=== PATIENT | male | born 1965 | race Hispanic/Latino ===

== ENCOUNTER 2020-09-14 09:26 | Inpatient (IN) | payer OTHER ==
[2020-09-14] MEDS ORDERED: SODIUM CHLORIDE 0.9% 1000 ML 1,000 ML IV ONE ×2 (09:50→10:10)
[2020-09-14] MEDS ORDERED: CEFEPIME/NS 1 GM/100 ML 1 GM/100 ML BAG IV ONE (10:11)
[2020-09-14] MEDS ORDERED: AZITHROMYCIN/NS 500 MG/250 ML 500 MG/250 ML BAG IV ONE (10:32)
[2020-09-14] MEDS ORDERED: PANTOPRAZOLE 40 MG INJ IV ONE (10:33)
[2020-09-14 10:55] LABS: Bacteria,Urine 3+ /HPF (Negative); Bilirubin,Urine NEG (Negative); Blood,Urine MOD (Negative); Color,Urine Yellow (Yellow); Urobilinogen,Urine < 2.0 mg/dL (<2.0)
--- NOTE | 2020-09-14 10:55 | XRay Report ---
CHEST 1 VIEW INDICATION / CLINICAL INFORMATION: Difficulty breathing. COMPARISON: None available. FINDINGS: SUPPORT DEVICES: None. HEART / MEDIASTINUM: No significant abnormality. LUNGS / PLEURA: Bilateral pulmonary opacities are present throughout the lung bases. The appearance i s consistent with bibasilar pneumonia. No significant pleural effusion. No pneumothorax. ADDITIONAL FINDINGS: No significant additional findings. IMPRESSION: 1. Bibasilar pulmonary opacities most consistent with pneumonia. Signer Name: Phuong Cota MD Signed: 09/14/2020 10:50 AM Workstation Name: [id number]
[2020-09-14 10:57] LABS: WBC,Urine > 182.0 /HPF (0.0-6.0)
[2020-09-14] MEDS ORDERED: VANCOMYCIN PHARMACY TO DOSE IV SCH (11:00)
[2020-09-14] MEDS ORDERED: VANCOMYCIN 1,500 MG in SODIUM CHLORIDE 0.9% 500 ML 500 ML IV ONE (11:00)
[2020-09-14 11:15] LABS: Hematocrit 34.5 % (35.5-45.6); Hemoglobin 11.2 gm/dl (11.8-15.2); Mean Corpuscular HGB Conc 33 % (32-34); Mean Corpuscular Volume 85 fl (84-94); Platelet Count 365 K/mm3 (140-440); Red Blood Count 4.07 M/mm3 (3.65-5.03); Red Cell Distribution Width 13.7 % (13.2-15.2)
[2020-09-14 11:23] LABS: INR 1.2 (0.87-1.13); Partial Thromboplastin Time 31.2 Sec. (24.2-36.6)
[2020-09-14 11:32] LABS: Creatine Kinase MB 2.5 ng/mL (0.0-4.0)
--- NOTE | 2020-09-14 11:34 | Emergency Department Report ---
ED General Adult HPI - General Chief complaint: Hyperglycemia Stated complaint: HIGH BLOOD SUGAR/WEAK Time Seen by Provider: 09/14/20 10:08 Source: patient, EMS Mode of arrival: Stretcher Limitations: Physical Limitation - History of Present Illness Initial comments: This is a 55-year old man with no prior history of diabetes. He arrives via EMS, found to have a sugar off the high end of the scale. He is perhaps a bit altered but able to answer questions. He can tell me his name. He is very slow to answer questions. He states that his nephew called EMS because he was very weak. He denies essentially all other symptomatology; he is giving a grossly negative review of systems. -: unknown Severity scale (0 -10): 0 Associated Symptoms: denies other symptoms (But altered) - Related Data Allergies Allergy/AdvReac Type Severity Reaction Status Date / Time No Known Allergies Allergy Verified 09/14/20 09:38 ED Review of Systems ROS: Stated complaint: HIGH BLOOD SUGAR/WEAK Other details as noted in HPI Comment: Unobtainable due to pts medical conditions ED Past Medical Hx - Past Medical History Previous Medical History?: No - Surgical History Past Surgical History?: Yes Additional Surgical History: tonsillectomy - Social History Smoking Status: Former Smoker Substance Use Type: None ED Physical Exam - General Limitations: Physical Limitation General appearance: lethargic - Head Head exam: Present: other (Band-Aid on forehead) - Eye Eye exam: Present: PERRL, EOMI. Absent: scleral icterus - ENT ENT exam: Present: mucous membranes dry - Neck Neck exam: Present: normal inspection. Absent: tenderness, meningismus - Respiratory Respiratory exam: Present: respiratory distress, rhonchi (Bilaterally) - Cardiovascular Cardiovascular Exam: Present: tachycardia - GI/Abdominal GI/Abdominal exam: Present: soft, distended (Perhaps slightly). Absent: tenderness, guarding, rebound, rigid - exam: Present: other (There is gross evidence of monilial infection involving the penis and scrotal area. There is no purulence abscess or gangrene) - Extremities Exam Extremities exam: Present: normal inspection (Without gross deformity.) - Back Exam Back exam: Present: other (Did not visualize) - Neurological Exam Neurological exam: Present: altered, other (No apparent focal deficit) - Psychiatric Psychiatric exam: Present: normal mood, flat affect - Skin Skin exam: Present: warm ED Course Vital Signs 09/14/20 09/14/20 09/14/20 09:38 09:44 09:45 Temperature 99.3 F Pulse Rate 124 H 109 H 122 H Respiratory 21 24 22 Rate Blood Pressure 121/63 Blood Pressure 124/59 [Left] O2 Sat by Pulse 94 93 94 Oximetry 09/14/20 09/14/20 09/14/20 09:50 10:00 10:15 Temperature Pulse Rate 123 H 120 H Respiratory 21 25 H 23 Rate Blood Pressure 121/63 131/75 Blood Pressure [Left] O2 Sat by Pulse 94 92 96 Oximetry 09/14/20 09/14/20 09/14/20 10:30 10:46 11:00 Temperature Pulse Rate 122 H 116 H 117 H Respiratory 21 17 27 H Rate Blood Pressure 131/75 119/68 119/68 Blood Pressure [Left] O2 Sat by Pulse 96 95 92 Oximetry 09/14/20 09/14/20 11:30 11:46 Temperature Pulse Rate 117 H Respiratory 29 H Rate Blood Pressure 119/68 104/58 Blood Pressure [Left] O2 Sat by Pulse 90 91 Oximetry - Reevaluation(s) Reevaluation #1: IV fluid bolus, empiric antibiotics, ascertain if patient is in DKA. 09/14/20 11:55 09/14/20 12:29 Patient has already been placed in isolation. His chest x-ray was consistent with COVID-19. His urine was grossly purulent. He received triple antibiotic coverage. He will require fungal coverage. I will defer that to the hospitalist. Reevaluation #2: Patient was given insulin, fluids, empiric antibiotic. Referred to the hospitalist staff. Probably appropriate for the IMCU. 09/14/20 12:34 ED Medical Decision Making - Lab Data Result diagrams: 09/14/20 10:33 09/14/20 10:33 Laboratory Results - last 24 hr 09/14/20 09/14/20 09/14/20 09:32 10:33 10:33 WBC 11.5 H RBC 4.07 Hgb 11.2 L Hct 34.5 L MCV 85 MCH 28 MCHC 33 RDW 13.7 Plt Count 365 PT 15.2 H INR 1.20 H APTT 31.2 D-Dimer 1032.62 H POC Glucose > 600 H Lactic Acid CK-MB (CK-2) Troponin T NT-Pro-B Natriuret Pep Urine Color Urine Turbidity Urine pH Ur Specific [place] Urine Protein Urine Glucose (UA) Urine Ketones Urine Blood Urine Nitrite Urine Bilirubin Urine Urobilinogen Ur Leukocyte Esterase Urine WBC (Auto) Urine RBC (Auto) Urine Bacteria (Auto) Urine WBC Clumps 09/14/20 09/14/20 09/14/20 10:33 10:33 10:35 WBC RBC Hgb Hct MCV MCH MCHC RDW Plt Count PT INR APTT D-Dimer POC Glucose Lactic Acid 2.90 H* CK-MB (CK-2) 2.5 Troponin T < 0.010 NT-Pro-B Natriuret Pep 597.0 Urine Color Yellow Urine Turbidity Turbid Urine pH 5.0 Ur Specific [place] 1.012 Urine Protein 100 mg/dl Urine Glucose (UA) >=500 Urine Ketones Neg Urine Blood Mod Urine Nitrite Neg Urine Bilirubin Neg Urine Urobilinogen < 2.0 Ur Leukocyte Esterase Mod Urine WBC (Auto) > 182.0 H Urine RBC (Auto) 39.0 Urine Bacteria (Auto) 3+ Urine WBC Clumps 3+ Laboratory Results - last 24 hr 09/14/20 09/14/20 09/14/20 09:32 10:33 10:33 WBC 11.5 H RBC 4.07 Hgb 11.2 L Hct 34.5 L MCV 85 MCH 28 MCHC 33 RDW 13.7 Plt Count 365 PT 15.2 H INR 1.20 H APTT 31.2 D-Dimer 1032.62 H Sodium Potassium Chloride Carbon Dioxide Anion Gap BUN Creatinine Estimated GFR BUN/Creatinine Ratio Glucose POC Glucose > 600 H Lactic Acid Calcium Magnesium Ferritin Total Bilirubin Direct Bilirubin AST ALT Alkaline Phosphatase Lactate Dehydrogenase Total Creatine Kinase CK-MB (CK-2) CK-MB (CK-2) Rel Index Troponin T C-Reactive Protein NT-Pro-B Natriuret Pep Total Protein Albumin Albumin/Globulin Ratio Lipase Urine Color Urine Turbidity Urine pH Ur Specific [place] Urine Protein Urine Glucose (UA) Urine Ketones Urine Blood Urine Nitrite Urine Bilirubin Urine Urobilinogen Ur Leukocyte Esterase Urine WBC (Auto) Urine RBC (Auto) Urine Bacteria (Auto) Urine WBC Clumps Urine Opiates Screen Urine Methadone Screen Ur Barbiturates Screen Ur Phencyclidine Scrn Ur Amphetamines Screen U Benzodiazepines Scrn Urine Cocaine Screen U Marijuana (THC) Screen Drugs of Abuse Note 09/14/20 09/14/20 09/14/20 10:33 10:33 10:33 WBC RBC Hgb Hct MCV MCH MCHC RDW Plt Count PT INR APTT D-Dimer Sodium 120 L Potassium 5.2 H Chloride 87.5 L Carbon Dioxide 21 L Anion Gap 17 BUN 29 H Creatinine 2.8 H Estimated GFR 23 BUN/Creatinine Ratio 10 Glucose 891 H* POC Glucose Lactic Acid Calcium 7.6 L Magnesium 1.80 Ferritin 1422.0 H Total Bilirubin 0.30 Direct Bilirubin < 0.2 AST 5 ALT 7 Alkaline Phosphatase 109 Lactate Dehydrogenase 146 Total Creatine Kinase 48 L CK-MB (CK-2) 2.5 CK-MB (CK-2) Rel Index 5.2 H Troponin T < 0.010 C-Reactive Protein 33.60 H NT-Pro-B Natriuret Pep 597.0 Total Protein 6.2 L Albumin 2.3 L Albumin/Globulin Ratio 0.6 Lipase 13 Urine Color Urine Turbidity Urine pH Ur Specific [place] Urine Protein Urine Glucose (UA) Urine Ketones Urine Blood Urine Nitrite Urine Bilirubin Urine Urobilinogen Ur Leukocyte Esterase Urine WBC (Auto) Urine RBC (Auto) Urine Bacteria (Auto) Urine WBC Clumps Urine Opiates Screen Urine Methadone Screen Ur Barbiturates Screen Ur Phencyclidine Scrn Ur Amphetamines Screen U Benzodiazepines Scrn Urine Cocaine Screen U Marijuana (THC) Screen Drugs of Abuse Note 09/14/20 09/14/20 09/14/20 10:33 10:35 10:35 WBC RBC Hgb Hct MCV MCH MCHC RDW Plt Count PT INR APTT D-Dimer Sodium Potassium Chloride Carbon Dioxide Anion Gap BUN Creatinine Estimated GFR BUN/Creatinine Ratio Glucose POC Glucose Lactic Acid 2.90 H* Calcium Magnesium Ferritin Total Bilirubin Direct Bilirubin AST ALT Alkaline Phosphatase Lactate Dehydrogenase Total Creatine Kinase CK-MB (CK-2) CK-MB (CK-2) Rel Index Troponin T C-Reactive Protein NT-Pro-B Natriuret Pep Total Protein Albumin Albumin/Globulin Ratio Lipase Urine Color Yellow Urine Turbidity Turbid Urine pH 5.0 Ur Specific [place] 1.012 Urine Protein 100 mg/dl Urine Glucose (UA) >=500 Urine Ketones Neg Urine Blood Mod Urine Nitrite Neg Urine Bilirubin Neg Urine Urobilinogen < 2.0 Ur Leukocyte Esterase Mod Urine WBC (Auto) > 182.0 H Urine RBC (Auto) 39.0 Urine Bacteria (Auto) 3+ Urine WBC Clumps 3+ Urine Opiates Screen Negative Urine Methadone Screen Negative Ur Barbiturates Screen Negative Ur Phencyclidine Scrn Negative Ur Amphetamines Screen Negative U Benzodiazepines Scrn Negative Urine Cocaine Screen Negative U Marijuana (THC) Screen Negative Drugs of Abuse Note Disclamer - EKG Data -: EKG Interpreted by Me Rate: tachycardia - EKG Data Interpretation: other (Nonspecific changes, normal axis, atrial fibrillation with RVR) - Radiology Data Radiology results: image reviewed LUNGS / PLEURA: Bilateral pulmonary opacities are present throughout the lung bases. The appearance is consistent with bibasilar pneumonia. No significant pleural effusion. No pneumothorax. ADDITIONAL FINDINGS: No significant additional findings. IMPRESSION: 1. Bibasilar pulmonary opacities most consistent with pneumonia. Right side is more confluent than the left Radiologist questions aspiration on the basis of the CT pulmonary images. The patient was found to have obstructive uropathy with bladder wall thickening cons ider neoplasm consider hemorrhage. Ramirez is in good location. Critical Care Time: Yes Critical care time in (mins) excluding proc time.: 90 Critical care attestation.: If time is entered above; I have spent that time in minutes in the direct care of this critically ill patient, excluding procedure time. ED Disposition Clinical Impression: Acute encephalopathy, Pyelonephritis, Obstructive uropathy, Acute kidney injury, Atrial fibrillation with RVR, Yeast dermatitis of penis, Hyponatremia, Hypochloremia, COVID-19 virus infection Sepsis Qualifiers: Sepsis type: sepsis due to unspecified organism Sepsis acute organ dysfunction status: with acute organ dysfunction Severe sepsis acute organ dysfunction type: acute renal failure Acute renal failure type: unspecified Severe sepsis shock status: without septic shock Qualified Code(s): A41.9 - Sepsis, unspecified organism; R65.20 - Severe sepsis without septic shock; N17.9 - Acute kidney failure, unspecified Bilateral pneumonia Qualifiers: Pneumonia type: due to unspecified organism Lung location: lower lobe of lung Qualified Code(s): J18.9 - Pneumonia, unspecified organism Disposition: OP ADMIT IP TO THIS HOSP Is pt being admited?: Yes Does the pt Need Aspirin: Yes Condition: Stable Instructions: Bacterial Pneumonia (ED) Referrals: PRIMARY CARE, [Primary Care Provider] - 3-5 Days Time of Disposition: 12:37
[2020-09-14 11:35] LABS: Alanine Aminotransferase 7 units/L (7-56); Albumin 2.3 g/dL (3.9-5); BUN/Creatinine Ratio 10; Blood Urea Nitrogen 29 mg/dL (9-20); Calcium 7.6 mg/dL (8.4-10.2); Hemolysis Index 0
[2020-09-14 11:39] LABS: Bilirubin,Direct < 0.2 mg/dL (0-0.2)
--- NOTE | 2020-09-14 11:40 | Cat Scan Report ---
CT head/brain wo con INDICATION / CLINICAL INFORMATION: AMS. TECHNIQUE: Axial CT imaging of the brain was obtained without contrast. Coronal and sagittal reformatted imaging obtained and reviewed. All CT scans at this location are performed using CT dose reduction for ALAR A by means of automated exposure control. COMPARISON: None available. FINDINGS: No intracranial hemorrhage, mass, or midline shift is noted. No extra-axial fluid collection or sugge stion of acute territorial infarction. Ventricular system and basilar cisterns are unremarkable. Mild age-appropriate atrophy noted. Visualized paranasal sinuses and mastoid air cells are well aerated and clear. No calvarial abnormali ty. IMPRESSION: 1. No acute intracranial abnormality. Signer Name: Phuong Cota MD Signed: 09/14/2020 11:35 AM Workstation Name: [id number]
[2020-09-14 11:42] LABS: Amphetamine Screen,Urine Negative; Benzodiazepines Screen,Urine Negative; Cannabinoid Screen,Urine Negative; Cocaine Screen,Urine Negative; Methadone Screen,Urine Negative; Opiate Screen,Urine Negative
[2020-09-14 11:50] LABS: C-Reactive Protein 33.6 mg/dL (0.00-1.30)
--- NOTE | 2020-09-14 11:59 | Cat Scan Report ---
CT abdomen pelvis wo con INDICATION / CLINICAL INFORMATION: abd pain. TECHNIQUE: Routine CT abdomen and pelvis without IV contrast All CT scans at this location are performed using C T dose reduction for ALARA by means of automated exposure control. COMPARISON: None available. FINDINGS: Abdomen and pelvis: There is severe consolidative process identified within the dependent portion of both lower lungs right worse than left. There are some cavitary features/60 change within the depende nt portion of the right lower lobe with surrounding consolidation. There is a small right pleural eff usion. The liver is fatty. The gallbladder is mostly contracted. The spleen, pancreas adrenal glands are unr emarkable. There is severe right hydroureteronephrosis and moderate left hydroureteronephrosis. Both ureters tra nsition at the level of the urinary bladder and there is no evidence of nephrolithiasis. Urinary blad augie is diffusely abnormal in appearance especially the anterior wall which is significantly thickened and irregular measuring up to 1.4 cm in greatest thickness. There is a Ramirez catheter with intermixe d high density material identified within the urinary bladder lumen. Colonic diverticulosis but no diverticulitis. No free air or free fluid. There is evidence of severe discogenic degenerative change at L3-L4 and L4-L5. IMPRESSION: 1. Severe bilateral lower lobe airspace pneumonia with some evidence of cavitary change within the ri ght lower lobe concerning for severe aspiration pneumonia. Suspect tiny right pleural effusion. 2. Severe bilateral hydroureteronephrosis, right worse than left with transition at the urinary bladd er without obvious obstructing lesion. 3. Abnormally thickened urinary bladder wall with intermixed high density material concerning for int raluminal hemorrhage. The Ramirez catheter balloon does appear to be within the urinary bladder lumen. The etiology for urinary bladder wall thickening could be secondary to chronic neurogenic bladder inga darrius underlying neoplasm. No prior exam is available for comparison to determine chronicity of this ab normality. 4. Colonic diverticulosis but no diverticulitis. Signer Name: Naman Lamas MD Signed: 09/14/2020 11:55 AM Workstation Name: [id number]
[2020-09-14] MEDS ORDERED: INSULIN REGULAR, HUMAN 100 UNITS/1 ML IV ONE ×2 (12:00→15:00)
[2020-09-14 12:36] LABS: Total Cells Counted 100
[2020-09-14 12:37] LABS: Platelet Estimate Consistent w Auto; RBC Morphology Normal
[2020-09-14] MEDS ORDERED: ASPIRIN 81 MG TAB CHEW PO ONE (12:37)
--- NOTE | 2020-09-14 13:02 | History and Physical Report ---
History of Present Illness Chief complaint: He is weak History of present illness: 55 YO Male with DM presents to ED for evaluation. Patient is lethargic and unable to provide detailed history at the time of my evaluation. Patient history taken from EMS staff, ED staff, as well as patient family. As per patient nephewthe patient has "gotten very weak" over the past week with persistently worsening symptoms over the same timeframe. EMS was notified and upon arrival the patient was found to be in distress and subsequently transported to [facility] for further care and evaluation of the aforementioned symptoms. The patient was seen and evaluated in the emergency department. All lab and imaging studies reviewed. The patient was found to have pneumonia, urinary tract infection complicated by sepsis, hyponatremia, acute kidney injury, uncontrolled diabetes mellitus with a blood glucose in the 800s which is consistent with hyperglycemic hyperosmolar state. Patient also found to have bilateral hydronephrosis without evidence of urinary obstruction. Patient admitted to [facility] and initiated on sepsis protocol, pneumonia protocol, as well as coronavirus protocol. Patient initiated on aggressive IV insulin therapy as well as sliding scale insulin therapy. No further history is obtainable. Patient is confused with diminished cognition at the time of my evaluation but has positive gag reflex and is able to protect his airway without difficulty. No prior admission for review. No medication listed at time of admission for reconciliation. Past History Past Medical History: diabetes, other (See HPI) Past Surgical History: No surgical history, Other (Reviewed) Social history: , lives with family. denies: smoking, alcohol abuse, prescription drug abuse Family history: diabetes, hypertension Medications and Allergies Allergies Allergy/AdvReac Type Severity Reaction Status Date / Time No Known Allergies Allergy Verified 09/14/20 09:38 Review of Systems ROS unobtainable: due to mental status Exam - Constitutional Vitals: Temp Pulse Resp BP Pulse Ox 99.3 F 117 H 29 H 104/58 91 09/14/20 09:38 09/14/20 11:46 09/14/20 11:46 09/14/20 11:46 09/14/20 11:46 General appearance: Present: mild distress - EENT Eyes: Present: PERRL ENT: hearing decreased - Neck Neck: Present: supple, normal ROM - Respiratory Respiratory effort: labored Respiratory: bilateral: diminished - Cardiovascular Heart Sounds: Present: S1 & S2. Absent: rub, click - Extremities Extremities: pulses symmetrical, No edema Peripheral Pulses: abnormal (Capillary refill greater than 3.5 seconds) - Abdominal General gastrointestinal: Present: soft, non-tender, non-distended, normal bowel sounds Male genitourinary: Present: normal - Integumentary Integumentary: Present: dry, clammy, decreased turgor - Musculoskeletal Musculoskeletal: generalized weakness - Psychiatric Psychiatric: no appropriate mood/affect, no intact judgment & insight, no memory intact - Neurologic Neurologic: CNII-XII intact, no focal deficits, moves all extremities, no gait normal HEART Score - HEART Score Troponin: Troponin T < 0.010 ng/mL (0.00-0.029) 09/14/20 10:33 Results - Labs CBC & Chem 7: 09/14/20 10:33 09/14/20 10:33 Labs: Abnormal lab results 09/14/20 09/14/20 09/14/20 Range/Units 09:32 10:33 10:33 WBC 11.5 H (4.5-11.0) K/mm3 Hgb 11.2 L (11.8-15.2) gm/dl Hct 34.5 L (35.5-45.6) % Seg Neuts % (Manual) 78.0 H (40.0-70.0) % Lymphocytes % (Manual) 3.0 L (13.4-35.0) % Seg Neutrophils # Man 9.0 H (1.8-7.7) K/mm3 Lymphocytes # (Manual) 0.3 L (1.2-5.4) K/mm3 PT 15.2 H (12.2-14.9) Sec. INR 1.20 H (0.87-1.13) D-Dimer 1032.62 H (0-234) ng/mlDDU Sodium (137-145) mmol/L Potassium (3.6-5.0) mmol/L Chloride (98-107) mmol/L Carbon Dioxide (22-30) mmol/L BUN (9-20) mg/dL Creatinine (0.8-1.3) mg/dL Glucose (75-100) mg/dL POC Glucose > 600 H (70-105) mg/dL Lactic Acid (0.7-2.0) mmol/L Calcium (8.4-10.2) mg/dL Ferritin (30.0-300.0) ng/mL Total Creatine Kinase (55-170) units/L CK-MB (CK-2) Rel Index (0-4) C-Reactive Protein (0.00-1.30) mg/dL Total Protein (6.3-8.2) g/dL Albumin (3.9-5) g/dL Urine WBC (Auto) (0.0-6.0) /HPF 09/14/20 09/14/20 09/14/20 Range/Units 10:33 10:33 10:33 WBC (4.5-11.0) K/mm3 Hgb (11.8-15.2) gm/dl Hct (35.5-45.6) % Seg Neuts % (Manual) (40.0-70.0) % Lymphocytes % (Manual) (13.4-35.0) % Seg Neutrophils # Man (1.8-7.7) K/mm3 Lymphocytes # (Manual) (1.2-5.4) K/mm3 PT (12.2-14.9) Sec. INR (0.87-1.13) D-Dimer (0-234) ng/mlDDU Sodium 120 L (137-145) mmol/L Potassium 5.2 H (3.6-5.0) mmol/L Chloride 87.5 L (98-107) mmol/L Carbon Dioxide 21 L (22-30) mmol/L BUN 29 H (9-20) mg/dL Creatinine 2.8 H (0.8-1.3) mg/dL Glucose 891 H* 895 H* (75-100) mg/dL POC Glucose (70-105) mg/dL Lactic Acid (0.7-2.0) mmol/L Calcium 7.6 L (8.4-10.2) mg/dL Ferritin 1422.0 H (30.0-300.0) ng/mL Total Creatine Kinase 48 L (55-170) units/L CK-MB (CK-2) Rel Index 5.2 H (0-4) C-Reactive Protein 33.60 H (0.00-1.30) mg/dL Total Protein 6.2 L (6.3-8.2) g/dL Albumin 2.3 L (3.9-5) g/dL Urine WBC (Auto) (0.0-6.0) /HPF 09/14/20 09/14/20 Range/Units 10:33 10:35 WBC (4.5-11.0) K/mm3 Hgb (11.8-15.2) gm/dl Hct (35.5-45.6) % Seg Neuts % (Manual) (40.0-70.0) % Lymphocytes % (Manual) (13.4-35.0) % Seg Neutrophils # Man (1.8-7.7) K/mm3 Lymphocytes # (Manual) (1.2-5.4) K/mm3 PT (12.2-14.9) Sec. INR (0.87-1.13) D-Dimer (0-234) ng/mlDDU Sodium (137-145) mmol/L Potassium (3.6-5.0) mmol/L Chloride (98-107) mmol/L Carbon Dioxide (22-30) mmol/L BUN (9-20) mg/dL Creatinine (0.8-1.3) mg/dL Glucose (75-100) mg/dL POC Glucose (70-105) mg/dL Lactic Acid 2.90 H* (0.7-2.0) mmol/L Calcium (8.4-10.2) mg/dL Ferritin (30.0-300.0) ng/mL Total Creatine Kinase (55-170) units/L CK-MB (CK-2) Rel Index (0-4) C-Reactive Protein (0.00-1.30) mg/dL Total Protein (6.3-8.2) g/dL Albumin (3.9-5) g/dL Urine WBC (Auto) > 182.0 H (0.0-6.0) /HPF Assessment and Plan - Patient Problems (1) Sepsis Current Visit: Yes Status: Acute Qualifiers: Acute renal failure type: with acute tubular necrosis Plan to address problem: Sepsis protocol: CBC, CMP, chest x-ray, IV fluid resuscitation therapy, IV antibiotic therapy, blood culture, maintain mean arterial pressure greater than or equal to 65, serial lactic acid level, monitor urine output every shift, monitor fluid balance, (2) Toxic metabolic encephalopathy Current Visit: Yes Status: Acute Plan to address problem: CT scan head, seizure precautions, aspiration precautions, IV fluid res uscitation therapy, treat sepsis, neuro checks. (3) JULEE (acute kidney injury) Current Visit: Yes Status: Acute Plan to address problem: BMP, IV fluid resuscitation therapy, repeat BMP in a.m. to monitor serum creatinine as well as GFR, urine electrolytes. (4) Pneumonia Current Visit: Yes Status: Acute Plan to address problem: Pneumonia protocol: Chest x-ray, CBC, CMP, IV antibiotic therapy, supplemental o xygen, pulse oximetry, blood culture. (5) Suspected 2019 novel coronavirus infection Current Visit: Yes Status: Acute Plan to address problem: Coronavirus protocol: Contact precautions, isolation precautions, IV steroid therapy, IV antibiotic therapy, supportive care. (6) Hyponatremia Current Visit: Yes Status: Acute Plan to address problem: Pseudohyponatremia: Suspected secondary to hyperglycemia, repeat BMP, (7) Hyperosmolar hyperglycemic state (HHS) Current Visit: Yes Status: Acute Plan to address problem: Sliding-scale insulin therapy, IV fluid resuscitation therapy, treat sepsis, monitor fluid balance, supportive care. (8) Bilateral hydronephrosis Current Visit: Yes Status: Acute Plan to address problem: CT scan abdomen and pelvis, Ramirez catheter placement, PSA free and total. Supportive care. No evidence of urinary outlet obstruction (9) DVT prophylaxis Current Visit: Yes Status: Acute Plan to address problem: SCD to bilateral lower extremities while in bed, prophylactic anticoagulation
[2020-09-14] MEDS ORDERED: ACETAMINOPHEN 325 MG TAB PO PRN ×2 (13:03→13:06)
[2020-09-14] MEDS ORDERED: ONDANSETRON 4 MG/2 ML INJ IV PRN (13:03)
[2020-09-14] MEDS ORDERED: ALBUTEROL 2.5 MG/3 ML NEBU IH PRN (13:03)
[2020-09-14] MEDS ORDERED: DEXTROSE 50% IN WATER (25GM) 50 ML SYRINGE IV PRN ×2 (13:03→13:07)
[2020-09-14] MEDS ORDERED: SODIUM CHLORIDE 0.9% 1000 ML IV SOLN IV ONE (13:06)
[2020-09-14] MEDS ORDERED: HYDROmorphone 1 MG/1 ML INJ IV PRN (13:06)
[2020-09-14 14:27] LABS: Creatinine,Urine 15.2 mg/dL (0.1-20.0)
[2020-09-14] MEDS: INSULIN REGULAR, HUMAN 100 UNITS/1 ML SUB-Q SCH ×2 (14:50→22:53)
[2020-09-14] MEDS: methylPREDNISolone Sod Succinate 40 MG/1 ML INJ IV SCH ×2 (14:57→22:52)
[2020-09-14] MEDS: cefTRIAXone/NS 2 GM/100 ML 2 GM/100 ML BAG IV SCH (14:57)
[2020-09-14] MEDS: HEPARIN 5,000 UNIT/1 ML VIAL SUB-Q SCH (22:52)
[2020-09-14] MEDS: ASCORBIC ACID 250 MG TAB PO SCH (22:53)
[2020-09-14] MEDS: ZINC SULFATE 220 MG CAP PO SCH (22:53)
[2020-09-15 05:26] LABS: Hematocrit 34.2 % (35.5-45.6); Hemoglobin 11.3 gm/dl (11.8-15.2); Mean Corpuscular HGB Conc 33 % (32-34); Mean Corpuscular Volume 82 fl (84-94); Platelet Count 399 K/mm3 (140-440); Red Blood Count 4.19 M/mm3 (3.65-5.03); Red Cell Distribution Width 14.1 % (13.2-15.2)
[2020-09-15 05:46] LABS: Calcium 7.9 mg/dL (8.4-10.2)
[2020-09-15 06:41] LABS: Platelet Estimate Consistent w Auto; Total Cells Counted 100
[2020-09-15] MEDS: methylPREDNISolone Sod Succinate 40 MG/1 ML INJ IV SCH ×3 (07:05→23:10)
[2020-09-15] MEDS: INSULIN REGULAR, HUMAN 100 UNITS/1 ML SUB-Q SCH ×5 (07:05→18:41)
--- NOTE | 2020-09-15 10:06 | Progress Note ---
Assessment and Plan Assessment and plan: Sepsis Sepsis protocol: CBC, CMP, chest x-ray, IV fluid resuscitation therapy, IV antibiotic therapy, blood culture, maintain mean arterial pressure greater than or equal to 65, serial lactic acid level, monitor urine output every shift, monitor fluid balance, Toxic metabolic encephalopathy CT scan head, seizure precautions, aspiration precautions, IV fluid resuscitation therapy, treat sepsis, neuro checks. JULEE (acute kidney injury) Nephrology consultation. BMP, IV fluid resuscitation therapy, repeat BMP in a.m. to monitor serum creatinine as well as GFR, urine electrolytes. Pneumonia Pneumonia protocol: Chest x-ray, CBC, CMP, IV antibiotic therapy, supplemental oxygen, pulse oximetry, blood culture. Suspected 2019 novel coronavirus infection Coronavirus protocol: Contact precautions, isolation precautions, IV steroid therapy, IV antibiotic therapy, supportive care. Hyponatremia Pseudohyponatremia: Suspected secondary to hyperglycemia, repeat BMP, Hyperosmolar hyperglycemic state (HHS) Start insulin 70/30 20 units twice daily. If no significant improvement in BG, we will start insulin drip. Sliding-scale insulin therapy, IV fluid resuscitation therapy, treat sepsis, monitor fluid balance, supportive care. Bilateral hydronephrosis CT scan abdomen and pelvis, Ramirez catheter placement, PSA free and total. Supportive care. No evidence of urinary outlet obstruction. DVT prophylaxis SCD to bilateral lower extremities while in bed, prophylactic anticoagulation History Interval history: No new issues overnight. Hospitalist Physical - Constitutional Vitals: Temp Pulse Resp BP Pulse Ox 99.3 F 111 H 19 100/62 96 09/14/20 09:38 09/15/20 05:00 09/15/20 09:04 09/15/20 05:00 09/15/20 09:04 General appearance: Present: mild distress - EENT Eyes: Present: PERRL, EOM intact ENT: hearing intact, clear oral mucosa, dentition normal - Neck Neck: Present: supple, normal ROM - Respiratory Respiratory effort: normal Respiratory: bilateral: CTA - Cardiovascular Rhythm: regular Heart Sounds: Present: S1 & S2. Absent: gallop, rub - Extremities Extremities: no ischemia, No edema, Full ROM - Abdominal General gastrointestinal: soft, non-tender, non-distended, normal bowel sounds - Integumentary Integumentary: Present: clear, warm, dry - Neurologic Neurologic: CNII-XII intact, moves all extremities HEART Score - HEART Score Troponin: Troponin T < 0.010 ng/mL (0.00-0.029) 09/14/20 10:33 Results - Labs CBC & Chem 7: 09/15/20 05:16 09/15/20 05:16 Labs: Laboratory Last Values WBC 12.3 K/mm3 (4.5-11.0) H 09/15/20 05:16 RBC 4.19 M/mm3 (3.65-5.03) 09/15/20 05:16 Hgb 11.3 gm/dl (11.8-15.2) L 09/15/20 05:16 Hct 34.2 % (35.5-45.6) L 09/15/20 05:16 MCV 82 fl (84-94) L 09/15/20 05:16 MCH 27 pg (28-32) L 09/15/20 05:16 MCHC 33 % (32-34) 09/15/20 05:16 RDW 14.1 % (13.2-15.2) 09/15/20 05:16 Plt Count 399 K/mm3 (140-440) 09/15/20 05:16 Add Manual Diff Complete 09/15/20 05:16 Total Counted 100 09/15/20 05:16 Seg Neutrophils % Deck Cadet 09/15/20 05:16 Seg Neuts % (Manual) 92.0 % (40.0-70.0) H 09/15/20 05:16 Band Neutrophils % 9.0 % 09/14/20 10:33 Lymphocytes % (Manual) 4.0 % (13.4-35.0) L 09/15/20 05:16 Reactive Lymphs % (Man) 1.0 % 09/14/20 10:33 Monocytes % (Manual) 4.0 % (0.0-7.3) 09/15/20 05:16 Metamyelocytes % 2.0 % 09/14/20 10:33 Nucleated RBC % Not Reportable 09/15/20 05:16 Seg Neutrophils # Man 11.3 K/mm3 (1.8-7.7) H 09/15/20 05:16 Band Neutrophils # 0.0 K/mm3 09/15/20 05:16 Lymphocytes # (Manual) 0.5 K/mm3 (1.2-5.4) L 09/15/20 05:16 Abs React Lymphs (Man) 0.0 K/mm3 09/15/20 05:16 Monocytes # (Manual) 0.5 K/mm3 (0.0-0.8) 09/15/20 05:16 Eosinophils # (Manual) 0.0 K/mm3 (0.0-0.4) 09/15/20 05:16 Basophils # (Manual) 0.0 K/mm3 (0.0-0.1) 09/15/20 05:16 Metamyelocytes # 0.0 K/mm3 09/15/20 05:16 Myelocytes # 0.0 K/mm3 09/15/20 05:16 Promyelocytes # 0.0 K/mm3 09/15/20 05:16 Blast Cells # 0.0 K/mm3 09/15/20 05:16 WBC Morphology Not Reportable 09/15/20 05:16 Hypersegmented Neuts Not Reportable 09/15/20 05:16 Hyposegmented Neuts Not Reportable 09/15/20 05:16 Hypogranular Neuts Not Reportable 09/15/20 05:16 Smudge Cells Not Reportable 09/15/20 05:16 Toxic Granulation Not Reportable 09/15/20 05:16 Toxic Vacuolation Not Reportable 09/15/20 05:16 Dohle Bodies Not Reportable 09/15/20 05:16 Pelger-Huet Anomaly Not Reportable 09/15/20 05:16 Manasa Rods Not Reportable 09/15/20 05:16 Platelet Estimate Consistent w auto 09/15/20 05:16 Clumped Platelets Not Reportable 09/15/20 05:16 Plt Clumps, EDTA Not Reportable 09/15/20 05:16 Large Platelets Not Reportable 09/15/20 05:16 Giant Platelets Not Reportable 09/15/20 05:16 Platelet Satelliting Not Reportable 09/15/20 05:16 Plt Morphology Comment Not Reportable 09/15/20 05:16 RBC Morphology Not Reportable 09/15/20 05:16 Dimorphic RBCs Not Reportable 09/15/20 05:16 Polychromasia Not Reportable 09/15/20 05:16 Hypochromasia Not Reportable 09/15/20 05:16 Poikilocytosis Not Reportable 09/15/20 05:16 Anisocytosis Not Reportable 09/15/20 05:16 Microcytosis Not Reportable 09/15/20 05:16 Macrocytosis Not Reportable 09/15/20 05:16 Spherocytes Not Reportable 09/15/20 05:16 Pappenheimer Bodies Not Reportable 09/15/20 05:16 Sickle Cells Not Reportable 09/15/20 05:16 Target Cells Not Reportable 09/15/20 05:16 Tear Drop Cells Not Reportable 09/15/20 05:16 Ovalocytes Not Reportable 09/15/20 05:16 Helmet Cells Not Reportable 09/15/20 05:16 [place] Bodies Not Reportable 09/15/20 05:16 Brule Rings Not Reportable 09/15/20 05:16 Cori Cells Not Reportable 09/15/20 05:16 Bite Cells Not Reportable 09/15/20 05:16 Crenated Cell Not Reportable 09/15/20 05:16 Elliptocytes Not Reportable 09/15/20 05:16 Acanthocytes (Spur) Not Reportable 09/15/20 05:16 Rouleaux Not Reportable 09/15/20 05:16 Hemoglobin C Crystals Not Reportable 09/15/20 05:16 Schistocytes Not Reportable 09/15/20 05:16 Malaria parasites Not Reportable 09/15/20 05:16 Cj Bodies Not Reportable 09/15/20 05:16 Hem Pathologist Commnt No 09/15/20 05:16 PT 15.2 Sec. (12.2-14.9) H 09/14/20 10:33 INR 1.20 (0.87-1.13) H 09/14/20 10:33 APTT 31.2 Sec. (24.2-36.6) 09/14/20 10:33 D-Dimer 1032.62 ng/mlDDU (0-234) H 09/14/20 10:33 Sodium 126 mmol/L (137-145) L 09/15/20 05:16 Potassium 4.8 mmol/L (3.6-5.0) 09/15/20 05:16 Chloride 95.7 mmol/L (98-107) L 09/15/20 05:16 Carbon Dioxide 23 mmol/L (22-30) 09/15/20 05:16 Anion Gap 12 mmol/L 09/15/20 05:16 BUN 33 mg/dL (9-20) H 09/15/20 05:16 Creatinine 2.7 mg/dL (0.8-1.3) H 09/15/20 05:16 Estimated GFR 24 ml/min 09/15/20 05:16 BUN/Creatinine Ratio 12 % 09/15/20 05:16 Glucose 443 mg/dL (75-100) H 09/15/20 05:16 POC Glucose 493 mg/dL (70-105) H 09/14/20 21:26 Lactic Acid 1.80 mmol/L (0.7-2.0) 09/14/20 19:33 Calcium 7.9 mg/dL (8.4-10.2) L 09/15/20 05:16 Magnesium 1.80 mg/dL (1.7-2.3) 09/14/20 10:33 Ferritin 1422.0 ng/mL (30.0-300.0) H 09/14/20 10:33 Total Bilirubin 0.30 mg/dL (0.1-1.2) 09/14/20 10:33 Direct Bilirubin < 0.2 mg/dL (0-0.2) 09/14/20 10:33 AST 5 units/L (5-40) 09/14/20 10:33 ALT 7 units/L (7-56) 09/14/20 10:33 Alkaline Phosphatase 109 units/L (35-129) 09/14/20 10:33 Lactate Dehydrogenase 146 units/L (91-180) 09/14/20 10:33 Total Creatine Kinase 48 units/L (55-170) L 09/14/20 10:33 CK-MB (CK-2) 2.5 ng/mL (0.0-4.0) 09/14/20 10:33 CK-MB (CK-2) Rel Index 5.2 (0-4) H 09/14/20 10:33 Troponin T < 0.010 ng/mL (0.00-0.029) 09/14/20 10:33 C-Reactive Protein 33.60 mg/dL (0.00-1.30) H 09/14/20 10:33 NT-Pro-B Natriuret Pep 597.0 pg/mL (0-900) 09/14/20 10:33 Total Protein 6.2 g/dL (6.3-8.2) L 09/14/20 10:33 Albumin 2.3 g/dL (3.9-5) L 09/14/20 10:33 Albumin/Globulin Ratio 0.6 % 09/14/20 10:33 Lipase 13 units/L (13-60) 09/14/20 10:33 Procalcitonin 3.51 ng/mL (<0.15) 09/14/20 10:33 Urine Color Yellow (Yellow) 09/14/20 10:35 Urine Turbidity Turbid (Clear) 09/14/20 10:35 Urine pH 5.0 (5.0-7.0) 09/14/20 10:35 Ur Specific [place] 1.012 (1.003-1.030) 09/14/20 10:35 Urine Protein 100 mg/dl mg/dL (Negative) 09/14/20 10:35 Urine Glucose (UA) >=500 mg/dL (Negative) 09/14/20 10:35 Urine Ketones Neg mg/dL (Negative) 09/14/20 10:35 Urine Blood Mod (Negative) 09/14/20 10:35 Urine Nitrite Neg (Negative) 09/14/20 10:35 Urine Bilirubin Neg (Negative) 09/14/20 10:35 Urine Urobilinogen < 2.0 mg/dL (<2.0) 09/14/20 10:35 Ur Leukocyte Esterase Mod (Negative) 09/14/20 10:35 Urine WBC (Auto) > 182.0 /HPF (0.0-6.0) H 09/14/20 10:35 Urine RBC (Auto) 39.0 /HPF (0.0-6.0) 09/14/20 10:35 Urine Bacteria (Auto) 3+ /HPF (Negative) 09/14/20 10:35 Urine WBC Clumps 3+ /HPF 09/14/20 10:35 Urine Creatinine 15.2 mg/dL (0.1-20.0) 09/14/20 13:29 Urine Sodium 42 mmol/L 09/14/20 13:29 Urine Opiates Screen Negative 09/14/20 10:35 Urine Methadone Screen Negative 09/14/20 10:35 Ur Barbiturates Screen Negative 09/14/20 10:35 Ur Phencyclidine Scrn Negative 09/14/20 10:35 Ur Amphetamines Screen Negative 09/14/20 10:35 U Benzodiazepines Scrn Negative 09/14/20 10:35 Urine Cocaine Screen Negative 09/14/20 10:35 U Marijuana (THC) Screen Negative 09/14/20 10:35 Drugs of Abuse Note Disclamer 09/14/20 10:35 Blood Type O POSITIVE 09/14/20 10:25 Antibody Screen Negative 09/14/20 10:25 Microbiology: Microbiology 09/14/20 10:32 Peripheral/Venous Blood Culture - Preliminary Culture in Progress 09/14/20 10:32 Peripheral/Venous Blood Culture - Preliminary Culture in Progress Ramirez/IV: Voiding Method Indwelling Catheter Active Medications - Current Medications Current Medications: Generic Name Dose Route Start Last Admin Trade Name Freq PRN Reason Stop Dose Admin Acetaminophen 650 mg 09/14/20 13:03 Acetaminophen 325 Mg Tab PO Q4H PRN Pain MILD(1-3)/Fever >100.5/YUNG Albuterol 2.5 mg 09/14/20 13:03 Albuterol 2.5 Mg/3 Ml Nebu IH Q4HRT PRN Shortness Of Breath Ascorbic Acid 250 mg 09/14/20 22:00 09/14/20 22:53 Ascorbic Acid 250 Mg Tab PO 250 mg BID [facility] Administration Cholecalciferol 1,000 unit 09/15/20 10:00 Cholecalciferol (Vit D3) 1000 Unit (25 Mcg) Tab PO QDAY [facility] Dextrose 50 ml 09/14/20 13:03 Dextrose 50% In Water (25gm) 50 Ml Syringe IV Q30MIN PRN Hypoglycemia Protocol Heparin Sodium (Porcine) 5,000 unit 09/14/20 22:00 09/14/20 22:52 Heparin 5,000 Unit/1 Ml Vial SUB-Q 5,000 unit Q12HR [facility] Administration Hydromorphone HCl 0.25 mg 09/14/20 13:06 Hydromorphone 1 Mg/1 Ml Inj IV Q4H PRN Pain, Moderate (4-6) Ceftriaxone Sodium 2 gm in 100 mls @ 200 mls/hr 09/14/20 14:00 09/14/20 15:27 Rocephin/Ns 2 Gm/100 Ml IV Infused Q24H [facility] Infusion Protocol Azithromycin 500 mg in 250 mls @ 250 mls/hr 09/15/20 14:00 Zithromax/Ns IV Q24H [facility] [place] Protocol Insulin Human Regular 0 units 09/14/20 14:00 09/15/20 08:23 Insulin Regular, Human 100 Units/1 Ml SUB-Q Not Given Q6H [facility] [place] Protocol Methylprednisolone Sodium Succinate 40 mg 09/14/20 14:00 09/15/20 07:05 Methylprednisolone Sod Succinate 40 Mg/1 Ml Inj IV 40 mg Q8HR [facility] Administration Ondansetron HCl 4 mg 09/14/20 13:03 Ondansetron 4 Mg/2 Ml Inj IV Q8H PRN Nausea And Vomiting Sodium Chloride 10 ml 09/14/20 22:00 09/14/20 22:54 Sodium Chloride 0.9% 10 Ml Flush Syringe IV 10 ml BID [facility] Administration Sodium Chloride 10 ml 09/14/20 13:03 Sodium Chloride 0.9% 10 Ml Flush Syringe IV PRN PRN LINE FLUSH Zinc Sulfate 220 mg 09/14/20 22:00 09/14/20 22:53 Zinc Sulfate 220 Mg Cap PO 220 mg BID [facility]AU Administration
[2020-09-15] MEDS ORDERED: DEXTROSE 50% IN WATER (25GM) 50 ML SYRINGE IV PRN (10:07)
--- NOTE | 2020-09-15 10:26 | Consultation ---
History of Present Illness - Reason for Consult Consult date: 09/15/20 acute renal failure, chronic renal failure, hyponatremia Requesting physician: ELAINA BENAVIDES - History of Present Illness This is a 55-year old man with no prior history of diabetes. He arrives via EMS, found to have a sugar off the high end of the scale. He is perhaps a bit altered but able to answer questions. He can tell me his name. He is very slow to answer questions. He states that his nephew called EMS because he was very weak. He denies essentially all other symptomatology; he is giving a grossly negative review of systems. ROS: Stated complaint: HIGH BLOOD SUGAR/WEAK Other details as noted in HPI Comment: Unobtainable due to pts medical conditions ED Past Medical Hx - Past Medical History Previous Medical History?: No - Surgical History Past Surgical History?: Yes Additional Surgical History: tonsillectomy - Social History Smoking Status: Former Smoker Substance Use Type: None Past History Past Medical History: diabetes, other (See HPI) Past Surgical History: No surgical history, Other (Reviewed) Social history: , lives with family. denies: smoking, alcohol abuse, prescription drug abuse Family history: diabetes, hypertension Medications and Allergies Allergies Allergy/AdvReac Type Severity Reaction Status Date / Time No Known Allergies Allergy Verified 09/14/20 09:38 Active Meds: Active Medications Acetaminophen (Acetaminophen 325 Mg Tab) 650 mg PO Q4H PRN PRN Reason: Pain MILD(1-3)/Fever >100.5/YUNG Albuterol (Albuterol 2.5 Mg/3 Ml Nebu) 2.5 mg IH Q4HRT PRN PRN Reason: Shortness Of Breath Ascorbic Acid (Ascorbic Acid 250 Mg Tab) 250 mg PO BID [facility] Last Admin: 09/14/20 22:53 Dose: 250 mg Documented by: Cholecalciferol (Cholecalciferol (Vit D3) 1000 Unit (25 Mcg) Tab) 1,000 unit PO QDAY [facility] Dextrose (Dextrose 50% In Water (25gm) 50 Ml Syringe) 50 ml IV Q30MIN PRN; Protocol PRN Reason: Hypoglycemia Heparin Sodium (Porcine) (Heparin 5,000 Unit/1 Ml Vial) 5,000 unit SUB-Q Q12HR [facility] Last Admin: 09/14/20 22:52 Dose: 5,000 unit Documented by: Hydromorphone HCl (Hydromorphone 1 Mg/1 Ml Inj) 0.25 mg IV Q4H PRN PRN Reason: Pain, Moderate (4-6) Ceftriaxone Sodium (Rocephin/Ns 2 Gm/100 Ml) 2 gm in 100 mls @ 200 mls/hr IV Q24H [facility]; Protocol Last Infusion: 09/14/20 15:27 Dose: Infused Documented by: Azithromycin (Zithromax/Ns) 500 mg in 250 mls @ 250 mls/hr IV Q24H [facility]; Protocol Insulin Human Isoph/Insulin Regular (Insulin Nph/Regular 70/30 Inj) 20 unit SUB-Q BIDDIAB [facility] Insulin Human Regular (Insulin Regular, Human 100 Units/1 Ml) 0 units SUB-Q Q6H [facility]; Protocol Last Admin: 09/15/20 08:23 Dose: Not Given Documented by: Insulin Human Regular (Insulin Regular, Human 100 Units/1 Ml) 0 units SUB-Q ACHS [facility]; Protocol Methylprednisolone Sodium Succinate (Methylprednisolone Sod Succinate 40 Mg/1 Ml Inj) 40 mg IV Q8HR [facility] Last Admin: 09/15/20 07:05 Dose: 40 mg Documented by: Ondansetron HCl (Ondansetron 4 Mg/2 Ml Inj) 4 mg IV Q8H PRN PRN Reason: Nausea And Vomiting Sodium Chloride (Sodium Chloride 0.9% 10 Ml Flush Syringe) 10 ml IV BID [facility] Last Admin: 09/14/20 22:54 Dose: 10 ml Documented by: Sodium Chloride (Sodium Chloride 0.9% 10 Ml Flush Syringe) 10 ml IV PRN PRN PRN Reason: LINE FLUSH Zinc Sulfate (Zinc Sulfate 220 Mg Cap) 220 mg PO BID [facility] Last Admin: 09/14/20 22:53 Dose: 220 mg Documented by: Exam - Vital Signs Vital signs: Vital Signs Temp Pulse Resp BP Pulse Ox 99.3 F 124 H 21 124/59 94 09/14/20 09:38 09/14/20 09:38 09/14/20 09:38 09/14/20 09:38 09/14/20 09:38 - Physical Exam Narrative exam: - General Limitations: Physical Limitation General appearance: lethargic - Head Head exam: Present: other (Band-Aid on forehead) - Eye Eye exam: Present: PERRL, EOMI. Absent: scleral icterus - ENT ENT exam: Present: mucous membranes dry - Neck Neck exam: Present: normal inspection. Absent: tenderness, meningismus - Respiratory Respiratory exam: Present: respiratory distress, rhonchi (Bilaterally) - Cardiovascular Cardiovascular Exam: Present: tachycardia - GI/Abdominal GI/Abdominal exam: Present: soft, distended (Perhaps slightly). Absent: tendern ess, guarding, rebound, rigid - exam: Present: other (There is gross evidence of monilial infection involving the penis and scrotal area. There is no purulence abscess or gangrene) - Extremities Exam Extremities exam: Present: normal inspection (Without gross deformity.) - Back Exam Back exam: Present: other (Did not visualize) - Neurological Exam Neurological exam: Present: altered, other (No apparent focal deficit) - Psychiatric Psychiatric exam: Present: normal mood, flat affect - Skin Skin exam: Present: warm Results - Lab Results 09/15/20 05:16 09/15/20 05:16 Most recent lab results Calcium 7.9 mg/dL (8.4-10.2) L 09/15/20 05:16 Magnesium 1.80 mg/dL (1.7-2.3) 09/14/20 10:33 Urine Creatinine 15.2 mg/dL (0.1-20.0) 09/14/20 13:29 Urine Sodium 42 mmol/L 09/14/20 13:29 Assessment and Plan Impresstion: * JULEE on unknown CKD * UTI with sepsis * Bilateral hydronephrosis * Pseudohyponatremia * Covid PUI * AMS * PNA Plan: * iv abx and iv fluids * daily lytes and strict i/os * follow up covid testing * rec urology consult for hydronephrosis * amin catheter placement * avoid nephrotoxins * no indication for [employer] today * dm control per primary team
[2020-09-15] MEDS ORDERED: INSULIN REGULAR, HUMAN 100 UNITS/1 ML SUB-Q SCH (11:30)
[2020-09-15] MEDS: CHOLECALCIFEROL (VIT D3) 1000 UNIT (25 mcg) TAB PO SCH (11:49)
[2020-09-15] MEDS: ZINC SULFATE 220 MG CAP PO SCH ×2 (11:49→23:10)
[2020-09-15] MEDS: HEPARIN 5,000 UNIT/1 ML VIAL SUB-Q SCH ×2 (11:50→23:14)
[2020-09-15] MEDS: ASCORBIC ACID 250 MG TAB PO SCH ×2 (11:51→23:10)
[2020-09-15] MEDS ORDERED: AZITHROMYCIN/NS 500 MG/250 ML 500 MG/250 ML BAG IV SCH (14:00)
[2020-09-15] MEDS: cefTRIAXone/NS 2 GM/100 ML 2 GM/100 ML BAG IV SCH (15:15)
[2020-09-15] MEDS: INSULIN NPH/REGULAR 70/30 INJ SUB-Q SCH (23:08)
[2020-09-16] MEDS: INSULIN REGULAR, HUMAN 100 UNITS/1 ML SUB-Q SCH ×7 (01:06→21:44)
[2020-09-16 05:08] LABS: Basophils % (Auto) 0.1 % (0.0-1.8); Hematocrit 33.9 % (35.5-45.6); Hemoglobin 11.1 gm/dl (11.8-15.2); Lymphocytes # (Auto) 0.6 K/mm3 (1.2-5.4); Lymphocytes % (Auto) 5.4 % (13.4-35.0); Mean Corpuscular HGB Conc 33 % (32-34); Mean Corpuscular Volume 82 fl (84-94); Monocytes # (Auto) 0.6 K/mm3 (0.0-0.8); Monocytes % (Auto) 5.4 % (0.0-7.3); Platelet Count 396 K/mm3 (140-440); Red Blood Count 4.13 M/mm3 (3.65-5.03); Red Cell Distribution Width 14.3 % (13.2-15.2)
[2020-09-16 05:20] LABS: Calcium 8.2 mg/dL (8.4-10.2)
[2020-09-16] MEDS: methylPREDNISolone Sod Succinate 40 MG/1 ML INJ IV SCH (06:39)
--- NOTE | 2020-09-16 09:37 | Progress Note ---
Assessment and Plan Impresstion: * JULEE on unknown CKD * UTI with sepsis * Bilateral hydronephrosis * Pseudohyponatremia * Covid PUI * metabolic acidosis * AMS * PNA Plan: * iv abx and iv fluids * daily lytes and strict i/os * follow up covid testing noted * rec urology consult for hydronephrosis * amin catheter placement * cr is better today * add sodium bicarbonate * avoid nephrotoxins * no indication for [employer] today * dm control per primary team Subjective Date of service: 09/16/20 Principal diagnosis: julee Interval history: resting well in bed today Objective - Exam Narrative Exam: - General Limitations: Physical Limitation General appearance: lethargic - Head Head exam: Present: other (Band-Aid on forehead) - Eye Eye exam: Present: PERRL, EOMI. Absent: scleral icterus - ENT ENT exam: Present: mucous membranes dry - Neck Neck exam: Present: normal inspection. Absent: tenderness, meningismus - Respiratory Respiratory exam: Present: respiratory distress, rhonchi (Bilaterally) - Cardiovascular Cardiovascular Exam: Present: tachycardia - GI/Abdominal GI/Abdominal exam: Present: soft, distended (Perhaps slightly). Absent: tenderness, guarding, rebound, rigid - exam: Present: other (There is gross evidence of monilial infection involving the penis and scrotal area. There is no purulence abscess or gangrene) - Extremities Exam Extremities exam: Present: normal inspection (Without gross deformity.) - Back Exam Back exam: Present: other (Did not visualize) - Neurological Exam Neurological exam: Present: altered, other (No apparent focal deficit) - Psychiatric Psychiatric exam: Present: normal mood, flat affect - Skin Skin exam: Present: warm - Vital Signs Vital signs: Vital Signs - 12hr 09/15/20 09/15/20 09/16/20 22:00 23:00 00:00 Pulse Rate 107 H 114 H 119 H Respiratory 28 H 16 25 H Rate Blood Pressure 104/50 121/74 127/71 O2 Sat by Pulse 98 97 95 Oximetry 09/16/20 09/16/20 09/16/20 01:00 02:00 03:00 Pulse Rate 106 H 107 H 110 H Respiratory 29 H 27 H 31 H Rate Blood Pressure 119/71 120/72 134/78 O2 Sat by Pulse 96 96 97 Oximetry 09/16/20 09/16/20 09/16/20 04:00 05:00 06:00 Pulse Rate 105 H 106 H 117 H Respiratory 24 26 H 20 Rate Blood Pressure 126/75 128/75 136/80 O2 Sat by Pulse 98 96 97 Oximetry 09/16/20 09/16/20 07:00 08:00 Pulse Rate 109 H 119 H Respiratory 19 32 H Rate Blood Pressure 123/64 123/64 O2 Sat by Pulse 97 95 Oximetry - Lab 09/16/20 04:45 09/16/20 04:45 Most recent lab results Calcium 8.2 mg/dL (8.4-10.2) L 09/16/20 04:45 Magnesium 1.80 mg/dL (1.7-2.3) 09/14/20 10:33 Urine Creatinine 15.2 mg/dL (0.1-20.0) 09/14/20 13:29 Urine Sodium 42 mmol/L 09/14/20 13:29 Medications & Allergies - Medications Allergies/Adverse Reactions: Allergies No Known Allergies Allergy (Verified 09/14/20 09:38) Active Medications: Generic Name Dose Route Start Last Admin Trade Name Freq PRN Reason Stop Dose Admin Acetaminophen 650 mg 09/14/20 13:03 Acetaminophen 325 Mg Tab PO Q4H PRN Pain MILD(1-3)/Fever >100.5/YUNG Albuterol 2.5 mg 09/14/20 13:03 Albuterol 2.5 Mg/3 Ml Nebu IH Q4HRT PRN Shortness Of Breath Ascorbic Acid 250 mg 09/14/20 22:00 09/15/20 23:10 Ascorbic Acid 250 Mg Tab PO 250 mg BID [facility] Administration Azithromycin 500 mg 09/16/20 10:00 Azithromycin 250 Mg Tab PO 09/19/20 10:01 QDAY [facility] Cholecalciferol 1,000 unit 09/15/20 10:00 09/15/20 11:49 Cholecalciferol (Vit D3) 1000 Unit (25 Mcg) Tab PO 1,000 unit QDAY [facility] Administration Dextrose 50 ml 09/15/20 10:07 Dextrose 50% In Water (25gm) 50 Ml Syringe IV Q30MIN PRN Hypoglycemia Protocol Heparin Sodium (Porcine) 5,000 unit 09/14/20 22:00 09/15/20 23:14 Heparin 5,000 Unit/1 Ml Vial SUB-Q 5,000 unit Q12HR [facility] Administration Hydromorphone HCl 0.25 mg 09/14/20 13:06 Hydromorphone 1 Mg/1 Ml Inj IV Q4H PRN Pain, Moderate (4-6) Ceftriaxone Sodium 2 gm in 100 mls @ 200 mls/hr 09/14/20 14:00 09/15/20 15:15 Rocephin/Ns 2 Gm/100 Ml IV 200 mls/hr Q24H [facility] Administration Protocol Sodium Chloride 1,000 mls @ 125 mls/hr 09/15/20 10:30 Nacl 0.9% 1000 Ml IV DIRECT [facility] Insulin Human Isoph/Insulin Regular 20 unit 09/15/20 17:00 09/15/20 23:08 Insulin Nph/Regular 70/30 Inj SUB-Q 20 unit BIDDIAB [facility] Administration Insulin Human Regular 0 units 09/15/20 11:30 09/16/20 01:10 Insulin Regular, Human 100 Units/1 Ml SUB-Q 4 units ACHS [facility] Administration Protocol Methylprednisolone Sodium Succinate 40 mg 09/14/20 14:00 09/16/20 06:39 Methylprednisolone Sod Succinate 40 Mg/1 Ml Inj IV 40 mg Q8HR [facility] Administration Ondansetron HCl 4 mg 09/14/20 13:03 Ondansetron 4 Mg/2 Ml Inj IV Q8H PRN Nausea And Vomiting Sodium Chloride 10 ml 09/14/20 22:00 09/15/20 23:11 Sodium Chloride 0.9% 10 Ml Flush Syringe IV 10 ml BID [facility] Administration Sodium Chloride 10 ml 09/14/20 13:03 Sodium Chloride 0.9% 10 Ml Flush Syringe IV PRN PRN LINE FLUSH Zinc Sulfate 220 mg 09/14/20 22:00 09/15/20 23:10 Zinc Sulfate 220 Mg Cap PO 220 mg BID [facility] Administration
--- NOTE | 2020-09-16 09:46 | Progress Note ---
Assessment and Plan Assessment and plan: Sepsis Sepsis protocol: CBC, CMP, chest x-ray, IV fluid resuscitation therapy, IV antibiotic therapy, blood culture, maintain mean arterial pressure greater than or equal to 65, serial lactic acid level, monitor urine output every shift, monitor fluid balance, Toxic metabolic encephalopathy CT scan head, seizure precautions, aspiration precautions, IV fluid resuscitation therapy, treat sepsis, neuro checks. JULEE (acute kidney injury) Nephrology consultation. BMP, IV fluid resuscitation therapy, repeat BMP in a.m. to monitor serum creatinine as well as GFR, urine electrolytes. Pneumonia Pneumonia protocol: Chest x-ray, CBC, CMP, IV antibiotic therapy, supplemental oxygen, pulse oximetry, blood culture. Suspected 2019 novel coronavirus infection Coronavirus protocol: Contact precautions, isolation precautions, IV steroid therapy, IV antibiotic therapy, supportive care. Hyponatremia Pseudohyponatremia: Suspected secondary to hyperglycemia, repeat BMP, Hyperosmolar hyperglycemic state (HHS) Start insulin 70/30 20 units twice daily. If no significant improvement in BG, we will start insulin drip. Sliding-scale insulin therapy, IV fluid resuscitation therapy, treat sepsis, monitor fluid balance, supportive care. Bilateral hydronephrosis CT scan abdomen and pelvis, Ramirez catheter placement, PSA free and total. Supportive care. No evidence of urinary outlet obstruction. DVT prophylaxis SCD to bilateral lower extremities while in bed, prophylactic anticoagulation 09/16/2020 -COVID-19 test is negative -Urology consulted for bilateral hydronephrosis -Continue management of sepsis -We will correct electrolytes -Consultants recommendations noted History Interval history: Patient was seen and evaluated this morning He said his breathing is heavy Hospitalist Physical - Physical exam Narrative exam: Not in cardiopulmonary distress. The patient appeared well nourished and normally developed. Vital signs as documented. Head exam is unremarkable. No scleral icterus . Neck is without jugular venous distension, thyromegaly, or carotid bruits. Lungs are clear to auscultation. Cardiac exam reveals regular rate and Rhythm. Abdominal exam reveals normal bowel sounds, nontender, no organomegaly. Extremities are nonedematous and both femoral and pedal pulses are normal. [place]: Alert and oriented 3. No focal weakness. - Constitutional Vitals: Temp Pulse Resp BP Pulse Ox 99.3 F 119 H 32 H 123/64 95 09/14/20 09:38 09/16/20 08:00 09/16/20 08:00 09/16/20 08:00 09/16/20 08:00 General appearance: Present: mild distress HEART Score - HEART Score Troponin: Troponin T < 0.010 ng/mL (0.00-0.029) 09/14/20 10:33 Results - Labs CBC & Chem 7: 09/16/20 04:45 09/16/20 04:45 Labs: Laboratory Last Values WBC 10.5 K/mm3 (4.5-11.0) 09/16/20 04:45 RBC 4.13 M/mm3 (3.65-5.03) 09/16/20 04:45 Hgb 11.1 gm/dl (11.8-15.2) L 09/16/20 04:45 Hct 33.9 % (35.5-45.6) L 09/16/20 04:45 MCV 82 fl (84-94) L 09/16/20 04:45 MCH 27 pg (28-32) L 09/16/20 04:45 MCHC 33 % (32-34) 09/16/20 04:45 RDW 14.3 % (13.2-15.2) 09/16/20 04:45 Plt Count 396 K/mm3 (140-440) 09/16/20 04:45 Lymph % (Auto) 5.4 % (13.4-35.0) L 09/16/20 04:45 Dickens % (Auto) 5.4 % (0.0-7.3) 09/16/20 04:45 Eos % (Auto) 0.0 % (0.0-4.3) 09/16/20 04:45 Baso % (Auto) 0.1 % (0.0-1.8) 09/16/20 04:45 Lymph # (Auto) 0.6 K/mm3 (1.2-5.4) L 09/16/20 04:45 Dickens # (Auto) 0.6 K/mm3 (0.0-0.8) 09/16/20 04:45 Eos # (Auto) 0.0 K/mm3 (0.0-0.4) 09/16/20 04:45 Baso # (Auto) 0.0 K/mm3 (0.0-0.1) 09/16/20 04:45 Add Manual Diff Complete 09/15/20 05:16 Total Counted 100 09/15/20 05:16 Seg Neutrophils % 89.1 % (40.0-70.0) H 09/16/20 04:45 Seg Neuts % (Manual) 92.0 % (40.0-70.0) H 09/15/20 05:16 Band Neutrophils % 9.0 % 09/14/20 10:33 Lymphocytes % (Manual) 4.0 % (13.4-35.0) L 09/15/20 05:16 Reactive Lymphs % (Man) 1.0 % 09/14/20 10:33 Monocytes % (Manual) 4.0 % (0.0-7.3) 09/15/20 05:16 Metamyelocytes % 2.0 % 09/14/20 10:33 Nucleated RBC % Not Reportable 09/15/20 05:16 Seg Neutrophils # 9.4 K/mm3 (1.8-7.7) H 09/16/20 04:45 Seg Neutrophils # Man 11.3 K/mm3 (1.8-7.7) H 09/15/20 05:16 Band Neutrophils # 0.0 K/mm3 09/15/20 05:16 Lymphocytes # (Manual) 0.5 K/mm3 (1.2-5.4) L 09/15/20 05:16 Abs React Lymphs (Man) 0.0 K/mm3 09/15/20 05:16 Monocytes # (Manual) 0.5 K/mm3 (0.0-0.8) 09/15/20 05:16 Eosinophils # (Manual) 0.0 K/mm3 (0.0-0.4) 09/15/20 05:16 Basophils # (Manual) 0.0 K/mm3 (0.0-0.1) 09/15/20 05:16 Metamyelocytes # 0.0 K/mm3 09/15/20 05:16 Myelocytes # 0.0 K/mm3 09/15/20 05:16 Promyelocytes # 0.0 K/mm3 09/15/20 05:16 Blast Cells # 0.0 K/mm3 09/15/20 05:16 WBC Morphology Not Reportable 09/15/20 05:16 Hypersegmented Neuts Not Reportable 09/15/20 05:16 Hyposegmented Neuts Not Reportable 09/15/20 05:16 Hypogranular Neuts Not Reportable 09/15/20 05:16 Smudge Cells Not Reportable 09/15/20 05:16 Toxic Granulation Not Reportable 09/15/20 05:16 Toxic Vacuolation Not Reportable 09/15/20 05:16 Dohle Bodies Not Reportable 09/15/20 05:16 Pelger-Huet Anomaly Not Reportable 09/15/20 05:16 Manasa Rods Not Reportable 09/15/20 05:16 Platelet Estimate Consistent w auto 09/15/20 05:16 Clumped Platelets Not Reportable 09/15/20 05:16 Plt Clumps, EDTA Not Reportable 09/15/20 05:16 Large Platelets Not Reportable 09/15/20 05:16 Giant Platelets Not Reportable 09/15/20 05:16 Platelet Satelliting Not Reportable 09/15/20 05:16 Plt Morphology Comment Not Reportable 09/15/20 05:16 RBC Morphology Not Reportable 09/15/20 05:16 Dimorphic RBCs Not Reportable 09/15/20 05:16 Polychromasia Not Reportable 09/15/20 05:16 Hypochromasia Not Reportable 09/15/20 05:16 Poikilocytosis Not Reportable 09/15/20 05:16 Anisocytosis Not Reportable 09/15/20 05:16 Microcytosis Not Reportable 09/15/20 05:16 Macrocytosis Not Reportable 09/15/20 05:16 Spherocytes Not Reportable 09/15/20 05:16 Pappenheimer Bodies Not Reportable 09/15/20 05:16 Sickle Cells Not Reportable 09/15/20 05:16 Target Cells Not Reportable 09/15/20 05:16 Tear Drop Cells Not Reportable 09/15/20 05:16 Ovalocytes Not Reportable 09/15/20 05:16 Helmet Cells Not Reportable 09/15/20 05:16 Best-[place] Bodies Not Reportable 09/15/20 05:16 Kalama Rings Not Reportable 09/15/20 05:16 Cori Cells Not Reportable 09/15/20 05:16 Bite Cells Not Reportable 09/15/20 05:16 Crenated Cell Not Reportable 09/15/20 05:16 Elliptocytes Not Reportable 09/15/20 05:16 Acanthocytes (Spur) Not Reportable 09/15/20 05:16 Rouleaux Not Reportable 09/15/20 05:16 Hemoglobin C Crystals Not Reportable 09/15/20 05:16 Schistocytes Not Reportable 09/15/20 05:16 Malaria parasites Not Reportable 09/15/20 05:16 Cj Bodies Not Reportable 09/15/20 05:16 Hem Pathologist Commnt No 09/15/20 05:16 PT 15.2 Sec. (12.2-14.9) H 09/14/20 10:33 INR 1.20 (0.87-1.13) H 09/14/20 10:33 APTT 31.2 Sec. (24.2-36.6) 09/14/20 10:33 D-Dimer 1032.62 ng/mlDDU (0-234) H 09/14/20 10:33 Sodium 126 mmol/L (137-145) L 09/16/20 04:45 Potassium 5.0 mmol/L (3.6-5.0) 09/16/20 04:45 Chloride 93.6 mmol/L (98-107) L 09/16/20 04:45 Carbon Dioxide 17 mmol/L (22-30) L 09/16/20 04:45 Anion Gap 20 mmol/L 09/16/20 04:45 BUN 41 mg/dL (9-20) H 09/16/20 04:45 Creatinine 2.3 mg/dL (0.8-1.3) H 09/16/20 04:45 Estimated GFR 29 ml/min 09/16/20 04:45 BUN/Creatinine Ratio 18 % 09/16/20 04:45 Glucose 448 mg/dL (75-100) H 09/16/20 04:45 POC Glucose 428 mg/dL (70-105) H 09/16/20 08:50 Lactic Acid 1.80 mmol/L (0.7-2.0) 09/14/20 19:33 Calcium 8.2 mg/dL (8.4-10.2) L 09/16/20 04:45 Magnesium 1.80 mg/dL (1.7-2.3) 09/14/20 10:33 Ferritin 1422.0 ng/mL (30.0-300.0) H 09/14/20 10:33 Total Bilirubin 0.30 mg/dL (0.1-1.2) 09/14/20 10:33 Direct Bilirubin < 0.2 mg/dL (0-0.2) 09/14/20 10:33 AST 5 units/L (5-40) 09/14/20 10:33 ALT 7 units/L (7-56) 09/14/20 10:33 Alkaline Phosphatase 109 units/L (35-129) 09/14/20 10:33 Lactate Dehydrogenase 146 units/L (91-180) 09/14/20 10:33 Total Creatine Kinase 48 units/L (55-170) L 09/14/20 10:33 CK-MB (CK-2) 2.5 ng/mL (0.0-4.0) 09/14/20 10:33 CK-MB (CK-2) Rel Index 5.2 (0-4) H 09/14/20 10:33 Troponin T < 0.010 ng/mL (0.00-0.029) 09/14/20 10:33 C-Reactive Protein 33.60 mg/dL (0.00-1.30) H 09/14/20 10:33 NT-Pro-B Natriuret Pep 597.0 pg/mL (0-900) 09/14/20 10:33 Total Protein 6.2 g/dL (6.3-8.2) L 09/14/20 10:33 Albumin 2.3 g/dL (3.9-5) L 09/14/20 10:33 Albumin/Globulin Ratio 0.6 % 09/14/20 10:33 Lipase 13 units/L (13-60) 09/14/20 10:33 Procalcitonin 3.51 ng/mL (<0.15) 09/14/20 10:33 Urine Color Yellow (Yellow) 09/14/20 10:35 Urine Turbidity Turbid (Clear) 09/14/20 10:35 Urine pH 5.0 (5.0-7.0) 09/14/20 10:35 Ur Specific Onyx 1.012 (1.003-1.030) 09/14/20 10:35 Urine Protein 100 mg/dl mg/dL (Negative) 09/14/20 10:35 Urine Glucose (UA) >=500 mg/dL (Negative) 09/14/20 10:35 Urine Ketones Neg mg/dL (Negative) 09/14/20 10:35 Urine Blood Mod (Negative) 09/14/20 10:35 Urine Nitrite Neg (Negative) 09/14/20 10:35 Urine Bilirubin Neg (Negative) 09/14/20 10:35 Urine Urobilinogen < 2.0 mg/dL (<2.0) 09/14/20 10:35 Ur Leukocyte Esterase Mod (Negative) 09/14/20 10:35 Urine WBC (Auto) > 182.0 /HPF (0.0-6.0) H 09/14/20 10:35 Urine RBC (Auto) 39.0 /HPF (0.0-6.0) 09/14/20 10:35 Urine Bacteria (Auto) 3+ /HPF (Negative) 09/14/20 10:35 Urine WBC Clumps 3+ /HPF 09/14/20 10:35 Urine Creatinine 15.2 mg/dL (0.1-20.0) 09/14/20 13:29 Urine Sodium 42 mmol/L 09/14/20 13:29 Urine Opiates Screen Negative 09/14/20 10:35 Urine Methadone Screen Negative 09/14/20 10:35 Ur Barbiturates Screen Negative 09/14/20 10:35 Ur Phencyclidine Scrn Negative 09/14/20 10:35 Ur Amphetamines Screen Negative 09/14/20 10:35 U Benzodiazepines Scrn Negative 09/14/20 10:35 Urine Cocaine Screen Negative 09/14/20 10:35 U Marijuana (THC) Screen Negative 09/14/20 10:35 Drugs of Abuse Note Disclamer 09/14/20 10:35 Coronavirus (PCR) Negative (Negative) 09/15/20 10:36 Blood Type O POSITIVE 09/14/20 10:25 Antibody Screen Negative 09/14/20 10:25 Microbiology: Microbiology 09/14/20 10:32 Peripheral/Venous Blood Culture - Preliminary 09/14/20 10:32 Peripheral/Venous Blood Culture - Preliminary NO GROWTH AFTER 24 HOURS Ramirez/IV: Voiding Method Indwelling Catheter Active Medications - Current Medications Current Medications: Generic Name Dose Route Start Last Admin Trade Name Freq PRN Reason Stop Dose Admin Acetaminophen 650 mg 09/14/20 13:03 Acetaminophen 325 Mg Tab PO Q4H PRN Pain MILD(1-3)/Fever >100.5/YUNG Albuterol 2.5 mg 09/14/20 13:03 Albuterol 2.5 Mg/3 Ml Nebu IH Q4HRT PRN Shortness Of Breath Ascorbic Acid 250 mg 09/14/20 22:00 09/15/20 23:10 Ascorbic Acid 250 Mg Tab PO 250 mg BID CHAU Administration Azithromycin 500 mg 09/16/20 10:00 Azithromycin 250 Mg Tab PO 09/19/20 10:01 QDAY CHAU Cholecalciferol 1,000 unit 09/15/20 10:00 09/15/20 11:49 Cholecalciferol (Vit D3) 1000 Unit (25 Mcg) Tab PO 1,000 unit QDAY CHAU Administration Dextrose 50 ml 09/15/20 10:07 Dextrose 50% In Water (25gm) 50 Ml Syringe IV Q30MIN PRN Hypoglycemia Protocol Heparin Sodium (Porcine) 5,000 unit 09/14/20 22:00 09/15/20 23:14 Heparin 5,000 Unit/1 Ml Vial SUB-Q 5,000 unit Q12HR CHAU Administration Hydromorphone HCl 0.25 mg 09/14/20 13:06 Hydromorphone 1 Mg/1 Ml Inj IV Q4H PRN Pain, Moderate (4-6) Ceftriaxone Sodium 2 gm in 100 mls @ 200 mls/hr 09/14/20 14:00 09/15/20 15:15 Rocephin/Ns 2 Gm/100 Ml IV 200 mls/hr Q24H CHAU Administration Protocol Sodium Chloride 1,000 mls @ 125 mls/hr 09/15/20 10:30 Nacl 0.9% 1000 Ml IV DIRECT CHAU Insulin Human Isoph/Insulin Regular 20 unit 09/15/20 17:00 09/15/20 23:08 Insulin Nph/Regular 70/30 Inj SUB-Q 20 unit BIDDIAB CHAU Administration Insulin Human Regular 0 units 09/15/20 11:30 09/16/20 01:10 Insulin Regular, Human 100 Units/1 Ml SUB-Q 4 units ACHS CHAU Administration Protocol Methylprednisolone Sodium Succinate 40 mg 09/14/20 14:00 09/16/20 06:39 Methylprednisolone Sod Succinate 40 Mg/1 Ml Inj IV 40 mg Q8HR CHAU Administration Ondansetron HCl 4 mg 09/14/20 13:03 Ondansetron 4 Mg/2 Ml Inj IV Q8H PRN Nausea And Vomiting Sodium Bicarbonate 1,300 mg 09/16/20 10:00 Sodium Bicarbonate 650 Mg Tab PO BID CHAU Sodium Chloride 10 ml 09/14/20 22:00 09/15/20 23:11 Sodium Chloride 0.9% 10 Ml Flush Syringe IV 10 ml BID CHAU Administration Sodium Chloride 10 ml 09/14/20 13:03 Sodium Chloride 0.9% 10 Ml Flush Syringe IV PRN PRN LINE FLUSH Zinc Sulfate 220 mg 09/14/20 22:00 09/15/20 23:10 Zinc Sulfate 220 Mg Cap PO 220 mg BID CHAU Administration
[2020-09-16] MEDS: INSULIN NPH/REGULAR 70/30 INJ SUB-Q SCH ×2 (09:53→15:05)
[2020-09-16] MEDS: SODIUM BICARBONATE 650 MG TAB PO SCH ×2 (10:41→21:44)
[2020-09-16] MEDS: ZINC SULFATE 220 MG CAP PO SCH ×2 (10:42→21:44)
[2020-09-16] MEDS: AZITHROMYCIN 250 MG TAB PO SCH (10:42)
[2020-09-16] MEDS: CHOLECALCIFEROL (VIT D3) 1000 UNIT (25 mcg) TAB PO SCH (10:42)
[2020-09-16] MEDS: HEPARIN 5,000 UNIT/1 ML VIAL SUB-Q SCH ×2 (10:42→21:44)
[2020-09-16] MEDS: ASCORBIC ACID 250 MG TAB PO SCH ×2 (10:43→21:44)
--- NOTE | 2020-09-16 13:06 | Consultation ---
History of Present Illness - History of Present Illness NEW TO OUR SERVICE COVID TEST NEGATIVE (09-15-20) 55 YO Male with DM presents to ED for evaluation. EMS was notified and upon arrival the patient was found to be in distress and subsequently transported to [facility] for further care and evaluation of the aforementioned symptoms. The patient was seen and evaluated in the emergency department. All lab and imaging studies reviewed. The patient was found to have pneumonia, urinary tract infection complicated by sepsis, hyponatremia, acute kidney injury, uncontrolled diabetes mellitus with a blood glucose in the 800s which is consistent with hyperglycemic hyperosmolar state. Patient also found to have CTAP bilateral hydronephrosis without evidence of urinary obstruction. Patient admitted to [facility] and initiated on sepsis protocol, pneumonia protocol, as well as coronavirus protocol. Patient initiated on aggressive IV insulin therapy as well as sliding scale insulin therapy. No further history is obtainable. Patient is confused with diminished cognition at the time of my evaluation but has positive gag reflex and is able to protect his airway without difficulty. ABD SOFT ALVARADO DRAINING WELL - PHILIPP URINE A/P RETENTION DIABETES CYSTOGRAM HOME WITH ALVARADO ON FLOMAX 1QD WILL NEED URODYNAMICS Past History Past Medical History: diabetes, other (See HPI) Past Surgical History: No surgical history, Other (Reviewed) Social history: , lives with family. denies: smoking, alcohol abuse, prescription drug abuse Family history: diabetes, hypertension Medications and Allergies Allergies Allergy/AdvReac Type Severity Reaction Status Date / Time No Known Allergies Allergy Verified 09/14/20 09:38 Active Meds: Active Medications Acetaminophen (Acetaminophen 325 Mg Tab) 650 mg PO Q4H PRN PRN Reason: Pain MILD(1-3)/Fever >100.5/YUNG Albuterol (Albuterol 2.5 Mg/3 Ml Nebu) 2.5 mg IH Q4HRT PRN PRN Reason: Shortness Of Breath Ascorbic Acid (Ascorbic Acid 250 Mg Tab) 250 mg PO BID [facility] Last Admin: 09/16/20 10:43 Dose: Not Given Documented by: Azithromycin (Azithromycin 250 Mg Tab) 500 mg PO QDAY [facility] Stop: 09/19/20 10:01 Last Admin: 09/16/20 10:42 Dose: 500 mg Documented by: Cholecalciferol (Cholecalciferol (Vit D3) 1000 Unit (25 Mcg) Tab) 1,000 unit PO QDAY [facility] Last Admin: 09/16/20 10:42 Dose: 1,000 unit Documented by: Dextrose (Dextrose 50% In Water (25gm) 50 Ml Syringe) 50 ml IV Q30MIN PRN; Protocol PRN Reason: Hypoglycemia Heparin Sodium (Porcine) (Heparin 5,000 Unit/1 Ml Vial) 5,000 unit SUB-Q Q12HR [facility] Last Admin: 09/16/20 10:42 Dose: 5,000 unit Documented by: Hydromorphone HCl (Hydromorphone 1 Mg/1 Ml Inj) 0.25 mg IV Q4H PRN PRN Reason: Pain, Moderate (4-6) Ceftriaxone Sodium (Rocephin/Ns 2 Gm/100 Ml) 2 gm in 100 mls @ 200 mls/hr IV Q24H [facility]; Protocol Last Admin: 09/15/20 15:15 Dose: 200 mls/hr Documented by: Sodium Chloride (Nacl 0.9% 1000 Ml) 1,000 mls @ 125 mls/hr IV DIRECT [facility] Insulin Human Isoph/Insulin Regular (Insulin Nph/Regular 70/30 Inj) 20 unit SUB-Q BIDDIAB [facility] Last Admin: 09/16/20 09:53 Dose: 20 unit Documented by: Insulin Human Regular (Insulin Regular, Human 100 Units/1 Ml) 0 units SUB-Q ACHS [facility]; Protocol Last Admin: 09/16/20 09:53 Dose: 8 units Documented by: Ondansetron HCl (Ondansetron 4 Mg/2 Ml Inj) 4 mg IV Q8H PRN PRN Reason: Nausea And Vomiting Sodium Bicarbonate (Sodium Bicarbonate 650 Mg Tab) 1,300 mg PO BID [facility] Last Admin: 09/16/20 10:41 Dose: 1,300 mg Documented by: Sodium Chloride (Sodium Chloride 0.9% 10 Ml Flush Syringe) 10 ml IV BID [facility] Last Admin: 09/16/20 10:42 Dose: 10 ml Documented by: Sodium Chloride (Sodium Chloride 0.9% 10 Ml Flush Syringe) 10 ml IV PRN PRN PRN Reason: LINE FLUSH Zinc Sulfate (Zinc Sulfate 220 Mg Cap) 220 mg PO BID [facility] Last Admin: 09/16/20 10:42 Dose: 220 mg Documented by: Exam - Constitutional Vitals: Temp Pulse Resp BP Pulse Ox 99.3 F 119 H 32 H 123/64 95 09/14/20 09:38 09/16/20 08:00 09/16/20 08:00 09/16/20 08:00 09/16/20 08:00 Results - Labs CBC & Chem 7: 09/16/20 04:45 09/16/20 04:45 Labs: Abnormal lab results 09/15/20 09/15/20 09/15/20 Range/Units 09:00 13:00 18:33 Hgb (11.8-15.2) gm/dl Hct (35.5-45.6) % MCV (84-94) fl MCH (28-32) pg Lymph % (Auto) (13.4-35.0) % Lymph # (Auto) (1.2-5.4) K/mm3 Seg Neutrophils % (40.0-70.0) % Seg Neutrophils # (1.8-7.7) K/mm3 Sodium (137-145) mmol/L Chloride (98-107) mmol/L Carbon Dioxide (22-30) mmol/L BUN (9-20) mg/dL Creatinine (0.8-1.3) mg/dL Glucose (75-100) mg/dL POC Glucose 381 H 297 H 263 H (70-105) mg/dL Calcium (8.4-10.2) mg/dL 09/15/20 09/16/20 09/16/20 Range/Units 23:05 04:45 04:45 Hgb 11.1 L (11.8-15.2) gm/dl Hct 33.9 L (35.5-45.6) % MCV 82 L (84-94) fl MCH 27 L (28-32) pg Lymph % (Auto) 5.4 L (13.4-35.0) % Lymph # (Auto) 0.6 L (1.2-5.4) K/mm3 Seg Neutrophils % 89.1 H (40.0-70.0) % Seg Neutrophils # 9.4 H (1.8-7.7) K/mm3 Sodium 126 L (137-145) mmol/L Chloride 93.6 L (98-107) mmol/L Carbon Dioxide 17 L (22-30) mmol/L BUN 41 H (9-20) mg/dL Creatinine 2.3 H (0.8-1.3) mg/dL Glucose 448 H (75-100) mg/dL POC Glucose 284 H (70-105) mg/dL Calcium 8.2 L (8.4-10.2) mg/dL 09/16/20 Range/Units 08:50 Hgb (11.8-15.2) gm/dl Hct (35.5-45.6) % MCV (84-94) fl MCH (28-32) pg Lymph % (Auto) (13.4-35.0) % Lymph # (Auto) (1.2-5.4) K/mm3 Seg Neutrophils % (40.0-70.0) % Seg Neutrophils # (1.8-7.7) K/mm3 Sodium (137-145) mmol/L Chloride (98-107) mmol/L Carbon Dioxide (22-30) mmol/L BUN (9-20) mg/dL Creatinine (0.8-1.3) mg/dL Glucose (75-100) mg/dL POC Glucose 428 H (70-105) mg/dL Calcium (8.4-10.2) mg/dL
[2020-09-16] MEDS: cefTRIAXone/NS 2 GM/100 ML 2 GM/100 ML BAG IV SCH (15:04)
[2020-09-16] MEDS: INSULIN LISPRO 100 UNIT/ML SUB-Q SCH (17:02)
[2020-09-17 05:28] LABS: Basophils % (Auto) 0.1 % (0.0-1.8); Hematocrit 34.6 % (35.5-45.6); Hemoglobin 11.1 gm/dl (11.8-15.2); Lymphocytes # (Auto) 0.7 K/mm3 (1.2-5.4); Lymphocytes % (Auto) 5.8 % (13.4-35.0); Mean Corpuscular HGB Conc 32 % (32-34); Mean Corpuscular Volume 81 fl (84-94); Monocytes % (Auto) 8.3 % (0.0-7.3); Platelet Count 366 K/mm3 (140-440)
[2020-09-17 05:47] LABS: Calcium 8.5 mg/dL (8.4-10.2)
--- NOTE | 2020-09-17 08:38 | Progress Note ---
Assessment and Plan Assessment and plan: Sepsis Sepsis protocol: CBC, CMP, chest x-ray, IV fluid resuscitation therapy, IV antibiotic therapy, blood culture, maintain mean arterial pressure greater than or equal to 65, serial lactic acid level, monitor urine output every shift, monitor fluid balance, Toxic metabolic encephalopathy CT scan head, seizure precautions, aspiration precautions, IV fluid resuscitation therapy, treat sepsis, neuro checks. JULEE (acute kidney injury) Nephrology consultation. BMP, IV fluid resuscitation therapy, repeat BMP in a.m. to monitor serum creatinine as well as GFR, urine electrolytes. Pneumonia Pneumonia protocol: Chest x-ray, CBC, CMP, IV antibiotic therapy, supplemental oxygen, pulse oximetry, blood culture. Suspected 2019 novel coronavirus infection Coronavirus protocol: Contact precautions, isolation precautions, IV steroid therapy, IV antibiotic therapy, supportive care. Hyponatremia Pseudohyponatremia: Suspected secondary to hyperglycemia, repeat BMP, Hyperosmolar hyperglycemic state (HHS) Start insulin 70/30 20 units twice daily. If no significant improvement in BG, we will start insulin drip. Sliding-scale insulin therapy, IV fluid resuscitation therapy, treat sepsis, monitor fluid balance, supportive care. Bilateral hydronephrosis CT scan abdomen and pelvis, Ramirez catheter placement, PSA free and total. Supportive care. No evidence of urinary outlet obstruction. DVT prophylaxis SCD to bilateral lower extremities while in bed, prophylactic anticoagulation 09/16/2020 -COVID-19 test is negative -Urology consulted for bilateral hydronephrosis -Continue management of sepsis -We will correct electrolytes -Consultants recommendations noted 09/17/2020 -Patient will have cystoscopy today -We will continue with IV antibiotics -Continue current insulin regimen -We will do PT OT eval History Interval history: Patient was seen and evaluated this morning No nursing issues overnight Patient is going to have cystoscopy today Hospitalist Physical - Physical exam Narrative exam: Not in cardiopulmonary distress. The patient appeared well nourished and normally developed. Vital signs as documented. Head exam is unremarkable. No scleral icterus . Neck is without jugular venous distension, thyromegaly, or carotid bruits. Lungs are clear to auscultation. Cardiac exam reveals regular rate and Rhythm. Abdominal exam reveals normal bowel sounds, nontender, no organomegaly. Extremities are nonedematous and both femoral and pedal pulses are normal. 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 No focal weakness. - Constitutional Vitals: Temp Pulse Resp BP Pulse Ox 98.0 F 112 H 18 114/73 95 09/17/20 07:50 09/17/20 07:50 09/17/20 07:50 09/17/20 07:50 09/17/20 08:27 General appearance: Present: mild distress HEART Score - HEART Score Troponin: Troponin T < 0.010 ng/mL (0.00-0.029) 09/14/20 10:33 Results - Labs CBC & Chem 7: 09/17/20 05:04 09/17/20 05:04 Labs: Laboratory Last Values WBC 12.3 K/mm3 (4.5-11.0) H 09/17/20 05:04 RBC 4.30 M/mm3 (3.65-5.03) 09/17/20 05:04 Hgb 11.1 gm/dl (11.8-15.2) L 09/17/20 05:04 Hct 34.6 % (35.5-45.6) L 09/17/20 05:04 MCV 81 fl (84-94) L 09/17/20 05:04 MCH 26 pg (28-32) L 09/17/20 05:04 MCHC 32 % (32-34) 09/17/20 05:04 RDW 14.0 % (13.2-15.2) 09/17/20 05:04 Plt Count 366 K/mm3 (140-440) 09/17/20 05:04 Lymph % (Auto) 5.8 % (13.4-35.0) L 09/17/20 05:04 [place] % (Auto) 8.3 % (0.0-7.3) H 09/17/20 05:04 Eos % (Auto) 0.0 % (0.0-4.3) 09/17/20 05:04 Baso % (Auto) 0.1 % (0.0-1.8) 09/17/20 05:04 Lymph # (Auto) 0.7 K/mm3 (1.2-5.4) L 09/17/20 05:04 [place] # (Auto) 1.0 K/mm3 (0.0-0.8) H 09/17/20 05:04 Eos # (Auto) 0.0 K/mm3 (0.0-0.4) 09/17/20 05:04 Baso # (Auto) 0.0 K/mm3 (0.0-0.1) 09/17/20 05:04 Add Manual Diff Complete 09/15/20 05:16 Total Counted 100 09/15/20 05:16 Seg Neutrophils % 85.8 % (40.0-70.0) H 09/17/20 05:04 Seg Neuts % (Manual) 92.0 % (40.0-70.0) H 09/15/20 05:16 Band Neutrophils % 9.0 % 09/14/20 10:33 Lymphocytes % (Manual) 4.0 % (13.4-35.0) L 09/15/20 05:16 Reactive Lymphs % (Man) 1.0 % 09/14/20 10:33 Monocytes % (Manual) 4.0 % (0.0-7.3) 09/15/20 05:16 Metamyelocytes % 2.0 % 09/14/20 10:33 Nucleated RBC % Not Reportable 09/15/20 05:16 Seg Neutrophils # 10.5 K/mm3 (1.8-7.7) H 09/17/20 05:04 Seg Neutrophils # Man 11.3 K/mm3 (1.8-7.7) H 09/15/20 05:16 Band Neutrophils # 0.0 K/mm3 09/15/20 05:16 Lymphocytes # (Manual) 0.5 K/mm3 (1.2-5.4) L 09/15/20 05:16 Abs React Lymphs (Man) 0.0 K/mm3 09/15/20 05:16 Monocytes # (Manual) 0.5 K/mm3 (0.0-0.8) 09/15/20 05:16 Eosinophils # (Manual) 0.0 K/mm3 (0.0-0.4) 09/15/20 05:16 Basophils # (Manual) 0.0 K/mm3 (0.0-0.1) 09/15/20 05:16 Metamyelocytes # 0.0 K/mm3 09/15/20 05:16 Myelocytes # 0.0 K/mm3 09/15/20 05:16 Promyelocytes # 0.0 K/mm3 09/15/20 05:16 Blast Cells # 0.0 K/mm3 09/15/20 05:16 WBC Morphology Not Reportable 09/15/20 05:16 Hypersegmented Neuts Not Reportable 09/15/20 05:16 Hyposegmented Neuts Not Reportable 09/15/20 05:16 Hypogranular Neuts Not Reportable 09/15/20 05:16 Smudge Cells Not Reportable 09/15/20 05:16 Toxic Granulation Not Reportable 09/15/20 05:16 Toxic Vacuolation Not Reportable 09/15/20 05:16 Dohle Bodies Not Reportable 09/15/20 05:16 Pelger-Huet Anomaly Not Reportable 09/15/20 05:16 Manasa Rods Not Reportable 09/15/20 05:16 Platelet Estimate Consistent w auto 09/15/20 05:16 Clumped Platelets Not Reportable 09/15/20 05:16 Plt Clumps, EDTA Not Reportable 09/15/20 05:16 Large Platelets Not Reportable 09/15/20 05:16 Giant Platelets Not Reportable 09/15/20 05:16 Platelet Satelliting Not Reportable 09/15/20 05:16 Plt Morphology Comment Not Reportable 09/15/20 05:16 RBC Morphology Not Reportable 09/15/20 05:16 Dimorphic RBCs Not Reportable 09/15/20 05:16 Polychromasia Not Reportable 09/15/20 05:16 Hypochromasia Not Reportable 09/15/20 05:16 Poikilocytosis Not Reportable 09/15/20 05:16 Anisocytosis Not Reportable 09/15/20 05:16 Microcytosis Not Reportable 09/15/20 05:16 Macrocytosis Not Reportable 09/15/20 05:16 Spherocytes Not Reportable 09/15/20 05:16 Pappenheimer Bodies Not Reportable 09/15/20 05:16 Sickle Cells Not Reportable 09/15/20 05:16 Target Cells Not Reportable 09/15/20 05:16 Tear Drop Cells Not Reportable 09/15/20 05:16 Ovalocytes Not Reportable 09/15/20 05:16 Helmet Cells Not Reportable 09/15/20 05:16 Best-[place] Bodies Not Reportable 09/15/20 05:16 Dolomite Rings Not Reportable 09/15/20 05:16 Cori Cells Not Reportable 09/15/20 05:16 Bite Cells Not Reportable 09/15/20 05:16 Crenated Cell Not Reportable 09/15/20 05:16 Elliptocytes Not Reportable 09/15/20 05:16 Acanthocytes (Spur) Not Reportable 09/15/20 05:16 Rouleaux Not Reportable 09/15/20 05:16 Hemoglobin C Crystals Not Reportable 09/15/20 05:16 Schistocytes Not Reportable 09/15/20 05:16 Malaria parasites Not Reportable 09/15/20 05:16 Cj Bodies Not Reportable 09/15/20 05:16 Hem Pathologist Commnt No 09/15/20 05:16 PT 15.2 Sec. (12.2-14.9) H 09/14/20 10:33 INR 1.20 (0.87-1.13) H 09/14/20 10:33 APTT 31.2 Sec. (24.2-36.6) 09/14/20 10:33 D-Dimer 1032.62 ng/mlDDU (0-234) H 09/14/20 10:33 Sodium 136 mmol/L (137-145) L D 09/17/20 05:04 Potassium 4.6 mmol/L (3.6-5.0) 09/17/20 05:04 Chloride 100.4 mmol/L (98-107) 09/17/20 05:04 Carbon Dioxide 24 mmol/L (22-30) D 09/17/20 05:04 Anion Gap 16 mmol/L 09/17/20 05:04 BUN 38 mg/dL (9-20) H 09/17/20 05:04 Creatinine 2.0 mg/dL (0.8-1.3) H 09/17/20 05:04 Estimated GFR 35 ml/min 09/17/20 05:04 BUN/Creatinine Ratio 19 % 09/17/20 05:04 Glucose 151 mg/dL (75-100) H 09/17/20 05:04 POC Glucose 117 mg/dL (70-105) H 09/16/20 20:54 Lactic Acid 1.80 mmol/L (0.7-2.0) 09/14/20 19:33 Calcium 8.5 mg/dL (8.4-10.2) 09/17/20 05:04 Magnesium 1.80 mg/dL (1.7-2.3) 09/14/20 10:33 Ferritin 1422.0 ng/mL (30.0-300.0) H 09/14/20 10:33 Total Bilirubin 0.30 mg/dL (0.1-1.2) 09/14/20 10:33 Direct Bilirubin < 0.2 mg/dL (0-0.2) 09/14/20 10:33 AST 5 units/L (5-40) 09/14/20 10:33 ALT 7 units/L (7-56) 09/14/20 10:33 Alkaline Phosphatase 109 units/L (35-129) 09/14/20 10:33 Lactate Dehydrogenase 146 units/L (91-180) 09/14/20 10:33 Total Creatine Kinase 48 units/L (55-170) L 09/14/20 10:33 CK-MB (CK-2) 2.5 ng/mL (0.0-4.0) 09/14/20 10:33 CK-MB (CK-2) Rel Index 5.2 (0-4) H 09/14/20 10:33 Troponin T < 0.010 ng/mL (0.00-0.029) 09/14/20 10:33 C-Reactive Protein 33.60 mg/dL (0.00-1.30) H 09/14/20 10:33 NT-Pro-B Natriuret Pep 597.0 pg/mL (0-900) 09/14/20 10:33 Total Protein 6.2 g/dL (6.3-8.2) L 09/14/20 10:33 Albumin 2.3 g/dL (3.9-5) L 09/14/20 10:33 Albumin/Globulin Ratio 0.6 % 09/14/20 10:33 Lipase 13 units/L (13-60) 09/14/20 10:33 Procalcitonin 3.51 ng/mL (<0.15) 09/14/20 10:33 Urine Color Yellow (Yellow) 09/14/20 10:35 Urine Turbidity Turbid (Clear) 09/14/20 10:35 Urine pH 5.0 (5.0-7.0) 09/14/20 10:35 Ur Specific [place] 1.012 (1.003-1.030) 09/14/20 10:35 Urine Protein 100 mg/dl mg/dL (Negative) 09/14/20 10:35 Urine Glucose (UA) >=500 mg/dL (Negative) 09/14/20 10:35 Urine Ketones Neg mg/dL (Negative) 09/14/20 10:35 Urine Blood Mod (Negative) 09/14/20 10:35 Urine Nitrite Neg (Negative) 09/14/20 10:35 Urine Bilirubin Neg (Negative) 09/14/20 10:35 Urine Urobilinogen < 2.0 mg/dL (<2.0) 09/14/20 10:35 Ur Leukocyte Esterase Mod (Negative) 09/14/20 10:35 Urine WBC (Auto) > 182.0 /HPF (0.0-6.0) H 09/14/20 10:35 Urine RBC (Auto) 39.0 /HPF (0.0-6.0) 09/14/20 10:35 Urine Bacteria (Auto) 3+ /HPF (Negative) 09/14/20 10:35 Urine WBC Clumps 3+ /HPF 09/14/20 10:35 Urine Creatinine 15.2 mg/dL (0.1-20.0) 09/14/20 13:29 Urine Sodium 42 mmol/L 09/14/20 13:29 Urine Opiates Screen Negative 09/14/20 10:35 Urine Methadone Screen Negative 09/14/20 10:35 Ur Barbiturates Screen Negative 09/14/20 10:35 Ur Phencyclidine Scrn Negative 09/14/20 10:35 Ur Amphetamines Screen Negative 09/14/20 10:35 U Benzodiazepines Scrn Negative 09/14/20 10:35 Urine Cocaine Screen Negative 09/14/20 10:35 U Marijuana (THC) Screen Negative 09/14/20 10:35 Drugs of Abuse Note Disclamer 09/14/20 10:35 Coronavirus (PCR) Negative (Negative) 09/15/20 10:36 Blood Type O POSITIVE 09/14/20 10:25 Antibody Screen Negative 09/14/20 10:25 Microbiology: Microbiology 09/14/20 10:32 Peripheral/Venous Blood Culture - Preliminary NO GROWTH AFTER 48 HOURS Ramirez/IV: Voiding Method Indwelling Catheter Active Medications - Current Medications Current Medications: Generic Name Dose Route Start Last Admin Trade Name Freq PRN Reason Stop Dose Admin Acetaminophen 650 mg 09/14/20 13:03 Acetaminophen 325 Mg Tab PO Q4H PRN Pain MILD(1-3)/Fever >100.5/YUNG Albuterol 2.5 mg 09/14/20 13:03 Albuterol 2.5 Mg/3 Ml Nebu IH Q4HRT PRN Shortness Of Breath Ascorbic Acid 250 mg 09/14/20 22:00 09/16/20 21:44 Ascorbic Acid 250 Mg Tab PO 250 mg BID CHAU Administration Azithromycin 500 mg 09/16/20 10:00 09/16/20 10:42 Azithromycin 250 Mg Tab PO 09/19/20 10:01 500 mg QDAY CHAU Administration Cholecalciferol 1,000 unit 09/15/20 10:00 09/16/20 10:42 Cholecalciferol (Vit D3) 1000 Unit (25 Mcg) Tab PO 1,000 unit QDAY CHAU Administration Dextrose 50 ml 09/15/20 10:07 Dextrose 50% In Water (25gm) 50 Ml Syringe IV Q30MIN PRN Hypoglycemia Protocol Heparin Sodium (Porcine) 5,000 unit 09/14/20 22:00 09/16/20 21:44 Heparin 5,000 Unit/1 Ml Vial SUB-Q 5,000 unit Q12HR CHAU Administration Hydromorphone HCl 0.25 mg 09/14/20 13:06 Hydromorphone 1 Mg/1 Ml Inj IV Q4H PRN Pain, Moderate (4-6) Ceftriaxone Sodium 2 gm in 100 mls @ 200 mls/hr 09/14/20 14:00 09/16/20 15:04 Rocephin/Ns 2 Gm/100 Ml IV 200 mls/hr Q24H CHAU Administration Protocol Sodium Chloride 1,000 mls @ 125 mls/hr 09/15/20 10:30 Nacl 0.9% 1000 Ml IV DIRECT CHAU Insulin Human Isoph/Insulin Regular 25 unit 09/16/20 14:30 09/16/20 15:05 Insulin Nph/Regular 70/30 Inj SUB-Q 25 unit BIDDIAB CHAU Administration Insulin Human Lispro 10 unit 09/16/20 16:30 09/16/20 17:02 Insulin Lispro 100 Unit/Ml SUB-Q 10 unit AC CHAU Administration Insulin Human Regular 0 units 09/15/20 11:30 09/16/20 21:44 Insulin Regular, Human 100 Units/1 Ml SUB-Q Not Given ACHS CHAU Protocol Ondansetron HCl 4 mg 09/14/20 13:03 Ondansetron 4 Mg/2 Ml Inj IV Q8H PRN Nausea And Vomiting Sodium Bicarbonate 1,300 mg 09/16/20 10:00 09/16/20 21:44 Sodium Bicarbonate 650 Mg Tab PO 1,300 mg BID CHAU Administration Sodium Chloride 10 ml 09/14/20 22:00 09/16/20 21:44 Sodium Chloride 0.9% 10 Ml Flush Syringe IV 10 ml BID CHAU Administration Sodium Chloride 10 ml 09/14/20 13:03 Sodium Chloride 0.9% 10 Ml Flush Syringe IV PRN PRN LINE FLUSH Tamsulosin HCl 0.4 mg 09/17/20 10:00 Tamsulosin 0.4 Mg Cap PO QDAY CHAU Zinc Sulfate 220 mg 09/14/20 22:00 09/16/20 21:44 Zinc Sulfate 220 Mg Cap PO 220 mg BID CHAU Administration
--- NOTE | 2020-09-17 08:47 | Progress Note ---
Assessment and Plan Impresstion: * JULEE on unknown CKD * UTI with sepsis * Bilateral hydronephrosis * Pseudohyponatremia * Covid PUI * metabolic acidosis * AMS * PNA Plan: * continue iv abx and iv fluids * daily lytes and strict i/os * follow up covid testing noted * urology consult for hydronephrosis and bladder mass noted * amin catheter placement * cr is better today * added sodium bicarbonate, acidosis improved * avoid nephrotoxins * no indication for OTR VAN [employer] today * dm control per primary team Subjective Date of service: 09/17/20 Principal diagnosis: julee Interval history: resting well in bed today Objective - Exam Narrative Exam: - General Limitations: Physical Limitation General appearance: lethargic - Head Head exam: Present: other (Band-Aid on forehead) - Eye Eye exam: Present: PERRL, EOMI. Absent: scleral icterus - ENT ENT exam: Present: mucous membranes dry - Neck Neck exam: Present: normal inspection. Absent: tenderness, meningismus - Respiratory Respiratory exam: Present: respiratory distress, rhonchi (Bilaterally) - Cardiovascular Cardiovascular Exam: Present: tachycardia - GI/Abdominal GI/Abdominal exam: Present: soft, distended (Perhaps slightly). Absent: tenderness, guarding, rebound, rigid - exam: Present: other (There is gross evidence of monilial infection involving the penis and scrotal area. There is no purulence abscess or gangrene) - Extremities Exam Extremities exam: Present: normal inspection (Without gross deformity.) - Back Exam Back exam: Present: other (Did not visualize) - Neurological Exam Neurological exam: Present: altered, other (No apparent focal deficit) - Psychiatric Psychiatric exam: Present: normal mood, flat affect - Skin Skin exam: Present: warm - Vital Signs Vital signs: Vital Signs - 12hr 09/16/20 09/16/20 09/16/20 20:52 21:04 22:35 Temperature 98.0 F Pulse Rate 107 H 105 H Pulse Rate [ 101 H Apical] Respiratory 18 16 Rate Blood Pressure 136/90 O2 Sat by Pulse 96 96 Oximetry 09/16/20 09/17/20 09/17/20 23:31 04:10 07:50 Temperature 98.0 F 98.3 F 98.0 F Pulse Rate 103 H 102 H 112 H Pulse Rate [ Apical] Respiratory 16 16 18 Rate Blood Pressure 139/82 139/89 114/73 O2 Sat by Pulse 96 98 95 Oximetry 09/17/20 08:27 Temperature Pulse Rate Pulse Rate [ Apical] Respiratory Rate Blood Pressure O2 Sat by Pulse 95 Oximetry - Lab 09/17/20 05:04 09/17/20 05:04 Most recent lab results Calcium 8.5 mg/dL (8.4-10.2) 09/17/20 05:04 Magnesium 1.80 mg/dL (1.7-2.3) 09/14/20 10:33 Urine Creatinine 15.2 mg/dL (0.1-20.0) 09/14/20 13:29 Urine Sodium 42 mmol/L 09/14/20 13:29 Medications & Allergies - Medications Allergies/Adverse Reactions: Allergies No Known Allergies Allergy (Verified 09/14/20 09:38) Home Medications: Home Medications Medication Instructions Recorded Confirmed Last Taken Type No Known Home Medications [No 09/16/20 09/16/20 Unknown History Reported Home Medications] Active Medications: Generic Name Dose Route Start Last Admin Trade Name Freq PRN Reason Stop Dose Admin Acetaminophen 650 mg 09/14/20 13:03 Acetaminophen 325 Mg Tab PO Q4H PRN Pain MILD(1-3)/Fever >100.5/YUNG Albuterol 2.5 mg 09/14/20 13:03 Albuterol 2.5 Mg/3 Ml Nebu IH Q4HRT PRN Shortness Of Breath Ascorbic Acid 250 mg 09/14/20 22:00 09/16/20 21:44 Ascorbic Acid 250 Mg Tab PO 250 mg BID CHAU Administration Azithromycin 500 mg 09/16/20 10:00 09/16/20 10:42 Azithromycin 250 Mg Tab PO 09/19/20 10:01 500 mg QDAY CHAU Administration Cholecalciferol 1,000 unit 09/15/20 10:00 09/16/20 10:42 Cholecalciferol (Vit D3) 1000 Unit (25 Mcg) Tab PO 1,000 unit QDAY CHAU Administration Dextrose 50 ml 09/15/20 10:07 Dextrose 50% In Water (25gm) 50 Ml Syringe IV Q30MIN PRN Hypoglycemia Protocol Heparin Sodium (Porcine) 5,000 unit 09/14/20 22:00 09/16/20 21:44 Heparin 5,000 Unit/1 Ml Vial SUB-Q 5,000 unit Q12HR CHAU Administration Hydromorphone HCl 0.25 mg 02/07/21 13:06 Hydromorphone 1 Mg/1 Ml Inj IV Q4H PRN Pain, Moderate (4-6) Ceftriaxone Sodium 2 gm in 100 mls @ 200 mls/hr 09/14/20 14:00 09/16/20 15:04 Rocephin/Ns 2 Gm/100 Ml IV 200 mls/hr Q24H CHAU Administration Protocol Sodium Chloride 1,000 mls @ 125 mls/hr 09/15/20 10:30 Nacl 0.9% 1000 Ml IV DIRECT CHAU Insulin Human Isoph/Insulin Regular 25 unit 09/16/20 14:30 09/16/20 15:05 Insulin Nph/Regular 70/30 Inj SUB-Q 25 unit BIDDIAB CHAU Administration Insulin Human Lispro 10 unit 09/16/20 16:30 09/16/20 17:02 Insulin Lispro 100 Unit/Ml SUB-Q 10 unit AC CHAU Administration Insulin Human Regular 0 units 09/15/20 11:30 09/16/20 21:44 Insulin Regular, Human 100 Units/1 Ml SUB-Q Not Given ACHS [facility] Protocol Ondansetron HCl 4 mg 09/14/20 13:03 Ondansetron 4 Mg/2 Ml Inj IV Q8H PRN Nausea And Vomiting Sodium Bicarbonate 1,300 mg 09/16/20 10:00 09/16/20 21:44 Sodium Bicarbonate 650 Mg Tab PO 1,300 mg BID CHAU Administration Sodium Chloride 10 ml 09/14/20 22:00 09/16/20 21:44 Sodium Chloride 0.9% 10 Ml Flush Syringe IV 10 ml BID CHAU Administration Sodium Chloride 10 ml 09/14/20 13:03 Sodium Chloride 0.9% 10 Ml Flush Syringe IV PRN PRN LINE FLUSH Tamsulosin HCl 0.4 mg 09/17/20 10:00 Tamsulosin 0.4 Mg Cap PO QDAY CHAU Zinc Sulfate 220 mg 09/14/20 22:00 09/16/20 21:44 Zinc Sulfate 220 Mg Cap PO 220 mg BID CHAU Administration
[2020-09-17] MEDS: INSULIN REGULAR, HUMAN 100 UNITS/1 ML SUB-Q SCH ×4 (10:18→22:17)
[2020-09-17] MEDS: INSULIN NPH/REGULAR 70/30 INJ SUB-Q SCH ×2 (10:18→17:40)
[2020-09-17] MEDS: INSULIN LISPRO 100 UNIT/ML SUB-Q SCH ×3 (10:18→17:41)
--- NOTE | 2020-09-17 11:05 | Ultrasound Report ---
ULTRASOUND RENAL INDICATION / CLINICAL INFORMATION: ARF. COMPARISON: CT abdomen pelvis 09/14/2020 FINDINGS: RIGHT KIDNEY: Length = 12.8 cm. [normal > 9 cm] - Parenchymal Thickness = 1.9 cm. [normal > 1.5 cm] - Echogenicity: Normal. - Hydronephrosis: Moderate right hydronephrosis is evident. - Cyst or mass: No significant abnormality. - Stones: None seen. LEFT KIDNEY: Length = 11.7 cm. [normal > 9 cm] - Parenchymal Thickness = 2.1 cm. [normal > 1.5 cm] - Echogenicity: Normal. - Hydronephrosis: Mild left hydronephrosis is evident. - Cyst or mass: No significant abnormality. - Stones: None seen. URINARY BLADDER: The bladder is decompressed with a Ramirez catheter. FREE FLUID: None. ADDITIONAL FINDINGS: None. IMPRESSION: Mild to moderate bilateral hydronephrosis, right greater than left. Signer Name: Duong Kaur Jr, MD Signed: 09/17/2020 11:01 AM Workstation Name: [id number]
--- NOTE | 2020-09-17 11:34 | Fluoroscopy Report ---
FLUOROSCOPY CYSTOGRAM STATIC HISTORY: Hydronephrosis. COMPARISON: Ultrasound renal performed the same day. CT abdomen and pelvis without contrast performed yesterday. FINDINGS: Approximately 200 cc of water-soluble contrast agent was infused through the Ramirez catheter. The blad augie could not be fully distended due to immediate reflux into the collecting systems bilaterally. The re is moderate right hydronephrosis and mild to moderate left hydronephrosis. No obvious ureteral nima ling defect or stricture is identified. The bladder is poorly distended although no gross abnormality is detected. IMPRESSION: Moderate to severe vesicoureteral reflux is demonstrated bilaterally, right slightly worse than left. The bladder could not be fully distended due to the immediate reflux. No gross bladder mass is appre ciated. Fluoroscopic time: 2.2 minutes. Fluoroscopic images: 8 Signer Name: Duong Kaur Jr, MD Signed: 09/17/2020 11:29 AM Workstation Name: [id number]
[2020-09-17] MEDS: SODIUM BICARBONATE 650 MG TAB PO SCH ×2 (12:31→22:17)
[2020-09-17] MEDS: CHOLECALCIFEROL (VIT D3) 1000 UNIT (25 mcg) TAB PO SCH (12:32)
[2020-09-17] MEDS: TAMSULOSIN 0.4 MG CAP PO SCH (12:32)
[2020-09-17] MEDS: AZITHROMYCIN 250 MG TAB PO SCH (12:32)
[2020-09-17] MEDS: HEPARIN 5,000 UNIT/1 ML VIAL SUB-Q SCH ×2 (12:33→22:17)
[2020-09-17] MEDS: ZINC SULFATE 220 MG CAP PO SCH ×2 (12:38→22:17)
[2020-09-17] MEDS: ASCORBIC ACID 250 MG TAB PO SCH ×2 (12:39→22:17)
[2020-09-17] MEDS: cefTRIAXone/NS 2 GM/100 ML 2 GM/100 ML BAG IV SCH (15:05)
[2020-09-18] MEDS: SODIUM CHLORIDE 0.9% 1000 ML 1,000 ML IV SCH (02:22)
[2020-09-18 05:22] LABS: Calcium 7.6 mg/dL (8.4-10.2)
[2020-09-18 05:23] LABS: Hematocrit 31.2 % (35.5-45.6); Hemoglobin 10.1 gm/dl (11.8-15.2); Mean Corpuscular HGB Conc 32 % (32-34); Mean Corpuscular Volume 80 fl (84-94); Platelet Count 273 K/mm3 (140-440); Red Blood Count 3.88 M/mm3 (3.65-5.03); Red Cell Distribution Width 14.4 % (13.2-15.2)
[2020-09-18 06:47] LABS: Hypochromasia Few; Platelet Estimate Consistent w Auto; Total Cells Counted 100
--- NOTE | 2020-09-18 08:58 | Progress Note ---
Assessment and Plan Assessment and plan: Sepsis Sepsis protocol: CBC, CMP, chest x-ray, IV fluid resuscitation therapy, IV antibiotic therapy, blood culture, maintain mean arterial pressure greater than or equal to 65, serial lactic acid level, monitor urine output every shift, monitor fluid balance, Toxic metabolic encephalopathy CT scan head, seizure precautions, aspiration precautions, IV fluid resuscitation therapy, treat sepsis, neuro checks. JULEE (acute kidney injury) Nephrology consultation. BMP, IV fluid resuscitation therapy, repeat BMP in a.m. to monitor serum creatinine as well as GFR, urine electrolytes. Pneumonia Pneumonia protocol: Chest x-ray, CBC, CMP, IV antibiotic therapy, supplemental oxygen, pulse oximetry, blood culture. Suspected 2019 novel coronavirus infection Coronavirus protocol: Contact precautions, isolation precautions, IV steroid therapy, IV antibiotic therapy, supportive care. Hyponatremia Pseudohyponatremia: Suspected secondary to hyperglycemia, repeat BMP, Hyperosmolar hyperglycemic state (HHS) Start insulin 70/30 20 units twice daily. If no significant improvement in BG, we will start insulin drip. Sliding-scale insulin therapy, IV fluid resuscitation therapy, treat sepsis, monitor fluid balance, supportive care. Bilateral hydronephrosis CT scan abdomen and pelvis, Ramirez catheter placement, PSA free and total. Supportive care. No evidence of urinary outlet obstruction. DVT prophylaxis SCD to bilateral lower extremities while in bed, prophylactic anticoagulation 09/16/2020 -COVID-19 test is negative -Urology consulted for bilateral hydronephrosis -Continue management of sepsis -We will correct electrolytes -Consultants recommendations noted 09/17/2020 -Patient will have cystoscopy today -We will continue with IV antibiotics -Continue current insulin regimen -We will do PT OT eval 09/18/2020 -Static cystogram was done and showed bilateral vesicoureteral reflux, no mass identified -We will continue IV antibiotics for sepsis, blood culture grew beta-hemolytic streptococci -Diabetic; blood sugar is in target, hemoglobin A1c is 17.5 -PT OT evaluated the patient and recommend subacute rehab -Patient stated he did not have insurance and wants to go home. Will arrange home health at the time of discharge. History Interval history: Patient was seen and evaluated this morning No nursing issues overnight Patient is doing better Hospitalist Physical - Physical exam Narrative exam: Not in cardiopulmonary distress. The patient appeared well nourished and normally developed. Vital signs as documented. Head exam is unremarkable. No scleral icterus . Neck is without jugular venous distension, thyromegaly, or carotid bruits. Lungs are clear to auscultation. Cardiac exam reveals regular rate and Rhythm. Abdominal exam reveals normal bowel sounds, nontender, no organomegaly. Extremities are nonedematous and both femoral and pedal pulses are normal. COURT ORDERLY: Alert and oriented 3. No focal weakness. - Constitutional Vitals: Temp Pulse Resp BP Pulse Ox 98.0 F 108 H 20 121/70 97 09/18/20 03:54 09/18/20 03:54 09/18/20 03:54 09/18/20 03:54 09/18/20 03:54 General appearance: Present: mild distress HEART Score - HEART Score Troponin: Troponin T < 0.010 ng/mL (0.00-0.029) 09/14/20 10:33 Results - Labs CBC & Chem 7: 09/18/20 04:44 09/18/20 04:44 Labs: Laboratory Last Values WBC 9.3 K/mm3 (4.5-11.0) 09/18/20 04:44 RBC 3.88 M/mm3 (3.65-5.03) 09/18/20 04:44 Hgb 10.1 gm/dl (11.8-15.2) L 09/18/20 04:44 Hct 31.2 % (35.5-45.6) L 09/18/20 04:44 MCV 80 fl (84-94) L 09/18/20 04:44 MCH 26 pg (28-32) L 09/18/20 04:44 MCHC 32 % (32-34) 09/18/20 04:44 RDW 14.4 % (13.2-15.2) 09/18/20 04:44 Plt Count 273 K/mm3 (140-440) 09/18/20 04:44 Lymph % (Auto) 5.8 % (13.4-35.0) L 09/17/20 05:04 [place] % (Auto) 8.3 % (0.0-7.3) H 09/17/20 05:04 Eos % (Auto) 0.0 % (0.0-4.3) 09/17/20 05:04 Baso % (Auto) 0.1 % (0.0-1.8) 09/17/20 05:04 Lymph # (Auto) 0.7 K/mm3 (1.2-5.4) L 09/17/20 05:04 [place] # (Auto) 1.0 K/mm3 (0.0-0.8) H 09/17/20 05:04 Eos # (Auto) 0.0 K/mm3 (0.0-0.4) 09/17/20 05:04 Baso # (Auto) 0.0 K/mm3 (0.0-0.1) 09/17/20 05:04 Add Manual Diff Complete 09/18/20 04:44 Total Counted 100 09/18/20 04:44 Seg Neutrophils % 85.8 % (40.0-70.0) H 09/17/20 05:04 Seg Neuts % (Manual) 85.0 % (40.0-70.0) H 09/18/20 04:44 Band Neutrophils % 9.0 % 09/14/20 10:33 Lymphocytes % (Manual) 8.0 % (13.4-35.0) L 09/18/20 04:44 Reactive Lymphs % (Man) 1.0 % 09/14/20 10:33 Monocytes % (Manual) 6.0 % (0.0-7.3) 09/18/20 04:44 Eosinophils % (Manual) 1.0 % (0.0-4.3) 09/18/20 04:44 Metamyelocytes % 2.0 % 09/14/20 10:33 Nucleated RBC % Not Reportable 09/18/20 04:44 Seg Neutrophils # 10.5 K/mm3 (1.8-7.7) H 09/17/20 05:04 Seg Neutrophils # Man 7.9 K/mm3 (1.8-7.7) H 09/18/20 04:44 Band Neutrophils # 0.0 K/mm3 09/18/20 04:44 Lymphocytes # (Manual) 0.7 K/mm3 (1.2-5.4) L 09/18/20 04:44 Abs React Lymphs (Man) 0.0 K/mm3 09/18/20 04:44 Monocytes # (Manual) 0.6 K/mm3 (0.0-0.8) 09/18/20 04:44 Eosinophils # (Manual) 0.1 K/mm3 (0.0-0.4) 09/18/20 04:44 Basophils # (Manual) 0.0 K/mm3 (0.0-0.1) 09/18/20 04:44 Metamyelocytes # 0.0 K/mm3 09/18/20 04:44 Myelocytes # 0.0 K/mm3 09/18/20 04:44 Promyelocytes # 0.0 K/mm3 09/18/20 04:44 Blast Cells # 0.0 K/mm3 09/18/20 04:44 WBC Morphology Not Reportable 09/18/20 04:44 Hypersegmented Neuts Not Reportable 09/18/20 04:44 Hyposegmented Neuts Not Reportable 09/18/20 04:44 Hypogranular Neuts Not Reportable 09/18/20 04:44 Smudge Cells Not Reportable 09/18/20 04:44 Toxic Granulation Not Reportable 09/18/20 04:44 Toxic Vacuolation Not Reportable 09/18/20 04:44 Dohle Bodies Not Reportable 09/18/20 04:44 Pelger-Huet Anomaly Not Reportable 09/18/20 04:44 Manasa Rods Not Reportable 09/18/20 04:44 Platelet Estimate Consistent w auto 09/18/20 04:44 Clumped Platelets Not Reportable 09/18/20 04:44 Plt Clumps, EDTA Not Reportable 09/18/20 04:44 Large Platelets Not Reportable 09/18/20 04:44 Giant Platelets Not Reportable 09/18/20 04:44 Platelet Satelliting Not Reportable 09/18/20 04:44 Plt Morphology Comment Not Reportable 09/18/20 04:44 RBC Morphology Not Reportable 09/18/20 04:44 Dimorphic RBCs Not Reportable 09/18/20 04:44 Polychromasia Not Reportable 09/18/20 04:44 Hypochromasia Few 09/18/20 04:44 Poikilocytosis Not Reportable 09/18/20 04:44 Anisocytosis Not Reportable 09/18/20 04:44 Microcytosis Not Reportable 09/18/20 04:44 Macrocytosis Not Reportable 09/18/20 04:44 Spherocytes Not Reportable 09/18/20 04:44 Pappenheimer Bodies Not Reportable 09/18/20 04:44 Sickle Cells Not Reportable 09/18/20 04:44 Target Cells Not Reportable 09/18/20 04:44 Tear Drop Cells Not Reportable 09/18/20 04:44 Ovalocytes Not Reportable 09/18/20 04:44 Helmet Cells Not Reportable 09/18/20 04:44 Best-Jefferson Bodies Not Reportable 09/18/20 04:44 [place] Rings Not Reportable 09/18/20 04:44 Cori Cells Not Reportable 09/18/20 04:44 Bite Cells Not Reportable 09/18/20 04:44 Crenated Cell Not Reportable 09/18/20 04:44 Elliptocytes Not Reportable 09/18/20 04:44 Acanthocytes (Spur) Not Reportable 09/18/20 04:44 Rouleaux Not Reportable 09/18/20 04:44 Hemoglobin C Crystals Not Reportable 09/18/20 04:44 Schistocytes Not Reportable 09/18/20 04:44 Malaria parasites Not Reportable 09/18/20 04:44 Cj Bodies Not Reportable 09/18/20 04:44 Hem Pathologist Commnt No 09/18/20 04:44 PT 15.2 Sec. (12.2-14.9) H 09/14/20 10:33 INR 1.20 (0.87-1.13) H 09/14/20 10:33 APTT 31.2 Sec. (24.2-36.6) 09/14/20 10:33 D-Dimer 1032.62 ng/mlDDU (0-234) H 09/14/20 10:33 Sodium 135 mmol/L (137-145) L 09/18/20 04:44 Potassium 3.6 mmol/L (3.6-5.0) D 09/18/20 04:44 Chloride 101.5 mmol/L (98-107) 09/18/20 04:44 Carbon Dioxide 27 mmol/L (22-30) 09/18/20 04:44 Anion Gap 10 mmol/L 09/18/20 04:44 BUN 26 mg/dL (9-20) H 09/18/20 04:44 Creatinine 1.5 mg/dL (0.8-1.3) H 09/18/20 04:44 Estimated GFR 48 ml/min 09/18/20 04:44 BUN/Creatinine Ratio 17 % 09/18/20 04:44 Glucose 212 mg/dL (75-100) H 09/18/20 04:44 POC Glucose 190 mg/dL (70-105) H 09/18/20 08:46 Lactic Acid 1.80 mmol/L (0.7-2.0) 09/14/20 19:33 Calcium 7.6 mg/dL (8.4-10.2) L 09/18/20 04:44 Magnesium 1.80 mg/dL (1.7-2.3) 09/14/20 10:33 Ferritin 1422.0 ng/mL (30.0-300.0) H 09/14/20 10:33 Total Bilirubin 0.30 mg/dL (0.1-1.2) 09/14/20 10:33 Direct Bilirubin < 0.2 mg/dL (0-0.2) 09/14/20 10:33 AST 5 units/L (5-40) 09/14/20 10:33 ALT 7 units/L (7-56) 09/14/20 10:33 Alkaline Phosphatase 109 units/L (35-129) 09/14/20 10:33 Lactate Dehydrogenase 146 units/L (91-180) 09/14/20 10:33 Total Creatine Kinase 48 units/L (55-170) L 09/14/20 10:33 CK-MB (CK-2) 2.5 ng/mL (0.0-4.0) 09/14/20 10:33 CK-MB (CK-2) Rel Index 5.2 (0-4) H 09/14/20 10:33 Troponin T < 0.010 ng/mL (0.00-0.029) 09/14/20 10:33 C-Reactive Protein 33.60 mg/dL (0.00-1.30) H 09/14/20 10:33 NT-Pro-B Natriuret Pep 597.0 pg/mL (0-900) 09/14/20 10:33 Total Protein 6.2 g/dL (6.3-8.2) L 09/14/20 10:33 Albumin 2.3 g/dL (3.9-5) L 09/14/20 10:33 Albumin/Globulin Ratio 0.6 % 09/14/20 10:33 Lipase 13 units/L (13-60) 09/14/20 10:33 Procalcitonin 3.51 ng/mL (<0.15) 09/14/20 10:33 Urine Color Yellow (Yellow) 09/14/20 10:35 Urine Turbidity Turbid (Clear) 09/14/20 10:35 Urine pH 5.0 (5.0-7.0) 09/14/20 10:35 Ur Specific [place] 1.012 (1.003-1.030) 09/14/20 10:35 Urine Protein 100 mg/dl mg/dL (Negative) 09/14/20 10:35 Urine Glucose (UA) >=500 mg/dL (Negative) 09/14/20 10:35 Urine Ketones Neg mg/dL (Negative) 09/14/20 10:35 Urine Blood Mod (Negative) 09/14/20 10:35 Urine Nitrite Neg (Negative) 09/14/20 10:35 Urine Bilirubin Neg (Negative) 09/14/20 10:35 Urine Urobilinogen < 2.0 mg/dL (<2.0) 09/14/20 10:35 Ur Leukocyte Esterase Mod (Negative) 09/14/20 10:35 Urine WBC (Auto) > 182.0 /HPF (0.0-6.0) H 09/14/20 10:35 Urine RBC (Auto) 39.0 /HPF (0.0-6.0) 09/14/20 10:35 Urine Bacteria (Auto) 3+ /HPF (Negative) 09/14/20 10:35 Urine WBC Clumps 3+ /HPF 09/14/20 10:35 Urine Eosinophils None seen (None Seen) 09/17/20 Unknown Urine Creatinine 15.2 mg/dL (0.1-20.0) 09/14/20 13:29 Urine Sodium 42 mmol/L 09/14/20 13:29 Urine Opiates Screen Negative 09/14/20 10:35 Urine Methadone Screen Negative 09/14/20 10:35 Ur Barbiturates Screen Negative 09/14/20 10:35 Ur Phencyclidine Scrn Negative 09/14/20 10:35 Ur Amphetamines Screen Negative 09/14/20 10:35 U Benzodiazepines Scrn Negative 09/14/20 10:35 Urine Cocaine Screen Negative 09/14/20 10:35 U Marijuana (THC) Screen Negative 09/14/20 10:35 Drugs of Abuse Note Disclamer 09/14/20 10:35 Coronavirus (PCR) Negative (Negative) 09/15/20 10:36 Blood Type O POSITIVE 09/14/20 10:25 Antibody Screen Negative 09/14/20 10:25 Microbiology: Microbiology 09/14/20 10:32 Peripheral/Venous Blood Culture - Preliminary Beta Hemolytic Strep Group B 09/14/20 10:32 Peripheral/Venous Blood Culture - Preliminary NO GROWTH AFTER 72 HOURS Ramirez/IV: Voiding Method Indwelling Catheter Active Medications - Current Medications Current Medications: Generic Name Dose Route Start Last Admin Trade Name Freq PRN Reason Stop Dose Admin Acetaminophen 650 mg 09/14/20 13:03 Acetaminophen 325 Mg Tab PO Q4H PRN Pain MILD(1-3)/Fever >100.5/YUNG Albuterol 2.5 mg 09/14/20 13:03 Albuterol 2.5 Mg/3 Ml Nebu IH Q4HRT PRN Shortness Of Breath Ascorbic Acid 250 mg 09/14/20 22:00 09/17/20 22:17 Ascorbic Acid 250 Mg Tab PO 250 mg BID CHAU Administration Azithromycin 500 mg 09/16/20 10:00 09/17/20 12:32 Azithromycin 250 Mg Tab PO 09/19/20 10:01 500 mg QDAY CHAU Administration Cholecalciferol 1,000 unit 09/15/20 10:00 09/17/20 12:32 Cholecalciferol (Vit D3) 1000 Unit (25 Mcg) Tab PO 1,000 unit QDAY CHAU Administration Dextrose 50 ml 09/15/20 10:07 Dextrose 50% In Water (25gm) 50 Ml Syringe IV Q30MIN PRN Hypoglycemia Protocol Heparin Sodium (Porcine) 5,000 unit 09/14/20 22:00 09/17/20 22:17 Heparin 5,000 Unit/1 Ml Vial SUB-Q 5,000 unit Q12HR CHAU Administration Hydromorphone HCl 0.25 mg 09/14/20 13:06 Hydromorphone 1 Mg/1 Ml Inj IV Q4H PRN Pain, Moderate (4-6) Ceftriaxone Sodium 2 gm in 100 mls @ 200 mls/hr 09/14/20 14:00 09/17/20 15:05 Rocephin/Ns 2 Gm/100 Ml IV 200 mls/hr Q24H CHAU Administration Protocol Sodium Chloride 1,000 mls @ 125 mls/hr 09/15/20 10:30 09/18/20 02:22 Nacl 0.9% 1000 Ml IV 125 mls/hr DIRECT CHAU Administration Insulin Human Isoph/Insulin Regular 25 unit 09/16/20 14:30 09/17/20 17:40 Insulin Nph/Regular 70/30 Inj SUB-Q 25 unit BIDDIAB CHAU Administration Insulin Human Lispro 10 unit 09/16/20 16:30 09/17/20 17:41 Insulin Lispro 100 Unit/Ml SUB-Q Not Given AC CHAU Insulin Human Regular 0 units 09/15/20 11:30 09/17/20 22:17 Insulin Regular, Human 100 Units/1 Ml SUB-Q Not Given ACHS [facility] Protocol Ondansetron HCl 4 mg 09/14/20 13:03 Ondansetron 4 Mg/2 Ml Inj IV Q8H PRN Nausea And Vomiting Sodium Bicarbonate 650 mg 09/17/20 10:00 09/17/20 22:17 Sodium Bicarbonate 650 Mg Tab PO 650 mg BID CHAU Administration Sodium Chloride 10 ml 09/14/20 22:00 09/17/20 22:18 Sodium Chloride 0.9% 10 Ml Flush Syringe IV 10 ml BID CHAU Administration Sodium Chloride 10 ml 09/14/20 13:03 Sodium Chloride 0.9% 10 Ml Flush Syringe IV PRN PRN LINE FLUSH Tamsulosin HCl 0.4 mg 09/17/20 10:00 09/17/20 12:32 Tamsulosin 0.4 Mg Cap PO 0.4 mg QDAY CHAU Administration Zinc Sulfate 220 mg 09/14/20 22:00 09/17/20 22:17 Zinc Sulfate 220 Mg Cap PO 220 mg BID CHAU Administration
--- NOTE | 2020-09-18 09:06 | Progress Note ---
Assessment and Plan looks fine tube connected to bag wire out home today Subjective Date of service: 09/18/20 Principal diagnosis: inedr Objective - Constitutional Vitals: Vital Signs - 12hr 09/17/20 09/18/20 09/18/20 21:57 00:22 03:54 Temperature 98.0 F 98.0 F Pulse Rate 118 H 108 H Respiratory 18 20 Rate Blood Pressure 127/70 121/70 O2 Sat by Pulse 96 97 97 Oximetry General appearance: Present: no acute distress - Respiratory Respiratory effort: normal Extremities: no ischemia - Gastrointestinal General gastrointestinal: Present: soft - Genitourinary Male genitourinary: normal - Labs CBC & Chem 7: 09/18/20 04:44 09/18/20 04:44 Labs: Abnormal lab results 09/17/20 09/17/20 09/17/20 Range/Units 07:49 11:44 15:46 Hgb (11.8-15.2) gm/dl Hct (35.5-45.6) % MCV (84-94) fl MCH (28-32) pg Seg Neuts % (Manual) (40.0-70.0) % Lymphocytes % (Manual) (13.4-35.0) % Seg Neutrophils # Man (1.8-7.7) K/mm3 Lymphocytes # (Manual) (1.2-5.4) K/mm3 Sodium (137-145) mmol/L BUN (9-20) mg/dL Creatinine (0.8-1.3) mg/dL Glucose (75-100) mg/dL POC Glucose 151 H 197 H 166 H (70-105) mg/dL Calcium (8.4-10.2) mg/dL 09/17/20 09/18/20 09/18/20 Range/Units 20:59 04:44 04:44 Hgb 10.1 L (11.8-15.2) gm/dl Hct 31.2 L (35.5-45.6) % MCV 80 L (84-94) fl MCH 26 L (28-32) pg Seg Neuts % (Manual) 85.0 H (40.0-70.0) % Lymphocytes % (Manual) 8.0 L (13.4-35.0) % Seg Neutrophils # Man 7.9 H (1.8-7.7) K/mm3 Lymphocytes # (Manual) 0.7 L (1.2-5.4) K/mm3 Sodium 135 L (137-145) mmol/L BUN 26 H (9-20) mg/dL Creatinine 1.5 H (0.8-1.3) mg/dL Glucose 212 H (75-100) mg/dL POC Glucose 145 H (70-105) mg/dL Calcium 7.6 L (8.4-10.2) mg/dL 09/18/20 Range/Units 08:46 Hgb (11.8-15.2) gm/dl Hct (35.5-45.6) % MCV (84-94) fl MCH (28-32) pg Seg Neuts % (Manual) (40.0-70.0) % Lymphocytes % (Manual) (13.4-35.0) % Seg Neutrophils # Man (1.8-7.7) K/mm3 Lymphocytes # (Manual) (1.2-5.4) K/mm3 Sodium (137-145) mmol/L BUN (9-20) mg/dL Creatinine (0.8-1.3) mg/dL Glucose (75-100) mg/dL POC Glucose 190 H (70-105) mg/dL Calcium (8.4-10.2) mg/dL Medications & Allergies - Medications Allergies/Adverse Reactions: Allergies No Known Allergies Allergy (Verified 09/14/20 09:38) Home Medications: Home Medications Medication Instructions Recorded Confirmed Last Taken Type No Known Home Medications [No 09/16/20 09/16/20 Unknown History Reported Home Medications] Active Medications: Generic Name Dose Route Start Last Admin Trade Name Luis Armando PRN Reason Stop Dose Admin Acetaminophen 650 mg 09/14/20 13:03 Acetaminophen 325 Mg Tab PO Q4H PRN Pain MILD(1-3)/Fever >100.5/YUNG Albuterol 2.5 mg 09/14/20 13:03 Albuterol 2.5 Mg/3 Ml Nebu IH Q4HRT PRN Shortness Of Breath Ascorbic Acid 250 mg 09/14/20 22:00 09/17/20 22:17 Ascorbic Acid 250 Mg Tab PO 250 mg BID CHAU Administration Azithromycin 500 mg 09/16/20 10:00 09/17/20 12:32 Azithromycin 250 Mg Tab PO 09/19/20 10:01 500 mg QDAY CHAU Administration Cholecalciferol 1,000 unit 09/15/20 10:00 09/17/20 12:32 Cholecalciferol (Vit D3) 1000 Unit (25 Mcg) Tab PO 1,000 unit QDAY CHAU Administration Dextrose 50 ml 09/15/20 10:07 Dextrose 50% In Water (25gm) 50 Ml Syringe IV Q30MIN PRN Hypoglycemia Protocol Heparin Sodium (Porcine) 5,000 unit 09/14/20 22:00 09/17/20 22:17 Heparin 5,000 Unit/1 Ml Vial SUB-Q 5,000 unit Q12HR CHAU Administration Hydromorphone HCl 0.25 mg 09/14/20 13:06 Hydromorphone 1 Mg/1 Ml Inj IV Q4H PRN Pain, Moderate (4-6) Ceftriaxone Sodium 2 gm in 100 mls @ 200 mls/hr 09/14/20 14:00 09/17/20 15:05 Rocephin/Ns 2 Gm/100 Ml IV 200 mls/hr Q24H CHAU Administration Protocol Sodium Chloride 1,000 mls @ 125 mls/hr 09/15/20 10:30 09/18/20 02:22 Nacl 0.9% 1000 Ml IV 125 mls/hr DIRECT CHAU Administration Insulin Human Isoph/Insulin Regular 25 unit 09/16/20 14:30 09/17/20 17:40 Insulin Nph/Regular 70/30 Inj SUB-Q 25 unit BIDDIAB CHAU Administration Insulin Human Lispro 10 unit 09/16/20 16:30 09/17/20 17:41 Insulin Lispro 100 Unit/Ml SUB-Q Not Given AC CHAU Insulin Human Regular 0 units 09/15/20 11:30 09/17/20 22:17 Insulin Regular, Human 100 Units/1 Ml SUB-Q Not Given ACHS [facility] Protocol Ondansetron HCl 4 mg 09/14/20 13:03 Ondansetron 4 Mg/2 Ml Inj IV Q8H PRN Nausea And Vomiting Sodium Bicarbonate 650 mg 09/17/20 10:00 09/17/20 22:17 Sodium Bicarbonate 650 Mg Tab PO 650 mg BID CHAU Administration Sodium Chloride 10 ml 09/14/20 22:00 09/17/20 22:18 Sodium Chloride 0.9% 10 Ml Flush Syringe IV 10 ml BID CHAU Administration Sodium Chloride 10 ml 09/14/20 13:03 Sodium Chloride 0.9% 10 Ml Flush Syringe IV PRN PRN LINE FLUSH Tamsulosin HCl 0.4 mg 09/17/20 10:00 09/17/20 12:32 Tamsulosin 0.4 Mg Cap PO 0.4 mg QDAY CHAU Administration Zinc Sulfate 220 mg 09/14/20 22:00 09/17/20 22:17 Zinc Sulfate 220 Mg Cap PO 220 mg BID CHAU Administration HEART Score - HEART Score Troponin: Troponin T < 0.010 ng/mL (0.00-0.029) 09/14/20 10:33
--- NOTE | 2020-09-18 09:08 | Discharge Summary ---
Short Stay Discharge Plan Activity: other (no straining ) Weight Bearing Status: Full Weight Bearing Diet: regular Wound: change dressing Special Instructions: other Follow up with: PRIMARY CARE, [Primary Care Provider] - 3-5 Days BRINA GOLDEN MD [Staff Physician] - 7 Days
[2020-09-18] MEDS: ZINC SULFATE 220 MG CAP PO SCH ×2 (09:14→22:50)
[2020-09-18] MEDS: HEPARIN 5,000 UNIT/1 ML VIAL SUB-Q SCH ×2 (09:14→22:50)
[2020-09-18] MEDS: ASCORBIC ACID 250 MG TAB PO SCH ×2 (09:14→22:50)
[2020-09-18] MEDS: INSULIN NPH/REGULAR 70/30 INJ SUB-Q SCH ×2 (09:14→17:42)
[2020-09-18] MEDS: INSULIN LISPRO 100 UNIT/ML SUB-Q SCH ×3 (09:15→17:41)
[2020-09-18] MEDS: INSULIN REGULAR, HUMAN 100 UNITS/1 ML SUB-Q SCH ×4 (09:15→22:50)
[2020-09-18] MEDS: SODIUM BICARBONATE 650 MG TAB PO SCH ×2 (09:16→22:50)
[2020-09-18] MEDS: AZITHROMYCIN 250 MG TAB PO SCH (09:22)
[2020-09-18] MEDS: TAMSULOSIN 0.4 MG CAP PO SCH (09:23)
[2020-09-18] MEDS: CHOLECALCIFEROL (VIT D3) 1000 UNIT (25 mcg) TAB PO SCH (09:23)
--- NOTE | 2020-09-18 10:16 | Progress Note ---
Assessment and Plan Impresstion: * JULEE on unknown CKD * UTI with sepsis * Bilateral hydronephrosis * Pseudohyponatremia * Covid PUI * metabolic acidosis * AMS * PNA Plan: * continue iv abx and iv fluids * daily lytes and strict i/os * follow up covid testing noted * urology consult for hydronephrosis and bladder mass noted * amin catheter placement * cr is better today * added sodium bicarbonate, acidosis improved * avoid nephrotoxins * no indication for ALLERGY PHYSICIAN today * dm control per primary team * ok to dc home, follow up with urology as outpatient Subjective Date of service: 09/18/20 Principal diagnosis: julee Interval history: resting well in bed today Objective - Exam Narrative Exam: - General Limitations: Physical Limitation General appearance: lethargic - Head Head exam: Present: other (Band-Aid on forehead) - Eye Eye exam: Present: PERRL, EOMI. Absent: scleral icterus - ENT ENT exam: Present: mucous membranes dry - Neck Neck exam: Present: normal inspection. Absent: tenderness, meningismus - Respiratory Respiratory exam: Present: respiratory distress, rhonchi (Bilaterally) - Cardiovascular Cardiovascular Exam: Present: tachycardia - GI/Abdominal GI/Abdominal exam: Present: soft, distended (Perhaps slightly). Absent: tenderness, guarding, rebound, rigid - exam: Present: other (There is gross evidence of monilial infection involving the penis and scrotal area. There is no purulence abscess or gangrene) - Extremities Exam Extremities exam: Present: normal inspection (Without gross deformity.) - Back Exam Back exam: Present: other (Did not visualize) - Neurological Exam Neurological exam: Present: altered, other (No apparent focal deficit) - Psychiatric Psychiatric exam: Present: normal mood, flat affect - Skin Skin exam: Present: warm - Vital Signs Vital signs: Vital Signs - 12hr 09/18/20 09/18/20 09/18/20 00:22 03:54 09:08 Temperature 98.0 F 98.0 F Pulse Rate 118 H 108 H Respiratory 18 20 Rate Blood Pressure 127/70 121/70 O2 Sat by Pulse 97 97 98 Oximetry - Lab 09/18/20 04:44 09/18/20 04:44 Most recent lab results Calcium 7.6 mg/dL (8.4-10.2) L 09/18/20 04:44 Magnesium 1.80 mg/dL (1.7-2.3) 09/14/20 10:33 Urine Creatinine 15.2 mg/dL (0.1-20.0) 09/14/20 13:29 Urine Sodium 42 mmol/L 09/14/20 13:29 Medications & Allergies - Medications Allergies/Adverse Reactions: Allergies No Known Allergies Allergy (Verified 09/14/20 09:38) Home Medications: Home Medications Medication Instructions Recorded Confirmed Last Taken Type No Known Home Medications [No 09/16/20 09/16/20 Unknown History Reported Home Medications] Active Medications: Generic Name Dose Route Start Last Admin Trade Name Freq PRN Reason Stop Dose Admin Acetaminophen 650 mg 09/14/20 13:03 Acetaminophen 325 Mg Tab PO Q4H PRN Pain MILD(1-3)/Fever >100.5/YUNG Albuterol 2.5 mg 09/14/20 13:03 Albuterol 2.5 Mg/3 Ml Nebu IH Q4HRT PRN Shortness Of Breath Ascorbic Acid 250 mg 09/14/20 22:00 09/18/20 09:14 Ascorbic Acid 250 Mg Tab PO 250 mg BID CHAU Administration Azithromycin 500 mg 09/16/20 10:00 09/18/20 09:22 Azithromycin 250 Mg Tab PO 09/19/20 10:01 500 mg QDAY CHAU Administration Cholecalciferol 1,000 unit 09/15/20 10:00 09/18/20 09:23 Cholecalciferol (Vit D3) 1000 Unit (25 Mcg) Tab PO 1,000 unit QDAY CHAU Administration Dextrose 50 ml 09/15/20 10:07 Dextrose 50% In Water (25gm) 50 Ml Syringe IV Q30MIN PRN Hypoglycemia Protocol Heparin Sodium (Porcine) 5,000 unit 09/14/20 22:00 09/18/20 09:14 Heparin 5,000 Unit/1 Ml Vial SUB-Q 5,000 unit Q12HR CHAU Administration Hydromorphone HCl 0.25 mg 09/14/20 13:06 Hydromorphone 1 Mg/1 Ml Inj IV Q4H PRN Pain, Moderate (4-6) Ceftriaxone Sodium 2 gm in 100 mls @ 200 mls/hr 09/14/20 14:00 09/17/20 15:05 Rocephin/Ns 2 Gm/100 Ml IV 200 mls/hr Q24H CHAU Administration Protocol Sodium Chloride 1,000 mls @ 125 mls/hr 09/15/20 10:30 09/18/20 02:22 Nacl 0.9% 1000 Ml IV 125 mls/hr DIRECT CHAU Administration Insulin Human Isoph/Insulin Regular 25 unit 09/16/20 14:30 09/18/20 09:14 Insulin Nph/Regular 70/30 Inj SUB-Q 25 unit BIDDIAB [facility] Administration Insulin Human Lispro 10 unit 09/16/20 16:30 09/18/20 09:15 Insulin Lispro 100 Unit/Ml SUB-Q 10 unit AC [facility] Administration Insulin Human Regular 0 units 09/15/20 11:30 09/18/20 09:15 Insulin Regular, Human 100 Units/1 Ml SUB-Q 2 units ACHS [facility] Administration Protocol Ondansetron HCl 4 mg 09/14/20 13:03 Ondansetron 4 Mg/2 Ml Inj IV Q8H PRN Nausea And Vomiting Sodium Bicarbonate 650 mg 09/17/20 10:00 09/18/20 09:16 Sodium Bicarbonate 650 Mg Tab PO 650 mg BID [facility] Administration Sodium Chloride 10 ml 09/14/20 22:00 09/18/20 09:17 Sodium Chloride 0.9% 10 Ml Flush Syringe IV 10 ml BID [facility] Administration Sodium Chloride 10 ml 09/14/20 13:03 Sodium Chloride 0.9% 10 Ml Flush Syringe IV PRN PRN LINE FLUSH Tamsulosin HCl 0.4 mg 09/17/20 10:00 09/18/20 09:23 Tamsulosin 0.4 Mg Cap PO 0.4 mg QDAY [facility] Administration Zinc Sulfate 220 mg 09/14/20 22:00 09/18/20 09:14 Zinc Sulfate 220 Mg Cap PO 220 mg BID [facility] Administration
[2020-09-18] MEDS: cefTRIAXone/NS 2 GM/100 ML 2 GM/100 ML BAG IV SCH (15:06)
[2020-09-19 06:16] LABS: Hematocrit 31.5 % (35.5-45.6); Hemoglobin 10.2 gm/dl (11.8-15.2); Mean Corpuscular HGB Conc 33 % (32-34); Mean Corpuscular Volume 82 fl (84-94); Platelet Count 240 K/mm3 (140-440); Red Blood Count 3.86 M/mm3 (3.65-5.03); Red Cell Distribution Width 14.3 % (13.2-15.2)
[2020-09-19 06:32] LABS: Calcium 7.6 mg/dL (8.4-10.2)
[2020-09-19] MEDS: INSULIN NPH/REGULAR 70/30 INJ SUB-Q SCH ×2 (08:31→17:09)
[2020-09-19] MEDS: INSULIN REGULAR, HUMAN 100 UNITS/1 ML SUB-Q SCH ×4 (08:32→22:04)
[2020-09-19] MEDS: INSULIN LISPRO 100 UNIT/ML SUB-Q SCH ×3 (08:33→17:09)
[2020-09-19 09:00] LABS: Total Cells Counted 100
[2020-09-19 09:14] LABS: Platelet Estimate Consistent w Auto; RBC Morphology Normal
[2020-09-19] MEDS: SODIUM BICARBONATE 650 MG TAB PO SCH ×2 (09:39→22:02)
[2020-09-19] MEDS: AZITHROMYCIN 250 MG TAB PO SCH (09:40)
[2020-09-19] MEDS: TAMSULOSIN 0.4 MG CAP PO SCH (09:40)
[2020-09-19] MEDS: HEPARIN 5,000 UNIT/1 ML VIAL SUB-Q SCH (09:40)
[2020-09-19] MEDS: ZINC SULFATE 220 MG CAP PO SCH (09:41)
--- NOTE | 2020-09-19 10:12 | Discharge Summary ---
Providers - Providers Date of Admission: 09/14/20 13:03 Date of discharge: 09/19/20 Attending physician: VERITO NAVARRO MD 09/15/20 10:10 Consult to Physician [CONS] Routine Comment: Consulting Provider: OLGA FAN Physician Instructions: Reason For Exam: ARF 09/16/20 08:17 Consult to Wound/ET Nurse [CONS] Urgent Reason For Exam: wound eval Sacrum and penis 09/16/20 09:39 Consult to Physician [CONS] Routine Comment: Consulting Provider: BRINA GOLDEN Physician Instructions: Reason For Exam: bilateral hydronephrosis 09/17/20 08:39 Physical Therapy Evaluation and Treat [CONS] Routine Comment: Reason For Exam: deconditioning Primary care physician: CARBON FURNACE OPERATOR Hospitalization Condition: Stable Disposition: DC/[place]-06 HOME UNDER HOME HL[facility] Time spent for discharge: 32 minutes - Discharge Diagnoses (1) JULEE (acute kidney injury) Status: Acute (2) Acute encephalopathy Status: Acute (3) Bilateral hydronephrosis Status: Acute (4) Bilateral pneumonia Status: Acute Qualifiers: Pneumonia type: due to unspecified organism Lung location: lower lobe of lung Qualified Code(s): J18.9 - Pneumonia, unspecified organism (5) Hyperosmolar hyperglycemic state (HHS) Status: Acute (6) Sepsis Status: Acute Qualifiers: Sepsis type: sepsis due to unspecified organism Sepsis acute organ dysfu nction status: with acute organ dysfunction Severe sepsis acute organ dysfunction type: acute renal failure Acute renal failure type: unspecified Severe sepsis shock status: without septic shock Qualified Code(s): A41.9 - Sepsis, unspecified organism; R65.20 - Severe sepsis without septic shock; N17.9 - Acute kidney failure, unspecified Core Measure Documentation - Palliative Care Palliative Care/ Comfort Measures: Not Applicable - Core Measures Any of the following diagnoses?: none Exam - Physical Exam Narrative exam: Not in cardiopulmonary distress. The patient appeared well nourished and normally developed. Vital signs as documented. Head exam is unremarkable. No scleral icterus . Neck is without jugular venous distension, thyromegaly, or carotid bruits. Lungs are clear to auscultation. Cardiac exam reveals regular rate and Rhythm. Abdominal exam reveals normal bowel sounds, nontender, no organomegaly. Extremities are nonedematous and both femoral and pedal pulses are normal. 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 No focal weakness. - Constitutional Vitals: Temp Pulse Resp BP Pulse Ox 98.9 F 92 H 18 120/64 93 09/19/20 09:08 09/19/20 09:08 09/19/20 09:08 09/19/20 09:08 09/19/20 09:24 Plan Activity: advance as tolerated Weight Bearing Status: Weight Bear as Tolerated Diet: diabetic Follow up with: BRINA GOLDEN MD [Staff Physician] - 7 Days PRIMARY CARE, [Primary Care Provider] - 3-5 Days Prescriptions: Amoxicillin/K Clav Tab [Augmentin 875 mg] 1 tab PO Q12HR #14 tab Tamsulosin [Flomax] 0.4 mg PO QDAY #30 capsule Insulin NPH/Regular [NovoLIN 70/30] 25 unit SUB-Q BIDDIAB #2 vial
--- NOTE | 2020-09-19 10:20 | Progress Note ---
Assessment and Plan Assessment and plan: Sepsis Sepsis protocol: CBC, CMP, chest x-ray, IV fluid resuscitation therapy, IV antibiotic therapy, blood culture, maintain mean arterial pressure greater than or equal to 65, serial lactic acid level, monitor urine output every shift, monitor fluid balance, Toxic metabolic encephalopathy CT scan head, seizure precautions, aspiration precautions, IV fluid resuscitation therapy, treat sepsis, neuro checks. JULEE (acute kidney injury) Nephrology consultation. BMP, IV fluid resuscitation therapy, repeat BMP in a.m. to monitor serum creatinine as well as GFR, urine electrolytes. Pneumonia Pneumonia protocol: Chest x-ray, CBC, CMP, IV antibiotic therapy, supplemental oxygen, pulse oximetry, blood culture. Suspected 2019 novel coronavirus infection Coronavirus protocol: Contact precautions, isolation precautions, IV steroid therapy, IV antibiotic therapy, supportive care. Hyponatremia Pseudohyponatremia: Suspected secondary to hyperglycemia, repeat BMP, Hyperosmolar hyperglycemic state (HHS) Start insulin 70/30 20 units twice daily. If no significant improvement in BG, we will start insulin drip. Sliding-scale insulin therapy, IV fluid resuscitation therapy, treat sepsis, monitor fluid balance, supportive care. Bilateral hydronephrosis CT scan abdomen and pelvis, Ramirez catheter placement, PSA free and total. Supportive care. No evidence of urinary outlet obstruction. DVT prophylaxis SCD to bilateral lower extremities while in bed, prophylactic anticoagulation 09/16/2020 -COVID-19 test is negative -Urology consulted for bilateral hydronephrosis -Continue management of sepsis -We will correct electrolytes -Consultants recommendations noted 09/17/2020 -Patient will have cystoscopy today -We will continue with IV antibiotics -Continue current insulin regimen -We will do PT OT eval 09/18/2020 -Static cystogram was done and showed bilateral vesicoureteral reflux, no mass identified -We will continue IV antibiotics for sepsis, blood culture grew beta-hemolytic streptococci -Diabetic; blood sugar is in target, hemoglobin A1c is 17.5 -PT OT evaluated the patient and recommend subacute rehab -Patient stated he did not have insurance and wants to go home. Will arrange home health at the time of discharge. 09/19/2020 -Patient is doing well and plan is to discharge home but patient had episodes of A. fib 1 on the day of admission and another 1 yesterday -I put a consult for cardiology to evaluate him, if he needs to be on anticoagulation. - Patient Problems (1) JULEE (acute kidney injury) Current Visit: Yes Status: Acute (2) Acute encephalopathy Current Visit: Yes Status: Acute (3) Bilateral hydronephrosis Current Visit: Yes Status: Acute (4) Bilateral pneumonia Current Visit: Yes Status: Acute Qualifiers: Pneumonia type: due to unspecified organism Lung location: lower lobe of lung Qualified Code(s): J18.9 - Pneumonia, unspecified organism (5) Hyperosmolar hyperglycemic state (HHS) Current Visit: Yes Status: Acute (6) Sepsis Current Visit: Yes Status: Acute Qualifiers: Sepsis type: sepsis due to unspecified organism Sepsis acute organ dysfunction status: with acute organ dysfunction Severe sepsis acute organ dysfunction type: acute renal failure Acute renal failure type: unspecified Severe sepsis shock status: without septic shock Qualified Code(s): A41.9 - Sepsis, unspecified organism; R65.20 - Severe sepsis without septic shock; N17.9 - Acute kidney failure, unspecified History Interval history: Patient was seen and evaluated this morning No nursing issues overnight Patient is doing better Hospitalist Physical - Physical exam Narrative exam: Not in cardiopulmonary distress. The patient appeared well nourished and normally developed. Vital signs as documented. Head exam is unremarkable. No scleral icterus . Neck is without jugular venous distension, thyromegaly, or carotid bruits. Lungs are clear to auscultation. Cardiac exam reveals regular rate and Rhythm. Abdominal exam reveals normal bowel sounds, nontender, no organomegaly. Extremities are nonedematous and both femoral and pedal pulses are normal. 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 No focal weakness. - Constitutional Vitals: Temp Pulse Resp BP Pulse Ox 98.9 F 92 H 18 120/64 93 09/19/20 09:08 09/19/20 09:08 09/19/20 09:08 09/19/20 09:08 09/19/20 09:24 General appearance: Present: mild distress HEART Score - HEART Score Troponin: Troponin T < 0.010 ng/mL (0.00-0.029) 09/14/20 10:33 Results - Labs CBC & Chem 7: 09/19/20 05:47 09/19/20 05:47 Labs: Laboratory Last Values WBC 11.0 K/mm3 (4.5-11.0) 09/19/20 05:47 RBC 3.86 M/mm3 (3.65-5.03) 09/19/20 05:47 Hgb 10.2 gm/dl (11.8-15.2) L 09/19/20 05:47 Hct 31.5 % (35.5-45.6) L 09/19/20 05:47 MCV 82 fl (84-94) L 09/19/20 05:47 MCH 27 pg (28-32) L 09/19/20 05:47 MCHC 33 % (32-34) 09/19/20 05:47 RDW 14.3 % (13.2-15.2) 09/19/20 05:47 Plt Count 240 K/mm3 (140-440) 09/19/20 05:47 Lymph % (Auto) 5.8 % (13.4-35.0) L 09/17/20 05:04 [place] % (Auto) 8.3 % (0.0-7.3) H 09/17/20 05:04 Eos % (Auto) 0.0 % (0.0-4.3) 09/17/20 05:04 Baso % (Auto) 0.1 % (0.0-1.8) 09/17/20 05:04 Lymph # (Auto) 0.7 K/mm3 (1.2-5.4) L 09/17/20 05:04 [place] # (Auto) 1.0 K/mm3 (0.0-0.8) H 09/17/20 05:04 Eos # (Auto) 0.0 K/mm3 (0.0-0.4) 09/17/20 05:04 Baso # (Auto) 0.0 K/mm3 (0.0-0.1) 09/17/20 05:04 Add Manual Diff Complete 09/19/20 05:47 Total Counted 100 09/19/20 05:47 Seg Neutrophils % 85.8 % (40.0-70.0) H 09/17/20 05:04 Seg Neuts % (Manual) 90.0 % (40.0-70.0) H 09/19/20 05:47 Band Neutrophils % 9.0 % 09/14/20 10:33 Lymphocytes % (Manual) 4.0 % (13.4-35.0) L 09/19/20 05:47 Reactive Lymphs % (Man) 1.0 % 09/14/20 10:33 Monocytes % (Manual) 5.0 % (0.0-7.3) 09/19/20 05:47 Eosinophils % (Manual) 1.0 % (0.0-4.3) 09/19/20 05:47 Metamyelocytes % 2.0 % 09/14/20 10:33 Nucleated RBC % Not Reportable 09/19/20 05:47 Seg Neutrophils # 10.5 K/mm3 (1.8-7.7) H 09/17/20 05:04 Seg Neutrophils # Man 9.9 K/mm3 (1.8-7.7) H 09/19/20 05:47 Band Neutrophils # 0.0 K/mm3 09/19/20 05:47 Lymphocytes # (Manual) 0.4 K/mm3 (1.2-5.4) L 09/19/20 05:47 Abs React Lymphs (Man) 0.0 K/mm3 09/19/20 05:47 Monocytes # (Manual) 0.6 K/mm3 (0.0-0.8) 09/19/20 05:47 Eosinophils # (Manual) 0.1 K/mm3 (0.0-0.4) 09/19/20 05:47 Basophils # (Manual) 0.0 K/mm3 (0.0-0.1) 09/19/20 05:47 Metamyelocytes # 0.0 K/mm3 09/19/20 05:47 Myelocytes # 0.0 K/mm3 09/19/20 05:47 Promyelocytes # 0.0 K/mm3 09/19/20 05:47 Blast Cells # 0.0 K/mm3 09/19/20 05:47 WBC Morphology Not Reportable 09/19/20 05:47 Hypersegmented Neuts Not Reportable 09/19/20 05:47 Hyposegmented Neuts Not Reportable 09/19/20 05:47 Hypogranular Neuts Not Reportable 09/19/20 05:47 Smudge Cells Not Reportable 09/19/20 05:47 Toxic Granulation Not Reportable 09/19/20 05:47 Toxic Vacuolation Not Reportable 09/19/20 05:47 Dohle Bodies Not Reportable 09/19/20 05:47 Pelger-Huet Anomaly Not Reportable 09/19/20 05:47 Manasa Rods Not Reportable 09/19/20 05:47 Platelet Estimate Consistent w auto 09/19/20 05:47 Clumped Platelets Not Reportable 09/19/20 05:47 Plt Clumps, EDTA Not Reportable 09/19/20 05:47 Large Platelets Not Reportable 09/19/20 05:47 Giant Platelets Not Reportable 09/19/20 05:47 Platelet Satelliting Not Reportable 09/19/20 05:47 Plt Morphology Comment Not Reportable 09/19/20 05:47 RBC Morphology Normal 09/19/20 05:47 Dimorphic RBCs Not Reportable 09/19/20 05:47 Polychromasia Not Reportable 09/19/20 05:47 Hypochromasia Not Reportable 09/19/20 05:47 Poikilocytosis Not Reportable 09/19/20 05:47 Anisocytosis Not Reportable 09/19/20 05:47 Microcytosis Not Reportable 09/19/20 05:47 Macrocytosis Not Reportable 09/19/20 05:47 Spherocytes Not Reportable 09/19/20 05:47 Pappenheimer Bodies Not Reportable 09/19/20 05:47 Sickle Cells Not Reportable 09/19/20 05:47 Target Cells Not Reportable 09/19/20 05:47 Tear Drop Cells Not Reportable 09/19/20 05:47 Ovalocytes Not Reportable 09/19/20 05:47 Helmet Cells Not Reportable 09/19/20 05:47 [place] Bodies Not Reportable 09/19/20 05:47 [place] Rings Not Reportable 09/19/20 05:47 [place] Cells Not Reportable 09/19/20 05:47 Bite Cells Not Reportable 09/19/20 05:47 Crenated Cell Not Reportable 09/19/20 05:47 Elliptocytes Not Reportable 09/19/20 05:47 Acanthocytes (Spur) Not Reportable 09/19/20 05:47 Rouleaux Not Reportable 09/19/20 05:47 Hemoglobin C Crystals Not Reportable 09/19/20 05:47 Schistocytes Not Reportable 09/19/20 05:47 Malaria parasites Not Reportable 09/19/20 05:47 Cj Bodies Not Reportable 09/19/20 05:47 Hem Pathologist Commnt No 09/19/20 05:47 PT 15.2 Sec. (12.2-14.9) H 09/14/20 10:33 INR 1.20 (0.87-1.13) H 09/14/20 10:33 APTT 31.2 Sec. (24.2-36.6) 09/14/20 10:33 D-Dimer 1032.62 ng/mlDDU (0-234) H 09/14/20 10:33 Sodium 135 mmol/L (137-145) L 09/19/20 05:47 Potassium 3.6 mmol/L (3.6-5.0) 09/19/20 05:47 Chloride 99.0 mmol/L (98-107) 09/19/20 05:47 Carbon Dioxide 26 mmol/L (22-30) 09/19/20 05:47 Anion Gap 14 mmol/L 09/19/20 05:47 BUN 21 mg/dL (9-20) H 09/19/20 05:47 Creatinine 1.7 mg/dL (0.8-1.3) H 09/19/20 05:47 Estimated GFR 42 ml/min 09/19/20 05:47 BUN/Creatinine Ratio 12 % 09/19/20 05:47 Glucose 157 mg/dL (75-100) H 09/19/20 05:47 POC Glucose 558 mg/dL (70-105) H 09/19/20 08:21 Hemoglobin A1c 17.5 % (4-6) H 09/18/20 08:54 Lactic Acid 1.80 mmol/L (0.7-2.0) 09/14/20 19:33 Calcium 7.6 mg/dL (8.4-10.2) L 09/19/20 05:47 Magnesium 1.80 mg/dL (1.7-2.3) 09/14/20 10:33 Ferritin 1422.0 ng/mL (30.0-300.0) H 09/14/20 10:33 Total Bilirubin 0.30 mg/dL (0.1-1.2) 09/14/20 10:33 Direct Bilirubin < 0.2 mg/dL (0-0.2) 09/14/20 10:33 AST 5 units/L (5-40) 09/14/20 10:33 ALT 7 units/L (7-56) 09/14/20 10:33 Alkaline Phosphatase 109 units/L (35-129) 09/14/20 10:33 Lactate Dehydrogenase 146 units/L (91-180) 09/14/20 10:33 Total Creatine Kinase 48 units/L (55-170) L 09/14/20 10:33 CK-MB (CK-2) 2.5 ng/mL (0.0-4.0) 09/14/20 10:33 CK-MB (CK-2) Rel Index 5.2 (0-4) H 09/14/20 10:33 Troponin T < 0.010 ng/mL (0.00-0.029) 09/14/20 10:33 C-Reactive Protein 33.60 mg/dL (0.00-1.30) H 09/14/20 10:33 NT-Pro-B Natriuret Pep 597.0 pg/mL (0-900) 09/14/20 10:33 Total Protein 6.2 g/dL (6.3-8.2) L 09/14/20 10:33 Albumin 2.3 g/dL (3.9-5) L 09/14/20 10:33 Albumin/Globulin Ratio 0.6 % 09/14/20 10:33 Lipase 13 units/L (13-60) 09/14/20 10:33 Procalcitonin 3.51 ng/mL (<0.15) 09/14/20 10:33 Urine Color Yellow (Yellow) 09/14/20 10:35 Urine Turbidity Turbid (Clear) 09/14/20 10:35 Urine pH 5.0 (5.0-7.0) 09/14/20 10:35 Ur Specific [place] 1.012 (1.003-1.030) 09/14/20 10:35 Urine Protein 100 mg/dl mg/dL (Negative) 09/14/20 10:35 Urine Glucose (UA) >=500 mg/dL (Negative) 09/14/20 10:35 Urine Ketones Neg mg/dL (Negative) 09/14/20 10:35 Urine Blood Mod (Negative) 09/14/20 10:35 Urine Nitrite Neg (Negative) 09/14/20 10:35 Urine Bilirubin Neg (Negative) 09/14/20 10:35 Urine Urobilinogen < 2.0 mg/dL (<2.0) 09/14/20 10:35 Ur Leukocyte Esterase Mod (Negative) 09/14/20 10:35 Urine WBC (Auto) > 182.0 /HPF (0.0-6.0) H 09/14/20 10:35 Urine RBC (Auto) 39.0 /HPF (0.0-6.0) 09/14/20 10:35 Urine Bacteria (Auto) 3+ /HPF (Negative) 09/14/20 10:35 Urine WBC Clumps 3+ /HPF 09/14/20 10:35 Urine Eosinophils None seen (None Seen) 09/17/20 Unknown Urine Creatinine 15.2 mg/dL (0.1-20.0) 09/14/20 13:29 Urine Sodium 42 mmol/L 09/14/20 13:29 Urine Opiates Screen Negative 09/14/20 10:35 Urine Methadone Screen Negative 09/14/20 10:35 Ur Barbiturates Screen Negative 09/14/20 10:35 Ur Phencyclidine Scrn Negative 09/14/20 10:35 Ur Amphetamines Screen Negative 09/14/20 10:35 U Benzodiazepines Scrn Negative 09/14/20 10:35 Urine Cocaine Screen Negative 09/14/20 10:35 U Marijuana (THC) Screen Negative 09/14/20 10:35 Drugs of Abuse Note Disclamer 09/14/20 10:35 Coronavirus (PCR) Negative (Negative) 09/15/20 10:36 Blood Type O POSITIVE 09/14/20 10:25 Antibody Screen Negative 09/14/20 10:25 Microbiology: Microbiology 09/17/20 Unknown Urine,Catheterized - Indwelling Catheter Urine Culture - Preliminary 09/14/20 10:32 Peripheral/Venous Blood Culture - Preliminary NO GROWTH AFTER 4 DAYS Ramirez/IV: Voiding Method Indwelling Catheter Active Medications - Current Medications Current Medications: Generic Name Dose Route Start Last Admin Trade Name Freq PRN Reason Stop Dose Admin Acetaminophen 650 mg 09/14/20 13:03 Acetaminophen 325 Mg Tab PO Q4H PRN Pain MILD(1-3)/Fever >100.5/YUNG Albuterol 2.5 mg 09/14/20 13:03 Albuterol 2.5 Mg/3 Ml Nebu IH Q4HRT PRN Shortness Of Breath Dextrose 50 ml 09/15/20 10:07 Dextrose 50% In Water (25gm) 50 Ml Syringe IV Q30MIN PRN Hypoglycemia Protocol Heparin Sodium (Porcine) 5,000 unit 09/14/20 22:00 09/19/20 09:40 Heparin 5,000 Unit/1 Ml Vial SUB-Q 5,000 unit Q12HR CHAU Administration Hydromorphone HCl 0.25 mg 09/14/20 13:06 Hydromorphone 1 Mg/1 Ml Inj IV Q4H PRN Pain, Moderate (4-6) Ceftriaxone Sodium 2 gm in 100 mls @ 200 mls/hr 09/14/20 14:00 09/18/20 15:06 Rocephin/Ns 2 Gm/100 Ml IV 200 mls/hr Q24H CHAU Administration Protocol Sodium Chloride 1,000 mls @ 125 mls/hr 09/15/20 10:30 09/18/20 02:22 Nacl 0.9% 1000 Ml IV 125 mls/hr DIRECT CHAU Administration Insulin Human Isoph/Insulin Regular 25 unit 09/16/20 14:30 09/19/20 08:31 Insulin Nph/Regular 70/30 Inj SUB-Q 25 unit BIDDIAB CHAU Administration Insulin Human Lispro 10 unit 09/16/20 16:30 09/19/20 08:33 Insulin Lispro 100 Unit/Ml SUB-Q 10 unit AC CHAU Administration Insulin Human Regular 0 units 09/15/20 11:30 09/19/20 08:32 Insulin Regular, Human 100 Units/1 Ml SUB-Q 8 units ACHS CHAU Administration Protocol Ondansetron HCl 4 mg 09/14/20 13:03 Ondansetron 4 Mg/2 Ml Inj IV Q8H PRN Nausea And Vomiting Sodium Bicarbonate 650 mg 09/17/20 10:00 09/19/20 09:39 Sodium Bicarbonate 650 Mg Tab PO 650 mg BID CHAU Administration Sodium Chloride 10 ml 09/14/20 22:00 09/19/20 09:40 Sodium Chloride 0.9% 10 Ml Flush Syringe IV 10 ml BID CHAU Administration Sodium Chloride 10 ml 09/14/20 13:03 Sodium Chloride 0.9% 10 Ml Flush Syringe IV PRN PRN LINE FLUSH Tamsulosin HCl 0.4 mg 09/17/20 10:00 02/12/21 09:40 Tamsulosin 0.4 Mg Cap PO 0.4 mg QDAY CHAU Administration
--- NOTE | 2020-09-19 11:42 | Progress Note ---
Assessment and Plan Impresstion: * JULEE on unknown CKD * UTI with sepsis * Bilateral hydronephrosis * Pseudohyponatremia * Covid PUI * metabolic acidosis * AMS * PNA Plan: * continue iv abx and iv fluids * daily lytes and strict i/os * follow up covid testing noted * urology consult for hydronephrosis and bladder mass noted * amin catheter placement * cr is better today * added sodium bicarbonate, acidosis improved * avoid nephrotoxins * no indication for SWATCH FOLDER today * dm control per primary team * ok to dc home, follow up with urology as outpatient Subjective Date of service: 09/19/20 Principal diagnosis: julee Interval history: resting well in bed today Objective - Exam Narrative Exam: - General Limitations: Physical Limitation General appearance: lethargic - Head Head exam: Present: other (Band-Aid on forehead) - Eye Eye exam: Present: PERRL, EOMI. Absent: scleral icterus - ENT ENT exam: Present: mucous membranes dry - Neck Neck exam: Present: normal inspection. Absent: tenderness, meningismus - Respiratory Respiratory exam: Present: respiratory distress, rhonchi (Bilaterally) - Cardiovascular Cardiovascular Exam: Present: tachycardia - GI/Abdominal GI/Abdominal exam: Present: soft, distended (Perhaps slightly). Absent: tenderness, guarding, rebound, rigid - exam: Present: other (There is gross evidence of monilial infection involving the penis and scrotal area. There is no purulence abscess or gangrene) - Extremities Exam Extremities exam: Present: normal inspection (Without gross deformity.) - Back Exam Back exam: Present: other (Did not visualize) - Neurological Exam Neurological exam: Present: altered, other (No apparent focal deficit) - Psychiatric Psychiatric exam: Present: normal mood, flat affect - Skin Skin exam: Present: warm - Vital Signs Vital signs: Vital Signs - 12hr 09/18/20 09/19/20 09/19/20 23:43 04:30 09:08 Temperature 99.3 F 99.3 F 98.9 F Pulse Rate 106 H 102 H 92 H Respiratory 24 20 18 Rate Blood Pressure 114/64 152/61 Blood Pressure 120/64 [Left] O2 Sat by Pulse 95 94 96 Oximetry 09/19/20 09:24 Temperature Pulse Rate Respiratory Rate Blood Pressure Blood Pressure [Left] O2 Sat by Pulse 93 Oximetry - Lab 09/19/20 05:47 09/19/20 05:47 Most recent lab results Calcium 7.6 mg/dL (8.4-10.2) L 09/19/20 05:47 Magnesium 1.80 mg/dL (1.7-2.3) 09/14/20 10:33 Urine Creatinine 15.2 mg/dL (0.1-20.0) 09/14/20 13:29 Urine Sodium 42 mmol/L 09/14/20 13:29 Medications & Allergies - Medications Allergies/Adverse Reactions: Allergies No Known Allergies Allergy (Verified 09/14/20 09:38) Home Medications: Home Medications Medication Instructions Recorded Confirmed Last Taken Type Amoxicillin/K Clav Tab [Augmentin 1 tab PO Q12HR #14 tab 09/19/20 Unknown Rx 875 mg] Insulin NPH/Regular [NovoLIN 70/30] 25 unit SUB-Q BIDDIAB #2 vial 09/19/20 Unknown Rx Tamsulosin [Flomax] 0.4 mg PO QDAY #30 capsule 09/19/20 Unknown Rx Active Medications: Generic Name Dose Route Start Last Admin Trade Name Freq PRN Reason Stop Dose Admin Acetaminophen 650 mg 09/14/20 13:03 Acetaminophen 325 Mg Tab PO Q4H PRN Pain MILD(1-3)/Fever >100.5/YUNG Albuterol 2.5 mg 09/14/20 13:03 Albuterol 2.5 Mg/3 Ml Nebu IH Q4HRT PRN Shortness Of Breath Dextrose 50 ml 09/15/20 10:07 Dextrose 50% In Water (25gm) 50 Ml Syringe IV Q30MIN PRN Hypoglycemia Protocol Heparin Sodium (Porcine) 5,000 unit 09/14/20 22:00 09/19/20 09:40 Heparin 5,000 Unit/1 Ml Vial SUB-Q 5,000 unit Q12HR CHAU Administration Hydromorphone HCl 0.25 mg 09/14/20 13:06 Hydromorphone 1 Mg/1 Ml Inj IV Q4H PRN Pain, Moderate (4-6) Sodium Chloride 1,000 mls @ 125 mls/hr 09/15/20 10:30 09/18/20 02:22 Nacl 0.9% 1000 Ml IV 125 mls/hr DIRECT CHAU Administration Insulin Human Isoph/Insulin Regular 25 unit 09/16/20 14:30 09/19/20 08:31 Insulin Nph/Regular 70/30 Inj SUB-Q 25 unit BIDDIAB CHAU Administration Insulin Human Lispro 10 unit 09/16/20 16:30 09/19/20 08:33 Insulin Lispro 100 Unit/Ml SUB-Q 10 unit AC CHAU Administration Insulin Human Regular 0 units 09/15/20 11:30 09/19/20 08:32 Insulin Regular, Human 100 Units/1 Ml SUB-Q 8 units ACHS CHAU Administration Protocol Ondansetron HCl 4 mg 09/14/20 13:03 Ondansetron 4 Mg/2 Ml Inj IV Q8H PRN Nausea And Vomiting Sodium Bicarbonate 650 mg 09/17/20 10:00 09/19/20 09:39 Sodium Bicarbonate 650 Mg Tab PO 650 mg BID CHAU Administration Sodium Chloride 10 ml 09/14/20 22:00 09/19/20 09:40 Sodium Chloride 0.9% 10 Ml Flush Syringe IV 10 ml BID CHAU Administration Sodium Chloride 10 ml 09/14/20 13:03 Sodium Chloride 0.9% 10 Ml Flush Syringe IV PRN PRN LINE FLUSH Tamsulosin HCl 0.4 mg 09/17/20 10:00 09/19/20 09:40 Tamsulosin 0.4 Mg Cap PO 0.4 mg QDAY CHAU Administration
--- NOTE | 2020-09-19 12:04 | Event Note ---
Date: 09/19/20 NEW TO OUR SERVICE COVID TEST NEGATIVE (09-15-20) CYSTOGRAM --BILAT REFLUX---MAY NEED SUPPRESSION ABX ASOUT PT A/P RETENTION DIABETES CYSTOGRAM HOME WITH ALVARADO ON FLOMAX 1QD WILL NEED URODYNAMICS
--- NOTE | 2020-09-19 17:55 | Consultation ---
History of Present Illness Consult date: 09/19/20 Consult reason: atrial fibrillation History of present illness: The patient is a 55-year-old man who was admitted to the hospital 5 days ago with generalized weakness and altered mental status. He was found with uncontrolled diabetes, blood sugar on presentation was 891, in addition there was sepsis, dehydration, acute kidney injury and hyponatremia. His metabolic abnormalities and uncontrolled diabetes have been largely optimized and he is being readied for discharge. During his discharge assessment, his telemetry and ECG strips were reviewed by the internal medicine service and showed intermittent atrial fibrillation. This prompted a cardiology consultation. Review of the ECG showed that on presentation on September 14, patient was in atrial fibrillation with ventricular rates as high as 120. Subsequently, he reverted to sinus rhythm and a mild sinus tachycardia on telemetry monitoring. Yesterday, there was another brief return to atrial fibrillation. He is currently awake and alert, denies any prior cardiac history, no history of atrial fibrillation, no history of treatment with oral anticoagulation. He has no chest pain, no shortness of breath and no palpitations. There is no lower extremity edema. Past History Past Medical History: diabetes Past Surgical History: No surgical history, Other (Reviewed) Social history: , lives with family. denies: smoking, alcohol abuse, prescription drug abuse Family history: diabetes, hypertension Medications and Allergies Allergies Allergy/AdvReac Type Severity Reaction Status Date / Time No Known Allergies Allergy Verified 09/14/20 09:38 Home Medications Medication Instructions Recorded Confirmed Last Taken Type Amoxicillin/K Clav Tab [Augmentin 1 tab PO Q12HR #14 tab 09/19/20 Unknown Rx 875 mg] Insulin NPH/Regular [NovoLIN 70/30] 25 unit SUB-Q BIDDIAB #2 vial 09/19/20 Unknown Rx Tamsulosin [Flomax] 0.4 mg PO QDAY #30 capsule 09/19/20 Unknown Rx Active Meds: Active Medications Acetaminophen (Acetaminophen 325 Mg Tab) 650 mg PO Q4H PRN PRN Reason: Pain MILD(1-3)/Fever >100.5/YUNG Albuterol (Albuterol 2.5 Mg/3 Ml Nebu) 2.5 mg IH Q4HRT PRN PRN Reason: Shortness Of Breath Dextrose (Dextrose 50% In Water (25gm) 50 Ml Syringe) 50 ml IV Q30MIN PRN; Protocol PRN Reason: Hypoglycemia Hydromorphone HCl (Hydromorphone 1 Mg/1 Ml Inj) 0.25 mg IV Q4H PRN PRN Reason: Pain, Moderate (4-6) Sodium Chloride (Nacl 0.9% 1000 Ml) 1,000 mls @ 125 mls/hr IV DIRECT [facility] Last Admin: 09/18/20 02:22 Dose: 125 mls/hr Documented by: Insulin Human Isoph/Insulin Regular (Insulin Nph/Regular 70/30 Inj) 25 unit SUB-Q BIDDIAB [facility] Last Admin: 09/19/20 17:09 Dose: Not Given Documented by: Insulin Human Regular (Insulin Regular, Human 100 Units/1 Ml) 0 units SUB-Q ACHS [facility]; Protocol Last Admin: 09/19/20 17:09 Dose: Not Given Documented by: Ondansetron HCl (Ondansetron 4 Mg/2 Ml Inj) 4 mg IV Q8H PRN PRN Reason: Nausea And Vomiting Sodium Bicarbonate (Sodium Bicarbonate 650 Mg Tab) 650 mg PO BID [facility] Last Admin: 09/19/20 09:39 Dose: 650 mg Documented by: Sodium Chloride (Sodium Chloride 0.9% 10 Ml Flush Syringe) 10 ml IV BID [facility] Last Admin: 09/19/20 09:40 Dose: 10 ml Documented by: Sodium Chloride (Sodium Chloride 0.9% 10 Ml Flush Syringe) 10 ml IV PRN PRN PRN Reason: LINE FLUSH Tamsulosin HCl (Tamsulosin 0.4 Mg Cap) 0.4 mg PO QDAY [facility] Last Admin: 09/19/20 09:40 Dose: 0.4 mg Documented by: Review of Systems Cardiovascular: no chest pain, no orthopnea, no palpitations, no rapid/irregular heart beat, no edema, no syncope, no lightheadedness, no shortness of breath Physical Examination Vital Signs Temp Pulse Resp BP Pulse Ox 99.3 F 124 H 21 124/59 94 09/14/20 09:38 09/14/20 09:38 09/14/20 09:38 09/14/20 09:38 09/14/20 09:38 General appearance: no acute distress HEENT: Positive: PERRL Neck: Positive: neck supple Cardiac: Positive: Reg Rate and Rhythm Lungs: Positive: Decreased Breath Sounds Neuro: Positive: Grossly Intact Abdomen: Positive: Soft Male genitourinary: Positive: deferred Skin: Positive: Clear Extremities: Absent: edema Results 09/19/20 05:47 09/19/20 05:47 CBC 09/19/20 Range/Units 05:47 WBC 11.0 (4.5-11.0) K/mm3 RBC 3.86 (3.65-5.03) M/mm3 Hgb 10.2 L (11.8-15.2) gm/dl Hct 31.5 L (35.5-45.6) % Plt Count 240 (140-440) K/mm3 Comprehensive Metabolic Panel 09/19/20 Range/Units 05:47 Sodium 135 L (137-145) mmol/L Potassium 3.6 (3.6-5.0) mmol/L Chloride 99.0 (98-107) mmol/L Carbon Dioxide 26 (22-30) mmol/L BUN 21 H (9-20) mg/dL Creatinine 1.7 H (0.8-1.3) mg/dL Glucose 157 H (75-100) mg/dL Calcium 7.6 L (8.4-10.2) mg/dL EKG interpretations - Telemetry EKG Rhythm: Atrial Fibrillation Assessment and Plan - Patient Problems (1) Paroxysmal atrial fibrillation Current Visit: Yes Status: Acute Plan to address problem: We will order metoprolol 50 mg twice daily, and Eliquis 5 mg twice daily. We will order a thyroid function study. Echocardiogram will be done for left ventricular function assessment.
[2020-09-19] MEDS: METOPROLOL TARTRATE 50 MG TAB PO SCH (22:02)
[2020-09-19] MEDS: APIXABAN 5 MG TAB PO SCH (22:02)
[2020-09-19] MEDS: SODIUM CHLORIDE 0.9% 1000 ML 1,000 ML IV SCH (22:08)
[2020-09-20] MEDS: SODIUM CHLORIDE 0.9% 1000 ML 1,000 ML IV SCH (05:19)
[2020-09-20 05:31] LABS: Hematocrit 30.4 % (35.5-45.6); Hemoglobin 9.9 gm/dl (11.8-15.2); Mean Corpuscular HGB Conc 33 % (32-34); Mean Corpuscular Volume 82 fl (84-94); Platelet Count 232 K/mm3 (140-440); Red Blood Count 3.71 M/mm3 (3.65-5.03); Red Cell Distribution Width 14.7 % (13.2-15.2)
[2020-09-20 05:45] LABS: Calcium 7.6 mg/dL (8.4-10.2)
[2020-09-20 06:39] LABS: Platelet Estimate Consistent w Auto; RBC Morphology Normal; Total Cells Counted 100
--- NOTE | 2020-09-20 08:56 | Progress Note ---
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 Absent: scleral icterus - ENT ENT exam: Present: mucous membranes dry - Neck Neck exam: Present: normal inspection. Absent: tenderness, meningismus - Respiratory Respiratory exam: Present: respiratory distress, rhonchi (Bilaterally) - Cardiovascular Cardiovascular Exam: Present: tachycardia - GI/Abdominal GI/Abdominal exam: Present: soft, distended (Perhaps slightly). Absent: tenderness, guarding, rebound, rigid - exam: Present: other (There is gross evidence of monilial infection involving the penis and scrotal area. There is no purulence abscess or gangrene) - Extremities Exam Extremities exam: Present: normal inspection (Without gross deformity.) - Back Exam Back exam: Present: other (Did not visualize) - Neurological Exam Neurological exam: Present: altered, other (No apparent focal deficit) - Psychiatric Psychiatric exam: Present: normal mood, flat affect - Skin Skin exam: Present: warm - Vital Signs Vital signs: Vital Signs - 12hr 09/19/20 09/19/20 09/19/20 21:14 22:00 22:02 Temperature Pulse Rate 109 H Pulse Rate [ 110 H From Monitor] Respiratory Rate Blood Pressure 152/61 O2 Sat by Pulse 95 Oximetry 09/20/20 09/20/20 09/20/20 00:00 04:05 08:33 Temperature 98.8 F 98.3 F Pulse Rate 99 H 99 H Pulse Rate [ From Monitor] Respiratory 20 18 Rate Blood Pressure 93/61 111/67 O2 Sat by Pulse 96 93 98 Oximetry - Lab 09/20/20 04:57 09/20/20 04:57 Most recent lab results Calcium 7.6 mg/dL (8.4-10.2) L 09/20/20 04:57 Magnesium 1.80 mg/dL (1.7-2.3) 09/14/20 10:33 Urine Creatinine 15.2 mg/dL (0.1-20.0) 09/14/20 13:29 Urine Sodium 42 mmol/L 09/14/20 13:29 Medications & Allergies - Medications Allergies/Adverse Reactions: Allergies No Known Allergies Allergy (Verified 09/14/20 09:38) Home Medications: Home Medications Medication Instructions Recorded Confirmed Last Taken Type Amoxicillin/K Clav Tab [Augmentin 1 tab PO Q12HR #14 tab 09/19/20 Unknown Rx 875 mg] Insulin NPH/Regular [NovoLIN 70/30] 25 unit SUB-Q BIDDIAB #2 vial 09/19/20 Unknown Rx Tamsulosin [Flomax] 0.4 mg PO QDAY #30 capsule 09/19/20 Unknown Rx Active Medications: Generic Name Dose Route Start Last Admin Trade Name Freq PRN Reason Stop Dose Admin Acetaminophen 650 mg 09/14/20 13:03 Acetaminophen 325 Mg Tab PO Q4H PRN Pain MILD(1-3)/Fever >100.5/YUNG Albuterol 2.5 mg 09/14/20 13:03 Albuterol 2.5 Mg/3 Ml Nebu IH Q4HRT PRN Shortness Of Breath Apixaban 5 mg 09/19/20 22:00 09/19/20 22:02 Apixaban 5 Mg Tab PO 5 mg Q12HR [facility] Administration Protocol Dextrose 50 ml 09/15/20 10:07 Dextrose 50% In Water (25gm) 50 Ml Syringe IV Q30MIN PRN Hypoglycemia Protocol Hydromorphone HCl 0.25 mg 09/14/20 13:06 Hydromorphone 1 Mg/1 Ml Inj IV Q4H PRN Pain, Moderate (4-6) Sodium Chloride 1,000 mls @ 125 mls/hr 09/15/20 10:30 09/20/20 05:19 Nacl 0.9% 1000 Ml IV 125 mls/hr DIRECT [facility] Administration Sodium Chloride 1,000 mls @ 100 mls/hr 02/13/21 09:00 Nacl 0.45% 1000 Ml IV DIRECT [facility] Ceftriaxone Sodium 1 gm in 50 mls @ 100 mls/hr 09/20/20 10:00 Rocephin/Ns 1 Gm/50 Ml IV Q24HR [facility] Protocol Insulin Human Isoph/Insulin Regular 25 unit 09/16/20 14:30 09/19/20 17:09 Insulin Nph/Regular 70/30 Inj SUB-Q Not Given BIDDIAB [facility] Insulin Human Regular 0 units 09/15/20 11:30 09/19/20 22:04 Insulin Regular, Human 100 Units/1 Ml SUB-Q 6 units ACHS [facility] Administration Protocol Metoprolol Tartrate 50 mg 09/19/20 22:00 09/19/20 22:02 Metoprolol Tartrate 50 Mg Tab PO 50 mg BID [facility] Administration Ondansetron HCl 4 mg 09/14/20 13:03 Ondansetron 4 Mg/2 Ml Inj IV Q8H PRN Nausea And Vomiting Sodium Bicarbonate 650 mg 09/17/20 10:00 09/19/20 22:02 Sodium Bicarbonate 650 Mg Tab PO 650 mg BID [facility] Administration Sodium Chloride 10 ml 09/14/20 22:00 09/19/20 22:03 Sodium Chloride 0.9% 10 Ml Flush Syringe IV 10 ml BID [facility] Administration Sodium Chloride 10 ml 09/14/20 13:03 Sodium Chloride 0.9% 10 Ml Flush Syringe IV PRN PRN LINE FLUSH Tamsulosin HCl 0.4 mg 09/17/20 10:00 09/19/20 09:40 Tamsulosin 0.4 Mg Cap PO 0.4 mg QDAY [facility] Administration
--- NOTE | 2020-09-20 09:53 | Discharge Summary ---
Providers - Providers Date of Admission: 09/14/20 13:03 Date of discharge: 09/20/20 Attending physician: VERITO NAVARRO MD 09/15/20 10:10 Consult to Physician [CONS] Routine Comment: Consulting Provider: OLGA FAN Physician Instructions: Reason For Exam: ARF 09/16/20 08:17 Consult to Wound/ET Nurse [CONS] Urgent Reason For Exam: wound eval Sacrum and penis 09/16/20 09:39 Consult to Physician [CONS] Routine Comment: Consulting Provider: BRINA GOLDEN Physician Instructions: Reason For Exam: bilateral hydronephrosis 09/17/20 08:39 Physical Therapy Evaluation and Treat [CONS] Routine Comment: Reason For Exam: deconditioning 09/19/20 10:16 Consult to Physician [CONS] Routine Comment: Consulting Provider: ALFREDA NAPIER Physician Instructions: Reason For Exam: a.fib 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 Patient is lethargic and unable to provide detailed history at the time of my evaluation. Patient history taken from EMS staff, ED staff, as well as patient family. As per patient nephewthe patient has "gotten very weak" over the past week with persistently worsening symptoms over the same timeframe. EMS was notified and upon arrival the patient was found to be in distress and subsequently transported to [facility] for further care and evaluation of the aforementioned symptoms. The patient was seen and evaluated in the emergency department. All lab and imaging studies reviewed. The patient was found to have pneumonia, urinary tract infection complicated by sepsis, hyponatremia, acute kidney injury, uncontrolled diabetes mellitus with a blood glucose in the 800s which is consistent with hyperglycemic hyperosmolar state. Patient also found to have bilateral hydronephrosis without evidence of urinary obstruction. Patient admitted to [facility] and initiated on sepsis protocol, pneumonia protocol, as well as coronavirus protocol. Patient initiated on aggressive IV insulin therapy as well as sliding scale insulin therapy. No further history is obtainable. Patient is confused with diminished cognition at the time of my evaluation but has positive gag reflex and is able to protect his airway without difficulty. No prior admission for review. No medication listed at time of admission for reconciliation. Hospital course Sepsis Sepsis protocol: CBC, CMP, chest x-ray, IV fluid resuscitation therapy, IV antibiotic therapy, blood culture, maintain mean arterial pressure greater than or equal to 65, serial lactic acid level, monitor urine output every shift, monitor fluid balance, Toxic metabolic encephalopathy CT scan head, seizure precautions, aspiration precautions, IV fluid resuscitation therapy, treat sepsis, neuro checks. JULEE (acute kidney injury) Nephrology consultation. BMP, IV fluid resuscitation therapy, repeat BMP in a. m. to monitor serum creatinine as well as GFR, urine electrolytes. Pneumonia Pneumonia protocol: Chest x-ray, CBC, CMP, IV antibiotic therapy, supplemental oxygen, pulse oximetry, blood culture. Suspected 2019 novel coronavirus infection Coronavirus protocol: Contact precautions, isolation precautions, IV steroid therapy, IV antibiotic therapy, supportive care. Hyponatremia Pseudohyponatremia: Suspected secondary to hyperglycemia, repeat BMP, Hyperosmolar hyperglycemic state (HHS) Start insulin 70/30 20 units twice daily. If no significant improvement in BG, we will start insulin drip. Sliding-scale insulin therapy, IV fluid resuscitation therapy, treat sepsis, monitor fluid balance, supportive care. Bilateral hydronephrosis CT scan abdomen and pelvis, Ramirez catheter placement, PSA free and total. Supportive care. No evidence of urinary outlet obstruction. DVT prophylaxis SCD to bilateral lower extremities while in bed, prophylactic anticoagulation 09/16/2020 -COVID-19 test is negative -Urology consulted for bilateral hydronephrosis -Continue management of sepsis -We will correct electrolytes -Consultants recommendations noted 09/17/2020 -Patient will have cystoscopy today -We will continue with IV antibiotics -Continue current insulin regimen -We will do PT OT eval 09/18/2020 -Static cystogram was done and showed bilateral vesicoureteral reflux, no mass identified -We will continue IV antibiotics for sepsis, blood culture grew beta-hemolytic streptococci -Diabetic; blood sugar is in target, hemoglobin A1c is 17.5 -PT OT evaluated the patient and recommend subacute rehab -Patient stated he did not have insurance and wants to go home. Will arrange home health at the time of discharge. 09/19/2020 -Patient is doing well and plan is to discharge home but patient had episodes of A. fib 1 on the day of admission and another 1 yesterday -I put a consult for cardiology to evaluate him, if he needs to be on anticoagulation. 07/20/2021; patient was evaluated by cardiology, echo was done and was unremarkable. Patient discharged with Eliquis and metoprolol for A. fib. Patient's blood culture grew beta-hemolytic streptococci and patient was treated with Zosyn as inpatient and discharged with Augmentin. Patient sepsis resolved. Patient's hemoglobin A1c 17.5 and discharged with insulin 70/30 and advised to have follow-up with his primary care physician. He said he does not have a primary care physician and case management gave him a list of primary care physicians for patients without insurance. Patient was seen by urology and patient is on Ramirez catheter and urology recommend to discharge him on Ramirez catheter and will follow him in the office. Patient charged with home health. Disposition: DC/TX- HOME UNDER HOME HL Time spent for discharge: 35 minutes - Discharge Diagnoses (1) JULEE (acute kidney injury) Status: Acute (2) Acute encephalopathy Status: Acute (3) Bilateral hydronephrosis Status: Acute (4) Bilateral pneumonia Status: Acute Qualifiers: Pneumonia type: due to unspecified organism Lung location: lower lobe of lung Qualified Code(s): J18.9 - Pneumonia, unspecified organism (5) Hyperosmolar hyperglycemic state (HHS) Status: Acute (6) Sepsis Status: Acute Qualifiers: Sepsis type: sepsis due to unspecified organism Sepsis acute organ dysfunction status: with acute organ dysfunction Severe sepsis acute organ dysfunction type: acute renal failure Acute renal failure type: unspecified Severe sepsis shock status: without septic shock Qualified Code(s): A41.9 - Sepsis, unspecified organism; R65.20 - Severe sepsis without septic shock; N17.9 - Acute kidney failure, unspecified (7) Atrial fibrillation with RVR Status: Acute Core Measure Documentation - Palliative Care Palliative Care/ Comfort Measures: Not Applicable - Core Measures Any of the following diagnoses?: none Exam - Physical Exam Narrative exam: Not in cardiopulmonary distress. The patient appeared well nourished and normally developed. Vital signs as documented. Head exam is unremarkable. No scleral icterus . Neck is without jugular venous distension, thyromegaly, or carotid bruits. Lungs are clear to auscultation. Cardiac exam reveals regular rate and Rhythm. Abdominal exam reveals normal bowel sounds, nontender, no organomegaly. Extremities are nonedematous and both femoral and pedal pulses are normal. BUSINESS SYSTEMS ARCHITECT: Alert and oriented 3. No focal weakness. - Constitutional Vitals: Temp Pulse Resp BP Pulse Ox 98.0 F 103 H 18 120/73 94 09/20/20 09:00 09/20/20 09:00 09/20/20 09:00 09/20/20 09:00 09/20/20 09:00 Plan Activity: advance as tolerated Weight Bearing Status: Weight Bear as Tolerated Diet: diabetic Follow up with: BRINA GOLDEN MD [Staff Physician] - 7 Days PRIMARY CARE, [Primary Care Provider] - 3-5 Days Prescriptions: Amoxicillin/K Clav Tab [Augmentin 875 mg] 1 tab PO Q12HR #14 tab Fluconazole [Diflucan TAB] 100 mg PO QDAY #6 tablet Apixaban [Eliquis] 5 mg PO Q12HR #60 tablet Tamsulosin [Flomax] 0.4 mg PO QDAY #30 capsule Metoprolol [Lopressor TAB] 50 mg PO BID #60 tablet Insulin NPH/Regular [NovoLIN 70/30] 25 unit SUB-Q BIDDIAB #2 vial
[2020-09-20] MEDS ORDERED: cefTRIAXone/NS 1 GM/50 ML 1 GM/50 ML BAG IV SCH (10:00)
[2020-09-20] MEDS ORDERED: FLUCONAZOLE 100 MG TAB PO SCH (10:00)
[2020-09-20] MEDS ORDERED: SODIUM CHLORIDE 0.45% 1000 ML 1,000 ML IV SCH (10:30)
[2020-09-20] MEDS: METOPROLOL TARTRATE 50 MG TAB PO SCH (11:09)
[2020-09-20] MEDS: SODIUM BICARBONATE 650 MG TAB PO SCH (11:09)
[2020-09-20] MEDS: TAMSULOSIN 0.4 MG CAP PO SCH (11:09)
[2020-09-20] MEDS: APIXABAN 5 MG TAB PO SCH (11:09)
[2020-09-20] MEDS: INSULIN NPH/REGULAR 70/30 INJ SUB-Q SCH ×2 (11:13→17:19)
[2020-09-20] MEDS: INSULIN REGULAR, HUMAN 100 UNITS/1 ML SUB-Q SCH ×3 (11:13→17:16)
--- NOTE | 2020-09-20 12:20 | Progress Note ---
Assessment and Plan - Patient Problems (1) Paroxysmal atrial fibrillation Current Visit: Yes Status: Acute Plan to address problem: Continue metoprolol 50 mg twice daily, and Eliquis 5 mg twice daily. Thyroid function study was normal with a TSH of 1.75. Echocardiogram completed for left ventricular function assessment. Subjective Date of service: 09/20/20 Principal diagnosis: inder Interval history: Patient is comfortable, no new cardiac complaints, echocardiography completed, results are pending. Objective Vital Signs Temp Pulse Pulse Resp BP BP Pulse Ox 09/20/20 09:00 98.0 F 103 H 18 120/73 94 09/20/20 08:33 98 09/20/20 04:05 98.3 F 99 H 18 111/67 93 09/20/20 00:00 98.8 F 99 H 20 93/61 96 09/19/20 22:02 109 H 152/61 09/19/20 22:00 110 H 09/19/20 21:14 95 09/19/20 20:00 99.0 F 109 H 20 112/56 93 09/19/20 15:46 97.9 F 112 H 16 109/62 90 09/19/20 12:30 114 H - Physical Examination General: No Apparent Distress HEENT: Positive: PERRL Neck: Positive: neck supple Cardiac: Positive: Reg Rate and Rhythm Lungs: Positive: Decreased Breath Sounds Neuro: Positive: Grossly Intact Abdomen: Positive: Soft Skin: Positive: Clear Extremities: Absent: edema - Labs and Meds CBC 09/20/20 Range/Units 04:57 WBC 13.0 H (4.5-11.0) K/mm3 RBC 3.71 (3.65-5.03) M/mm3 Hgb 9.9 L (11.8-15.2) gm/dl Hct 30.4 L (35.5-45.6) % Plt Count 232 (140-440) K/mm3 Comprehensive Metabolic Panel 09/20/20 Range/Units 04:57 Sodium 133 L (137-145) mmol/L Potassium 3.8 (3.6-5.0) mmol/L Chloride 96.2 L (98-107) mmol/L Carbon Dioxide 22 (22-30) mmol/L BUN 27 H (9-20) mg/dL Creatinine 2.3 H (0.8-1.3) mg/dL Glucose 308 H (75-100) mg/dL Calcium 7.6 L (8.4-10.2) mg/dL
[2020-09-20 17:00] VITALS: BP 113/64
== END 2020-09-20 19:10 | disposition home health service (06) | DRG 871 ==
LOC: ED 09:26 → IMCU 13:03 → 4A 09-16 17:24
PROVIDERS: ADMIT Internal Medicine; ATTEND Internal Medicine
PROC: BT141ZZ Fluoroscopy of Kidneys, Ureters and Bladder using Low Osmolar Contrast (ICD-10-PCS; principal; 2020-09-17)
DX: A41.9 Sepsis, unspecified organism (principal); J18.9 Pneumonia, unspecified organism; G92 Toxic encephalopathy; E87.1 Hypo-osmolality and hyponatremia; N17.9 Acute kidney failure, unspecified; N13.6 Pyonephrosis; I48.0 Paroxysmal atrial fibrillation; E11.9 Type 2 diabetes mellitus without complications; Z20.822 Contact with and (suspected) exposure to COVID-19; R65.20 Severe sepsis without septic shock; N18.9 Chronic kidney disease, unspecified; Z82.49 Family history of ischemic heart disease and other diseases of the circulatory system; Z83.3 Family history of diabetes mellitus; Z79.899 Other long term (current) drug therapy; Z79.4 Long term (current) use of insulin
CPT/HCPCS: 36415; 51600; 70450; 71045; 74176; 74430; 76770; 80048; 80076; 80307; 81001; 82140; 82550; 82553; 82570; 82728; 82947; 82962; 83036; 83615; 83690; 83735; 83880; 84145; 84154; 84300; 84443; 84484; 85007; 85025; 85379; 85610; 85730; 86140; 86850; 86900; 86901; 87040; 87086; 89050; 93005; 93306; 94760; 96361; 96365; 96366; 96367; 96375; 96376; 99292; G0378; J0456; J0696; J1644; J1815; J2920; J3370; J7030; J7040; Q9958; U0003

== ENCOUNTER 2021-01-14 14:37 | Inpatient (IN) | payer OTHER ==
--- NOTE | 2021-01-14 16:12 | Event Note ---
ED Screening Note ED Screening Note: states his GI doctor did lab work on tuesday01/12/2021 he was advised he is in renal failure and needs to report to the ED states he was having the lab work due to SOB and needing to have a colonscopy states he has exertional SOB he denies any orthopnea no leg swelling no CP pmhx anemia, DM, BPH This initial assessment/diagnostic orders/clinical plan/treatment(s) is/are subject to change based on patients health status, clinical progression and re- assessment by fellow clinical providers in the ED. Further treatment and workup at subsequent clinical providers discretion. Patient/guardian urged not to elope from the ED as their condition may be serious if not clinically assessed and managed. Initial orders include: labs, UA, EKG, CXR
[2021-01-14 17:23] LABS: Basophils # (Auto) 0.2 K/mm3 (0.0-0.1); Eosinophils # (Auto) 0.2 K/mm3 (0.0-0.4); Hematocrit 26.7 % (35.5-45.6); Hemoglobin 8.7 gm/dl (11.8-15.2); Lymphocytes # (Auto) 1.6 K/mm3 (1.2-5.4); Lymphocytes % (Auto) 15.6 % (13.4-35.0); Mean Corpuscular HGB Conc 33 % (32-34); Mean Corpuscular Volume 79 fl (84-94); Monocytes % (Auto) 9.4 % (0.0-7.3); Platelet Count 345 K/mm3 (140-440); Red Blood Count 3.38 M/mm3 (3.65-5.03); Red Cell Distribution Width 18.2 % (13.2-15.2)
--- NOTE | 2021-01-14 17:30 | XRay Report ---
CHEST 2 VIEWS INDICATION / CLINICAL INFORMATION: SOB. Dyspnea FINDINGS: SUPPORT DEVICES: None. HEART / MEDIASTINUM: No significant abnormality. LUNGS / PLEURA: Ill-defined bibasilar airspace opacities have improved since 09/14/2020 however some il l-defined densities persist within the lower lungs. Small right pleural effusion. Signer Name: Naman Lamas MD Signed: 01/14/2021 5:26 PM Workstation Name: [id number]
[2021-01-14 17:48] LABS: Albumin 3.6 g/dL (3.9-5); Calcium 9.1 mg/dL (8.4-10.2)
[2021-01-14 18:06] LABS: Chol/HDL Ratio 3.22 %
--- NOTE | 2021-01-14 20:08 | Emergency Department Report ---
ED General Adult HPI - General Chief complaint: Recheck/Abnormal Lab/Rx Stated complaint: REFERRED BY DOCTOR FOR DIALYSIS PUI?: No Time Seen by Provider: 01/14/21 16:11 Source: patient Mode of arrival: Ambulatory Limitations: No Limitations - History of Present Illness Initial comments: Patient is a 55-year-old male who presents emergency room with complaints of abnormal labs. Patient states that he was at his rug dyer office and had blood done and they found him to have abnormal kidney function. Patient states his doctor told him he was in kidney failure need to do dialysis. Patient's states that his creatinine was up. Patient states he does not have a history of kidney disease. Patient states he had acute renal insufficiency in September of this year after having pneumonia. Patient dates he does not see a kidney doctor. Patient states he was seen the rug dyer for a possible colonoscopy. Patient states that his rug dyer did labs because he was having dyspnea on exertion or shortness of breath at times. Patient dates deficient exertion short of breath going on for a couple weeks. Patient states his symptoms are worsening. Patient had shortness of breath better with rest a nd worse with exertion. Patient denies recent travel. Patient denies recent international travel. Patient denies exposure to the novel coronavirus. Patient denies sick contacts. Patient denies fever and chills. Patient denies cough. Patient denies diarrhea. Patient denies coming in contact with anybody with symptoms of the novel coronavirus. Patient denies chest pain. Patient denies abdominal pain. Patient denies any physical complaints except for the shortness of breath and dyspnea exertion. -: Sudden Severity scale (0 -10): 0 - Related Data Previous Rx's Medication Instructions Recorded Last Taken Type Amoxicillin/K Clav Tab [Augmentin 1 tab PO Q12HR #14 tab 09/19/20 Unknown Rx 875 mg] Insulin NPH/Regular [NovoLIN 70/30] 25 unit SUB-Q BIDDIAB #2 vial 09/19/20 Unknown Rx Tamsulosin [Flomax] 0.4 mg PO QDAY #30 capsule 09/19/20 Unknown Rx Apixaban [Eliquis] 5 mg PO Q12HR #60 tablet 09/20/20 Unknown Rx Fluconazole [Diflucan TAB] 100 mg PO QDAY #6 tablet 09/20/20 Unknown Rx Metoprolol [Lopressor TAB] 50 mg PO BID #60 tablet 09/20/20 Unknown Rx Allergies Allergy/AdvReac Type Severity Reaction Status Date / Time No Known Allergies Allergy Verified 09/14/20 09:38 ED Review of Systems ROS: Stated complaint: REFERRED BY DOCTOR FOR DIALYSIS Other details as noted in HPI Constitutional: denies: chills, fever Eyes: denies: eye pain, eye discharge, vision change ENT: denies: ear pain, throat pain Respiratory: see HPI, shortness of breath, SOB with exertion, SOB at rest. denies: cough, wheezing Cardiovascular: as per HPI, dyspnea on exertion. denies: chest pain, palpitations Endocrine: no symptoms reported Gastrointestinal: denies: abdominal pain, nausea, diarrhea Genitourinary: denies: urgency, dysuria Musculoskeletal: denies: back pain, joint swelling, arthralgia Skin: denies: rash, lesions Neurological: denies: headache, weakness, paresthesias Psychiatric: denies: anxiety, depression Hematological/Lymphatic: denies: easy bleeding, easy bruising ED Past Medical Hx - Past Medical History Previous Medical History?: Yes Hx Diabetes: Yes Additional medical history: anemia - Surgical History Past Surgical History?: Yes Additional Surgical History: tonsillectomy - Family History Family history: no significant - Social History Smoking Status: Former Smoker Substance Use Type: None - Medications Home Medications: Home Medications Medication Instructions Recorded Confirmed Last Taken Type Amoxicillin/K Clav Tab [Augmentin 1 tab PO Q12HR #14 tab 09/19/20 Unknown Rx 875 mg] Insulin NPH/Regular [NovoLIN 70/30] 25 unit SUB-Q BIDDIAB #2 vial 09/19/20 Unknown Rx Tamsulosin [Flomax] 0.4 mg PO QDAY #30 capsule 09/19/20 Unknown Rx Apixaban [Eliquis] 5 mg PO Q12HR #60 tablet 09/20/20 Unknown Rx Fluconazole [Diflucan TAB] 100 mg PO QDAY #6 tablet 09/20/20 Unknown Rx Metoprolol [Lopressor TAB] 50 mg PO BID #60 tablet 09/20/20 Unknown Rx ED Physical Exam - General Limitations: No Limitations General appearance: alert, in no apparent distress - Head Head exam: Present: atraumatic, normocephalic - Eye Eye exam: Present: normal appearance - ENT ENT exam: Present: mucous membranes moist - Neck Neck exam: Present: normal inspection - Respiratory Respiratory exam: Present: normal lung sounds bilaterally. Absent: respiratory distress - Cardiovascular Cardiovascular Exam: Present: regular rate, normal rhythm. Absent: systolic murmur, diastolic murmur, rubs, gallop - GI/Abdominal GI/Abdominal exam: Present: soft, normal bowel sounds - Rectal Rectal exam: Present: deferred - Extremities Exam Extremities exam: Present: normal inspection - Back Exam Back exam: Present: normal inspection - Neurological Exam Neurological exam: Present: alert, oriented X3 - Psychiatric Psychiatric exam: Present: normal affect, normal mood - Skin Skin exam: Present: warm, dry, intact, normal color. Absent: rash ED Course Vital Signs 01/14/21 01/14/21 01/14/21 15:42 20:13 20:15 Temperature 97.7 F Pulse Rate 107 H 87 90 Respiratory 16 14 11 L Rate Blood Pressure 137/76 137/76 Blood Pressure 99/50 [Left] O2 Sat by Pulse 99 100 100 Oximetry 01/14/21 01/14/21 01/14/21 20:31 20:45 21:01 Temperature Pulse Rate 84 90 94 H Respiratory 12 13 14 Rate Blood Pressure 146/80 145/85 149/83 Blood Pressure [Left] O2 Sat by Pulse 100 100 100 Oximetry 01/14/21 01/14/21 01/14/21 21:15 21:31 21:45 Temperature Pulse Rate 90 103 H 96 H Respiratory 14 13 15 Rate Blood Pressure 150/85 130/71 138/79 Blood Pressure [Left] O2 Sat by Pulse 100 100 100 Oximetry 01/14/21 01/15/21 22:01 01:14 Temperature Pulse Rate 96 H Respiratory 9 L 22 Rate Blood Pressure 151/85 Blood Pressure [Left] O2 Sat by Pulse 100 Oximetry - Reevaluation(s) Reevaluation #1: I discussed all results with patient. I discussed plan of care with patient. Patient agrees with plan of care and admission. Patient to be admitted to the hospitalist service. 01/14/21 21:58 - Consultations Consultation #1: Hospitalist consulted for admission. Hospitalist to admit patient. 01/14/21 21:58 Consultation #2: I discussed the case with Dr. JOHNSON.. Dr. JOHNSON recommends admission and he will see the patient.. 01/14/21 22:55 ED Medical Decision Making - Lab Data Result diagrams: 01/14/21 17:06 01/14/21 17:06 - EKG Data -: EKG Interpreted by Me EKG shows normal: sinus rhythm, axis, intervals, QRS complexes, ST-T waves Rate: normal - Radiology Data Radiology results: report reviewed, image reviewed interpreted by me: Chest x-ray: Positive pneumonia, no pneumothorax, no foreign body, no osseous findings, pulmonary edema. CHEST 2 VIEWS INDICATION / CLINICAL INFORMATION: SOB. Dyspnea FINDINGS: SUPPORT DEVICES: None. HEART / MEDIASTINUM: No significant abnormality. LUNGS / PLEURA: Ill-defined bibasilar airspace opacities have improved since 09/14/2020 however some ill-defined densities persist within the lower lungs. Small right pleural effusion. - Medical Decision Making Patient is a 55-year-old male presents emergency room with complaints of shortness of breath and abnormal labs. Patient states he is at his rug dyer office preparing for a colonoscopy as an outpatient and the patient complained of shortness of breath at the rug dyer did labs and found his to have acute renal failure. The rug dyer then sent the patient to the emergency room to be evaluated. Patient had labs done which were essentially unremarkable except for acute renal failure, anemia. Patient had troponin and BNP done which were elevated. Elevation of his ambulation was likely secondary to renal disease. Patient had a chest x-ray which was positive for pneumonia and pulmonary edema. Patient given IV antibiotics. Patient had EKG done. EKG was negative for acute findings. I personally reviewed EKG and the chest x-ray. Patient admitted to the hospital service for further evaluation and treatment. Nephrology was consulted. Critical care time documented due to the multiple reassessments, prolonged time at the bedside, interpretation of diagnostics and labs. - Differential Diagnosis Renal failure, dehydration, electrolyte imbalance, abnormal labs, sob Critical Care Time: Yes Critical care time in (mins) excluding proc time.: 35 Critical care attestation.: If time is entered above; I have spent that time in minutes in the direct care of this critically ill patient, excluding procedure time. Critical Care Time: 35 MINUTES ED Disposition Clinical Impression: VALE (dyspnea on exertion), SOB (shortness of breath), Elevated troponin I level Acute renal failure Qualifiers: Acute renal failure type: unspecified Qualified Code(s): N17.9 - Acute kidney failure, unspecified Anemia Qualifiers: Anemia type: unspecified type Qualified Code(s): D64.9 - Anemia, unspecified Bilateral pneumonia Qualifiers: Pneumonia type: due to unspecified organism Lung location: lower lobe of lung Qualified Code(s): J18.9 - Pneumonia, unspecified organism Pneumonia Qualifiers: Pneumonia type: due to unspecified organism Laterality: bilateral Lung location: lower lobe of lung Qualified Code(s): J18.9 - Pneumonia, unspecified organism Disposition: DC-09 OP ADMIT IP TO THIS HOSP Is pt being admited?: Yes Does the pt Need Aspirin: No Condition: Critical Time of Disposition: 21:58
[2021-01-14] MEDS ORDERED: CEFEPIME/NS 2 GM/100 ML 2 GM/100 ML BAG IV ONE (21:57)
[2021-01-14] MEDS ORDERED: DEXTROSE 50% IN WATER (25GM) 50 ML SYRINGE IV PRN (22:55)
[2021-01-14] MEDS ORDERED: MAGNESIUM HYDROXIDE (MOM) ORAL LIQD UDC PO PRN (22:55)
[2021-01-14] MEDS ORDERED: ACETAMINOPHEN 325 MG TAB PO PRN (22:55)
[2021-01-14] MEDS ORDERED: SODIUM CHLORIDE 0.9% 1000 ML 1,000 ML IV SCH (23:00)
[2021-01-14] MEDS ORDERED: CEFEPIME/NS 2 GM/100 ML 2 GM/100 ML BAG IV SCH (23:00)
--- NOTE | 2021-01-14 23:10 | History and Physical Report ---
History of Present Illness Date of examination: 01/14/21 Date of admission: 01/14/2021 Chief complaint: Abnormal labs. History of present illness: 55-year-old male with known history of hypertension and diabetes mellitus presenting in the emergency room today with abnormal labs. 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 He admits that he had abnormal kidney function sometime in September when he had pneumonia but states kidney function returned to within normal limits. He has had occasional shortness of breath especially on exertion over the past few weeks. He denies any fever or chills, no chest pain. Patient denies any recent travel or sick contacts. Denies contact with anyone with COVID-19. Work-up in the emergency room today, labs reveal a creatinine of 5.1., Troponin was slightly elevated at 0.352. Chest x-ray was significant for bilateral pneumonia and effusion. Patient admitted with acute kidney injury, pneumonia and elevated troponin. Past History Past Medical History: anemia, diabetes Past Surgical History: Other (Tonsillectomy) Social history: smoking (Former Smoker.) Family history: no significant family history Medications and Allergies Allergies Allergy/AdvReac Type Severity Reaction Status Date / Time No Known Allergies Allergy Verified 09/14/20 09:38 Home Medications Medication Instructions Recorded Confirmed Last Taken Type Amoxicillin/K Clav Tab [Augmentin 1 tab PO Q12HR #14 tab 09/19/20 Unknown Rx 875 mg] Insulin NPH/Regular [NovoLIN 70/30] 25 unit SUB-Q BIDDIAB #2 vial 09/19/20 Unknown Rx Tamsulosin [Flomax] 0.4 mg PO QDAY #30 capsule 09/19/20 Unknown Rx Apixaban [Eliquis] 5 mg PO Q12HR #60 tablet 09/20/20 Unknown Rx Fluconazole [Diflucan TAB] 100 mg PO QDAY #6 tablet 09/20/20 Unknown Rx Metoprolol [Lopressor TAB] 50 mg PO BID #60 tablet 09/20/20 Unknown Rx Active Meds: Active Medications Acetaminophen (Acetaminophen 325 Mg Tab) 650 mg PO Q4H PRN PRN Reason: Pain MILD(1-3)/Fever >100.5/YUNG Dextrose (Dextrose 50% In Water (25gm) 50 Ml Syringe) 50 ml IV Q30MIN PRN; Protocol PRN Reason: Hypoglycemia Sodium Chloride (Nacl 0.9% 1000 Ml) 1,000 mls @ 75 mls/hr IV DIRECT [facility] Cefepime HCl (Cefepime/Ns 2 Gm/100 Ml) 2 gm in 100 mls @ 200 mls/hr IV Q8H [facility]; Protocol Insulin Human Lispro (Insulin Lispro 100 Unit/Ml) 0 unit SUB-Q ACHS [facility]; Protocol Magnesium Hydroxide (Magnesium Hydroxide (Mom) Oral Liqd Udc) 30 ml PO Q4H PRN PRN Reason: Constipation Morphine Sulfate (Morphine 2 Mg/1 Ml Inj) 2 mg IV Q4H PRN PRN Reason: Pain, Moderate (4-6) Ondansetron HCl (Ondansetron 4 Mg/2 Ml Inj) 4 mg IV Q8H PRN PRN Reason: Nausea And Vomiting Sodium Chloride (Sodium Chloride 0.9% 10 Ml Flush Syringe) 10 ml IV BID CHAU Sodium Chloride (Sodium Chloride 0.9% 10 Ml Flush Syringe) 10 ml IV PRN PRN PRN Reason: LINE FLUSH Review of Systems Constitutional: no fever, no chills Ears, nose, mouth and throat: no nasal congestion, no sore throat Cardiovascular: no chest pain, no palpitations Respiratory: no cough, no shortness of breath Gastrointestinal: no abdominal pain, no nausea, no vomiting, no diarrhea Genitourinary Male: no dysuria, no flank pain Musculoskeletal: no neck pain, no low back pain Integumentary: no rash, no pruritis Neurological: no headaches, no confusion Psychiatric: no anxiety, no depression Endocrine: no polyphagia, no polydipsia, no polyuria Exam - Constitutional Vitals: Temp Pulse Resp BP Pulse Ox 97.7 F 96 H 9 L 151/85 100 01/14/21 15:42 01/14/21 22:01 01/14/21 22:01 01/14/21 22:01 01/14/21 22:01 General appearance: Present: no acute distress, well-nourished - EENT Eyes: Present: PERRL, EOM intact. Absent: scleral icterus ENT: hearing intact, clear oral mucosa, dentition normal - Neck Neck: Present: supple, normal ROM - Respiratory Respiratory effort: normal Respiratory: bilateral: diminished - Cardiovascular Rhythm: regular Heart Sounds: Present: S1 & S2. Absent: gallop, systolic murmur, diastolic murmur, rub, click - Extremities Extremities: no ischemia, pulses intact, pulses symmetrical, No edema, normal temperature, normal color, Full ROM Peripheral Pulses: within normal limits - Abdominal General gastrointestinal: Present: soft, non-tender, non-distended, normal bowel sounds. Absent: mass - Integumentary Integumentary: Present: clear, warm, dry, normal turgor. Absent: rash - Musculoskeletal Musculoskeletal: strength equal bilaterally - Psychiatric Psychiatric: appropriate mood/affect, intact judgment & insight, memory intact, cooperative - Neurologic Neurologic: CNII-XII intact, no focal deficits, moves all extremities HEART Score - HEART Score Troponin: Troponin T 0.352 ng/mL (0.00-0.029) H* 01/14/21 17:06 Results - Labs CBC & Chem 7: 01/15/21 04:06 01/15/21 04:06 Labs: Abnormal lab results 01/14/21 01/14/21 Range/Units 17:06 17:06 RBC 3.38 L (3.65-5.03) M/mm3 Hgb 8.7 L (11.8-15.2) gm/dl Hct 26.7 L (35.5-45.6) % MCV 79 L (84-94) fl MCH 26 L (28-32) pg RDW 18.2 H (13.2-15.2) % [place] % (Auto) 9.4 H (0.0-7.3) % Baso % (Auto) 2.0 H (0.0-1.8) % [place] # (Auto) 1.0 H (0.0-0.8) K/mm3 Baso # (Auto) 0.2 H (0.0-0.1) K/mm3 Seg Neutrophils % 71.0 H (40.0-70.0) % Sodium 134 L (137-145) mmol/L Carbon Dioxide 14 L (22-30) mmol/L BUN 89 H (9-20) mg/dL Creatinine 5.1 H (0.8-1.3) mg/dL Glucose 137 H (75-100) mg/dL Troponin T 0.352 H* (0.00-0.029) ng/mL Total Protein 8.4 H (6.3-8.2) g/dL Albumin 3.6 L (3.9-5) g/dL LDL Cholesterol Direct 40 L (50-130) mg/dL HDL Cholesterol 22 L (40-59) mg/dL Assessment and Plan - Patient Problems (1) JULEE (acute kidney injury) Current Visit: No Status: Acute Plan to address problem: Consult placed to nephrology for evaluation and further recommendation. We will monitor chemistry. (2) Pneumonia Current Visit: Yes Status: Acute Qualifiers: Pneumonia type: due to unspecified organism Laterality: bilateral Lung location: lower lobe of lung Qualified Code(s): J18.9 - Pneumonia, unspecified organism Plan to address problem: Patient placed on empiric IV antibiotics. Will await culture result. (3) Anemia Current Visit: Yes Status: Acute Qualifiers: Anemia type: unspecified type Qualified Code(s): D64.9 - Anemia, unspecified Plan to address problem: Possibly chronic. We will monitor CBC. (4) Elevated troponin I level Current Visit: Yes Status: Acute Plan to address problem: Possibly secondary to the kidney failure. Patient denies any chest pain. We will monitor troponin levels. (5) Diabetes mellitus Current Visit: Yes Status: Acute Plan to address problem: We will monitor Accu-Cheks (6) DVT prophylaxis Current Visit: No Status: Acute Plan to address problem: Patient placed on anticoagulation. (7) Full code status Current Visit: Yes Status: Acute Plan to address problem: Patient is full code.
[2021-01-15] MEDS: MORPHINE 2 MG/1 ML INJ IV PRN (01:14)
[2021-01-15] MEDS: ONDANSETRON 4 MG/2 ML INJ IV PRN ×2 (01:14→13:06)
[2021-01-15 05:09] LABS: Basophils # (Auto) 0.1 K/mm3 (0.0-0.1); Basophils % (Auto) 1.3 % (0.0-1.8); Eosinophils # (Auto) 0.2 K/mm3 (0.0-0.4); Hematocrit 26.1 % (35.5-45.6); Hemoglobin 8.3 gm/dl (11.8-15.2); Lymphocytes # (Auto) 1.3 K/mm3 (1.2-5.4); Lymphocytes % (Auto) 13.8 % (13.4-35.0); Mean Corpuscular HGB Conc 32 % (32-34); Mean Corpuscular Volume 79 fl (84-94); Red Blood Count 3.29 M/mm3 (3.65-5.03); Red Cell Distribution Width 18.3 % (13.2-15.2)
[2021-01-15 05:14] LABS: Platelet Count 322 K/mm3 (140-440)
[2021-01-15 05:19] LABS: INR 1.19 (0.87-1.13)
[2021-01-15 05:21] LABS: Calcium 8.8 mg/dL (8.4-10.2)
[2021-01-15] MEDS ORDERED: CEFEPIME/NS 2 GM/100 ML 2 GM/100 ML BAG IV SCH (08:00)
[2021-01-15] MEDS ORDERED: VANCOMYCIN PHARMACY TO DOSE IV SCH (08:00)
[2021-01-15] MEDS ORDERED: VANCOMYCIN 1,250 MG in SODIUM CHLORIDE 0.9% 250ML 250 ML IV ONE (08:00)
[2021-01-15] MEDS: INSULIN LISPRO 100 UNIT/ML SUB-Q SCH ×4 (09:15→21:48)
[2021-01-15] MEDS: APIXABAN 5 MG TAB PO SCH ×2 (09:26→21:47)
[2021-01-15] MEDS: TAMSULOSIN 0.4 MG CAP PO SCH (09:26)
[2021-01-15] MEDS: METOPROLOL TARTRATE 50 MG TAB PO SCH ×2 (09:26→21:47)
[2021-01-15] MEDS ORDERED: NON-FORMULARY EACH (Apixaban 5 MG Tablet) PO SCH (10:00)
--- NOTE | 2021-01-15 10:36 | Consultation ---
History of Present Illness - Reason for Consult Consult date: 01/15/21 acute renal failure, chronic renal failure, hyperkalemia - History of Present Illness The patient is a 55 YO male with history significant for DM type 2, Hypertension, Anemia and CKD stage 3 who was sent to [facility] ED by his GI for evaluation of abnormal labs. 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 Patient has occasional shortness of breath especially on exertion over the past few weeks. He denies any fever, chills, chest pain, N, V, D, abd pain, dysuria, hematuria, leg swelling, dizziness, syncope, recent travel, sick contacts or contact with anyone with COVID-19. Work-up in the emergency room today, labs reveal a creatinine of 5.1, BUN 88, K 5.8 and Troponin 0.352. Chest x-ray was significant for bilateral pneumonia and effusion. Patient admitted with acute kidney injury, pneumonia and elevated troponin. Nephrology was consulted for further evaluation and treatment of JULEE. Past History Past Medical History: anemia, diabetes, hypertension, renal failure Past Surgical History: Other (Tonsillectomy) Social history: smoking (Former Smoker.) Family history: no significant family history Medications and Allergies Allergies Allergy/AdvReac Type Severity Reaction Status Date / Time No Known Allergies Allergy Verified 09/14/20 09:38 Home Medications Medication Instructions Recorded Confirmed Last Taken Type Insulin NPH/Regular [NovoLIN 70/30] 25 unit SUB-Q BIDDIAB #2 vial 09/19/20 01/15/21 Unknown Rx Tamsulosin [Flomax] 0.4 mg PO QDAY #30 capsule 09/19/20 01/15/21 Unknown Rx Iron [Iron 18 MG TAB] 18 mg PO QDAY 01/15/21 01/15/21 Unknown History Multivit-Min/FA/Lycopen/Lutein 1 each PO QDAY 01/15/21 01/15/21 Unknown History [Centrum Silver Men Tablet] Active Meds: Active Medications Acetaminophen (Acetaminophen 325 Mg Tab) 650 mg PO Q4H PRN PRN Reason: Pain MILD(1-3)/Fever >100.5/YUNG Apixaban (Apixaban 5 Mg Tab) 5 mg PO Q12HR CHAU Last Admin: 01/15/21 09:26 Dose: 5 mg Documented by: Dextrose (Dextrose 50% In Water (25gm) 50 Ml Syringe) 50 ml IV Q30MIN PRN; Protocol PRN Reason: Hypoglycemia Cefepime HCl (Cefepime/Ns 2 Gm/100 Ml) 2 gm in 100 mls @ 200 mls/hr IV Q24H [facility]; Protocol Sodium Bicarbonate 100 meq/ (Dextrose) 1,100 mls @ 75 mls/hr IV DIRECT CHAU Insulin Human Isoph/Insulin Regular (Insulin Nph/Regular 70/30 Inj) 10 unit SUB-Q BIDDIAB [facility] Insulin Human Lispro (Insulin Lispro 100 Unit/Ml) 0 unit SUB-Q ACHS [facility]; Protocol Last Admin: 01/15/21 09:15 Dose: Not Given Documented by: Magnesium Hydroxide (Magnesium Hydroxide (Mom) Oral Liqd Udc) 30 ml PO Q4H PRN PRN Reason: Constipation Metoprolol Tartrate (Metoprolol Tartrate 50 Mg Tab) 50 mg PO BID [facility] Last Admin: 01/15/21 09:26 Dose: 50 mg Documented by: Miscellaneous Medication (Iron [Iron 18 Mg Tab]) 18 mg PO QDAY [facility] Morphine Sulfate (Morphine 2 Mg/1 Ml Inj) 2 mg IV Q4H PRN PRN Reason: Pain, Moderate (4-6) Last Admin: 01/15/21 01:14 Dose: 2 mg Documented by: Ondansetron HCl (Ondansetron 4 Mg/2 Ml Inj) 4 mg IV Q8H PRN PRN Reason: Nausea And Vomiting Last Admin: 01/15/21 01:14 Dose: 4 mg Documented by: Sodium Chloride (Sodium Chloride 0.9% 10 Ml Flush Syringe) 10 ml IV BID [facility] Last Admin: 01/15/21 09:27 Dose: 10 ml Documented by: Sodium Chloride (Sodium Chloride 0.9% 10 Ml Flush Syringe) 10 ml IV PRN PRN PRN Reason: LINE FLUSH Last Admin: 01/15/21 01:15 Dose: 10 ml Documented by: Sodium Polystyrene Sulfonate (Sodium Polystyrene 15 Gm/60 Ml Oral Liqd) 60 gm PO ONCE ONE Stop: 01/15/21 10:05 Tamsulosin HCl (Tamsulosin 0.4 Mg Cap) 0.4 mg PO QDAY [facility] Last Admin: 01/15/21 09:26 Dose: 0.4 mg Documented by: Review of Systems Constitutional: no weight loss, no weight gain, no fever, no chills, no anorexia, no fatigue, no weakness, no poor appetite Cardiovascular: dyspnea on exertion, high blood pressure, no chest pain, no orthopnea, no edema, no lightheadedness, no leg edema Respiratory: no cough, no hemoptysis, no shortness of breath Gastrointestinal: no abdominal pain, no nausea, no vomiting, no diarrhea, no melena Genitourinary Male: no dysuria, no hematuria Neurological: no seizures, no syncope, no convulsions, no aphasia, no change in speech, no change in mentation, no confusion Exam - Vital Signs Vital signs: Vital Signs Temp Pulse Resp BP Pulse Ox 97.7 F 107 H 16 99/50 99 01/14/21 15:42 01/14/21 15:42 01/14/21 15:42 01/14/21 15:42 01/14/21 15:42 Results - Lab Results 01/15/21 04:06 01/15/21 17:20 Most recent lab results Calcium 8.8 mg/dL (8.4-10.2) 01/15/21 04:06 Magnesium 2.20 mg/dL (1.7-2.3) 01/14/21 17:06 Assessment and Plan 1. Acute kidney injury: Suspect vasomotor JULEE superimposed on CKD. ?ATN. Urine studies and Renal US ordered. Monitor renal function. Continue IV fluids. Renal prognosis is guarded. Avoid nephrotoxic agents. Meds dosage based on GFR. 2. FEN: Hyperkalemia, meds ordered, monitor. Anion-gap metabolic acidosis, bicarb drip, monitor. Monitor lytes and volume status. 3. Pneumonia: Empiric IV antibiotics. Follow culture result. 4. Elevated troponin: In the setting of CKD / JULEE. No chest pain. Followed by Cards. 5. Hx of Paroxysmal atrial fibrillation: On Eliquis for AC and metoprolol for suppression. LVEF 50-55% by echo 09/2020. 6. DM type 2. 7. Anemia, POA: Chronic. Monitor. 8. Hypertension: BP controlled. Subjective: Patient was seen and examined at the bedside. Examination: General appearance: well-developed, appears stated age, not in distress HEENT: atraumatic, OSUMYA Neck: trachea midline Respiratory: ctab Heart: S1S2, no murmur Abdomen: soft, bowel sounds heard, NT Integumentary: no obvious rash Neurologic: AO, non-focal Ext: no edema
[2021-01-15 11:22] LABS: Bacteria,Urine 3+ /HPF (Negative); Bilirubin,Urine NEG (Negative); Blood,Urine MOD (Negative); Color,Urine Yellow (Yellow); Urobilinogen,Urine < 2.0 mg/dL (<2.0)
[2021-01-15 11:23] LABS: RBC,Urine > 182.0 /HPF (0.0-6.0); WBC,Urine > 182.0 /HPF (0.0-6.0)
--- NOTE | 2021-01-15 11:32 | Consultation ---
<HAYLEY DILLON - Last Filed: 01/15/21 11:50> History of Present Illness Consult date: 01/15/21 Consult reason: elevated troponin History of present illness: 55-year old M with a history of paroxysmal atrial fibrillation, previously recommended Eliquis for anticoagulation. An echocardiogram done in September showed normal left ventricular systolic function, ejection fraction 50-55%. Co- morbidities includes anemia, diabetes and chronic kidney disease. Patient reports he was referred to the emergency department by GI for abnormal labs. Initial labs done in the emergency department shows anemia, with a HCT 26.1. Creatinine of 5.1 from 2.3 on labs done 4 months ago. Potassium of 5.8. Troponin measurements were mildly elevated thus this cardiac consultation. Patie nt denies chest pain, denies unusual shortness of breath and denies palpitations. An ECG done is sinus rhythm. No acute ST or T wave changes. Past History Past Medical History: atrial fib, anemia, diabetes Past Surgical History: Other (Tonsillectomy) Social history: smoking (Former Smoker.) Family history: no significant family history Medications and Allergies Allergies Allergy/AdvReac Type Severity Reaction Status Date / Time No Known Allergies Allergy Verified 09/14/20 09:38 Home Medications Medication Instructions Recorded Confirmed Last Taken Type Insulin NPH/Regular [NovoLIN 70/30] 25 unit SUB-Q BIDDIAB #2 vial 09/19/20 01/15/21 Unknown Rx Tamsulosin [Flomax] 0.4 mg PO QDAY #30 capsule 09/19/20 01/15/21 Unknown Rx Iron [Iron 18 MG TAB] 18 mg PO QDAY 01/15/21 01/15/21 Unknown History Multivit-Min/FA/Lycopen/Lutein 1 each PO QDAY 01/15/21 01/15/21 Unknown History [Centrum Silver Men Tablet] Apixaban [Eliquis] 5 mg PO Q12HR #60 tablet 01/21/21 Unknown Rx Metoprolol [Lopressor TAB] 50 mg PO BID #60 tablet 01/21/21 Unknown Rx Active Meds: Active Medications Acetaminophen (Acetaminophen 325 Mg Tab) 650 mg PO Q4H PRN PRN Reason: Pain MILD(1-3)/Fever >100.5/YUNG Apixaban (Apixaban 5 Mg Tab) 5 mg PO Q12HR [facility] Last Admin: 01/15/21 09:26 Dose: 5 mg Documented by: Dextrose (Dextrose 50% In Water (25gm) 50 Ml Syringe) 50 ml IV Q30MIN PRN; Protocol PRN Reason: Hypoglycemia Cefepime HCl (Cefepime/Ns 2 Gm/100 Ml) 2 gm in 100 mls @ 200 mls/hr IV Q24H [facility]; Protocol Sodium Bicarbonate 100 meq/ (Dextrose) 1,100 mls @ 75 mls/hr IV DIRECT [facility] Insulin Human Isoph/Insulin Regular (Insulin Nph/Regular 70/30 Inj) 10 unit SUB-Q BIDDIAB [facility] Insulin Human Lispro (Insulin Lispro 100 Unit/Ml) 0 unit SUB-Q ACHS [facility]; Protocol Last Admin: 01/15/21 09:15 Dose: Not Given Documented by: Magnesium Hydroxide (Magnesium Hydroxide (Mom) Oral Liqd Udc) 30 ml PO Q4H PRN PRN Reason: Constipation Metoprolol Tartrate (Metoprolol Tartrate 50 Mg Tab) 50 mg PO BID [facility] Last Admin: 01/15/21 09:26 Dose: 50 mg Documented by: Morphine Sulfate (Morphine 2 Mg/1 Ml Inj) 2 mg IV Q4H PRN PRN Reason: Pain, Moderate (4-6) Last Admin: 01/15/21 01:14 Dose: 2 mg Documented by: Ondansetron HCl (Ondansetron 4 Mg/2 Ml Inj) 4 mg IV Q8H PRN PRN Reason: Nausea And Vomiting Last Admin: 01/15/21 01:14 Dose: 4 mg Documented by: Sodium Chloride (Sodium Chloride 0.9% 10 Ml Flush Syringe) 10 ml IV BID [facility] Last Admin: 01/15/21 09:27 Dose: 10 ml Documented by: Sodium Chloride (Sodium Chloride 0.9% 10 Ml Flush Syringe) 10 ml IV PRN PRN PRN Reason: LINE FLUSH Last Admin: 01/15/21 01:15 Dose: 10 ml Documented by: Sodium Polystyrene Sulfonate (Sodium Polystyrene 15 Gm/60 Ml Oral Liqd) 60 gm PO ONCE ONE Stop: 01/15/21 12:05 Last Admin: 01/15/21 11:03 Dose: 60 gm Documented by: Tamsulosin HCl (Tamsulosin 0.4 Mg Cap) 0.4 mg PO QDAY [facility] Last Admin: 01/15/21 09:26 Dose: 0.4 mg Documented by: Review of Systems Cardiovascular: no chest pain, no palpitations, no edema, no syncope, no shortness of breath Physical Examination Vital Signs Temp Pulse Resp BP Pulse Ox 97.7 F 107 H 16 99/50 99 01/14/21 15:42 01/14/21 15:42 01/14/21 15:42 01/14/21 15:42 01/14/21 15:42 General appearance: no acute distress HEENT: Positive: PERRL Neck: Positive: trachea midline Cardiac: Positive: Reg Rate and Rhythm Lungs: Positive: Normal Breath Sounds Neuro: Positive: Grossly Intact Extremities: Absent: edema Results 01/15/21 04:06 01/15/21 04:06 Cardiac Enzymes 01/14/21 Range/Units 17:06 AST 7 (5-40) units/L Coagulation 01/15/21 Range/Units 04:06 PT 15.6 H (12.2-14.9) Sec. INR 1.19 H (0.87-1.13) Lipids 01/14/21 Range/Units 17:06 Triglycerides 122 (2-149) mg/dL Cholesterol 71 (50-199) mg/dL HDL Cholesterol 22 L (40-59) mg/dL Cholesterol/HDL Ratio 3.22 % CBC 01/14/21 01/15/21 Range/Units 17:06 04:06 WBC 10.1 9.7 (4.5-11.0) K/mm3 RBC 3.38 L 3.29 L (3.65-5.03) M/mm3 Hgb 8.7 L 8.3 L (11.8-15.2) gm/dl Hct 26.7 L 26.1 L (35.5-45.6) % Plt Count 345 322 (140-440) K/mm3 Lymph # (Auto) 1.6 1.3 (1.2-5.4) K/mm3 [place] # (Auto) 1.0 H 1.0 H (0.0-0.8) K/mm3 Eos # (Auto) 0.2 0.2 (0.0-0.4) K/mm3 Baso # (Auto) 0.2 H 0.1 (0.0-0.1) K/mm3 Comprehensive Metabolic Panel 01/14/21 01/15/21 Range/Units 17:06 04:06 Sodium 134 L 132 L (137-145) mmol/L Potassium 4.9 5.8 H (3.6-5.0) mmol/L Chloride 102.1 103.9 (98-107) mmol/L Carbon Dioxide 14 L 15 L (22-30) mmol/L BUN 89 H 88 H (9-20) mg/dL Creatinine 5.1 H 5.0 H (0.8-1.3) mg/dL Glucose 137 H 186 H (75-100) mg/dL Calcium 9.1 8.8 (8.4-10.2) mg/dL AST 7 (5-40) units/L ALT 8 (7-56) units/L Alkaline Phosphatase 79 (35-129) units/L Total Protein 8.4 H (6.3-8.2) g/dL Albumin 3.6 L (3.9-5) g/dL Assessment and Plan Elevated troponin in the setting of CKD, creatinine 5.1 pt denies chest pain Hx of Paroxysmal atrial fibrillation on Eliquis for AC and metoprolol for suppression LVEF 50-55% by echo 09/2020 Chronic kidney disease Diabetes Anemia Continue medical therapy for paroxysmal atrial fibrillation. Monitor H&H closely. <DONALD VENEGAS Last Filed: 01/21/21 23:32> History of Present Illness History of present illness: I SAW THIS PT & AGREE WITH THE Dx & Tx PLAN. Physical Examination Vital Signs Temp Pulse Resp BP Pulse Ox 97.7 F 107 H 16 99/50 99 01/14/21 15:42 01/14/21 15:42 01/14/21 15:42 01/14/21 15:42 01/14/21 15:42 Results 01/17/21 04:50 01/21/21 05:24 Comprehensive Metabolic Panel 01/21/21 Range/Units 05:24 Sodium 134 L (137-145) mmol/L Potassium 4.0 (3.6-5.0) mmol/L Chloride 93.1 L (98-107) mmol/L Carbon Dioxide 29 (22-30) mmol/L BUN 67 H (9-20) mg/dL Creatinine 4.3 H (0.8-1.3) mg/dL Glucose 160 H (75-100) mg/dL Calcium 8.4 (8.4-10.2) mg/dL
[2021-01-15] MEDS ORDERED: SODIUM POLYSTYRENE 15 GM/60 ML ORAL LIQD PO ONE (12:04)
[2021-01-15 12:23] LABS: Creatinine,Urine 30.6 mg/dL (0.1-20.0); Protein/Creatinine Ratio,Urine 1.57
[2021-01-15] MEDS: SODIUM BICARBONATE 100 MEQ in DEXTROSE 5% IN WATER 1,000 ML IV SCH (12:59)
--- NOTE | 2021-01-15 16:49 | Progress Note ---
Assessment and Plan 55-year-old male with known history of hypertension, CKD and diabetes mellitus presenting in the emergency room with abnormal labs. Work-up in the emergency room revealed a creatinine of 5.1., Troponin was slightly elevated at 0.352. Chest x-ray was significant for bilateral pneumonia and effusion. Patient was admitted with acute kidney injury, pneumonia and elevated troponin. A/P --JULEE (acute kidney injury) on CKD likely ATN, cont iv fluid Consult placed to nephrology for evaluation and further recommendation. We will monitor chemistry. --b/l Pneumonia CXR showed Ill-defined bibasilar airspace opacities have improved since 09/14/2020 however some ill-defined densities persist within the lower lungs. Small right pleural effusion. Patient placed on empiric IV antibiotics. Will await culture result. --Anemia Possibly chronic. We will monitor CBC. -- Elevated troponin I level/NSTEMI type 2 Possibly secondary to the kidney failure. Patient denies any chest pain. We will monitor troponin levels. -- Diabetes mellitus type 2 We will monitor BG with Accu-Cheks --Protein calorie malnutrition, moderate Nutrition consult, dietary supplements -- DVT prophylaxis Patient placed on anticoagulation. -- Full code status daily clinical course; 01/15/21: Change IV fluid to bicarbonate drip due to significant hyperkalemia metabolic acidosis from acute renal failure. Consulted nephrology will follow recommendation. cont to follow BMP, avoid nephrotoxins. Subjective Date of service: 01/15/21 Interval history: Patient seen and examined. Medical records and medication list reviewed. No acute event overnight noted by the RN. Patient denies any chest pain or difficulty breathing. Patient is tolerating diet. Discussed plan of care at bedside with patient. Objective - Exam Narrative Exam: GENERAL: Well-nourished white male lying on bed appeared to be in no discomfort. HEENT: Normocephalic. Atraumatic. No conjunctival congestion or icterus. Patient has moist mucous membranes. NECK: Supple. Trachea midline. CHEST/LUNGS: Clear to auscultated bilaterally, breathing nonlabored. No wheezes crackles or rhonchi. HEART/CARDIOVASCULAR: Regular in rate and rhythm. S1 and S2 positive. ABDOMEN: Abdomen is soft, nontender. Patient has normal bowel sounds. SKIN: There is no rash. Warm and dry. NEURO: No focal motor deficit. Follows command. MUSCULOSKELETAL: No joint effusion or tenderness. EXTRIMITY: No edema, no cyanosis or clubbing. PSYCH: Cooperative. - Constitutional Vitals: Vital Signs - 12hr 01/15/21 07:50 Temperature 98.4 F Pulse Rate 103 H Respiratory 18 Rate Blood Pressure 116/72 O2 Sat by Pulse 99 Oximetry - Labs CBC & Chem 7: 01/17/21 04:50 01/17/21 04:50 Labs: Abnormal lab results 01/14/21 01/14/21 01/15/21 Range/Units 17:06 17:06 04:06 RBC 3.38 L 3.29 L (3.65-5.03) M/mm3 Hgb 8.7 L 8.3 L (11.8-15.2) gm/dl Hct 26.7 L 26.1 L (35.5-45.6) % MCV 79 L 79 L (84-94) fl MCH 26 L 25 L (28-32) pg RDW 18.2 H 18.3 H (13.2-15.2) % [place] % (Auto) 9.4 H 10.0 H (0.0-7.3) % Baso % (Auto) 2.0 H (0.0-1.8) % [place] # (Auto) 1.0 H 1.0 H (0.0-0.8) K/mm3 Baso # (Auto) 0.2 H (0.0-0.1) K/mm3 Seg Neutrophils % 71.0 H 72.9 H (40.0-70.0) % PT (12.2-14.9) Sec. INR (0.87-1.13) Sodium 134 L (137-145) mmol/L Potassium (3.6-5.0) mmol/L Carbon Dioxide 14 L (22-30) mmol/L BUN 89 H (9-20) mg/dL Creatinine 5.1 H (0.8-1.3) mg/dL Glucose 137 H (75-100) mg/dL POC Glucose (70-105) mg/dL Troponin T 0.352 H* (0.00-0.029) ng/mL Total Protein 8.4 H (6.3-8.2) g/dL Albumin 3.6 L (3.9-5) g/dL LDL Cholesterol Direct 40 L (50-130) mg/dL HDL Cholesterol 22 L (40-59) mg/dL Urine WBC (Auto) (0.0-6.0) /HPF Urine Creatinine (0.1-20.0) mg/dL Urine Total Protein (5-11.8) mg/dL 01/15/21 01/15/21 01/15/21 Range/Units 04:06 04:06 04:06 RBC (3.65-5.03) M/mm3 Hgb (11.8-15.2) gm/dl Hct (35.5-45.6) % MCV (84-94) fl MCH (28-32) pg RDW (13.2-15.2) % [place] % (Auto) (0.0-7.3) % Baso % (Auto) (0.0-1.8) % [place] # (Auto) (0.0-0.8) K/mm3 Baso # (Auto) (0.0-0.1) K/mm3 Seg Neutrophils % (40.0-70.0) % PT 15.6 H (12.2-14.9) Sec. INR 1.19 H (0.87-1.13) Sodium 132 L (137-145) mmol/L Potassium 5.8 H (3.6-5.0) mmol/L Carbon Dioxide 15 L (22-30) mmol/L BUN 88 H (9-20) mg/dL Creatinine 5.0 H (0.8-1.3) mg/dL Glucose 186 H (75-100) mg/dL POC Glucose (70-105) mg/dL Troponin T 0.315 H* (0.00-0.029) ng/mL Total Protein (6.3-8.2) g/dL Albumin (3.9-5) g/dL LDL Cholesterol Direct (50-130) mg/dL HDL Cholesterol (40-59) mg/dL Urine WBC (Auto) (0.0-6.0) /HPF Urine Creatinine (0.1-20.0) mg/dL Urine Total Protein (5-11.8) mg/dL 01/15/21 01/15/21 01/15/21 Range/Units 07:52 11:11 11:11 RBC (3.65-5.03) M/mm3 Hgb (11.8-15.2) gm/dl Hct (35.5-45.6) % MCV (84-94) fl MCH (28-32) pg RDW (13.2-15.2) % [place] % (Auto) (0.0-7.3) % Baso % (Auto) (0.0-1.8) % [place] # (Auto) (0.0-0.8) K/mm3 Baso # (Auto) (0.0-0.1) K/mm3 Seg Neutrophils % (40.0-70.0) % PT (12.2-14.9) Sec. INR (0.87-1.13) Sodium (137-145) mmol/L Potassium (3.6-5.0) mmol/L Carbon Dioxide (22-30) mmol/L BUN (9-20) mg/dL Creatinine (0.8-1.3) mg/dL Glucose (75-100) mg/dL POC Glucose 126 H (70-105) mg/dL Troponin T (0.00-0.029) ng/mL Total Protein (6.3-8.2) g/dL Albumin (3.9-5) g/dL LDL Cholesterol Direct (50-130) mg/dL HDL Cholesterol (40-59) mg/dL Urine WBC (Auto) > 182.0 H (0.0-6.0) /HPF Urine Creatinine 30.6 H (0.1-20.0) mg/dL Urine Total Protein 48 H (5-11.8) mg/dL 01/15/21 Range/Units 12:18 RBC (3.65-5.03) M/mm3 Hgb (11.8-15.2) gm/dl Hct (35.5-45.6) % MCV (84-94) fl MCH (28-32) pg RDW (13.2-15.2) % [place] % (Auto) (0.0-7.3) % Baso % (Auto) (0.0-1.8) % [place] # (Auto) (0.0-0.8) K/mm3 Baso # (Auto) (0.0-0.1) K/mm3 Seg Neutrophils % (40.0-70.0) % PT (12.2-14.9) Sec. INR (0.87-1.13) Sodium (137-145) mmol/L Potassium (3.6-5.0) mmol/L Carbon Dioxide (22-30) mmol/L BUN (9-20) mg/dL Creatinine (0.8-1.3) mg/dL Glucose (75-100) mg/dL POC Glucose 156 H (70-105) mg/dL Troponin T (0.00-0.029) ng/mL Total Protein (6.3-8.2) g/dL Albumin (3.9-5) g/dL LDL Cholesterol Direct (50-130) mg/dL HDL Cholesterol (40-59) mg/dL Urine WBC (Auto) (0.0-6.0) /HPF Urine Creatinine (0.1-20.0) mg/dL Urine Total Protein (5-11.8) mg/dL HEART Score - HEART Score Troponin: Troponin T 0.315 ng/mL (0.00-0.029) H* 01/15/21 04:06
[2021-01-15] MEDS ORDERED: INSULIN NPH/REGULAR 70/30 INJ SUB-Q SCH (17:00)
[2021-01-15] MEDS: INSULIN NPH/REGULAR 70/30 INJ SUB-Q SCH (17:37)
[2021-01-15 18:01] LABS: Calcium 8.4 mg/dL (8.4-10.2)
--- NOTE | 2021-01-15 18:29 | Ultrasound Report ---
ULTRASOUND RENAL INDICATION / CLINICAL INFORMATION: Acute renal failure. COMPARISON: None available. FINDINGS: RIGHT KIDNEY: - Length = 11.6 cm. [Normal > 9.0 cm] - Parenchymal Thickness = 1.8 cm. [Normal > 1.5 cm] - Echogenicity: Normal -- hypoechoic or isoechoic to liver/spleen. - Hydronephrosis: None. - Cyst or mass: No significant abnormality. LEFT KIDNEY: - Length = 11.9 cm. [Normal > 9.0 cm] - Parenchymal Thickness = 2.1 cm. [Normal > 1.5 cm] - Echogenicity: Normal -- hypoechoic or isoechoic to liver/spleen. - Hydronephrosis: None. - Cyst or mass: No significant abnormality. URINARY BLADDER: Moderate wall thickening. Scattered dependent internal echoes. Several thin internal septations. ADDITIONAL FINDINGS: Several small echogenic foci in the left mid kidney without posterior shadowing. IMPRESSION: 1. No evidence of medical renal disease or hydronephrosis. 2. Thick-walled urinary bladder with low level echogenicity in the dependent urinary bladder and mult iple thin internal septations. Cystoscopy may be helpful in further evaluation. 3. Possible nonobstructive left nephrolithiasis. Renal Parenchymal Thickness Parenchyma = Cortex + Medullary Pyramid - Normal >= 1.5 cm - Mild thinning = 1.0-1.49 cm - Moderate thinning = 0.5-0.99 cm - Severe thinning < 0.5 cm Signer Name: Viktor Fishman MD Signed: 01/15/2021 6:25 PM Workstation Name: [id number]
[2021-01-15] MEDS: CEFEPIME/NS 2 GM/100 ML 2 GM/100 ML BAG IV SCH (21:47)
[2021-01-16] MEDS: SODIUM BICARBONATE 100 MEQ in DEXTROSE 5% IN WATER 1,000 ML IV SCH ×2 (05:14→22:05)
[2021-01-16 06:26] LABS: Calcium 8.3 mg/dL (8.4-10.2)
[2021-01-16] MEDS: INSULIN LISPRO 100 UNIT/ML SUB-Q SCH ×4 (09:49→22:23)
[2021-01-16] MEDS: APIXABAN 5 MG TAB PO SCH ×2 (09:52→21:55)
[2021-01-16] MEDS: INSULIN NPH/REGULAR 70/30 INJ SUB-Q SCH ×2 (09:53→18:08)
[2021-01-16] MEDS: TAMSULOSIN 0.4 MG CAP PO SCH (09:53)
[2021-01-16] MEDS: METOPROLOL TARTRATE 50 MG TAB PO SCH ×2 (09:53→21:55)
[2021-01-16] MEDS ORDERED: NON-FORMULARY EACH (Iron [Iron 18 Mg Tab] 18 MG Tablet) PO SCH (10:00)
--- NOTE | 2021-01-16 10:12 | Progress Note ---
Assessment and Plan Hx of Paroxysmal atrial fibrillation on Eliquis for AC and metoprolol for suppression LVEF 50-55% by echo 09/2020 Elevated troponin in the setting of CKD, creatinine 5.1 pt denies chest pain Chronic kidney disease Diabetes Anemia Continue medical therapy for paroxysmal atrial fibrillation. Monitor H&H closely. Subjective Date of service: 01/16/21 Interval history: Patient is resting in bed comfortably. He has no cardiac complaints. Creatinine today is 4.8. Currently, he is sinus rhythm on telemetry. Objective Vital Signs Temp Pulse Resp BP Pulse Ox 01/16/21 07:48 98.1 F 86 16 112/69 98 01/16/21 05:31 86 97 01/16/21 04:04 97.7 F 20 119/66 01/15/21 23:41 98.3 F 96 H 20 124/77 98 01/15/21 20:05 98.3 F 103 H 20 125/73 98 01/15/21 19:45 103 H 01/15/21 15:53 98.5 F 98 H 18 121/71 99 01/15/21 11:40 98.7 F 93 H 18 111/65 96 - Physical Examination General: No Apparent Distress HEENT: Positive: PERRL Neck: Positive: trachea midline Cardiac: Positive: Reg Rate and Rhythm Lungs: Positive: Decreased Breath Sounds Neuro: Positive: Grossly Intact Extremities: Absent: edema - Labs and Meds Comprehensive Metabolic Panel 01/15/21 01/16/21 Range/Units 17:20 05:52 Sodium 138 136 L (137-145) mmol/L Potassium 4.9 4.3 (3.6-5.0) mmol/L Chloride 109.0 H 105.0 (98-107) mmol/L Carbon Dioxide 14 L 17 L (22-30) mmol/L BUN 80 H 75 H (9-20) mg/dL Creatinine 5.0 H 4.8 H (0.8-1.3) mg/dL Glucose 146 H 125 H (75-100) mg/dL Calcium 8.4 8.3 L (8.4-10.2) mg/dL
--- NOTE | 2021-01-16 11:54 | Progress Note ---
Assessment and Plan 1. Acute kidney injury: Suspect vasomotor JULEE superimposed on CKD. Likely ATN. Renal US negative for hydro. Continue IV fluids. Monitor renal function. Slight decrease in the creatinine level. Renal prognosis is guarded. Avoid nephrotoxic agents. Meds dosage based on GFR. Monitor for [employer] needs. 2. FEN: Hyperkalemia, improved, monitor. Anion-gap metabolic acidosis, bicarb drip, monitor. Monitor lytes and volume status. 3. Pneumonia: Empiric IV antibiotics. Follow culture result. 4. Elevated troponin: In the setting of CKD / JULEE. No chest pain. Followed by Cards. 5. Hx of Paroxysmal atrial fibrillation: On Eliquis for AC and metoprolol for suppression. LVEF 50-55% by echo 09/2020. 6. DM type 2. 7. Anemia, POA: Chronic. Monitor. 8. Hypertension: BP controlled. Subjective: Patient was seen and examined at the bedside. Doing ok. Examination: General appearance: well-developed, appears stated age, not in distress HEENT: atraumatic, [place] Neck: trachea midline Respiratory: ctab Heart: S1S2, no murmur Abdomen: soft, bowel sounds heard, NT Integumentary: no obvious rash Neurologic: AO, non-focal Ext: no edema Subjective Date of service: 01/16/21 Objective - Vital Signs Vital signs: Vital Signs - 12hr 01/16/21 01/16/21 01/16/21 04:04 05:31 07:48 Temperature 97.7 F 98.1 F Pulse Rate 86 86 Respiratory 20 16 Rate Blood Pressure 119/66 112/69 O2 Sat by Pulse 97 98 Oximetry 01/16/21 10:00 Temperature Pulse Rate 80 Respiratory Rate Blood Pressure O2 Sat by Pulse Oximetry - Lab 01/15/21 04:06 01/16/21 05:52 Most recent lab results Calcium 8.3 mg/dL (8.4-10.2) L 01/16/21 05:52 Magnesium 2.20 mg/dL (1.7-2.3) 01/14/21 17:06 Urine Creatinine 30.6 mg/dL (0.1-20.0) H 01/15/21 11:11 Urine Sodium 72 mmol/L 01/15/21 11:11 Urine Total Protein 48 mg/dL (5-11.8) H 01/15/21 11:11 Medications & Allergies - Medications Allergies/Adverse Reactions: Allergies No Known Allergies Allergy (Verified 09/14/20 09:38) Home Medications: Home Medications Medication Instructions Recorded Confirmed Last Taken Type Insulin NPH/Regular [NovoLIN 70/30] 25 unit SUB-Q BIDDIAB #2 vial 09/19/20 01/15/21 Unknown Rx Tamsulosin [Flomax] 0.4 mg PO QDAY #30 capsule 09/19/20 01/15/21 Unknown Rx Iron [Iron 18 MG TAB] 18 mg PO QDAY 01/15/21 01/15/21 Unknown History Multivit-Min/FA/Lycopen/Lutein 1 each PO QDAY 01/15/21 01/15/21 Unknown History [Centrum Silver Men Tablet] Active Medications: Generic Name Dose Route Start Last Admin Trade Name Freq PRN Reason Stop Dose Admin Acetaminophen 650 mg 01/14/21 22:55 Acetaminophen 325 Mg Tab PO Q4H PRN Pain MILD(1-3)/Fever >100.5/YUNG Apixaban 5 mg 01/15/21 10:00 01/16/21 09:52 Apixaban 5 Mg Tab PO 5 mg Q12HR [facility] Administration Dextrose 50 ml 01/14/21 22:55 Dextrose 50% In Water (25gm) 50 Ml Syringe IV Q30MIN PRN Hypoglycemia Protocol Cefepime HCl 2 gm in 100 mls @ 200 mls/hr 01/15/21 22:00 01/15/21 21:47 Cefepime/Ns 2 Gm/100 Ml IV 200 mls/hr Q24H [facility] Administration Protocol Sodium Bicarbonate 100 meq/ 1,100 mls @ 75 mls/hr 01/15/21 12:00 01/16/21 05:14 Dextrose IV 75 mls/hr DIRECT [facility] Administration Insulin Human Isoph/Insulin Regular 10 unit 01/15/21 17:00 01/16/21 09:53 Insulin Nph/Regular 70/30 Inj SUB-Q 10 unit BIDDIAB [facility] Administration Insulin Human Lispro 0 unit 01/15/21 07:30 01/16/21 09:49 Insulin Lispro 100 Unit/Ml SUB-Q Not Given ACHS [facility] Protocol Magnesium Hydroxide 30 ml 01/14/21 22:55 Magnesium Hydroxide (Mom) Oral Liqd Udc PO Q4H PRN Constipation Metoprolol Tartrate 50 mg 01/15/21 10:00 01/16/21 09:53 Metoprolol Tartrate 50 Mg Tab PO 50 mg BID [facility] Administration Morphine Sulfate 2 mg 01/14/21 22:55 01/15/21 01:14 Morphine 2 Mg/1 Ml Inj IV 2 mg Q4H PRN Administration Pain, Moderate (4-6) Ondansetron HCl 4 mg 01/14/21 22:55 01/15/21 13:06 Ondansetron 4 Mg/2 Ml Inj IV 4 mg Q8H PRN Administration Nausea And Vomiting Sodium Chloride 10 ml 01/15/21 10:00 01/16/21 09:53 Sodium Chloride 0.9% 10 Ml Flush Syringe IV 10 ml BID [facility] Administration Sodium Chloride 10 ml 01/14/21 22:55 01/15/21 01:15 Sodium Chloride 0.9% 10 Ml Flush Syringe IV 10 ml PRN PRN Administration LINE FLUSH Tamsulosin HCl 0.4 mg 01/15/21 10:00 01/16/21 09:53 Tamsulosin 0.4 Mg Cap PO 0.4 mg QDAY [facility] Administration
--- NOTE | 2021-01-16 16:04 | Progress Note ---
Assessment and Plan 55-year-old male with known history of hypertension, CKD, atrial fib and diabetes mellitus presenting in the emergency room with abnormal labs. Work-up in the emergency room revealed a creatinine of 5.1., Troponin was slightly elevated at 0.352. Chest x-ray was significant for bilateral pneumonia and effusion. Patient was admitted with acute kidney injury, pneumonia and elevated troponin. A/P --JULEE (acute kidney injury) on CKD likely ATN, cont iv fluid Consult placed to nephrology for evaluation and further recommendation. We will monitor chemistry. --b/l Pneumonia CXR showed Ill-defined bibasilar airspace opacities have improved since 09/14/2020 however some ill-defined densities persist within the lower lungs. Small right pleural effusion. Patient placed on empiric IV antibiotics. Will await culture result. --Anemia Possibly chronic. We will monitor CBC. -- Elevated troponin I level/NSTEMI type 2 Possibly secondary to the kidney failure. Patient denies any chest pain. We will monitor troponin levels. -- Diabetes mellitus type 2 We will monitor BG with Accu-Cheks --Protein calorie malnutrition, moderate Nutrition consult, dietary supplements -- Hx of Paroxysmal atrial fibrillation On Eliquis for AC and metoprolol for suppression. LVEF 50-55% by echo 09/2020. -- DVT prophylaxis Patient placed on anticoagulation. -- Full code status Daily clinical course; 01/15/21: Change IV fluid to bicarbonate drip due to significant hyperkalemia metabolic acidosis from acute renal failure. Consulted nephrology will follow recommendation. cont to follow BMP, avoid nephrotoxins. 01/16: Cr slightly trending down, cont IV fluid. follow BMP Subjective Date of service: 01/16/21 Interval history: Patient seen and examined. Medical records and medication list reviewed. No acute event overnight noted by the RN. Patient denies any chest pain or difficulty breathing. Patient is tolerating diet. Discussed plan of care at bedside with patient. Objective - Exam Narrative Exam: GENERAL: Well-nourished white male lying on bed appeared to be in no discomfort. HEENT: Normocephalic. Atraumatic. No conjunctival congestion or icterus. Patient has moist mucous membranes. NECK: Supple. Trachea midline. CHEST/LUNGS: Clear to auscultated bilaterally, breathing nonlabored. No wheezes crackles or rhonchi. HEART/CARDIOVASCULAR: Regular in rate and rhythm. S1 and S2 positive. ABDOMEN: Abdomen is soft, nontender. Patient has normal bowel sounds. SKIN: There is no rash. Warm and dry. NEURO: No focal motor deficit. Follows command. MUSCULOSKELETAL: No joint effusion or tenderness. EXTRIMITY: No edema, no cyanosis or clubbing. PSYCH: Cooperative. - Constitutional Vitals: Vital Signs - 12hr 01/16/21 01/16/21 01/16/21 05:31 07:48 10:00 Temperature 98.1 F Pulse Rate 86 86 80 Respiratory 16 Rate Blood Pressure 112/69 O2 Sat by Pulse 97 98 Oximetry - Labs CBC & Chem 7: 01/17/21 04:50 01/17/21 04:50 Labs: Abnormal lab results 01/15/21 01/15/21 01/15/21 Range/Units 17:04 17:20 20:50 Sodium (137-145) mmol/L Chloride 109.0 H (98-107) mmol/L Carbon Dioxide 14 L (22-30) mmol/L BUN 80 H (9-20) mg/dL Creatinine 5.0 H (0.8-1.3) mg/dL Glucose 146 H (75-100) mg/dL POC Glucose 148 H 143 H (70-105) mg/dL Calcium (8.4-10.2) mg/dL 01/16/21 01/16/21 01/16/21 Range/Units 05:52 07:52 11:32 Sodium 136 L (137-145) mmol/L Chloride (98-107) mmol/L Carbon Dioxide 17 L (22-30) mmol/L BUN 75 H (9-20) mg/dL Creatinine 4.8 H (0.8-1.3) mg/dL Glucose 125 H (75-100) mg/dL POC Glucose 112 H 194 H (70-105) mg/dL Calcium 8.3 L (8.4-10.2) mg/dL HEART Score - HEART Score Troponin: Troponin T 0.315 ng/mL (0.00-0.029) H* 01/15/21 04:06
[2021-01-16] MEDS: MORPHINE 2 MG/1 ML INJ IV PRN (21:57)
[2021-01-16] MEDS: CEFEPIME/NS 2 GM/100 ML 2 GM/100 ML BAG IV SCH (22:27)
[2021-01-17 05:39] LABS: Basophils # (Auto) 0.2 K/mm3 (0.0-0.1); Eosinophils # (Auto) 0.3 K/mm3 (0.0-0.4); Eosinophils % (Auto) 3.9 % (0.0-4.3); Hematocrit 24.2 % (35.5-45.6); Hemoglobin 8.1 gm/dl (11.8-15.2); Lymphocytes # (Auto) 1.3 K/mm3 (1.2-5.4); Lymphocytes % (Auto) 14.6 % (13.4-35.0); Mean Corpuscular HGB Conc 34 % (32-34); Mean Corpuscular Volume 78 fl (84-94); Monocytes # (Auto) 1.1 K/mm3 (0.0-0.8); Monocytes % (Auto) 12.5 % (0.0-7.3); Platelet Count 284 K/mm3 (140-440); Red Cell Distribution Width 17.5 % (13.2-15.2)
[2021-01-17 06:13] LABS: Calcium 8.7 mg/dL (8.4-10.2)
--- NOTE | 2021-01-17 10:10 | Progress Note ---
Assessment and Plan 1. Acute kidney injury: Suspect vasomotor JULEE superimposed on CKD. Likely ATN. Renal US negative for hydro. Continue IV fluids. Monitor renal function. Creatinine level is improving. Renal prognosis is guarded. Avoid nephrotoxic agents. Meds dosage based on GFR. Monitor for DIRECTOR DANCE needs. 2. FEN: Hyperkalemia, improved, monitor. Anion-gap metabolic acidosis, bicarb drip, monitor. Monitor lytes and volume status. 3. Pneumonia: Empiric IV antibiotics. Follow culture result. 4. Elevated troponin: In the setting of CKD / JULEE. No chest pain. Followed by Cards. 5. Hx of Paroxysmal atrial fibrillation: On Eliquis for AC and metoprolol for suppression. LVEF 50-55% by echo 09/2020. 6. DM type 2. 7. Anemia, POA: Chronic. Monitor. 8. Hypertension: BP controlled. Subjective: Patient was seen and examined at the bedside. Doing ok. Examination: General appearance: well-developed, appears stated age, not in distress HEENT: atraumatic, SOUMYA Neck: trachea midline Respiratory: ctab Heart: S1S2, no murmur Abdomen: soft, bowel sounds heard, NT Integumentary: no obvious rash Neurologic: AO, non-focal Ext: no edema Subjective Date of service: 01/17/21 Objective - Vital Signs Vital signs: Vital Signs - 12hr 01/16/21 01/17/21 23:26 04:05 Temperature 98.2 F 98.2 F Pulse Rate 73 78 Respiratory 18 16 Rate Blood Pressure 106/63 107/62 O2 Sat by Pulse 98 99 Oximetry - Lab 01/17/21 04:50 01/17/21 04:50 Most recent lab results Calcium 8.7 mg/dL (8.4-10.2) 01/17/21 04:50 Phosphorus 4.40 mg/dL (2.5-4.5) 01/17/21 04:50 Magnesium 2.20 mg/dL (1.7-2.3) 01/14/21 17:06 Urine Creatinine 30.6 mg/dL (0.1-20.0) H 01/15/21 11:11 Urine Sodium 72 mmol/L 01/15/21 11:11 Urine Total Protein 48 mg/dL (5-11.8) H 01/15/21 11:11 Medications & Allergies - Medications Allergies/Adverse Reactions: Allergies No Known Allergies Allergy (Verified 09/14/20 09:38) Home Medications: Home Medications Medication Instructions Recorded Confirmed Last Taken Type Insulin NPH/Regular [NovoLIN 70/30] 25 unit SUB-Q BIDDIAB #2 vial 09/19/20 01/15/21 Unknown Rx Tamsulosin [Flomax] 0.4 mg PO QDAY #30 capsule 09/19/20 01/15/21 Unknown Rx Iron [Iron 18 MG TAB] 18 mg PO QDAY 01/15/21 01/15/21 Unknown History Multivit-Min/FA/Lycopen/Lutein 1 each PO QDAY 01/15/21 01/15/21 Unknown History [Centrum Silver Men Tablet] Active Medications: Generic Name Dose Route Start Last Admin Trade Name Freq PRN Reason Stop Dose Admin Acetaminophen 650 mg 01/14/21 22:55 Acetaminophen 325 Mg Tab PO Q4H PRN Pain MILD(1-3)/Fever >100.5/YUNG Apixaban 5 mg 01/15/21 10:00 01/16/21 21:55 Apixaban 5 Mg Tab PO 5 mg Q12HR CHAU Administration Dextrose 50 ml 01/14/21 22:55 Dextrose 50% In Water (25gm) 50 Ml Syringe IV Q30MIN PRN Hypoglycemia Protocol Cefepime HCl 2 gm in 100 mls @ 200 mls/hr 01/15/21 22:00 01/16/21 22:27 Cefepime/Ns 2 Gm/100 Ml IV 200 mls/hr Q24H CHAU Administration Protocol Sodium Bicarbonate 100 meq/ 1,100 mls @ 75 mls/hr 01/15/21 12:00 01/16/21 22:05 Dextrose IV 75 mls/hr DIRECT CHAU Administration Insulin Human Isoph/Insulin Regular 10 unit 01/15/21 17:00 01/16/21 18:08 Insulin Nph/Regular 70/30 Inj SUB-Q 10 unit BIDDIAB CHAU Administration Insulin Human Lispro 0 unit 01/15/21 07:30 01/16/21 22:23 Insulin Lispro 100 Unit/Ml SUB-Q 3 unit ACHS CHAU Administration Protocol Magnesium Hydroxide 30 ml 01/14/21 22:55 Magnesium Hydroxide (Mom) Oral Liqd Udc PO Q4H PRN Constipation Metoprolol Tartrate 50 mg 01/15/21 10:00 01/16/21 21:55 Metoprolol Tartrate 50 Mg Tab PO 50 mg BID CHAU Administration Morphine Sulfate 2 mg 01/14/21 22:55 01/16/21 21:57 Morphine 2 Mg/1 Ml Inj IV 2 mg Q4H PRN Administration Pain, Moderate (4-6) Ondansetron HCl 4 mg 01/14/21 22:55 01/15/21 13:06 Ondansetron 4 Mg/2 Ml Inj IV 4 mg Q8H PRN Administration Nausea And Vomiting Sodium Chloride 10 ml 01/15/21 10:00 01/16/21 21:57 Sodium Chloride 0.9% 10 Ml Flush Syringe IV 10 ml BID CHAU Administration Sodium Chloride 10 ml 01/14/21 22:55 01/15/21 01:15 Sodium Chloride 0.9% 10 Ml Flush Syringe IV 10 ml PRN PRN Administration LINE FLUSH Tamsulosin HCl 0.4 mg 01/15/21 10:00 01/16/21 09:53 Tamsulosin 0.4 Mg Cap PO 0.4 mg QDAY CHAU Administration
[2021-01-17] MEDS: INSULIN LISPRO 100 UNIT/ML SUB-Q SCH ×4 (10:58→22:37)
[2021-01-17] MEDS: TAMSULOSIN 0.4 MG CAP PO SCH (10:59)
[2021-01-17] MEDS: APIXABAN 5 MG TAB PO SCH ×2 (10:59→22:36)
[2021-01-17] MEDS: METOPROLOL TARTRATE 50 MG TAB PO SCH ×2 (10:59→22:36)
[2021-01-17] MEDS: INSULIN NPH/REGULAR 70/30 INJ SUB-Q SCH ×2 (10:59→18:32)
--- NOTE | 2021-01-17 15:14 | Progress Note ---
Assessment and Plan 55-year-old male with known history of hypertension, CKD, atrial fib and diabetes mellitus presenting in the emergency room with abnormal labs. Work-up in the emergency room revealed a creatinine of 5.1., Troponin was slightly elevated at 0.352. Chest x-ray was significant for bilateral pneumonia and effusion. Patient was admitted with acute kidney injury, pneumonia and elevated troponin. A/P --JULEE (acute kidney injury) on CKD 5.1>5.0>4.8>4.5 likely ATN, cont iv fluid Consult placed to nephrology for evaluation and further recommendation. We will monitor chemistry. --b/l Pneumonia CXR showed Ill-defined bibasilar airspace opacities have improved since 09/14/2020 however some ill-defined densities persist within the lower lungs. Small right pleural effusion. Patient placed on empiric IV antibiotics. Will await culture result. --Hyperkalemia, resolved --Anemia Possibly chronic. We will monitor CBC. -- Elevated troponin I level/NSTEMI type 2 Possibly secondary to the kidney failure. Patient denies any chest pain. We will monitor troponin levels. -- Diabetes mellitus type 2 We will monitor BG with Accu-Cheks --Protein calorie malnutrition, moderate Nutrition consult, dietary supplements -- Hx of Paroxysmal atrial fibrillation On Eliquis for AC and metoprolol for suppression. LVEF 50-55% by echo 09/2020. -- DVT prophylaxis Patient placed on anticoagulation. -- Full code status Daily clinical course; 01/15/21: Change IV fluid to bicarbonate drip due to significant hyperkalemia metabolic acidosis from acute renal failure. Consulted nephrology will follow r ecommendation. cont to follow BMP, avoid nephrotoxins. 01/16: Cr slightly trending down, cont IV fluid. follow BMP 01/17: Cr slowly improving. follow BMP. cont iv fluid. nephrology following Subjective Date of service: 01/17/21 Interval history: Patient seen and examined. Medical records and medication list reviewed. No acute event overnight noted by the RN. Patient denies any chest pain or difficulty breathing. Patient is tolerating diet. Discussed plan of care at bedside with patient. Objective - Exam Narrative Exam: GENERAL: Well-nourished white male lying on bed appeared to be in no discomfort. HEENT: Normocephalic. Atraumatic. No conjunctival congestion or icterus. Patient has moist mucous membranes. NECK: Supple. Trachea midline. CHEST/LUNGS: Clear to auscultated bilaterally, breathing nonlabored. No wheezes crackles or rhonchi. HEART/CARDIOVASCULAR: Regular in rate and rhythm. S1 and S2 positive. ABDOMEN: Abdomen is soft, nontender. Patient has normal bowel sounds. SKIN: There is no rash. Warm and dry. NEURO: No focal motor deficit. Follows command. MUSCULOSKELETAL: No joint effusion or tenderness. EXTRIMITY: No edema, no cyanosis or clubbing. PSYCH: Cooperative. - Constitutional Vitals: Vital Signs - 12hr 01/17/21 01/17/21 04:05 10:00 Temperature 98.2 F Pulse Rate 78 75 Respiratory 16 Rate Blood Pressure 107/62 O2 Sat by Pulse 99 Oximetry - Labs CBC & Chem 7: 01/17/21 04:50 01/17/21 04:50 Labs: Abnormal lab results 01/16/21 01/16/21 01/17/21 Range/Units 15:17 21:30 04:50 RBC (3.65-5.03) M/mm3 Hgb (11.8-15.2) gm/dl Hct (35.5-45.6) % MCV (84-94) fl MCH (28-32) pg RDW (13.2-15.2) % Blair % (Auto) (0.0-7.3) % Baso % (Auto) (0.0-1.8) % Blair # (Auto) (0.0-0.8) K/mm3 Baso # (Auto) (0.0-0.1) K/mm3 Sodium 132 L (137-145) mmol/L Carbon Dioxide 21 L (22-30) mmol/L BUN 74 H (9-20) mg/dL Creatinine 4.5 H (0.8-1.3) mg/dL Glucose 146 H (75-100) mg/dL POC Glucose 150 H 204 H (70-105) mg/dL 01/17/21 01/17/21 Range/Units 04:50 07:34 RBC 3.10 L (3.65-5.03) M/mm3 Hgb 8.1 L (11.8-15.2) gm/dl Hct 24.2 L (35.5-45.6) % MCV 78 L (84-94) fl MCH 26 L (28-32) pg RDW 17.5 H (13.2-15.2) % Blair % (Auto) 12.5 H (0.0-7.3) % Baso % (Auto) 2.0 H (0.0-1.8) % Blair # (Auto) 1.1 H (0.0-0.8) K/mm3 Baso # (Auto) 0.2 H (0.0-0.1) K/mm3 Sodium (137-145) mmol/L Carbon Dioxide (22-30) mmol/L BUN (9-20) mg/dL Creatinine (0.8-1.3) mg/dL Glucose (75-100) mg/dL POC Glucose 160 H (70-105) mg/dL HEART Score - HEART Score Troponin: Troponin T 0.315 ng/mL (0.00-0.029) H* 01/15/21 04:06
[2021-01-17] MEDS: SODIUM BICARBONATE 100 MEQ in DEXTROSE 5% IN WATER 1,000 ML IV SCH (22:25)
[2021-01-17] MEDS: CEFEPIME/NS 2 GM/100 ML 2 GM/100 ML BAG IV SCH (22:36)
[2021-01-17] MEDS: ONDANSETRON 4 MG/2 ML INJ IV PRN (22:37)
[2021-01-18 06:25] LABS: Calcium 8.7 mg/dL (8.4-10.2)
[2021-01-18] MEDS: INSULIN LISPRO 100 UNIT/ML SUB-Q SCH ×4 (08:10→22:07)
[2021-01-18] MEDS: INSULIN NPH/REGULAR 70/30 INJ SUB-Q SCH ×3 (08:35→16:21)
[2021-01-18] MEDS ORDERED: VANCOMYCIN/NS 1 GM/250 ML 1 GM/250 ML BAG IV SCH (10:00)
[2021-01-18] MEDS: TAMSULOSIN 0.4 MG CAP PO SCH (10:19)
[2021-01-18] MEDS: APIXABAN 5 MG TAB PO SCH ×2 (10:19→21:39)
[2021-01-18] MEDS: METOPROLOL TARTRATE 50 MG TAB PO SCH ×2 (10:20→21:39)
--- NOTE | 2021-01-18 12:14 | Progress Note ---
Assessment and Plan 1. Acute kidney injury: Suspect vasomotor JULEE superimposed on CKD. Likely ATN. Renal US negative for hydro. Continue IV fluids. Monitor renal function. Creatinine level is slowly improving. Renal prognosis is guarded. Avoid nephrotoxic agents. Meds dosage based on GFR. Monitor for PHOTOGRAPHY ASSISTANT needs. 2. FEN: Hyperkalemia, improved, monitor. Anion-gap metabolic acidosis, bicarb drip, monitor. Monitor lytes and volume status. 3. Pneumonia: Empiric IV antibiotics. Follow culture result. 4. Elevated troponin: In the setting of CKD / JULEE. No chest pain. Followed by Cards. 5. Hx of Paroxysmal atrial fibrillation: On Eliquis for AC and metoprolol for suppression. LVEF 50-55% by echo 09/2020. 6. DM type 2. 7. Anemia, POA: Chronic. Monitor. 8. Hypertension: BP controlled. Subjective: Patient was seen and examined at the bedside. Doing ok. Examination: General appearance: well-developed, appears stated age, not in distress HEENT: atraumatic, SOUMYA Neck: trachea midline Respiratory: ctab Heart: S1S2, no murmur Abdomen: soft, bowel sounds heard, NT Integumentary: no obvious rash Neurologic: AO, non-focal Ext: no edema Subjective Date of service: 01/18/21 Objective - Vital Signs Vital signs: Vital Signs - 12hr 01/18/21 01/18/21 01/18/21 04:07 07:52 10:20 Temperature 97.8 F 97.9 F Pulse Rate 75 70 76 Pulse Rate [ Left Radial] Pulse Rate [ Right Radial] Respiratory 17 16 Rate Blood Pressure 107/65 118/69 120/74 O2 Sat by Pulse 99 100 Oximetry 01/18/21 11:00 Temperature Pulse Rate Pulse Rate [ 67 Left Radial] Pulse Rate [ 67 Right Radial] Respiratory 17 Rate Blood Pressure O2 Sat by Pulse 97 Oximetry - Lab 01/17/21 04:50 01/20/21 05:19 Most recent lab results Calcium 8.7 mg/dL (8.4-10.2) 01/18/21 05:03 Phosphorus 4.40 mg/dL (2.5-4.5) 01/17/21 04:50 Magnesium 2.20 mg/dL (1.7-2.3) 01/14/21 17:06 Urine Creatinine 30.6 mg/dL (0.1-20.0) H 01/15/21 11:11 Urine Sodium 72 mmol/L 01/15/21 11:11 Urine Total Protein 48 mg/dL (5-11.8) H 01/15/21 11:11 Medications & Allergies - Medications Allergies/Adverse Reactions: Allergies No Known Allergies Allergy (Verified 09/14/20 09:38) Home Medications: Home Medications Medication Instructions Recorded Confirmed Last Taken Type Insulin NPH/Regular [NovoLIN 70/30] 25 unit SUB-Q BIDDIAB #2 vial 09/19/20 01/15/21 Unknown Rx Tamsulosin [Flomax] 0.4 mg PO QDAY #30 capsule 09/19/20 01/15/21 Unknown Rx Iron [Iron 18 MG TAB] 18 mg PO QDAY 01/15/21 01/15/21 Unknown History Multivit-Min/FA/Lycopen/Lutein 1 each PO QDAY 01/15/21 01/15/21 Unknown History [Centrum Silver Men Tablet] Active Medications: Generic Name Dose Route Start Last Admin Trade Name Freq PRN Reason Stop Dose Admin Acetaminophen 650 mg 01/14/21 22:55 Acetaminophen 325 Mg Tab PO Q4H PRN Pain MILD(1-3)/Fever >100.5/YUNG Apixaban 5 mg 01/15/21 10:00 01/18/21 10:19 Apixaban 5 Mg Tab PO 5 mg Q12HR CHAU Administration Dextrose 50 ml 01/14/21 22:55 Dextrose 50% In Water (25gm) 50 Ml Syringe IV Q30MIN PRN Hypoglycemia Protocol Cefepime HCl 2 gm in 100 mls @ 200 mls/hr 01/15/21 22:00 01/17/21 22:36 Cefepime/Ns 2 Gm/100 Ml IV 200 mls/hr Q24H CHAU Administration Protocol Sodium Bicarbonate 100 meq/ 1,100 mls @ 75 mls/hr 01/15/21 12:00 01/17/21 22:25 Dextrose IV 75 mls/hr DIRECT CHAU Administration Vancomycin HCl 1 gm in 250 mls @ 166.667 mls/hr 01/18/21 10:00 01/18/21 10:19 Vancomycin/Ns 1 Gm/250 Ml IV 166.667 mls/hr Q48H CHAU Administration Insulin Human Isoph/Insulin Regular 10 unit 01/15/21 17:00 01/18/21 08:35 Insulin Nph/Regular 70/30 Inj SUB-Q 10 unit BIDDIAB CHAU Administration Insulin Human Lispro 0 unit 01/15/21 07:30 01/18/21 12:05 Insulin Lispro 100 Unit/Ml SUB-Q 4 unit ACHS CHAU Administration Protocol Magnesium Hydroxide 30 ml 01/14/21 22:55 Magnesium Hydroxide (Mom) Oral Liqd Udc PO Q4H PRN Constipation Metoprolol Tartrate 50 mg 01/15/21 10:00 01/18/21 10:20 Metoprolol Tartrate 50 Mg Tab PO 50 mg BID CHAU Administration Morphine Sulfate 2 mg 01/14/21 22:55 01/16/21 21:57 Morphine 2 Mg/1 Ml Inj IV 2 mg Q4H PRN Administration Pain, Moderate (4-6) Ondansetron HCl 4 mg 01/14/21 22:55 01/17/21 22:37 Ondansetron 4 Mg/2 Ml Inj IV 4 mg Q8H PRN Administration Nausea And Vomiting Sodium Chloride 10 ml 01/15/21 10:00 01/18/21 10:19 Sodium Chloride 0.9% 10 Ml Flush Syringe IV 10 ml BID CHAU Administration Sodium Chloride 10 ml 01/14/21 22:55 01/15/21 01:15 Sodium Chloride 0.9% 10 Ml Flush Syringe IV 10 ml PRN PRN Administration LINE FLUSH Tamsulosin HCl 0.4 mg 01/15/21 10:00 01/18/21 10:19 Tamsulosin 0.4 Mg Cap PO 0.4 mg QDAY CHAU Administration
--- NOTE | 2021-01-18 12:20 | Progress Note ---
Assessment and Plan Hx of Paroxysmal atrial fibrillation on Eliquis for AC and metoprolol for suppression LVEF 50-55% by echo 09/2020 Elevated troponin in the setting of CKD, creatinine 5.1 pt denies chest pain Chronic kidney disease Diabetes Anemia Continue medical therapy for paroxysmal atrial fibrillation. Monitor H&H closely. Subjective Date of service: 01/18/21 Interval history: No acute events overnight Objective Vital Signs Temp Pulse Pulse Pulse Resp BP Pulse Ox 01/18/21 11:00 67 67 17 97 01/18/21 10:20 76 120/74 01/18/21 07:52 97.9 F 70 16 118/69 100 01/18/21 04:07 97.8 F 75 17 107/65 99 01/17/21 23:27 98.2 F 78 18 126/71 99 01/17/21 19:37 98.6 F 85 17 113/62 99 - Physical Examination General: No Apparent Distress HEENT: Positive: PERRL, Normocephaly Neck: Positive: trachea midline Cardiac: Positive: Regular Rhythm, Irregularly Regular Lungs: Positive: clear to auscultation Neuro: Positive: Grossly Intact Extremities: Absent: edema - Labs and Meds Comprehensive Metabolic Panel 01/18/21 Range/Units 05:03 Sodium 133 L (137-145) mmol/L Potassium 4.0 (3.6-5.0) mmol/L Chloride 96.7 L (98-107) mmol/L Carbon Dioxide 23 (22-30) mmol/L BUN 71 H (9-20) mg/dL Creatinine 4.3 H (0.8-1.3) mg/dL Glucose 139 H (75-100) mg/dL Calcium 8.7 (8.4-10.2) mg/dL
[2021-01-18] MEDS: SODIUM BICARBONATE 100 MEQ in DEXTROSE 5% IN WATER 1,000 ML IV SCH (14:57)
--- NOTE | 2021-01-18 16:13 | Progress Note ---
Assessment and Plan 55-year-old male with known history of hypertension, CKD, atrial fib and diabetes mellitus presenting in the emergency room with abnormal labs. Work-up in the emergency room revealed a creatinine of 5.1., Troponin was slightly elevated at 0.352. Chest x-ray was significant for bilateral pneumonia and effusion. Patient was admitted with acute kidney injury, pneumonia and elevated troponin. A/P --JULEE (acute kidney injury) on CKD 5.1>5.0>4.8>4.5>4.3 likely ATN, cont iv fluid Consult placed to nephrology for evaluation and further recommendation. We will monitor chemistry. --b/l Pneumonia CXR showed Ill-defined bibasilar airspace opacities have improved since 09/14/2020 however some ill-defined densities persist within the lower lungs. Small right pleural effusion. Patient placed on empiric IV antibiotics. Will await culture result. --Hyperkalemia, resolved --Anemia Possibly chronic. We will monitor CBC. -- Elevated troponin I level/NSTEMI type 2 Possibly secondary to the kidney failure. Patient denies any chest pain. We will monitor troponin levels. -- Diabetes mellitus type 2 We will monitor BG with Accu-Cheks --Protein calorie malnutrition, moderate Nutrition consult, dietary supplements -- Hx of Paroxysmal atrial fibrillation On Eliquis for AC and metoprolol for suppression. LVEF 50-55% by echo 09/2020. -- DVT prophylaxis Patient placed on anticoagulation. -- Full code status Daily clinical course; 01/15/21: Change IV fluid to bicarbonate drip due to significant hyperkalemia metabolic acidosis from acute renal failure. Consulted nephrology will follow recommendation. cont to follow BMP, avoid nephrotoxins. 01/16: Cr slightly trending down, cont IV fluid. follow BMP 01/17: Cr slowly improving. follow BMP. cont iv fluid. nephrology following 01/18: Creatinine 4.3 today. Continue to follow BMP and IV fluid. Discharge planning per nephrology continue to follow patient clinical. Subjective Date of service: 01/18/21 Interval history: Patient seen and examined. Medical records and medication list reviewed. No acute event overnight noted by the RN. Patient denies any chest pain or difficulty breathing. Patient is tolerating diet. Discussed plan of care at bedside with patient. Objective - Exam Narrative Exam: GENERAL: Well-nourished white male lying on bed appeared to be in no discomfort. HEENT: Normocephalic. Atraumatic. No conjunctival congestion or icterus. Patient has moist mucous membranes. NECK: Supple. Trachea midline. CHEST/LUNGS: Clear to auscultated bilaterally, breathing nonlabored. No wheezes crackles or rhonchi. HEART/CARDIOVASCULAR: Regular in rate and rhythm. S1 and S2 positive. ABDOMEN: Abdomen is soft, nontender. Patient has normal bowel sounds. SKIN: There is no rash. Warm and dry. NEURO: No focal motor deficit. Follows command. MUSCULOSKELETAL: No joint effusion or tenderness. EXTRIMITY: No edema, no cyanosis or clubbing. PSYCH: Cooperative. - Constitutional Vitals: Vital Signs - 12hr 01/18/21 01/18/21 01/18/21 07:52 10:00 10:20 Temperature 97.9 F Pulse Rate 70 75 76 Pulse Rate [ Left Radial] Pulse Rate [ Right Radial] Respiratory 16 Rate Blood Pressure 118/69 120/74 O2 Sat by Pulse 100 Oximetry 01/18/21 01/18/21 01/18/21 11:00 11:48 11:49 Temperature 98.0 F Pulse Rate 84 Pulse Rate [ 67 Left Radial] Pulse Rate [ 67 Right Radial] Respiratory 17 18 Rate Blood Pressure 119/66 O2 Sat by Pulse 97 98 Oximetry - Labs CBC & Chem 7: 01/17/21 04:50 01/19/21 04:12 Labs: Abnormal lab results 01/17/21 01/17/21 01/18/21 Range/Units 17:17 20:53 05:03 Sodium 133 L (137-145) mmol/L Chloride 96.7 L (98-107) mmol/L BUN 71 H (9-20) mg/dL Creatinine 4.3 H (0.8-1.3) mg/dL Glucose 139 H (75-100) mg/dL POC Glucose 132 H 191 H (70-105) mg/dL 01/18/21 01/18/21 Range/Units 07:50 11:46 Sodium (137-145) mmol/L Chloride (98-107) mmol/L BUN (9-20) mg/dL Creatinine (0.8-1.3) mg/dL Glucose (75-100) mg/dL POC Glucose 155 H 259 H (70-105) mg/dL HEART Score - HEART Score Troponin: Troponin T 0.315 ng/mL (0.00-0.029) H* 01/15/21 04:06
[2021-01-18] MEDS: CEFEPIME/NS 2 GM/100 ML 2 GM/100 ML BAG IV SCH (21:39)
[2021-01-19 05:38] LABS: Calcium 8.6 mg/dL (8.4-10.2)
[2021-01-19] MEDS: INSULIN LISPRO 100 UNIT/ML SUB-Q SCH ×4 (11:36→22:54)
[2021-01-19] MEDS: METOPROLOL TARTRATE 50 MG TAB PO SCH ×2 (12:00→22:45)
[2021-01-19] MEDS: APIXABAN 5 MG TAB PO SCH ×2 (12:00→22:54)
[2021-01-19] MEDS: TAMSULOSIN 0.4 MG CAP PO SCH (12:01)
[2021-01-19] MEDS: INSULIN NPH/REGULAR 70/30 INJ SUB-Q SCH ×2 (12:02→17:14)
--- NOTE | 2021-01-19 12:24 | Progress Note ---
Assessment and Plan - Patient Problems (1) Elevated troponin Current Visit: Yes Status: Acute Plan to address problem: Cardiology consultation requested for a nonspecific, isolated mild rise in troponin in the setting of acute on chronic renal failure. (2) Paroxysmal atrial fibrillation Current Visit: Yes Status: Acute Plan to address problem: Patient has paroxysmal atrial fibrillation on medical therapy with Eliquis and metoprolol. Subjective Date of service: 01/19/21 Interval history: Patient is comfortable, no chest pain, no shortness of breath, no cardiac complaints. Objective Vital Signs Temp Pulse Resp BP BP Pulse Ox 01/19/21 12:00 89 01/19/21 11:33 98 F 86 120/73 01/19/21 03:25 97.8 F 82 20 115/68 98 01/18/21 23:46 98.0 F 77 18 113/66 100 01/18/21 23:00 18 97 01/18/21 22:00 76 01/18/21 21:39 81 99/63 01/18/21 18:57 97.8 F 81 20 99/63 99 01/18/21 15:47 98.0 F 68 16 122/69 100 - Physical Examination General: No Apparent Distress HEENT: Positive: PERRL, Normocephaly Neck: Positive: trachea midline Cardiac: Positive: Reg Rate and Rhythm Lungs: Positive: Decreased Breath Sounds Neuro: Positive: Grossly Intact Abdomen: Positive: Soft Skin: Positive: Clear Extremities: Absent: edema - Labs and Meds Comprehensive Metabolic Panel 01/19/21 Range/Units 04:12 Sodium 133 L (137-145) mmol/L Potassium 4.1 (3.6-5.0) mmol/L Chloride 94.5 L (98-107) mmol/L Carbon Dioxide 27 (22-30) mmol/L BUN 72 H (9-20) mg/dL Creatinine 4.1 H (0.8-1.3) mg/dL Glucose 139 H (75-100) mg/dL Calcium 8.6 (8.4-10.2) mg/dL
--- NOTE | 2021-01-19 15:16 | Progress Note ---
Assessment and Plan 1. Acute kidney injury: Suspect vasomotor JULEE superimposed on CKD. Likely ATN. Renal US negative for hydro. Continue IV fluids. Monitor renal function. Creatinine level is improving. Renal prognosis is guarded. Avoid nephrotoxic agents. Meds dosage based on GFR. 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 2. FEN: Hyperkalemia, improved, monitor. Anion-gap metabolic acidosis, bicarb drip, monitor. Monitor lytes and volume status. 3. Pneumonia: S/p antibiotics. Follow culture result. 4. Elevated troponin: In the setting of CKD / JULEE. No chest pain. Followed by Cards. 5. Hx of Paroxysmal atrial fibrillation: On Eliquis for AC and metoprolol for suppression. LVEF 50-55% by echo 09/2020. 6. DM type 2. 7. Anemia, POA: Chronic. Monitor. 8. Hypertension: BP controlled. Subjective: Patient was seen and examined at the bedside. Doing ok. Examination: General appearance: well-developed, appears stated age, not in distress HEENT: atraumatic, SOUMYA Neck: trachea midline Respiratory: ctab Heart: S1S2, no murmur Abdomen: soft, bowel sounds heard, NT Integumentary: no obvious rash Neurologic: AO, non-focal Ext: no edema Subjective Date of service: 01/19/21 Objective - Vital Signs Vital signs: Vital Signs - 12hr 01/19/21 01/19/21 01/19/21 03:25 11:33 12:00 Temperature 97.8 F 98 F Pulse Rate 82 86 89 Respiratory 20 Rate Blood Pressure 115/68 Blood Pressure 120/73 [Left] O2 Sat by Pulse 98 Oximetry - Lab 01/17/21 04:50 01/20/21 05:19 Most recent lab results Calcium 8.6 mg/dL (8.4-10.2) 01/19/21 04:12 Phosphorus 4.40 mg/dL (2.5-4.5) 01/17/21 04:50 Magnesium 2.20 mg/dL (1.7-2.3) 01/14/21 17:06 Urine Creatinine 30.6 mg/dL (0.1-20.0) H 01/15/21 11:11 Urine Sodium 72 mmol/L 01/15/21 11:11 Urine Total Protein 48 mg/dL (5-11.8) H 01/15/21 11:11 Medications & Allergies - Medications Allergies/Adverse Reactions: Allergies No Known Allergies Allergy (Verified 09/14/20 09:38) Home Medications: Home Medications Medication Instructions Recorded Confirmed Last Taken Type Insulin NPH/Regular [NovoLIN 70/30] 25 unit SUB-Q BIDDIAB #2 vial 09/19/20 01/15/21 Unknown Rx Tamsulosin [Flomax] 0.4 mg PO QDAY #30 capsule 09/19/20 01/15/21 Unknown Rx Iron [Iron 18 MG TAB] 18 mg PO QDAY 01/15/21 01/15/21 Unknown History Multivit-Min/FA/Lycopen/Lutein 1 each PO QDAY 01/15/21 01/15/21 Unknown History [Centrum Silver Men Tablet] Active Medications: Generic Name Dose Route Start Last Admin Trade Name Freq PRN Reason Stop Dose Admin Acetaminophen 650 mg 01/14/21 22:55 Acetaminophen 325 Mg Tab PO Q4H PRN Pain MILD(1-3)/Fever >100.5/YUNG Apixaban 5 mg 01/15/21 10:00 01/19/21 12:00 Apixaban 5 Mg Tab PO 5 mg Q12HR CHAU Administration Dextrose 50 ml 01/14/21 22:55 Dextrose 50% In Water (25gm) 50 Ml Syringe IV Q30MIN PRN Hypoglycemia Protocol Cefepime HCl 2 gm in 100 mls @ 200 mls/hr 01/15/21 22:00 01/18/21 21:39 Cefepime/Ns 2 Gm/100 Ml IV 01/19/21 22:29 200 mls/hr Q24H CHAU Administration Protocol Sodium Bicarbonate 100 meq/ 1,100 mls @ 75 mls/hr 01/15/21 12:00 01/18/21 14:57 Dextrose IV 75 mls/hr DIRECT CHAU Administration Vancomycin HCl 1 gm in 250 mls @ 166.667 mls/hr 01/18/21 10:00 01/18/21 10:19 Vancomycin/Ns 1 Gm/250 Ml IV 01/19/21 23:59 166.667 mls/hr Q48H CHAU Administration Insulin Human Isoph/Insulin Regular 10 unit 01/15/21 17:00 01/19/21 12:02 Insulin Nph/Regular 70/30 Inj SUB-Q 10 unit BIDDIAB CHAU Administration Insulin Human Lispro 0 unit 01/15/21 07:30 01/19/21 12:01 Insulin Lispro 100 Unit/Ml SUB-Q 2 unit ACHS CHAU Administration Protocol Magnesium Hydroxide 30 ml 01/14/21 22:55 Magnesium Hydroxide (Mom) Oral Liqd Udc PO Q4H PRN Constipation Metoprolol Tartrate 50 mg 01/15/21 10:00 01/19/21 12:00 Metoprolol Tartrate 50 Mg Tab PO 50 mg BID CHAU Administration Morphine Sulfate 2 mg 01/14/21 22:55 01/16/21 21:57 Morphine 2 Mg/1 Ml Inj IV 2 mg Q4H PRN Administration Pain, Moderate (4-6) Ondansetron HCl 4 mg 01/14/21 22:55 01/17/21 22:37 Ondansetron 4 Mg/2 Ml Inj IV 4 mg Q8H PRN Administration Nausea And Vomiting Sodium Chloride 10 ml 01/15/21 10:00 01/19/21 11:50 Sodium Chloride 0.9% 10 Ml Flush Syringe IV 10 ml BID CHAU Administration Sodium Chloride 10 ml 01/14/21 22:55 01/15/21 01:15 Sodium Chloride 0.9% 10 Ml Flush Syringe IV 10 ml PRN PRN Administration LINE FLUSH Tamsulosin HCl 0.4 mg 01/15/21 10:00 01/19/21 12:01 Tamsulosin 0.4 Mg Cap PO 0.4 mg QDAY CHAU Administration
--- NOTE | 2021-01-19 17:20 | Progress Note ---
Assessment and Plan 55-year-old male with known history of hypertension, CKD, atrial fib and diabetes mellitus presenting in the emergency room with abnormal labs. Work-up in the emergency room revealed a creatinine of 5.1., Troponin was slightly elevated at 0.352. Chest x-ray was significant for bilateral pneumonia and effusion. Patient was admitted with acute kidney injury, pneumonia and elevated troponin. A/P --JULEE (acute kidney injury) on CKD 5.1>5.0>4.8>4.5>4.3>4.1 likely ATN, cont iv fluid Consult placed to nephrology for evaluation and further recommendation. We will monitor chemistry. --b/l Pneumonia CXR showed Ill-defined bibasilar airspace opacities have improved since 09/14/2020 however some ill-defined densities persist within the lower lungs. Small right pleural effusion. Patient placed on empiric IV antibiotics. Negative for blood culture --Hyperkalemia, due to worsening renal function, resolved --Anemia Possibly chronic due to underlying CKD. We will monitor CBC. -- Elevated troponin I level/NSTEMI type 2 Possibly secondary to the kidney failure. Patient denies any chest pain. We will monitor troponin levels. Cardiology following and recommended medical management -- Diabetes mellitus type 2 We will monitor BG with Accu-Cheks --Protein calorie malnutrition, moderate Nutrition consult, dietary supplements -- Hx of Paroxysmal atrial fibrillation On Eliquis for AC and metoprolol for suppression. LVEF 50-55% by echo 09/2020. -- DVT prophylaxis Patient placed on anticoagulation. -- Full code status Daily clinical course; 01/15/21: Change IV fluid to bicarbonate drip due to significant hyperkalemia metabolic acidosis from acute renal failure. Consulted nephrology will follow recommendation. cont to follow BMP, avoid nephrotoxins. 01/16: Cr slightly trending down, cont IV fluid. follow BMP 01/17: Cr slowly improving. follow BMP. cont iv fluid. nephrology following 01/18: Creatinine 4.3 today. Continue to follow BMP and IV fluid. Discharge planning per nephrology continue to follow patient clinical. 01/19: Continue IV fluids. Monitor renal function. Creatinine level is improving. Avoid nephrotoxic agents. Meds dosage based on GFR. 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 Discharge planning when cleared by nephrology. Subjective Date of service: 06/14/21 Interval history: Patient seen and examined. Medical records and medication list reviewed. No acute event overnight noted by the RN. Patient denies any chest pain or difficulty breathing. Patient is tolerating diet. Discussed plan of care at bedside with patient. Objective - Exam Narrative Exam: GENERAL: Well-nourished white male lying on bed appeared to be in no discomfort. HEENT: Normocephalic. Atraumatic. No conjunctival congestion or icterus. Patient has moist mucous membranes. NECK: Supple. Trachea midline. CHEST/LUNGS: Clear to auscultated bilaterally, breathing nonlabored. No wheezes crackles or rhonchi. HEART/CARDIOVASCULAR: Regular in rate and rhythm. S1 and S2 positive. ABDOMEN: Abdomen is soft, nontender. Patient has normal bowel sounds. SKIN: There is no rash. Warm and dry. NEURO: No focal motor deficit. Follows command. MUSCULOSKELETAL: No joint effusion or tenderness. EXTRIMITY: No edema, no cyanosis or clubbing. PSYCH: Cooperative. - Constitutional Vitals: Vital Signs - 12hr 01/19/21 01/19/21 01/19/21 09:00 10:00 11:00 Temperature Pulse Rate 89 Respiratory 18 Rate Respiratory 18 Rate [denies] Blood Pressure [Left] O2 Sat by Pulse 97 Oximetry 01/19/21 01/19/21 11:33 12:00 Temperature 98 F Pulse Rate 86 89 Respiratory Rate Respiratory Rate [denies] Blood Pressure 120/73 [Left] O2 Sat by Pulse Oximetry - Labs CBC & Chem 7: 01/17/21 04:50 01/19/21 04:12 Labs: Abnormal lab results 01/18/21 01/18/21 01/19/21 Range/Units 15:45 21:49 04:12 Sodium 133 L (137-145) mmol/L Chloride 94.5 L (98-107) mmol/L BUN 72 H (9-20) mg/dL Creatinine 4.1 H (0.8-1.3) mg/dL Glucose 139 H (75-100) mg/dL POC Glucose 182 H 238 H (70-105) mg/dL 01/19/21 01/19/21 Range/Units 07:40 11:18 Sodium (137-145) mmol/L Chloride (98-107) mmol/L BUN (9-20) mg/dL Creatinine (0.8-1.3) mg/dL Glucose (75-100) mg/dL POC Glucose 144 H 213 H (70-105) mg/dL HEART Score - HEART Score Troponin: Troponin T 0.315 ng/mL (0.00-0.029) H* 01/15/21 04:06
[2021-01-19] MEDS: CEFEPIME/NS 2 GM/100 ML 2 GM/100 ML BAG IV SCH (22:53)
[2021-01-20 06:10] LABS: Calcium 8.3 mg/dL (8.4-10.2)
--- NOTE | 2021-01-20 07:31 | Progress Note ---
Assessment and Plan 1. Acute kidney injury: Suspect vasomotor JULEE superimposed on CKD. Likely ATN. Renal US negative for hydro. Continue IV fluids. Monitor renal function. Creatinine leveled off. Renal prognosis is guarded. Avoid nephrotoxic agents. Meds dosage based on GFR. 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 2. FEN: Hyperkalemia, improved, monitor. Anion-gap metabolic acidosis, on bicarb drip, monitor. Monitor lytes and volume status. 3. Pneumonia: S/p antibiotics. Follow culture result. 4. Elevated troponin: In the setting of CKD / JULEE. No chest pain. Followed by Cards. 5. Hx of Paroxysmal atrial fibrillation: On Eliquis for AC and metoprolol for suppression. LVEF 50-55% by echo 09/2020. 6. DM type 2. 7. Anemia, POA: Chronic. Monitor. 8. Hypertension: BP controlled. Subjective: Patient was seen and examined at the bedside. Doing ok. Examination: General appearance: well-developed, appears stated age, not in distress HEENT: atraumatic, SOUMYA Neck: trachea midline Respiratory: ctab Heart: S1S2, no murmur Abdomen: soft, bowel sounds heard, NT Integumentary: no obvious rash Neurologic: AO, non-focal Ext: no edema Subjective Date of service: 01/20/21 Objective - Vital Signs Vital signs: Vital Signs - 12hr 01/19/21 01/19/21 01/20/21 23:00 23:09 03:26 Temperature 98.1 F 98.0 F Pulse Rate 89 Respiratory 18 16 16 Rate Blood Pressure 134/79 116/72 O2 Sat by Pulse 97 98 Oximetry 01/20/21 07:06 Temperature 97.6 F Pulse Rate 95 H Respiratory 16 Rate Blood Pressure 125/73 O2 Sat by Pulse 97 Oximetry - Lab 01/17/21 04:50 01/20/21 05:19 Most recent lab results Calcium 8.3 mg/dL (8.4-10.2) L 01/20/21 05:19 Phosphorus 4.40 mg/dL (2.5-4.5) 01/17/21 04:50 Magnesium 2.20 mg/dL (1.7-2.3) 01/14/21 17:06 Urine Creatinine 30.6 mg/dL (0.1-20.0) H 01/15/21 11:11 Urine Sodium 72 mmol/L 01/15/21 11:11 Urine Total Protein 48 mg/dL (5-11.8) H 01/15/21 11:11 Medications & Allergies - Medications Allergies/Adverse Reactions: Allergies No Known Allergies Allergy (Verified 09/14/20 09:38) Home Medications: Home Medications Medication Instructions Recorded Confirmed Last Taken Type Insulin NPH/Regular [NovoLIN 70/30] 25 unit SUB-Q BIDDIAB #2 vial 09/19/20 01/15/21 Unknown Rx Tamsulosin [Flomax] 0.4 mg PO QDAY #30 capsule 09/19/20 01/15/21 Unknown Rx Iron [Iron 18 MG TAB] 18 mg PO QDAY 01/15/21 01/15/21 Unknown History Multivit-Min/FA/Lycopen/Lutein 1 each PO QDAY 01/15/21 01/15/21 Unknown History [Centrum Silver Men Tablet] Active Medications: Generic Name Dose Route Start Last Admin Trade Name Freq PRN Reason Stop Dose Admin Acetaminophen 650 mg 01/14/21 22:55 Acetaminophen 325 Mg Tab PO Q4H PRN Pain MILD(1-3)/Fever >100.5/YUNG Apixaban 5 mg 01/15/21 10:00 01/19/21 22:54 Apixaban 5 Mg Tab PO 5 mg Q12HR CHAU Administration Dextrose 50 ml 01/14/21 22:55 Dextrose 50% In Water (25gm) 50 Ml Syringe IV Q30MIN PRN Hypoglycemia Protocol Sodium Bicarbonate 100 meq/ 1,100 mls @ 75 mls/hr 01/15/21 12:00 01/18/21 14:57 Dextrose IV 75 mls/hr DIRECT CHAU Administration Insulin Human Isoph/Insulin Regular 10 unit 01/15/21 17:00 01/19/21 17:14 Insulin Nph/Regular 70/30 Inj SUB-Q Not Given BIDDIAB CHAU Insulin Human Lispro 0 unit 01/15/21 07:30 01/19/21 22:54 Insulin Lispro 100 Unit/Ml SUB-Q 3 unit ACHS CHAU Administration Protocol Magnesium Hydroxide 30 ml 01/14/21 22:55 Magnesium Hydroxide (Mom) Oral Liqd Udc PO Q4H PRN Constipation Metoprolol Tartrate 50 mg 01/15/21 10:00 01/19/21 22:45 Metoprolol Tartrate 50 Mg Tab PO Not Given BID CHAU Morphine Sulfate 2 mg 01/14/21 22:55 01/16/21 21:57 Morphine 2 Mg/1 Ml Inj IV 2 mg Q4H PRN Administration Pain, Moderate (4-6) Ondansetron HCl 4 mg 01/14/21 22:55 01/17/21 22:37 Ondansetron 4 Mg/2 Ml Inj IV 4 mg Q8H PRN Administration Nausea And Vomiting Sodium Chloride 10 ml 01/15/21 10:00 01/19/21 22:54 Sodium Chloride 0.9% 10 Ml Flush Syringe IV 10 ml BID CHAU Administration Sodium Chloride 10 ml 01/14/21 22:55 01/15/21 01:15 Sodium Chloride 0.9% 10 Ml Flush Syringe IV 10 ml PRN PRN Administration LINE FLUSH Tamsulosin HCl 0.4 mg 01/15/21 10:00 01/19/21 12:01 Tamsulosin 0.4 Mg Cap PO 0.4 mg QDAY CHAU Administration
--- NOTE | 2021-01-20 09:18 | Progress Note ---
Assessment and Plan Assessment and plan: 55-year-old male with known history of hypertension, CKD, atrial fib and diabetes mellitus presenting in the emergency room with abnormal labs. Work-up in the emergency room revealed a creatinine of 5.1., Troponin was slightly elevated at 0.352. Chest x-ray was significant for bilateral pneumonia and effusion. Patient was admitted with acute kidney injury, pneumonia and elevated troponin. A/P --JULEE (acute kidney injury) on CKD 5.1>5.0>4.8>4.5>4.3>4.1 likely ATN, cont iv fluid Consult placed to nephrology for evaluation and further recommendation. We will monitor chemistry. --b/l Pneumonia CXR showed Ill-defined bibasilar airspace opacities have improved since 09/14/2020 however some ill-defined densities persist within the lower lungs. Small right pleural effusion. Patient placed on empiric IV antibiotics. Negative for blood culture --Hyperkalemia, due to worsening renal function, resolved --Anemia Possibly chronic due to underlying CKD. We will monitor CBC. -- Elevated troponin I level/NSTEMI type 2 Possibly secondary to the kidney failure. Patient denies any chest pain. We will monitor troponin levels. Cardiology following and recommended medical management -- Diabetes mellitus type 2 We will monitor BG with Accu-Cheks --Protein calorie malnutrition, moderate Nutrition consult, dietary supplements -- Hx of Paroxysmal atrial fibrillation On Eliquis for AC and metoprolol for suppression. LVEF 50-55% by echo 09/2020. -- DVT prophylaxis Patient placed on anticoagulation. -- Full code status Daily clinical course; 01/15/21: Change IV fluid to bicarbonate drip due to significant hyperkalemia metabolic acidosis from acute renal failure. Consulted nephrology will follow recommendation. cont to follow BMP, avoid nephrotoxins. 01/16: Cr slightly trending down, cont IV fluid. follow BMP 01/17: Cr slowly improving. follow BMP. cont iv fluid. nephrology following 01/18: Creatinine 4.3 today. Continue to follow BMP and IV fluid. Discharge planning per nephrology continue to follow patient clinical. 01/19: Continue IV fluids. Monitor renal function. Creatinine level is improving. Avoid nephrotoxic agents. Meds dosage based on GFR. 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 Discharge planning when cleared by nephrology. 01/20/2021; creatinine was 4.2 this morning. Nephrology is following. Discharge when cleared by nephrology. History Interval history: Patient was seen and evaluated this morning Patient does not have any complaints Hospitalist Physical - Physical exam Narrative exam: Not in cardiopulmonary distress. The patient appeared well nourished and normally developed. Vital signs as documented. Head exam is unremarkable. No scleral icterus . Neck is without jugular venous distension, thyromegaly, or carotid bruits. Lungs are clear to auscultation. Cardiac exam reveals regular rate and Rhythm. Abdominal exam reveals normal bowel sounds, nontender, no organomegaly. Extremities are nonedematous and both femoral and pedal pulses are normal. MACHINE ETCHER: Alert and oriented 3. No focal weakness. - Constitutional Vitals: Temp Pulse Resp BP Pulse Ox 97.6 F 95 H 16 125/73 97 01/20/21 07:06 01/20/21 07:06 01/20/21 07:06 01/20/21 07:06 01/20/21 07:06 General appearance: Present: no acute distress HEART Score - HEART Score Troponin: Troponin T 0.315 ng/mL (0.00-0.029) H* 01/15/21 04:06 Results - Labs CBC & Chem 7: 01/17/21 04:50 01/20/21 05:19 Labs: Laboratory Last Values WBC 8.7 K/mm3 (4.5-11.0) 01/17/21 04:50 RBC 3.10 M/mm3 (3.65-5.03) L 01/17/21 04:50 Hgb 8.1 gm/dl (11.8-15.2) L 01/17/21 04:50 Hct 24.2 % (35.5-45.6) L 01/17/21 04:50 MCV 78 fl (84-94) L 01/17/21 04:50 MCH 26 pg (28-32) L 01/17/21 04:50 MCHC 34 % (32-34) 01/17/21 04:50 RDW 17.5 % (13.2-15.2) H 01/17/21 04:50 Plt Count 284 K/mm3 (140-440) 01/17/21 04:50 Lymph % (Auto) 14.6 % (13.4-35.0) 01/17/21 04:50 [place] % (Auto) 12.5 % (0.0-7.3) H 01/17/21 04:50 Eos % (Auto) 3.9 % (0.0-4.3) 01/17/21 04:50 Baso % (Auto) 2.0 % (0.0-1.8) H 01/17/21 04:50 Lymph # (Auto) 1.3 K/mm3 (1.2-5.4) 01/17/21 04:50 [place] # (Auto) 1.1 K/mm3 (0.0-0.8) H 01/17/21 04:50 Eos # (Auto) 0.3 K/mm3 (0.0-0.4) 01/17/21 04:50 Baso # (Auto) 0.2 K/mm3 (0.0-0.1) H 01/17/21 04:50 Seg Neutrophils % 67.0 % (40.0-70.0) 01/17/21 04:50 Seg Neutrophils # 5.9 K/mm3 (1.8-7.7) 01/17/21 04:50 PT 15.6 Sec. (12.2-14.9) H 01/15/21 04:06 INR 1.19 (0.87-1.13) H 01/15/21 04:06 Sodium 131 mmol/L (137-145) L 01/20/21 05:19 Potassium 4.0 mmol/L (3.6-5.0) 01/20/21 05:19 Chloride 91.9 mmol/L (98-107) L 01/20/21 05:19 Carbon Dioxide 27 mmol/L (22-30) 01/20/21 05:19 Anion Gap 16 mmol/L 01/20/21 05:19 BUN 69 mg/dL (9-20) H 01/20/21 05:19 Creatinine 4.2 mg/dL (0.8-1.3) H 01/20/21 05:19 Estimated GFR 15 ml/min 01/20/21 05:19 BUN/Creatinine Ratio 16 % 01/20/21 05:19 Glucose 203 mg/dL (75-100) H 01/20/21 05:19 POC Glucose 187 mg/dL (70-105) H 01/20/21 07:35 Hemoglobin A1c 5.8 % (4-6) 01/14/21 17:06 Calcium 8.3 mg/dL (8.4-10.2) L 01/20/21 05:19 Phosphorus 4.40 mg/dL (2.5-4.5) 01/17/21 04:50 Magnesium 2.20 mg/dL (1.7-2.3) 01/14/21 17:06 Total Bilirubin 0.20 mg/dL (0.1-1.2) 01/14/21 17:06 AST 7 units/L (5-40) 01/14/21 17:06 ALT 8 units/L (7-56) 01/14/21 17:06 Alkaline Phosphatase 79 units/L (35-129) 01/14/21 17:06 Total Creatine Kinase 119 units/L (55-170) 01/14/21 17:06 Troponin T 0.315 ng/mL (0.00-0.029) H* 01/15/21 04:06 NT-Pro-B Natriuret Pep 619.7 pg/mL (0-900) 01/14/21 17:06 Total Protein 8.4 g/dL (6.3-8.2) H 01/14/21 17:06 Albumin 3.6 g/dL (3.9-5) L 01/14/21 17:06 Albumin/Globulin Ratio 0.8 % 01/14/21 17:06 Triglycerides 122 mg/dL (2-149) 01/14/21 17:06 Cholesterol 71 mg/dL (50-199) 01/14/21 17:06 LDL Cholesterol Direct 40 mg/dL (50-130) L 01/14/21 17:06 HDL Cholesterol 22 mg/dL (40-59) L 01/14/21 17:06 Cholesterol/HDL Ratio 3.22 % 01/14/21 17:06 PTH Intact 46.18 pg/mL (15-65) 01/16/21 05:52 Urine Color Yellow (Yellow) 01/15/21 11:11 Urine Turbidity Cloudy (Clear) 01/15/21 11:11 Urine pH 6.0 (5.0-7.0) 01/15/21 11:11 Ur Specific [place] 1.008 (1.003-1.030) 01/15/21 11:11 Urine Protein 30 mg/dl mg/dL (Negative) 01/15/21 11:11 Urine Glucose (UA) 50 mg/dL (Negative) 01/15/21 11:11 Urine Ketones Neg mg/dL (Negative) 01/15/21 11:11 Urine Blood Mod (Negative) 01/15/21 11:11 Urine Nitrite Neg (Negative) 01/15/21 11:11 Urine Bilirubin Neg (Negative) 01/15/21 11:11 Urine Urobilinogen < 2.0 mg/dL (<2.0) 01/15/21 11:11 Ur Leukocyte Esterase Lg (Negative) 01/15/21 11:11 Urine WBC (Auto) > 182.0 /HPF (0.0-6.0) H 01/15/21 11:11 Urine RBC (Auto) > 182.0 /HPF (0.0-6.0) 01/15/21 11:11 Urine Bacteria (Auto) 3+ /HPF (Negative) 01/15/21 11:11 Urine Eosinophils Moderate (None Seen) 01/15/21 11:11 Urine Creatinine 30.6 mg/dL (0.1-20.0) H 01/15/21 11:11 Protein/Creatinin Ratio 1.57 01/15/21 11:11 Urine Sodium 72 mmol/L 01/15/21 11:11 Urine Total Protein 48 mg/dL (5-11.8) H 01/15/21 11:11 Random Vancomycin 14.2 ug/mL (0-40.0) 01/17/21 04:50 Microbiology: Microbiology 01/15/21 10:48 Peripheral/Venous Blood Culture - Preliminary NO GROWTH AFTER 4 DAYS 01/15/21 10:48 Peripheral/Venous Blood Culture - Preliminary NO GROWTH AFTER 4 DAYS Ramirez/IV: Voiding Method Urinal Active Medications - Current Medications Current Medications: Generic Name Dose Route Start Last Admin Trade Name Freq PRN Reason Stop Dose Admin Acetaminophen 650 mg 01/14/21 22:55 Acetaminophen 325 Mg Tab PO Q4H PRN Pain MILD(1-3)/Fever >100.5/YUNG Apixaban 5 mg 01/15/21 10:00 01/19/21 22:54 Apixaban 5 Mg Tab PO 5 mg Q12HR CHAU Administration Dextrose 50 ml 01/14/21 22:55 Dextrose 50% In Water (25gm) 50 Ml Syringe IV Q30MIN PRN Hypoglycemia Protocol Sodium Bicarbonate 100 meq/ 1,100 mls @ 75 mls/hr 01/15/21 12:00 01/18/21 14:57 Dextrose IV 75 mls/hr DIRECT CHAU Administration Insulin Human Isoph/Insulin Regular 10 unit 01/15/21 17:00 01/19/21 17:14 Insulin Nph/Regular 70/30 Inj SUB-Q Not Given BIDDIAB CHAU Insulin Human Lispro 0 unit 01/15/21 07:30 01/19/21 22:54 Insulin Lispro 100 Unit/Ml SUB-Q 3 unit ACHS CHAU Administration Protocol Magnesium Hydroxide 30 ml 01/14/21 22:55 Magnesium Hydroxide (Mom) Oral Liqd Udc PO Q4H PRN Constipation Metoprolol Tartrate 50 mg 01/15/21 10:00 01/19/21 22:45 Metoprolol Tartrate 50 Mg Tab PO Not Given BID CHAU Morphine Sulfate 2 mg 01/14/21 22:55 01/16/21 21:57 Morphine 2 Mg/1 Ml Inj IV 2 mg Q4H PRN Administration Pain, Moderate (4-6) Ondansetron HCl 4 mg 01/14/21 22:55 01/17/21 22:37 Ondansetron 4 Mg/2 Ml Inj IV 4 mg Q8H PRN Administration Nausea And Vomiting Sodium Chloride 10 ml 01/15/21 10:00 01/19/21 22:54 Sodium Chloride 0.9% 10 Ml Flush Syringe IV 10 ml BID CHAU Administration Sodium Chloride 10 ml 01/14/21 22:55 01/15/21 01:15 Sodium Chloride 0.9% 10 Ml Flush Syringe IV 10 ml PRN PRN Administration LINE FLUSH Tamsulosin HCl 0.4 mg 01/15/21 10:00 01/19/21 12:01 Tamsulosin 0.4 Mg Cap PO 0.4 mg QDAY CHAU Administration Nutrition/Malnutrition Assess - Dietary Evaluation Nutrition/Malnutrition Findings: Nutrition Notes Start: 01/15/21 13:12 Freq: Status: Active Protocol: Document 01/19/21 13:13 MIKAEL (Rec: 01/19/21 13:21 MIKAEL [email or web address]) Nutrition Notes Initial or Follow up Reassessment Current Diagnosis Acute Kidney Injury,CKD(stage I-IV),Diabetes,Hypertension Other Pertinent Diagnosis pneu, anemia, GIB Current Diet Cardiac, Consistent CHO, Renal Labs/Tests Na 133 BUN 72 Cr 4.1 BG 139 Pertinent Medications Insuling Height 6 ft 3 in Weight 71.3 kg [place] Body Weight (kg) 89.09 BMI 19.6 Weight change and time frame wt change noted, will follow for trends Weight Status Underweight Subjective/Other Information FU for intakes. Pt drinking 100% of 2 ONS and eating 75- 100% of meals. Percent of energy/protein needs met: 100%/100% Burn Absent Trauma Absent Current % PO Good (75-100%) Minimum of two criteria Yes Interpretation of Weight Loss (severe) >7.5% in 3 months Muscle Mass Mild Depletion (non-severe) Is patient on ventilator? No Is Patient Ambulatory and/or Out of Bed No REE-([facility]-confined to bed) 1952.964 Kcal/Kg value to use for calculation 30 Approximate Energy Requirements Using 2139 kcal/Kg Calculation Used for Recommendations Kcal/kg Additional Notes Protein: (1.2-1.5g/kg) 76-95g Fluid: 1 ml/kcal or per MD Nutrition Intervention Change Diet Order: Continue Add Supplement/Snack (indicate name/kcal Nepro BID /protein ) Provides kCal: 850 Provides Protein (gm) 38 Goal #1 Meet at least 75% of protein and energy needs via PO and ONS intakes Goal #2 Weight gain/maintenance Follow-Up By: 01/21/21 Additional Comments FU for stable intakes
--- NOTE | 2021-01-20 09:34 | Progress Note ---
Assessment and Plan Hx of Paroxysmal atrial fibrillation on Eliquis for AC and metoprolol for suppression LVEF 50-55% by echo 09/2020 Elevated troponin, non-specific in the setting of CKD, creatinine 5.1 on presentation Chronic kidney disease Diabetes Anemia Continue medical therapy for paroxysmal atrial fibrillation. Otherwise, conservative cardiac management. Subjective Date of service: 01/20/21 Interval history: Patient has no cardiac complaints, sitting up in bedside chair. Currently, he is sinus rhythm on telemetry. Objective Vital Signs Temp Pulse Resp BP BP Pulse Ox 01/20/21 07:06 97.6 F 95 H 16 125/73 97 01/20/21 03:26 98.0 F 16 116/72 01/19/21 23:09 98.1 F 89 16 134/79 98 01/19/21 23:00 18 97 01/19/21 19:12 97.9 F 89 16 119/71 99 01/19/21 12:00 89 01/19/21 11:33 98 F 86 120/73 01/19/21 11:00 18 97 01/19/21 10:00 89 - Physical Examination General: No Apparent Distress HEENT: Positive: PERRL Neck: Positive: trachea midline Cardiac: Positive: Reg Rate and Rhythm Lungs: Positive: Decreased Breath Sounds Neuro: Positive: Grossly Intact Extremities: Absent: edema - Labs and Meds Comprehensive Metabolic Panel 01/20/21 Range/Units 05:19 Sodium 131 L (137-145) mmol/L Potassium 4.0 (3.6-5.0) mmol/L Chloride 91.9 L (98-107) mmol/L Carbon Dioxide 27 (22-30) mmol/L BUN 69 H (9-20) mg/dL Creatinine 4.2 H (0.8-1.3) mg/dL Glucose 203 H (75-100) mg/dL Calcium 8.3 L (8.4-10.2) mg/dL
[2021-01-20] MEDS: METOPROLOL TARTRATE 50 MG TAB PO SCH ×2 (10:41→22:45)
[2021-01-20] MEDS: TAMSULOSIN 0.4 MG CAP PO SCH (10:41)
[2021-01-20] MEDS: APIXABAN 5 MG TAB PO SCH ×2 (10:41→22:02)
[2021-01-20] MEDS: INSULIN LISPRO 100 UNIT/ML SUB-Q SCH ×4 (10:43→22:02)
[2021-01-20] MEDS: INSULIN NPH/REGULAR 70/30 INJ SUB-Q SCH ×2 (10:44→19:09)
[2021-01-21] MEDS: SODIUM BICARBONATE 100 MEQ in DEXTROSE 5% IN WATER 1,000 ML IV SCH (02:31)
[2021-01-21 06:25] LABS: Calcium 8.4 mg/dL (8.4-10.2)
[2021-01-21 08:38] VITALS: BP 131/82
--- NOTE | 2021-01-21 09:44 | Progress Note ---
Assessment and Plan Hx of Paroxysmal atrial fibrillation on Eliquis for AC and metoprolol for suppression LVEF 50-55% by echo 09/2020 Elevated troponin, non-specific in the setting of CKD, creatinine 5.1 on presentation Chronic kidney disease Diabetes Anemia Continue medical therapy for paroxysmal atrial fibrillation. Otherwise, conservative cardiac management. Subjective Date of service: 01/21/21 Interval history: Patient has no cardiac complaints. Currently, he is sinus rhythm on telemetry. Objective Vital Signs Temp Pulse Resp BP Pulse Ox 01/21/21 07:42 97.9 F 92 H 18 131/82 98 01/21/21 03:40 97.6 F 88 16 111/58 98 01/20/21 22:47 98.0 F 88 16 117/63 98 01/20/21 19:31 97.8 F 82 18 98/57 97 01/20/21 15:39 98.2 F 83 18 118/70 99 01/20/21 11:00 18 97 01/20/21 10:41 86 103/58 01/20/21 10:00 83 - Physical Examination General: No Apparent Distress HEENT: Positive: PERRL Neck: Positive: trachea midline Cardiac: Positive: Reg Rate and Rhythm Lungs: Positive: Decreased Breath Sounds Neuro: Positive: Grossly Intact Extremities: Absent: edema - Labs and Meds Comprehensive Metabolic Panel 01/21/21 Range/Units 05:24 Sodium 134 L (137-145) mmol/L Potassium 4.0 (3.6-5.0) mmol/L Chloride 93.1 L (98-107) mmol/L Carbon Dioxide 29 (22-30) mmol/L BUN 67 H (9-20) mg/dL Creatinine 4.3 H (0.8-1.3) mg/dL Glucose 160 H (75-100) mg/dL Calcium 8.4 (8.4-10.2) mg/dL
--- NOTE | 2021-01-21 09:44 | Discharge Summary ---
Providers - Providers Date of Admission: 01/15/21 09:07 Date of discharge: 01/21/21 Attending physician: VERITO NAVARRO MD 01/14/21 22:55 Consult to Dietitian/Nutrition [CONS] Routine Physician Instructions: Reason For Exam: Reason for Consult: Diet education Consult to Physician [CONS] Routine Comment: Dr. Barraza spoke with Dr. Johnson @ [phone] Consulting Provider: VIKI JOHNSON Physician Instructions: Reason For Exam: JULEE 01/14/21 23:03 Consult to Cardiology [CONS] Routine Consulting Provider: RAJNI JEROME Reason For Exam: ELEVATED TROPONIN Primary care physician: INSURANCE COUNSEL Hospitalization Reason for admission: JULEE,paroxysmal a.fib Condition: Stable Hospital course: 55-year-old male with known history of hypertension, CKD, atrial fib and diabetes mellitus presenting in the emergency room with abnormal labs. Work-up in the emergency room revealed a creatinine of 5.1., Troponin was slightly elevated at 0.352. Chest x-ray was significant for bilateral pneumonia and effusion. Patient was admitted with acute kidney injury, pneumonia and elevated troponin. A/P --JULEE (acute kidney injury) on CKD 5.1>5.0>4.8>4.5>4.3>4.1 likely ATN, cont iv fluid Consult placed to nephrology for evaluation and further recommendation. We will monitor chemistry. --b/l Pneumonia CXR showed Ill-defined bibasilar airspace opacities have improved since 09/14/2020 however some ill-defined densities persist within the lower lungs. Small right pleural effusion. Patient placed on empiric IV antibiotics. Negative for blood culture --Hyperkalemia, due to worsening renal function, resolved --Anemia Possibly chronic due to underlying CKD. We will monitor CBC. -- Elevated troponin I level/NSTEMI type 2 Possibly secondary to the kidney failure. Patient denies any chest pain. We will monitor troponin levels. Cardiology following and recommended medical management -- Diabetes mellitus type 2 We will monitor BG with Accu-Cheks --Protein calorie malnutrition, moderate Nutrition consult, dietary supplements -- Hx of Paroxysmal atrial fibrillation On Eliquis for AC and metoprolol for suppression. LVEF 50-55% by echo 09/2020. -- DVT prophylaxis Patient placed on anticoagulation. -- Full code status Daily clinical course; 01/15/21: Change IV fluid to bicarbonate drip due to significant hyperkalemia metabolic acidosis from acute renal failure. Consulted nephrology will follow recommendation. cont to follow BMP, avoid nephrotoxins. 01/16: Cr slightly trending down, cont IV fluid. follow BMP 01/17: Cr slowly improving. follow BMP. cont iv fluid. nephrology following 01/18: Creatinine 4.3 today. Continue to follow BMP and IV fluid. Discharge planning per nephrology continue to follow patient clinical. 01/19: Continue IV fluids. Monitor renal function. Creatinine level is improving. Avoid nephrotoxic agents. Meds dosage based on GFR. 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 Discharge planning when cleared by nephrology. 01/20/2021; creatinine was 4.2 this morning. Nephrology is following. Discharge when cleared by nephrology. Patient was seen and evaluated this morning, patient does not have any complaints. Patient's creatinine was plateau when discussed with his hand singer Dr. Johnson he recommends patient can be discharged home and follow with him as an outpatient. Continue home medications. Management plan was discussed with the patient and was in agreement with the plan of care. Disposition: DC-01 TO HOME OR SELFCARE Final Discharge Diagnosis (Prints w/discharge instructions): JULEE. Paroxysmal afib Time spent for discharge: 35 minutes - Discharge Diagnoses (1) Paroxysmal atrial fibrillation Status: Acute (2) Acute renal failure Status: Acute Qualifiers: Acute renal failure type: unspecified Qualified Code(s): N17.9 - Acute kidney failure, unspecified (3) Anemia Status: Acute Qualifiers: Anemia type: unspecified type Qualified Code(s): D64.9 - Anemia, unspecified (4) Diabetes mellitus Status: Acute Core Measure Documentation - Palliative Care Palliative Care/ Comfort Measures: Not Applicable - Core Measures Any of the following diagnoses?: none Exam - Physical Exam Narrative exam: Not in cardiopulmonary distress. The patient appeared well nourished and normally developed. Vital signs as documented. Head exam is unremarkable. No scleral icterus . Neck is without jugular venous distension, thyromegaly, or carotid bruits. Lungs are clear to auscultation. Cardiac exam reveals regular rate and Rhythm. Abdominal exam reveals normal bowel sounds, nontender, no organomegaly. Extremities are nonedematous and both femoral and pedal pulses are normal. DELIVERY MGR: Alert and oriented 3. No focal weakness. - Constitutional Vitals: Temp Pulse Resp BP Pulse Ox 97.9 F 92 H 18 131/82 98 01/21/21 07:42 01/21/21 07:42 01/21/21 07:42 01/21/21 07:42 01/21/21 07:42 Plan Activity: no restrictions Weight Bearing Status: Full Weight Bearing Diet: renal Follow up with: ANNA GIRARD MD [Primary Care Provider] - 7 Days VIKI JOHNSON MD [Staff Physician] - 7 Days Prescriptions: Apixaban [Eliquis] 5 mg PO Q12HR #60 tablet Metoprolol [Lopressor TAB] 50 mg PO BID #60 tablet
--- NOTE | 2021-01-21 10:18 | Progress Note ---
Assessment and Plan 1. Acute kidney injury: Suspect vasomotor JULEE superimposed on CKD. Likely ATN. Renal US negative for hydro. LEONEL, ANCA, GBM Ab, Complements and SPEP are pending. Continue IV fluids. Monitor renal function. Creatinine leveled off. Renal prognosis is guarded. Avoid nephrotoxic agents. Meds dosage based on GFR. Monitor for MANAGER OF COMMUNITY RELATIONS needs. No acute indication for dialysis. Patient was advised to follow with me in 1-2 weeks. 2. FEN: Hyperkalemia, improved, monitor. Anion-gap metabolic acidosis, improved, monitor. Monitor lytes and volume status. 3. Pneumonia: S/p antibiotics. Follow culture result. 4. Elevated troponin: In the setting of CKD / JULEE. No chest pain. Followed by Cards. 5. Hx of Paroxysmal atrial fibrillation: On Eliquis for AC and metoprolol for suppression. LVEF 50-55% by echo 09/2020. 6. DM type 2. 7. Anemia, POA: Chronic. Monitor. 8. Hypertension: BP controlled. Subjective: Patient was seen and examined at the bedside. Doing ok. Examination: General appearance: well-developed, appears stated age, not in distress HEENT: atraumatic, SOUMYA Neck: trachea midline Respiratory: ctab Heart: S1S2, no murmur Abdomen: soft, bowel sounds heard, NT Integumentary: no obvious rash Neurologic: AO, non-focal Ext: no edema Subjective Date of service: 01/21/21 Objective - Vital Signs Vital signs: Vital Signs - 12hr 01/20/21 01/21/21 01/21/21 22:47 03:40 07:42 Temperature 98.0 F 97.6 F 97.9 F Pulse Rate 88 88 92 H Respiratory 16 16 18 Rate Blood Pressure 117/63 111/58 131/82 O2 Sat by Pulse 98 98 98 Oximetry - Lab 01/17/21 04:50 01/21/21 05:24 Most recent lab results Calcium 8.4 mg/dL (8.4-10.2) 01/21/21 05:24 Phosphorus 4.40 mg/dL (2.5-4.5) 01/17/21 04:50 Magnesium 2.20 mg/dL (1.7-2.3) 01/14/21 17:06 Urine Creatinine 30.6 mg/dL (0.1-20.0) H 01/15/21 11:11 Urine Sodium 72 mmol/L 01/15/21 11:11 Urine Total Protein 48 mg/dL (5-11.8) H 01/15/21 11:11 Medications & Allergies - Medications Allergies/Adverse Reactions: Allergies No Known Allergies Allergy (Verified 09/14/20 09:38) Home Medications: Home Medications Medication Instructions Recorded Confirmed Last Taken Type Insulin NPH/Regular [NovoLIN 70/30] 25 unit SUB-Q BIDDIAB #2 vial 09/19/20 01/15/21 Unknown Rx Tamsulosin [Flomax] 0.4 mg PO QDAY #30 capsule 09/19/20 01/15/21 Unknown Rx Iron [Iron 18 MG TAB] 18 mg PO QDAY 01/15/21 01/15/21 Unknown History Multivit-Min/FA/Lycopen/Lutein 1 each PO QDAY 01/15/21 01/15/21 Unknown History [Centrum Silver Men Tablet] Apixaban [Eliquis] 5 mg PO Q12HR #60 tablet 01/21/21 Unknown Rx Metoprolol [Lopressor TAB] 50 mg PO BID #60 tablet 01/21/21 Unknown Rx Active Medications: Generic Name Dose Route Start Last Admin Trade Name Freq PRN Reason Stop Dose Admin Acetaminophen 650 mg 01/14/21 22:55 Acetaminophen 325 Mg Tab PO Q4H PRN Pain MILD(1-3)/Fever >100.5/YUNG Apixaban 5 mg 01/15/21 10:00 01/20/21 22:02 Apixaban 5 Mg Tab PO 5 mg Q12HR CHAU Administration Dextrose 50 ml 01/14/21 22:55 Dextrose 50% In Water (25gm) 50 Ml Syringe IV Q30MIN PRN Hypoglycemia Protocol Sodium Bicarbonate 100 meq/ 1,100 mls @ 75 mls/hr 01/15/21 12:00 01/21/21 02:31 Dextrose IV 75 mls/hr DIRECT CHAU Administration Insulin Human Isoph/Insulin Regular 10 unit 01/15/21 17:00 01/20/21 19:09 Insulin Nph/Regular 70/30 Inj SUB-Q 10 unit BIDDIAB CHAU Administration Insulin Human Lispro 0 unit 01/15/21 07:30 01/20/21 22:02 Insulin Lispro 100 Unit/Ml SUB-Q 3 unit ACHS CHAU Administration Protocol Magnesium Hydroxide 30 ml 01/14/21 22:55 Magnesium Hydroxide (Mom) Oral Liqd Udc PO Q4H PRN Constipation Metoprolol Tartrate 50 mg 01/15/21 10:00 01/20/21 22:45 Metoprolol Tartrate 50 Mg Tab PO Not Given BID [facility] Morphine Sulfate 2 mg 01/14/21 22:55 01/16/21 21:57 Morphine 2 Mg/1 Ml Inj IV 2 mg Q4H PRN Administration Pain, Moderate (4-6) Ondansetron HCl 4 mg 01/14/21 22:55 01/17/21 22:37 Ondansetron 4 Mg/2 Ml Inj IV 4 mg Q8H PRN Administration Nausea And Vomiting Sodium Chloride 10 ml 01/15/21 10:00 01/20/21 22:02 Sodium Chloride 0.9% 10 Ml Flush Syringe IV 10 ml BID CHAU Administration Sodium Chloride 10 ml 01/14/21 22:55 01/15/21 01:15 Sodium Chloride 0.9% 10 Ml Flush Syringe IV 10 ml PRN PRN Administration LINE FLUSH Tamsulosin HCl 0.4 mg 01/15/21 10:00 01/20/21 10:41 Tamsulosin 0.4 Mg Cap PO 0.4 mg QDAY CHAU Administration
[2021-01-21] MEDS: METOPROLOL TARTRATE 50 MG TAB PO SCH (11:04)
[2021-01-21] MEDS: APIXABAN 5 MG TAB PO SCH (11:04)
[2021-01-21] MEDS: INSULIN NPH/REGULAR 70/30 INJ SUB-Q SCH (11:04)
[2021-01-21] MEDS: INSULIN LISPRO 100 UNIT/ML SUB-Q SCH (11:04)
[2021-01-21] MEDS: TAMSULOSIN 0.4 MG CAP PO SCH (11:05)
--- NOTE | 2021-01-22 10:59 | Electrocardiograph Report ---
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
[2021-01-23 12:10] LABS: Myeloperoxidase Antibody <1.0 AI (<1.0)
[2021-01-23 13:27] LABS: ANA Screen, IFA Negative (Negative)
[2021-01-25 06:43] LABS: Gamma Globulin 1.8 g/dL (0.8-1.7)
== END 2021-01-21 12:19 | disposition home or self-care (01) | DRG 682 ==
LOC: ED 14:37 → 4A 22:53 → OBSVTOIN 01-15 09:07
PROVIDERS: ADMIT Internal Medicine Geriatric Medicine; ATTEND Internal Medicine
DX: N17.0 Acute kidney failure with tubular necrosis (principal); I21.A1 Myocardial infarction type 2; E87.2 Acidosis; J18.9 Pneumonia, unspecified organism; E44.0 Moderate protein-calorie malnutrition; Z68.1 Body mass index [BMI] 19.9 or less, adult; D64.9 Anemia, unspecified; R77.8 Other specified abnormalities of plasma proteins; E87.5 Hyperkalemia; I48.0 Paroxysmal atrial fibrillation; I12.9 Hypertensive chronic kidney disease with stage 1 through stage 4 chronic kidney disease, or unspecified chronic kidney disease; E11.22 Type 2 diabetes mellitus with diabetic chronic kidney disease; Z87.891 Personal history of nicotine dependence; Z79.4 Long term (current) use of insulin; N18.30 Chronic kidney disease, stage 3 unspecified
CPT/HCPCS: 36415; 71046; 76770; 80048; 80053; 80061; 80202; 81001; 82550; 82570; 82962; 83036; 83520; 83735; 83880; 83970; 84100; 84156; 84165; 84300; 84484; 85025; 85610; 86021; 86038; 86160; 87040; 89050; 93005; 96365; G0378; J0692; J1815; J2270; J2405; J3370; J7030; J7050; J7070

== ENCOUNTER 2021-03-09 13:23 | Inpatient (IN) | payer OTHER ==
[2021-03-09 15:49] LABS: Albumin 3.5 g/dL (3.9-5); Calcium 8.9 mg/dL (8.4-10.2)
[2021-03-09 15:59] LABS: Basophils # (Auto) 0.2 K/mm3 (0.0-0.1); Eosinophils # (Auto) 0.2 K/mm3 (0.0-0.4); Eosinophils % (Auto) 2.7 % (0.0-4.3); Hematocrit 30.2 % (35.5-45.6); Hemoglobin 9.8 gm/dl (11.8-15.2); Lymphocytes # (Auto) 1.5 K/mm3 (1.2-5.4); Lymphocytes % (Auto) 24.3 % (13.4-35.0); Mean Corpuscular HGB Conc 33 % (32-34); Mean Corpuscular Volume 80 fl (84-94); Monocytes # (Auto) 0.9 K/mm3 (0.0-0.8); Monocytes % (Auto) 14.9 % (0.0-7.3); Platelet Count 333 K/mm3 (140-440); Red Blood Count 3.79 M/mm3 (3.65-5.03); Red Cell Distribution Width 16.5 % (13.2-15.2)
[2021-03-10 04:36] LABS: Calcium 9.7 mg/dL (8.4-10.2)
--- NOTE | 2021-03-10 08:46 | Emergency Department Report ---
HPI - General Chief Complaint: Recheck/Abnormal Lab/Rx Time Seen by Provider: 03/10/21 08:16 - HPI HPI: 55-year-old male with history of hypertension, DM2, BPH, CKD, and A. fib on Eliquis presents at the direction of his copyman, Dr. Houser due to wo rsening renal function and acute on chronic renal failure. The patient has had renal failure in the past but is not currently on dialysis. He says he ran out of his Eliquis last week and has not been taking it since then. He also says that for the past few days he has not been eating or drinking much but otherwise he denies any physical symptoms or complaints including headache, vision change, fever, chest pain, shortness of breath, cough, abdominal pain, nausea/vomiting, focal weakness, sensory changes, back pain, urinary incontinence/retention, diarrhea, constipation, or any other complaints. ED Past Medical Hx - Past Medical History Previous Medical History?: Yes Hx Diabetes: Yes Additional medical history: anemia - Surgical History Past Surgical History?: Yes Additional Surgical History: tonsillectomy - Social History Smoking Status: Former Smoker Substance Use Type: None - Medications Home Medications: Home Medications Medication Instructions Recorded Confirmed Last Taken Type Insulin NPH/Regular [NovoLIN 70/30] 25 unit SUB-Q BIDDIAB #2 vial 09/19/20 01/15/21 Unknown Rx Tamsulosin [Flomax] 0.4 mg PO QDAY #30 capsule 09/19/20 01/15/21 Unknown Rx Iron [Iron 18 MG TAB] 18 mg PO QDAY 01/15/21 01/15/21 Unknown History Multivit-Min/FA/Lycopen/Lutein 1 each PO QDAY 01/15/21 01/15/21 Unknown History [Centrum Silver Men Tablet] Apixaban [Eliquis] 5 mg PO Q12HR #60 tablet 01/21/21 Unknown Rx Metoprolol [Lopressor TAB] 50 mg PO BID #60 tablet 01/21/21 Unknown Rx ED Review of Systems ROS: Stated complaint: KIDNEY PROBLEMS Other details as noted in HPI Constitutional: denies: chills, fever Eyes: denies: eye pain, eye discharge ENT: denies: throat pain, congestion Respiratory: denies: cough, shortness of breath Cardiovascular: denies: chest pain, palpitations, syncope Gastrointestinal: other (decreased hunger and thirst). denies: abdominal pain, nausea, vomiting Genitourinary: denies: dysuria, frequency Musculoskeletal: denies: back pain, myalgia Skin: denies: rash, lesions Neurological: denies: headache, weakness, numbness, paresthesias Physical Exam - Physical Exam Vital Signs: Vital Signs 03/09/21 15:50 Temperature 98.6 F Pulse Rate 70 Respiratory 18 Rate Blood Pressure 109/57 [Right] O2 Sat by Pulse 100 Oximetry Physical Exam: GENERAL: Frail appearing elderly male. No acute distress HEAD: Normocephalic. No obvious signs of trauma. ENT: Dry mucous membranes. EYES: Extraocular movements are intact. Pupils are equal round and reactive to light bilaterally NECK: Supple. Full ROM is intact. Trachea is midline. LUNGS: Nonlabored breathing. Equal chest rise bilaterally. Clear to auscultation bilaterally. CARDIOVASCULAR: Regular rate and rhythm. No murmurs or rubs. VASCULAR: Cap refill < 2 seconds. 1+ pitting edema of the bilateral lower extremities ABDOMEN: Abdomen is soft and nondistended. There is no significant tenderness, guarding or rebound. SKIN: Skin is warm and dry NEURO: Patient is awake, alert, and oriented. rn utilization management um II-XII grossly intact. No focal deficits. Normal motor and sensory exam throughout. Normal speech. MUSCULOSKELETAL: No obvious deformities. No significant tenderness. Normal ROM throughout. BACK/SPINE: No midline tenderness or step-offs of the C/T/L spine. No costovertebral angle tenderness. ED Course Vital Signs 03/09/21 15:50 Temperature 98.6 F Pulse Rate 70 Respiratory 18 Rate Blood Pressure 109/57 [Right] O2 Sat by Pulse 100 Oximetry ED Medical Decision Making - Lab Data Result diagrams: 03/09/21 15:15 03/10/21 03:44 Lab Results 03/09/21 03/09/21 03/10/21 Range/Units 15:15 15:15 03:44 WBC 6.1 (4.5-11.0) K/mm3 RBC 3.79 (3.65-5.03) M/mm3 Hgb 9.8 L (11.8-15.2) gm/dl Hct 30.2 L (35.5-45.6) % MCV 80 L (84-94) fl MCH 26 L (28-32) pg MCHC 33 (32-34) % RDW 16.5 H (13.2-15.2) % Plt Count 333 (140-440) K/mm3 Lymph % (Auto) 24.3 (13.4-35.0) % [place] % (Auto) 14.9 H (0.0-7.3) % Eos % (Auto) 2.7 (0.0-4.3) % Baso % (Auto) 3.0 H (0.0-1.8) % Lymph # (Auto) 1.5 (1.2-5.4) K/mm3 [place] # (Auto) 0.9 H (0.0-0.8) K/mm3 Eos # (Auto) 0.2 (0.0-0.4) K/mm3 Baso # (Auto) 0.2 H (0.0-0.1) K/mm3 Seg Neutrophils % 55.1 (40.0-70.0) % Seg Neutrophils # 3.3 (1.8-7.7) K/mm3 PT (12.2-14.9) Sec. INR (0.87-1.13) APTT (24.2-36.6) Sec. Sodium 134 L 136 L (137-145) mmol/L Potassium 5.1 H 5.6 H (3.6-5.0) mmol/L Chloride 106.3 104.1 (98-107) mmol/L Carbon Dioxide 12 L 14 L (22-30) mmol/L Anion Gap 21 24 mmol/L BUN 111 H 109 H (9-20) mg/dL Creatinine 6.6 H 6.8 H (0.8-1.3) mg/dL Estimated GFR 9 8 ml/min BUN/Creatinine Ratio 17 16 % Glucose 151 H 138 H (75-100) mg/dL Calcium 8.9 9.7 (8.4-10.2) mg/dL Phosphorus 7.30 H (2.5-4.5) mg/dL Total Bilirubin 0.20 (0.1-1.2) mg/dL AST 6 (5-40) units/L ALT 7 (7-56) units/L Alkaline Phosphatase 75 (35-129) units/L Total Protein 8.3 H (6.3-8.2) g/dL Albumin 3.5 L (3.9-5) g/dL Albumin/Globulin Ratio 0.7 % Blood Type Antibody Screen 03/10/21 03/10/21 Range/Units 08:51 08:51 WBC (4.5-11.0) K/mm3 RBC (3.65-5.03) M/mm3 Hgb (11.8-15.2) gm/dl Hct (35.5-45.6) % MCV (84-94) fl MCH (28-32) pg MCHC (32-34) % RDW (13.2-15.2) % Plt Count (140-440) K/mm3 Lymph % (Auto) (13.4-35.0) % [place] % (Auto) (0.0-7.3) % Eos % (Auto) (0.0-4.3) % Baso % (Auto) (0.0-1.8) % Lymph # (Auto) (1.2-5.4) K/mm3 [place] # (Auto) (0.0-0.8) K/mm3 Eos # (Auto) (0.0-0.4) K/mm3 Baso # (Auto) (0.0-0.1) K/mm3 Seg Neutrophils % (40.0-70.0) % Seg Neutrophils # (1.8-7.7) K/mm3 PT 14.8 (12.2-14.9) Sec. INR 1.11 (0.87-1.13) APTT 32.8 (24.2-36.6) Sec. Sodium (137-145) mmol/L Potassium (3.6-5.0) mmol/L Chloride (98-107) mmol/L Carbon Dioxide (22-30) mmol/L Anion Gap mmol/L BUN (9-20) mg/dL Creatinine (0.8-1.3) mg/dL Estimated GFR ml/min BUN/Creatinine Ratio % Glucose (75-100) mg/dL Calcium (8.4-10.2) mg/dL Phosphorus (2.5-4.5) mg/dL Total Bilirubin (0.1-1.2) mg/dL AST (5-40) units/L ALT (7-56) units/L Alkaline Phosphatase (35-129) units/L Total Protein (6.3-8.2) g/dL Albumin (3.9-5) g/dL Albumin/Globulin Ratio % Blood Type O POSITIVE Antibody Screen Negative - EKG Data -: EKG Interpreted by Me - EKG Data 03/10/21 10:45 Normal sinus rhythm. Normal axis. Normal intervals. No ectopy. No significant ST segment or T wave abnormality. - Radiology Data XR chest 1V ap INDICATION / CLINICAL INFORMATION: acute renal failure. COMPARISON: 01/14/2021 FINDINGS: SUPPORT DEVICES: None. HEART /PULMONARY VASCULATURE: No significant abnormality. LUNGS / PLEURA: Right greater than left bibasilar airspace opacities are unchanged from prior exam from 01/14/2021. Trace right pleural fluid remains. No pneumothorax. ADDITIONAL FINDINGS: No significant additional findings. IMPRESSION: Stable exam with persistent right greater than left bibasilar pulmonary airspace opacities and trace right pleural fluid. Signer Name: Luis Enrique Sparks MD Signed: 03/10/2021 9:11 AM Workstation Name: [id number] - Medical Decision Making 55-year-old male with history of hypertension, DM 2, BPH, A. fib on Eliquis, and CKD presents at the direction of his copyman due to acute renal failure. He says he had a routine visit with his copyman and labs were drawn which revealed that the patient was in acute renal failure. He says he has not had any symptoms or complaints other than feeling slightly weak and with decreased appetite and thirst. He also reports he has not been taking his Eliquis for the past week because he ran out. On initial assessment, he is afebrile and with grossly normal vital signs. He appears much older than stated age. Physical examination reveals dry mucous membranes, but lungs are clear, abdomen is soft and nontender, there is no CVA tenderness, and the patient has a nonfocal neurologic exam. Labs were drawn in triage and reveal white blood cell count of 6.1 with hemoglobin of 9.8. Chemistry reveals creatinine of 6.8, BUN of 109, potassium of 5.1 which increased to 5.6 on recheck, and bicarb of 12 which increased to 14 on recheck. Review of the patient's prior medical records reveals that his baseline creatinine on January of this year was 4.3. EKG reveals no changes associated with hyperkalemia. We will give 500 cc of IV fluids follow-up chest x-ray, and speak to the patient's copyman. Bladder scan ordered to assess for evidence of obstruction. At 8:50 AM, I spoke with Dr. Houser of nephrology regarding the case. He reviewed the labs and stated that he agrees with my management but recommends administering Kayexalate because he feels that the patient requires dialysis and will need temporizing measure until a dialysis catheter can be inserted. The patient will be admitted to the on-call hospitalist for further care. Vascular surgery will be consulted for dialysis catheter placement. At 9:55 AM, I spoke with the hospitalist regarding the case and patient is accepted for admission and Dr. Garcia will assume care. Urinalysis has returned and reveals evidence of infection. I have ordered IV ceftriaxone with blood/urine cultures. The patient's chest x-ray reveals stable right greater than left pulmonary opacities which have been present since January. Unclear whether this represents pneumonia but it would be covered by the same antibiotic. Dr. Guardado was updated and expressed understanding. Critical Care Time: Yes Critical care time in (mins) excluding proc time.: 35 Critical care attestation.: If time is entered above; I have spent that time in minutes in the direct care of this critically ill patient, excluding procedure time. Critical care time was spent in the evaluation, assessment, work-up, and m anagement of critical acute renal failure with uremia and hyperkalemia requiring interpretation of EKG, Kayexalate administration, coordination of care between multiple consultants/specialists, and frequent reevaluation reassessment. ED Disposition Clinical Impression: Uremia, Hyperkalemia, Urinary tract infection, Pleural effusion, right, Patient noncompliant with anticoagulant medication Acute renal failure Qualifiers: Acute renal failure type: unspecified Qualified Code(s): N17.9 - Acute kidney failure, unspecified Disposition: 09 OP ADMIT IP TO THIS HOSP Is pt being admited?: Yes Condition: Stable
[2021-03-10] MEDS ORDERED: SODIUM POLYSTYRENE 15 GM/60 ML ORAL LIQD PO ONE (08:50)
[2021-03-10] MEDS ORDERED: LACTATED RINGERS 500 ML IV SCH (09:00)
--- NOTE | 2021-03-10 09:06 | Consultation ---
History of Present Illness - Reason for Consult Consult date: 03/10/21 chronic renal failure, end stage renal disease, hyperkalemia, metabolic acidosis - History of Present Illness The patient is a 55 YO male known to our service with history significant for DM type 2, Hypertension, Paroxysmal atrial fibrillation on Eliquis for AC, Anemia and CKD stage 4 who was sent to [facility] ED 03/09 for evaluation of abnormal labs. Recent labs showed worsening renal function and metabolic acidosis. Patient c/o fatigue and sleep disturbances. He denies any fever, chills, chest pain, N, V, D, abd pain, dysuria, hematuria, leg swelling, dizziness, syncope, recent travel, sick contacts or contact with anyone with COVID-19. Work-up in the ED, labs reveal a creatinine of 6.8, BUN 109, K 5.6 and Bicarb 14. Patient was admitted for further work-up. Nephrology was consulted for further evaluation and treatment. Past History Past Medical History: other (See HPI.) Medications and Allergies Allergies Allergy/AdvReac Type Severity Reaction Status Date / Time No Known Allergies Allergy Verified 09/14/20 09:38 Home Medications Medication Instructions Recorded Confirmed Last Taken Type Insulin NPH/Regular [NovoLIN 70/30] 25 unit SUB-Q BIDDIAB #2 vial 09/19/20 01/15/21 Unknown Rx Tamsulosin [Flomax] 0.4 mg PO QDAY #30 capsule 09/19/20 01/15/21 Unknown Rx Iron [Iron 18 MG TAB] 18 mg PO QDAY 01/15/21 01/15/21 Unknown History Multivit-Min/FA/Lycopen/Lutein 1 each PO QDAY 01/15/21 01/15/21 Unknown History [Centrum Silver Men Tablet] Apixaban [Eliquis] 5 mg PO Q12HR #60 tablet 01/21/21 Unknown Rx Metoprolol [Lopressor TAB] 50 mg PO BID #60 tablet 01/21/21 Unknown Rx Active Meds: Active Medications Lactated Ringer's (Lactated Ringers) 500 mls @ 100 mls/hr IV DIRECT CHAU Review of Systems Constitutional: fatigue, no weight loss, no weight gain, no fever, no chills, no anorexia Cardiovascular: high blood pressure, no chest pain, no orthopnea, no edema, no syncope, no lightheadedness, no leg edema Respiratory: no cough, no shortness of breath Gastrointestinal: no abdominal pain, no nausea, no vomiting, no diarrhea, no melena Genitourinary Male: no dysuria, no hematuria Rectal: no bleeding Neurological: no convulsions, no aphasia, no change in speech Exam - Vital Signs Vital signs: Vital Signs Temp Pulse Resp BP Pulse Ox 98.6 F 70 18 109/57 100 03/09/21 15:50 03/09/21 15:50 03/09/21 15:50 03/09/21 15:50 03/09/21 15:50 Results - Lab Results 03/09/21 15:15 03/10/21 03:44 Most recent lab results Calcium 9.7 mg/dL (8.4-10.2) 03/10/21 03:44 Phosphorus 7.30 mg/dL (2.5-4.5) H 03/10/21 03:44 Assessment and Plan 1. ESRD: Advanced CKD now progressed to ESRD. CKD most likley 2/2 Diabetic nephropathy. LEONEL, ANCA, GBM Ab, Complements and SPEP were negative. Patient presented with significant metabolic acidosis and hyperkalemia. Monitor renal function. Renal prognosis is pooor. Avoid nephrotoxic agents. Meds dosage based on GFR. Monitor for NUC[employer]CH needs. Patient require hemodialysis due to above. D/w patient about the indications, benefits, risks and alternatives involved in hemodialysis. He voiced understanding and gave verbal consent. Vascular consulted for hemodialysis catheter placement. 2. FEN: Hyperkalemia, Kayexalate ordered, monitor. Anion-gap metabolic acidosis, on bicarb drip, monitor. Monitor lytes and volume status. 3. Hx of Paroxysmal atrial fibrillation: On Eliquis for AC and metoprolol for suppression. LVEF 50-55% by echo 09/2020. 4. DM type 2. 5. Anemia, POA: Chronic. Epogen as needed. Monitor. 6. Hypertension: BP controlled. Subjective: Patient was seen and examined at the bedside. Examination: General appearance: well-developed, appears stated age, thin built, not in distress HEENT: atraumatic, SOUMYA Neck: trachea midline Respiratory: ctab Heart: S1S2, no murmur Abdomen: soft, bowel sounds heard, NT Integumentary: no obvious rash Neurologic: AO, non-focal Ext: no edema
--- NOTE | 2021-03-10 09:10 | Event Note ---
Date: 03/10/21 D/w patient about the indications, benefits, risks and alternatives involved in hemodialysis. Hemodialysis consent obtained from patient.
[2021-03-10] MEDS ORDERED: SODIUM BICARBONATE 150 MEQ in WATER FOR INJECTION (PF) 1,000 ML IV SCH (10:00)
--- NOTE | 2021-03-10 10:16 | XRay Report ---
XR chest 1V ap INDICATION / CLINICAL INFORMATION: acute renal failure. COMPARISON: 01/14/2021 FINDINGS: SUPPORT DEVICES: None. HEART /PULMONARY VASCULATURE: No significant abnormality. LUNGS / PLEURA: Right greater than left bibasilar airspace opacities are unchanged from prior exam fr om 01/14/2021. Trace right pleural fluid remains. No pneumothorax. ADDITIONAL FINDINGS: No significant additional findings. IMPRESSION: Stable exam with persistent right greater than left bibasilar pulmonary airspace opacities and trace right pleural fluid. Signer Name: Luis Enrique Sparks MD Signed: 03/10/2021 10:11 AM Workstation Name: [id number]
[2021-03-10 10:21] LABS: INR 1.11 (0.87-1.13)
[2021-03-10 10:23] LABS: Partial Thromboplastin Time 32.8 Sec. (24.2-36.6)
--- NOTE | 2021-03-10 10:28 | History and Physical Report ---
History of Present Illness Date of examination: 03/10/21 Date of admission: 03/10/21 Chief complaint: Worsening renal function. History of present illness: Patient is a 55-year-old male with history of hypertension, DM2, BPH, CKD, and A. 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 Houser due to worsening renal function and acute on chronic renal failure. He also says that for the past few days he has not been eating or drinking much but otherwise he denies any physical symptoms or complaints including headache, vision change, fever, chest pain, shortness of breath, cough, abdominal pain, nausea/vomiting, focal weakness, sensory changes, back pain, urinary incontinence/retention, diarrhea, constipation, or any other complaints. Presenting in the emergency room with abnormal labs. Work-up in the emergency room revealed a creatinine of 5.1 Troponin was slightly elevated at 0.352. Chest x-ray was significant for persistent bibasila r pulmonary airspace opacities and effusion. Past History Past Medical History: diabetes, hyperlipidemia, other (hypertension, DM2, BPH, CKD, and A. fib) Past Surgical History: Other Social history: full code Family history: no significant family history Medications and Allergies Allergies Allergy/AdvReac Type Severity Reaction Status Date / Time No Known Allergies Allergy Verified 09/14/20 09:38 Home Medications Medication Instructions Recorded Confirmed Last Taken Type Insulin NPH/Regular [NovoLIN 70/30] 25 unit SUB-Q BIDDIAB #2 vial 09/19/20 01/15/21 Unknown Rx Tamsulosin [Flomax] 0.4 mg PO QDAY #30 capsule 09/19/20 01/15/21 Unknown Rx Iron [Iron 18 MG TAB] 18 mg PO QDAY 01/15/21 01/15/21 Unknown History Multivit-Min/FA/Lycopen/Lutein 1 each PO QDAY 01/15/21 01/15/21 Unknown History [Centrum Silver Men Tablet] Apixaban [Eliquis] 5 mg PO Q12HR #60 tablet 01/21/21 Unknown Rx Metoprolol [Lopressor TAB] 50 mg PO BID #60 tablet 01/21/21 Unknown Rx Active Meds: Active Medications Sodium Bicarbonate 150 meq/ (Sterile Water) 1,150 mls @ 75 mls/hr IV DIRECT CHAU Review of Systems All systems: negative Constitutional: fatigue, weakness, malaise Respiratory: shortness of breath, dyspnea on exertion Exam - Physical Exam Narrative exam: VITAL SIGNS: Reviewed. GENERAL: The patient appears normally developed, Vital signs as documented. HEAD: No signs of head trauma. EYES: Pupils are equal. Extraocular motions intact. EARS: Hearing grossly intact. MOUTH: Oropharynx is normal. NECK: No adenopathy, no JVD. CHEST: Chest with clear breath sounds bilaterally. No wheezes, rales, or rhonchi. CARDIAC: Regular rate and rhythm. S1 and S2, without murmurs, gallops, or rubs. VASCULAR: No Edema. Peripheral pulses normal and equal in all extremities. ABDOMEN: Soft, non tender and non distended. No rebound or guarding, and no masses palpated. Bowel Sounds normal. MUSCULOSKELETAL: Good range of motion of all major joints. Extremities without clubbing, cyanosis or edema. NEUROLOGIC EXAM: Alert and oriented x 3 No focal sensory or strength de ficits. Speech normal. Follows commands. Ambulates with a cane PSYCHIATRIC: Mood normal. SKIN: detail exam as documented in skin assessment - Constitutional Vitals: Temp Pulse Resp BP Pulse Ox 98.6 F 94 H 13 121/75 99 03/09/21 15:50 03/10/21 10:06 03/10/21 10:06 03/10/21 10:06 03/10/21 10:09 Results - Labs CBC & Chem 7: 03/09/21 15:15 03/10/21 03:44 Labs: Laboratory Last Values WBC 6.1 K/mm3 (4.5-11.0) 03/09/21 15:15 RBC 3.79 M/mm3 (3.65-5.03) 03/09/21 15:15 Hgb 9.8 gm/dl (11.8-15.2) L 03/09/21 15:15 Hct 30.2 % (35.5-45.6) L 03/09/21 15:15 MCV 80 fl (84-94) L 03/09/21 15:15 MCH 26 pg (28-32) L 03/09/21 15:15 MCHC 33 % (32-34) 03/09/21 15:15 RDW 16.5 % (13.2-15.2) H 03/09/21 15:15 Plt Count 333 K/mm3 (140-440) 03/09/21 15:15 Lymph % (Auto) 24.3 % (13.4-35.0) 03/09/21 15:15 [place] % (Auto) 14.9 % (0.0-7.3) H 03/09/21 15:15 Eos % (Auto) 2.7 % (0.0-4.3) 03/09/21 15:15 Baso % (Auto) 3.0 % (0.0-1.8) H 03/09/21 15:15 Lymph # (Auto) 1.5 K/mm3 (1.2-5.4) 03/09/21 15:15 [place] # (Auto) 0.9 K/mm3 (0.0-0.8) H 03/09/21 15:15 Eos # (Auto) 0.2 K/mm3 (0.0-0.4) 03/09/21 15:15 Baso # (Auto) 0.2 K/mm3 (0.0-0.1) H 03/09/21 15:15 Seg Neutrophils % 55.1 % (40.0-70.0) 03/09/21 15:15 Seg Neutrophils # 3.3 K/mm3 (1.8-7.7) 03/09/21 15:15 PT 14.8 Sec. (12.2-14.9) 03/10/21 08:51 INR 1.11 (0.87-1.13) 03/10/21 08:51 APTT 32.8 Sec. (24.2-36.6) 03/10/21 08:51 Sodium 136 mmol/L (137-145) L 03/10/21 03:44 Potassium 5.6 mmol/L (3.6-5.0) H 03/10/21 03:44 Chloride 104.1 mmol/L (98-107) 03/10/21 03:44 Carbon Dioxide 14 mmol/L (22-30) L 03/10/21 03:44 Anion Gap 24 mmol/L 03/10/21 03:44 BUN 109 mg/dL (9-20) H 03/10/21 03:44 Creatinine 6.8 mg/dL (0.8-1.3) H 03/10/21 03:44 Estimated GFR 8 ml/min 03/10/21 03:44 BUN/Creatinine Ratio 16 % 03/10/21 03:44 Glucose 138 mg/dL (75-100) H 03/10/21 03:44 Calcium 9.7 mg/dL (8.4-10.2) 03/10/21 03:44 Phosphorus 7.30 mg/dL (2.5-4.5) H 03/10/21 03:44 Total Bilirubin 0.20 mg/dL (0.1-1.2) 03/09/21 15:15 AST 6 units/L (5-40) 03/09/21 15:15 ALT 7 units/L (7-56) 03/09/21 15:15 Alkaline Phosphatase 75 units/L (35-129) 03/09/21 15:15 Total Protein 8.3 g/dL (6.3-8.2) H 03/09/21 15:15 Albumin 3.5 g/dL (3.9-5) L 03/09/21 15:15 Albumin/Globulin Ratio 0.7 % 03/09/21 15:15 Blood Type O POSITIVE 03/10/21 08:51 Antibody Screen Negative 03/10/21 08:51 Assessment and Plan Assessment and plan: Patient is a 55-year-old male with history of hypertension, DM2, BPH, CKD, and A. 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 Houser due to worsening renal function and acute on chronic renal failure. He also says that for the past few days he has not been eating or drinking much but otherwise he denies any physical symptoms or complaints including headache, vision change, fever, chest pain, shortness of breath, cough, abdominal pain, nausea/vomiting, focal weakness, sensory changes, back pain, urinary incontinence/retention, diarrhea, constipation, or any other complaints. Presenting in the emergency room with abnormal labs. Work-up in the emergency room revealed a creatinine of 5.1 Troponin was slightly elevated at 0.352. Chest x-ray was significant for bilateral pneumonia and effusion. Patient was admitted with acute kidney injury, pneumonia and elevated troponin. JULEE with CKD on vasomotor nephropathy likely now ESRD Anemia NSTEMI type 2 Hyperkalemia Severe metabolic acidosis secondary to renal failure DM with hyperglycemia Moderate protien calorie malnutrition Paraxosymal Afib Acute Cystitis Plan Admit patient to telemetry Vascular consult and renal already consulted Patient will need permacath placement for hemodialysis Medically treat hyperkalemia PT OT evaluation as patient is has gait abnormality ambulates with a cane Abx for Cefepime Urine cultures DVT/GI Prophy Advance Directives: Yes Plan of care discussed with patient/family: Yes
[2021-03-10] MEDS ORDERED: oxyCODONE /ACETAMINOPHEN 5-325MG TAB PO PRN (10:29)
[2021-03-10] MEDS ORDERED: ACETAMINOPHEN 325 MG TAB PO PRN (10:29)
[2021-03-10] MEDS ORDERED: METOCLOPRAMIDE 10 MG/2 ML INJ IV PRN (10:29)
[2021-03-10] MEDS ORDERED: ONDANSETRON 4 MG/2 ML INJ IV PRN (10:29)
[2021-03-10] MEDS ORDERED: ALBUTEROL 2.5 MG/3 ML NEBU IH PRN (10:29)
[2021-03-10 11:35] LABS: Bilirubin,Urine NEG (Negative); Blood,Urine MOD (Negative); Color,Urine Yellow (Yellow); Urobilinogen,Urine < 2.0 mg/dL (<2.0)
[2021-03-10 11:58] LABS: WBC,Urine > 182.0 /HPF (0.0-6.0)
--- NOTE | 2021-03-10 12:57 | Event Note ---
Date: 03/10/21 55-year-old male with progression of chronic renal insufficiency to end-stage renal disease requiring hemodialysis. Unfortunately, due to scheduling issues and staffing issues in [employer], will be unable to accommodate patient today. N.p.o. after midnight except sips of water with meds. Plan for PermCath tomorrow. Discussed with Dr. Houser
[2021-03-10] MEDS ORDERED: cefTRIAXone/NS 2 GM/100 ML 2 GM/100 ML BAG IV ONE (13:30)
[2021-03-10] MEDS ORDERED: SODIUM POLYSTYRENE 15 GM/60 ML ORAL LIQD PO NR (14:00)
[2021-03-10] MEDS ORDERED: CEFEPIME/NS 1 GM/100 ML 1 GM/100 ML BAG IV SCH (16:00)
[2021-03-10] MEDS ORDERED: CEFEPIME/NS 1 GM/100 ML 1 GM/100 ML BAG IV ONE (16:30)
[2021-03-10] MEDS: INSULIN NPH/REGULAR 70/30 INJ SUB-Q SCH (18:37)
[2021-03-10] MEDS ORDERED: APIXABAN 5 MG TAB PO SCH (22:00)
[2021-03-10] MEDS: METOPROLOL TARTRATE 50 MG TAB PO SCH (22:02)
[2021-03-10] MEDS: FAMOTIDINE 20 MG TAB PO SCH (22:02)
[2021-03-11 05:38] LABS: Basophils # (Auto) 0.2 K/mm3 (0.0-0.1); Basophils % (Auto) 2.5 % (0.0-1.8); Eosinophils # (Auto) 0.2 K/mm3 (0.0-0.4); Eosinophils % (Auto) 2.3 % (0.0-4.3); Hematocrit 30.9 % (35.5-45.6); Hemoglobin 10.1 gm/dl (11.8-15.2); Lymphocytes # (Auto) 0.6 K/mm3 (1.2-5.4); Lymphocytes % (Auto) 7.8 % (13.4-35.0); Mean Corpuscular HGB Conc 33 % (32-34); Mean Corpuscular Volume 79 fl (84-94); Monocytes # (Auto) 1.2 K/mm3 (0.0-0.8); Monocytes % (Auto) 15.7 % (0.0-7.3); Platelet Count 351 K/mm3 (140-440); Red Cell Distribution Width 16.6 % (13.2-15.2)
[2021-03-11 06:01] LABS: Albumin 3.6 g/dL (3.9-5); Blood Urea Nitrogen 106 mg/dL (9-20); Calcium 9.5 mg/dL (8.4-10.2); Hemolysis Index 1
[2021-03-11 06:04] LABS: Alanine Aminotransferase < 5 units/L (7-56); BUN/Creatinine Ratio 16
--- NOTE | 2021-03-11 08:55 | Progress Note ---
Assessment and Plan 1. ESRD: Advanced CKD now progressed to ESRD. CKD most likley 2/2 Diabetic nephropathy. LEONEL, ANCA, GBM Ab, Complements and SPEP were negative. Significant decline in the renal function over a period of 6 months. D/w patient about the indications, benefits, risks and alternatives involved in kidney biopsy. He voiced undrstanding and gave verbal consent. Patient presented with significant metabolic acidosis and hyperkalemia. Monitor renal function. Renal prognosis is pooor. Avoid nephrotoxic agents. Meds dosage based on GFR. Monitor for [employer] needs. Patient require hemodialysis due to above. Await tunnel catheter placement, Vascular consulted. 2. FEN: Hyperkalemia, improved, monitor. Anion-gap metabolic acidosis, on bicarb drip, monitor. Monitor lytes and volume status. 3. Hx of Paroxysmal atrial fibrillation: Eliquis onhold. Metoprolol for suppression. LVEF 50-55% by echo 09/2020. 4. DM type 2. 5. Anemia, POA: Chronic. Epogen as needed. Monitor. 6. Hypertension: BP controlled. Subjective: Patient was seen and examined at the bedside. Examination: General appearance: well-developed, appears stated age, thin built, not in distress HEENT: atraumatic, SOUMYA Neck: trachea midline Respiratory: ctab Heart: S1S2, no murmur Abdomen: soft, bowel sounds heard, NT Integumentary: no obvious rash Neurologic: AO, non-focal Ext: no edema Subjective Date of service: 03/11/21 Objective - Vital Signs Vital signs: Vital Signs - 12hr 03/10/21 03/10/21 03/10/21 21:00 21:30 22:00 Temperature Pulse Rate Respiratory Rate Blood Pressure 140/78 140/78 130/79 Blood Pressure [Right] O2 Sat by Pulse 98 99 99 Oximetry 03/10/21 03/10/21 03/10/21 22:02 22:04 22:05 Temperature 97.8 F Pulse Rate 109 H 107 H Respiratory 16 Rate Blood Pressure 130/79 Blood Pressure 130/79 [Right] O2 Sat by Pulse 100 99 Oximetry 03/10/21 03/10/21 03/10/21 22:30 23:00 23:31 Temperature Pulse Rate 106 H 107 H 102 H Respiratory 14 15 12 Rate Blood Pressure 125/72 131/79 131/79 Blood Pressure [Right] O2 Sat by Pulse 98 99 98 Oximetry 03/11/21 03/11/21 03/11/21 00:01 00:11 00:31 Temperature Pulse Rate 99 H 97 H 96 H Respiratory 14 13 10 L Rate Blood Pressure 131/74 131/74 131/74 Blood Pressure [Right] O2 Sat by Pulse 99 98 99 Oximetry 03/11/21 03/11/21 03/11/21 01:01 01:31 02:01 Temperature Pulse Rate 95 H 95 H 93 H Respiratory 12 13 12 Rate Blood Pressure 129/75 129/75 139/76 Blood Pressure [Right] O2 Sat by Pulse 98 99 98 Oximetry 03/11/21 03/11/21 03/11/21 02:31 03:31 04:01 Temperature Pulse Rate 94 H 89 92 H Respiratory 13 12 12 Rate Blood Pressure 139/76 128/78 133/73 Blood Pressure [Right] O2 Sat by Pulse 99 97 97 Oximetry 03/11/21 04:31 Temperature Pulse Rate 89 Respiratory 12 Rate Blood Pressure 133/73 Blood Pressure [Right] O2 Sat by Pulse 96 Oximetry - Lab 03/11/21 03:56 03/11/21 03:56 Most recent lab results Calcium 9.5 mg/dL (8.4-10.2) 03/11/21 03:56 Phosphorus 7.30 mg/dL (2.5-4.5) H 03/10/21 03:44 Medications & Allergies - Medications Allergies/Adverse Reactions: Allergies No Known Allergies Allergy (Verified 09/14/20 09:38) Home Medications: Home Medications Medication Instructions Recorded Confirmed Last Taken Type Insulin NPH/Regular [NovoLIN 70/30] 25 unit SUB-Q BIDDIAB #2 vial 09/19/20 03/11/21 Unknown Rx Tamsulosin [Flomax] 0.4 mg PO QDAY #30 capsule 09/19/20 03/11/21 Unknown Rx Iron [Iron 18 MG TAB] 18 mg PO QDAY 01/15/21 03/11/21 Unknown History Multivit-Min/FA/Lycopen/Lutein 1 each PO QDAY 01/15/21 03/11/21 Unknown History [Centrum Silver Men Tablet] Apixaban [Eliquis] 5 mg PO Q12HR #60 tablet 01/21/21 03/11/21 Unknown Rx Metoprolol [Lopressor TAB] 50 mg PO BID #60 tablet 01/21/21 03/11/21 Unknown Rx Active Medications: Generic Name Dose Route Start Last Admin Trade Name Freq PRN Reason Stop Dose Admin Acetaminophen 650 mg 03/10/21 10:29 Acetaminophen 325 Mg Tab PO Q4H PRN Pain MILD(1-3)/Fever >100.5/YUNG Albuterol 2.5 mg 03/10/21 10:29 Albuterol 2.5 Mg/3 Ml Nebu IH Q3HRT PRN Shortness Of Breath Famotidine 20 mg 03/10/21 22:00 03/10/21 22:02 Famotidine 20 Mg Tab PO 20 mg DAILY CHAU Administration Sodium Bicarbonate 150 meq/ 1,150 mls @ 75 mls/hr 03/10/21 10:00 Sterile Water IV DIRECT [facility] Insulin Human Isoph/Insulin Regular 25 unit 03/10/21 17:00 03/10/21 18:37 Insulin Nph/Regular 70/30 Inj SUB-Q Not Given BIDDIAB CHAU Metoclopramide HCl 5 mg 03/11/21 09:00 Metoclopramide 10 Mg/2 Ml Inj IV Q6H PRN Nausea And Vomiting Metoprolol Tartrate 50 mg 03/10/21 22:00 03/10/21 22:02 Metoprolol Tartrate 50 Mg Tab PO 50 mg BID CHAU Administration Ondansetron HCl 4 mg 03/10/21 10:29 Ondansetron 4 Mg/2 Ml Inj IV Q8H PRN Nausea And Vomiting Oxycodone/Acetaminophen 1 tab 03/10/21 10:29 Oxycodone /Acetaminophen 5-325mg Tab PO Q6H PRN Pain, Moderate (4-6) Sodium Chloride 10 ml 03/10/21 22:00 03/10/21 22:03 Sodium Chloride 0.9% 10 Ml Flush Syringe IV 10 ml BID CHAU Administration Sodium Chloride 10 ml 03/10/21 10:29 Sodium Chloride 0.9% 10 Ml Flush Syringe IV PRN PRN LINE FLUSH Tamsulosin HCl 0.4 mg 03/11/21 10:00 Tamsulosin 0.4 Mg Cap PO QDAY [facility]
[2021-03-11] MEDS ORDERED: METOCLOPRAMIDE 10 MG/2 ML INJ IV PRN (09:00)
[2021-03-11] MEDS: INSULIN NPH/REGULAR 70/30 INJ SUB-Q SCH ×2 (10:28→18:13)
[2021-03-11] MEDS: TAMSULOSIN 0.4 MG CAP PO SCH (10:29)
[2021-03-11] MEDS: FAMOTIDINE 20 MG TAB PO SCH (10:29)
[2021-03-11] MEDS: METOPROLOL TARTRATE 50 MG TAB PO SCH (10:39)
[2021-03-11] MEDS ORDERED: HEPARIN 10,000 UNITS/10 ML VIAL IV PRN (11:00)
[2021-03-11] MEDS ORDERED: SODIUM CHLORIDE 0.9% 100 ML IV PRN ×2 (11:00→19:37)
[2021-03-11 12:29] LABS: Hepatitis B Surface Antigen Non-Reactive (Negative); Hepatitis C Virus Antibody Non-Reactive (NonReactive)
--- NOTE | 2021-03-11 14:11 | Progress Note ---
Assessment and Plan Assessment and plan: Patient is a 55-year-old male with history of hypertension, DM2, BPH, CKD, and A. fib on Eliquis presents at the direction of his building construction inspector, Dr. Houser due to worsening renal function and acute on chronic renal failure. He also says that for the past few days he has not been eating or drinking much but otherwise he denies any physical symptoms or complaints including headache, vision change, fever, chest pain, shortness of breath, cough, abdominal pain, nausea/vomiting, focal weakness, sensory changes, back pain, urinary incontinence/retention, diarrhea, constipation, or any other complaints. Presenting in the emergency room with abnormal labs. Work-up in the emergency room revealed a creatinine of 5.1 Troponin was slightly elevated at 0.352. Chest x-ray was significant for bilateral pneumonia and effusion. Patient was admitted with acute kidney injury, pneumonia and elevated troponin. JULEE with CKD on vasomotor nephropathy likely now ESRD Anemia POA NSTEMI type 2 CKD most likley 2/2 Diabetic nephropathy. Hyperkalemia Severe metabolic acidosis secondary to renal failure DM with hyperglycemia Moderate protien calorie malnutrition Paraxosymal Afib Acute Cystitis Plan Anticipate HD today following placement of catheter Nephrology input noted Monitor Electrolytes for correction following Kayexalate Continue On Eliquis for AC and metoprolol for suppression. Vascular consult Medically treat hyperkalemia PT OT evaluation as patient is has gait abnormality ambulates with a cane Abx for Cefepime Urine cultures DVT/GI Prophy History Interval history: Patient seen and examined, resting comfortable, was for permacath placement today Hospitalist Physical - Physical exam Narrative exam: VITAL SIGNS: Reviewed. GENERAL: The patient appears normally developed, Vital signs as documented. HEAD: No signs of head trauma. EYES: Pupils are equal. Extraocular motions intact. EARS: Hearing grossly intact. MOUTH: Oropharynx is normal. NECK: No adenopathy, no JVD. CHEST: Chest with clear breath sounds bilaterally. No wheezes, rales, or rhonchi. CARDIAC: Regular rate and rhythm. S1 and S2, without murmurs, gallops, or rubs. VASCULAR: No Edema. Peripheral pulses normal and equal in all extremities. ABDOMEN: Soft, non tender and non distended. No rebound or guarding, and no masses palpated. Bowel Sounds normal. MUSCULOSKELETAL: Good range of motion of all major joints. Extremities without clubbing, cyanosis or edema. NEUROLOGIC EXAM: Alert and oriented x 3 No focal sensory or strength deficits. Speech normal. Follows commands. Ambulates with a cane PSYCHIATRIC: Mood normal. SKIN: detail exam as documented in skin assessment - Constitutional Vitals: Temp Pulse Resp BP Pulse Ox 97.8 F 88 19 132/88 99 03/10/21 22:04 03/11/21 13:57 03/11/21 13:57 03/11/21 13:57 03/11/21 13:57 Results - Labs CBC & Chem 7: 03/11/21 03:56 03/11/21 03:56 Labs: Laboratory Last Values WBC 7.4 K/mm3 (4.5-11.0) 03/11/21 03:56 RBC 3.90 M/mm3 (3.65-5.03) 03/11/21 03:56 Hgb 10.1 gm/dl (11.8-15.2) L 03/11/21 03:56 Hct 30.9 % (35.5-45.6) L 03/11/21 03:56 MCV 79 fl (84-94) L 03/11/21 03:56 MCH 26 pg (28-32) L 03/11/21 03:56 MCHC 33 % (32-34) 03/11/21 03:56 RDW 16.6 % (13.2-15.2) H 03/11/21 03:56 Plt Count 351 K/mm3 (140-440) 03/11/21 03:56 Lymph % (Auto) 7.8 % (13.4-35.0) L 03/11/21 03:56 [place] % (Auto) 15.7 % (0.0-7.3) H 03/11/21 03:56 Eos % (Auto) 2.3 % (0.0-4.3) 03/11/21 03:56 Baso % (Auto) 2.5 % (0.0-1.8) H 03/11/21 03:56 Lymph # (Auto) 0.6 K/mm3 (1.2-5.4) L 03/11/21 03:56 [place] # (Auto) 1.2 K/mm3 (0.0-0.8) H 03/11/21 03:56 Eos # (Auto) 0.2 K/mm3 (0.0-0.4) 03/11/21 03:56 Baso # (Auto) 0.2 K/mm3 (0.0-0.1) H 03/11/21 03:56 Seg Neutrophils % 71.7 % (40.0-70.0) H 03/11/21 03:56 Seg Neutrophils # 5.3 K/mm3 (1.8-7.7) 03/11/21 03:56 PT 14.8 Sec. (12.2-14.9) 03/10/21 08:51 INR 1.11 (0.87-1.13) 03/10/21 08:51 APTT 32.8 Sec. (24.2-36.6) 03/10/21 08:51 Sodium 139 mmol/L (137-145) 03/11/21 03:56 Potassium 4.9 mmol/L (3.6-5.0) 03/11/21 03:56 Chloride 106.2 mmol/L (98-107) 03/11/21 03:56 Carbon Dioxide 16 mmol/L (22-30) L 03/11/21 03:56 Anion Gap 22 mmol/L 03/11/21 03:56 BUN 106 mg/dL (9-20) H 03/11/21 03:56 Creatinine 6.6 mg/dL (0.8-1.3) H 03/11/21 03:56 Estimated GFR 9 ml/min 03/11/21 03:56 BUN/Creatinine Ratio 16 % 03/11/21 03:56 Glucose 128 mg/dL (75-100) H 03/11/21 03:56 POC Glucose 114 mg/dL (70-105) H 03/11/21 10:27 Calcium 9.5 mg/dL (8.4-10.2) 03/11/21 03:56 Phosphorus 7.30 mg/dL (2.5-4.5) H 03/10/21 03:44 Total Bilirubin 0.20 mg/dL (0.1-1.2) 03/11/21 03:56 AST 7 units/L (5-40) 03/11/21 03:56 ALT < 5 units/L (7-56) L 03/11/21 03:56 Alkaline Phosphatase 80 units/L (35-129) 03/11/21 03:56 Total Protein 8.0 g/dL (6.3-8.2) 03/11/21 03:56 Albumin 3.6 g/dL (3.9-5) L 03/11/21 03:56 Albumin/Globulin Ratio 0.8 % 03/11/21 03:56 Urine Color Yellow (Yellow) 03/10/21 10:06 Urine Turbidity Turbid (Clear) 03/10/21 10:06 Urine pH 6.0 (5.0-7.0) 03/10/21 10:06 Ur Specific [place] 1.010 (1.003-1.030) 03/10/21 10:06 Urine Protein 100 mg/dl mg/dL (Negative) 03/10/21 10:06 Urine Glucose (UA) Neg mg/dL (Negative) 03/10/21 10:06 Urine Ketones Neg mg/dL (Negative) 03/10/21 10:06 Urine Blood Mod (Negative) 03/10/21 10:06 Urine Nitrite Neg (Negative) 03/10/21 10:06 Urine Bilirubin Neg (Negative) 03/10/21 10:06 Urine Urobilinogen < 2.0 mg/dL (<2.0) 03/10/21 10:06 Ur Leukocyte Esterase Lg (Negative) 03/10/21 10:06 Urine WBC (Auto) > 182.0 /HPF (0.0-6.0) H 03/10/21 10:06 Urine RBC (Auto) 43.0 /HPF (0.0-6.0) 03/10/21 10:06 Urine WBC Clumps 3+ /HPF 03/10/21 10:06 Hepatitis A IgM Ab Non-reactive (NonReactive) 03/11/21 11:02 Hep Bs Antigen Non-reactive (Negative) 03/11/21 11:02 Hep B Core IgM Ab Non-reactive (NonReactive) 03/11/21 11:02 Hepatitis C Antibody Non-reactive (NonReactive) 03/11/21 11:02 Blood Type O POSITIVE 03/10/21 08:51 Antibody Screen Negative 03/10/21 08:51 Microbiology: Microbiology 03/10/21 10:09 Urine,Clean Catch Urine Culture - Preliminary 03/10/21 14:51 Peripheral/Venous Blood Culture - Preliminary Culture in Progress 03/10/21 14:51 Peripheral/Venous Blood Culture - Preliminary Culture in Progress Active Medications - Current Medications Current Medications: Generic Name Dose Route Start Last Admin Trade Name Freq PRN Reason Stop Dose Admin Acetaminophen 650 mg 03/10/21 10:29 Acetaminophen 325 Mg Tab PO Q4H PRN Pain MILD(1-3)/Fever >100.5/YUNG Albuterol 2.5 mg 03/10/21 10:29 Albuterol 2.5 Mg/3 Ml Nebu IH Q3HRT PRN Shortness Of Breath Famotidine 20 mg 03/10/21 22:00 03/11/21 10:29 Famotidine 20 Mg Tab PO 20 mg DAILY HCAU Administration Heparin Sodium (Porcine) 2,000 unit 03/11/21 11:00 Heparin 10,000 Units/10 Ml Vial IV CARLOS PRN hemodialysis Sodium Bicarbonate 150 meq/ 1,150 mls @ 75 mls/hr 03/10/21 10:00 Sterile Water IV DIRECT CHAU Sodium Chloride 100 mls @ 999 mls/hr 03/11/21 11:00 Nacl 0.9% IV CARLOS PRN Hypotension Insulin Human Isoph/Insulin Regular 25 unit 03/10/21 17:00 03/11/21 10:28 Insulin Nph/Regular 70/30 Inj SUB-Q 25 unit BIDDIAB CHAU Administration Metoclopramide HCl 5 mg 03/11/21 09:00 Metoclopramide 10 Mg/2 Ml Inj IV Q6H PRN Nausea And Vomiting Metoprolol Tartrate 50 mg 03/10/21 22:00 03/11/21 10:39 Metoprolol Tartrate 50 Mg Tab PO Not Given BID CHAU Ondansetron HCl 4 mg 03/10/21 10:29 Ondansetron 4 Mg/2 Ml Inj IV Q8H PRN Nausea And Vomiting Oxycodone/Acetaminophen 1 tab 03/10/21 10:29 Oxycodone /Acetaminophen 5-325mg Tab PO Q6H PRN Pain, Moderate (4-6) Sodium Chloride 10 ml 03/10/21 22:00 03/11/21 09:56 Sodium Chloride 0.9% 10 Ml Flush Syringe IV 10 ml BID CHAU Administration Sodium Chloride 10 ml 03/10/21 10:29 Sodium Chloride 0.9% 10 Ml Flush Syringe IV PRN PRN LINE FLUSH Tamsulosin HCl 0.4 mg 03/11/21 10:00 03/11/21 10:29 Tamsulosin 0.4 Mg Cap PO 0.4 mg QDAY CHAU Administration
--- NOTE | 2021-03-11 14:48 | Consultation ---
History of Present Illness - Reason for Consult Consult date: 03/11/21 Permacath Insertion Requesting physician: VIKI JOHNSON - History of Present Illness The patient is a 55-year-old male with a history of paroxysmal A. fib, diabetes mellitus, and chronic renal sufficiency who presented to the emergency department secondary to acute exacerbation of his chronic renal failure. He was directed to present to the emergency department secondary to the need for ini tiation of hemodialysis. The patient will require placement of a permacath so that he can be started on dialysis. The patient has no additional complaints at this time. Past History Past Medical History: atrial fib, anemia, CAD, diabetes, renal failure, other (BPH) Past Surgical History: tonsillectomy Social history: full code Family history: no significant family history Medications and Allergies Allergies Allergy/AdvReac Type Severity Reaction Status Date / Time No Known Allergies Allergy Verified 09/14/20 09:38 Home Medications Medication Instructions Recorded Confirmed Last Taken Type Insulin NPH/Regular [NovoLIN 70/30] 25 unit SUB-Q BIDDIAB #2 vial 09/19/20 01/15/21 Unknown Rx Tamsulosin [Flomax] 0.4 mg PO QDAY #30 capsule 09/19/20 01/15/21 Unknown Rx Iron [Iron 18 MG TAB] 18 mg PO QDAY 01/15/21 01/15/21 Unknown History Multivit-Min/FA/Lycopen/Lutein 1 each PO QDAY 01/15/21 01/15/21 Unknown History [Centrum Silver Men Tablet] Apixaban [Eliquis] 5 mg PO Q12HR #60 tablet 01/21/21 Unknown Rx Metoprolol [Lopressor TAB] 50 mg PO BID #60 tablet 01/21/21 Unknown Rx Active Meds: Active Medications Acetaminophen (Acetaminophen 325 Mg Tab) 650 mg PO Q4H PRN PRN Reason: Pain MILD(1-3)/Fever >100.5/YUNG Albuterol (Albuterol 2.5 Mg/3 Ml Nebu) 2.5 mg IH Q3HRT PRN PRN Reason: Shortness Of Breath Famotidine (Famotidine 20 Mg Tab) 20 mg PO DAILY CHAU Last Admin: 03/11/21 10:29 Dose: 20 mg Documented by: Heparin Sodium (Porcine) (Heparin 10,000 Units/10 Ml Vial) 2,000 unit IV CARLOS PRN PRN Reason: hemodialysis Sodium Bicarbonate 150 meq/ (Sterile Water) 1,150 mls @ 75 mls/hr IV DIRECT [facility] Sodium Chloride (Nacl 0.9%) 100 mls @ 999 mls/hr IV CARLOS PRN PRN Reason: Hypotension Insulin Human Isoph/Insulin Regular (Insulin Nph/Regular 70/30 Inj) 25 unit SUB-Q BIDDIAB [facility] Last Admin: 03/11/21 10:28 Dose: 25 unit Documented by: Metoclopramide HCl (Metoclopramide 10 Mg/2 Ml Inj) 5 mg IV Q6H PRN PRN Reason: Nausea And Vomiting Metoprolol Tartrate (Metoprolol Tartrate 50 Mg Tab) 50 mg PO BID [facility] Last Admin: 03/11/21 10:39 Dose: Not Given Documented by: Ondansetron HCl (Ondansetron 4 Mg/2 Ml Inj) 4 mg IV Q8H PRN PRN Reason: Nausea And Vomiting Oxycodone/Acetaminophen (Oxycodone /Acetaminophen 5-325mg Tab) 1 tab PO Q6H PRN PRN Reason: Pain, Moderate (4-6) Sodium Chloride (Sodium Chloride 0.9% 10 Ml Flush Syringe) 10 ml IV BID [facility] Last Admin: 03/11/21 09:56 Dose: 10 ml Documented by: Sodium Chloride (Sodium Chloride 0.9% 10 Ml Flush Syringe) 10 ml IV PRN PRN PRN Reason: LINE FLUSH Tamsulosin HCl (Tamsulosin 0.4 Mg Cap) 0.4 mg PO QDAY [facility] Last Admin: 03/11/21 10:29 Dose: 0.4 mg Documented by: Review of Systems All systems: negative Exam - Constitutional Vitals: Temp Pulse Resp BP Pulse Ox 97.8 F 88 19 132/88 99 03/10/21 22:04 03/11/21 13:57 03/11/21 13:57 03/11/21 13:57 03/11/21 13:57 General appearance: Present: no acute distress - Neck Neck: Present: supple - Respiratory Respiratory effort: normal - Extremities Extremities: no ischemia, pulses intact - Abdominal General gastrointestinal: Present: soft, non-tender Male genitourinary: Present: deferred - Rectal Rectal Exam: deferred Results - Labs CBC & Chem 7: 03/11/21 03:56 03/11/21 03:56 Labs: Abnormal lab results 03/10/21 03/11/21 03/11/21 Range/Units 18:44 03:56 03:56 Hgb 10.1 L (11.8-15.2) gm/dl Hct 30.9 L (35.5-45.6) % MCV 79 L (84-94) fl MCH 26 L (28-32) pg RDW 16.6 H (13.2-15.2) % Lymph % (Auto) 7.8 L (13.4-35.0) % [place] % (Auto) 15.7 H (0.0-7.3) % Baso % (Auto) 2.5 H (0.0-1.8) % Lymph # (Auto) 0.6 L (1.2-5.4) K/mm3 [place] # (Auto) 1.2 H (0.0-0.8) K/mm3 Baso # (Auto) 0.2 H (0.0-0.1) K/mm3 Seg Neutrophils % 71.7 H (40.0-70.0) % Carbon Dioxide 16 L (22-30) mmol/L BUN 106 H (9-20) mg/dL Creatinine 6.6 H (0.8-1.3) mg/dL Glucose 128 H (75-100) mg/dL POC Glucose 112 H (70-105) mg/dL ALT < 5 L (7-56) units/L Albumin 3.6 L (3.9-5) g/dL 03/11/21 Range/Units 10:27 Hgb (11.8-15.2) gm/dl Hct (35.5-45.6) % MCV (84-94) fl MCH (28-32) pg RDW (13.2-15.2) % Lymph % (Auto) (13.4-35.0) % [place] % (Auto) (0.0-7.3) % Baso % (Auto) (0.0-1.8) % Lymph # (Auto) (1.2-5.4) K/mm3 [place] # (Auto) (0.0-0.8) K/mm3 Baso # (Auto) (0.0-0.1) K/mm3 Seg Neutrophils % (40.0-70.0) % Carbon Dioxide (22-30) mmol/L BUN (9-20) mg/dL Creatinine (0.8-1.3) mg/dL Glucose (75-100) mg/dL POC Glucose 114 H (70-105) mg/dL ALT (7-56) units/L Albumin (3.9-5) g/dL Assessment and Plan The patient is a 55-year-old male with a history of chronic renal sufficiency who presented to the emergency department with acute exacerbation of his renal failure. He is in need of a permacath for initiation of hemodialysis. He has been given the risk, benefits, and alternative procedures and consented to the procedure.
[2021-03-11] MEDS ORDERED: MIDAZOLAM 2 MG/2 ML INJ ONE ×2 (19:07→21:32)
[2021-03-11] MEDS ORDERED: fentaNYL 100 MCG/2 ML INJ ONE ×2 (19:07→21:32)
[2021-03-11] MEDS ORDERED: ceFAZolin/Water 2 GM/20 ML 2 GM/20 ML SYRINGE IV ONE (19:07)
[2021-03-11] MEDS ORDERED: HEPARIN/NS 5000 UNIT/500ML 1,000 ML IR ONE (19:11)
[2021-03-11] MEDS ORDERED: SODIUM CHLORIDE 0.9% 500 ML 500 ML ONE (21:00)
[2021-03-11] MEDS ORDERED: SODIUM CHLORIDE 0.9% 250ML 0 ML ONE (21:13)
[2021-03-11] MEDS ORDERED: LIDOCAINE (2%) 20 MG/1 ML VIAL 20 ML MDV INFILTRATI ONE (21:32)
[2021-03-11] MEDS: HEPARIN 10,000 UNITS/10 ML VIAL ONE ×2 (21:45→21:46)
--- NOTE | 2021-03-11 22:02 | Operative Report ---
Operative Report Operative Report: Date of procedure: 03/11/2021 Pre-operative diagnosis: Acute on Chronic Renal Failure Post-operative diagnosis: Same Procedure(s): 1. Ultrasound-Guided Access Right Internal Vein 2. Placement of 23 cm GlidePath Permacath 3. Radiologic Supervision with Interpretation 4. Monitored Moderate Sedation (Total Anesthesia Time: 20 Minutes) Surgeon: Yaakov Kelly MD Maintenance Mechanic Elevators: None Anesthesia: Local/Monitored Moderate Sedation Total Anesthesia Time: 20 Minutes EBL: Minimal Counts: Correct Complications: None Condition: Stable Findings: Successful placement of right IJ permacath with the distal tip in the right atrium and no evidence of pneumothorax at the completion of the case. Specimen: None Indication: The patient is a 55-year-old male with a history of acute on chronic renal failure who presented in need of initiation of hemodialysis. He requires a permacath for dialysis. He was given the risk, benefits, and alternative procedures and consented to the procedure. Description of Procedure: The patient was brought to the cardiac catheterization technologist and laid in supine position and the right neck and chest were prepped and draped in normal sterile fashion. Ultrasound was used to identify the right internal jugular vein and the overlying skin and soft tissue was anesthetized with lidocaine. An 11 blade was used to make a small stab incision and a 21-gauge micropuncture needle was used with ultrasound guidance to enter the right internal jugular vein. A 0.018 micropuncture wire was advanced into the inferior vena cava under fluoroscopy and after removing the needle the micropuncture sheath was advanced into the internal jugular vein by Seldinger technique. The wire and inner cannula were removed and a 0.035 J-wire was advanced into the inferior vena cava under direct fluoroscopic visualization. The tract was serially dilated up to a 16 Japanese peel-away safety sheath. An exit site on the chest was then chosen and the presumed tunnel was anesthetized with lidocaine. A small stab incision was made on the chest and then the permacath was connected to the tunneler and pulled antegrade through the tunnel. The J-wire and inner cannula from the SafeSheath were removed and the catheter was inserted into the safe sheath. The safe sheath was then peeled away while advancing the catheter. The catheter was positioned under fluoroscopy with the distal tip in the right atrium. Once in adequate position, both ports were aspirated, flushed, and primed with the appr opriate amount of heparin. The neck incision was then closed with 4-0 Monocryl in interrupted subcuticular fashion and dressed with Dermabond. The permacath was secured in place with a 2-0 Ethilon in interrupted fashion and dressed with a sterile dressing. Final fluoroscopy demonstrated the catheter was in adequate position with the distal tip in the right atrium and no evidence of pneumothorax . The patient tolerated the procedure well. All sponge, needle, and instrument counts were correct. The patient was taken to recovery in stable condition.
[2021-03-12] MEDS: METOPROLOL TARTRATE 50 MG TAB PO SCH ×2 (07:32→10:37)
[2021-03-12] MEDS: INSULIN NPH/REGULAR 70/30 INJ SUB-Q SCH (08:03)
[2021-03-12 09:04] LABS: Calcium 9.6 mg/dL (8.4-10.2)
--- NOTE | 2021-03-12 10:14 | Progress Note ---
Assessment and Plan 1. ESRD: Advanced CKD now progressed to ESRD. CKD most likley 2/2 Diabetic nephropathy. LEONEL, ANCA, GBM Ab, Complements and SPEP were negative. Significant decline in the renal function over a period of 6 months. D/w patient about the indications, benefits, risks and alternatives involved in kidney biopsy. He voiced undrstanding and gave verbal consent. Patient presented with significant metabolic acidosis and hyperkalemia. Monitor renal function. Renal prognosis is pooor. Avoid nephrotoxic agents. Meds dosage based on GFR. Monitor for PATROL CAPTAIN needs. Patient require hemodialysis due to above. Hemodialysis: 03/12. 2. FEN: Hyperkalemia, improved, monitor. Anion-gap metabolic acidosis, on bicarb drip, HD today, monitor. Monitor lytes and volume status. 3. Hx of Paroxysmal atrial fibrillation: Eliquis on hold. Metoprolol for suppression. LVEF 50-55% by echo 09/2020. 4. DM type 2. 5. Anemia, POA: Chronic. Epogen as needed. Monitor. 6. Hypertension: BP controlled. Await outpatient HD chair. Subjective: Patient was seen and examined at the bedside while on HD. Doing ok. Examination: General appearance: well-developed, appears stated age, thin built, not in distress HEENT: atraumatic, [place] Neck: trachea midline Respiratory: ctab Heart: S1S2, no murmur Abdomen: soft, bowel sounds heard, NT Integumentary: no obvious rash Neurologic: AO, non-focal Ext: no edema Hemodialysis access: R IJ tunnel catheter Subjective Date of service: 03/12/21 Objective - Vital Signs Vital signs: Vital Signs - 12hr 03/11/21 03/12/21 03/12/21 22:45 00:00 05:00 Temperature 98.2 F Pulse Rate 88 Respiratory 18 Rate Blood Pressure 108/57 [Right] O2 Sat by Pulse 99 98 98 Oximetry - Lab 03/11/21 03:56 03/12/21 07:32 Most recent lab results Calcium 9.6 mg/dL (8.4-10.2) 03/12/21 07:32 Phosphorus 7.30 mg/dL (2.5-4.5) H 03/10/21 03:44 Medications & Allergies - Medications Allergies/Adverse Reactions: Allergies No Known Allergies Allergy (Verified 09/14/20 09:38) Home Medications: Home Medications Medication Instructions Recorded Confirmed Last Taken Type Insulin NPH/Regular [NovoLIN 70/30] 25 unit SUB-Q BIDDIAB #2 vial 09/19/20 03/11/21 Unknown Rx Tamsulosin [Flomax] 0.4 mg PO QDAY #30 capsule 09/19/20 03/11/21 Unknown Rx Iron [Iron 18 MG TAB] 18 mg PO QDAY 01/15/21 03/11/21 Unknown History Multivit-Min/FA/Lycopen/Lutein 1 each PO QDAY 01/15/21 03/11/21 Unknown History [Centrum Silver Men Tablet] Apixaban [Eliquis] 5 mg PO Q12HR #60 tablet 01/21/21 03/11/21 Unknown Rx Metoprolol [Lopressor TAB] 50 mg PO BID #60 tablet 01/21/21 03/11/21 Unknown Rx Active Medications: Generic Name Dose Route Start Last Admin Trade Name Freq PRN Reason Stop Dose Admin Acetaminophen 650 mg 03/10/21 10:29 Acetaminophen 325 Mg Tab PO Q4H PRN Pain MILD(1-3)/Fever >100.5/YUNG Albuterol 2.5 mg 03/10/21 10:29 Albuterol 2.5 Mg/3 Ml Nebu IH Q3HRT PRN Shortness Of Breath Famotidine 20 mg 03/10/21 22:00 03/11/21 10:29 Famotidine 20 Mg Tab PO 20 mg DAILY CHAU Administration Heparin Sodium (Porcine) 2,000 unit 03/11/21 11:00 Heparin 10,000 Units/10 Ml Vial IV CARLOS PRN hemodialysis Sodium Bicarbonate 150 meq/ 1,150 mls @ 75 mls/hr 03/10/21 10:00 Sterile Water IV DIRECT CHAU Sodium Chloride 100 mls @ 999 mls/hr 03/11/21 19:37 Nacl 0.9% IV CARLOS PRN Hypotension Insulin Human Isoph/Insulin Regular 25 unit 03/10/21 17:00 03/12/21 08:03 Insulin Nph/Regular 70/30 Inj SUB-Q Not Given BIDDIAB CHAU Metoclopramide HCl 5 mg 03/11/21 09:00 Metoclopramide 10 Mg/2 Ml Inj IV Q6H PRN Nausea And Vomiting Metoprolol Tartrate 50 mg 03/10/21 22:00 03/12/21 07:32 Metoprolol Tartrate 50 Mg Tab PO Not Given BID CHAU Ondansetron HCl 4 mg 03/10/21 10:29 Ondansetron 4 Mg/2 Ml Inj IV Q8H PRN Nausea And Vomiting Oxycodone/Acetaminophen 1 tab 03/10/21 10:29 Oxycodone /Acetaminophen 5-325mg Tab PO Q6H PRN Pain, Moderate (4-6) Sodium Chloride 10 ml 03/10/21 22:00 03/12/21 07:33 Sodium Chloride 0.9% 10 Ml Flush Syringe IV Not Given BID CHAU Sodium Chloride 10 ml 03/10/21 10:29 Sodium Chloride 0.9% 10 Ml Flush Syringe IV PRN PRN LINE FLUSH Tamsulosin HCl 0.4 mg 03/11/21 10:00 03/11/21 10:29 Tamsulosin 0.4 Mg Cap PO 0.4 mg QDAY CHAU Administration
[2021-03-12] MEDS: FAMOTIDINE 20 MG TAB PO SCH (10:37)
[2021-03-12] MEDS: TAMSULOSIN 0.4 MG CAP PO SCH (10:37)
--- NOTE | 2021-03-12 10:51 | Electrocardiograph Report ---
[facility] Test Date: 2021-03-10 Test Time: 09:23:41 Pat Name: CARISA NORRIS Department: Room: A387 Gender: M Tooling Inspector: NURSE : 1965 Requested By: RIANA NDIAYE Order Number: [id number] Reading MD: Derick Connelly Measurements Intervals [place] Rate: 95 P: 23 [place]: 169 QRS: 74 QRSD: 98 T: 71 QT: 363 QTc: 457 Interpretive Statements Sinus rhythm Borderline first-degree AV block Poor quality EKG with marked baseline artifact Compared to ECG 01/14/2021 16:26:02 No significant change Electronically Signed On 03-12-2021 10:51:23 EDT by Derick Connelly
--- NOTE | 2021-03-12 12:55 | Progress Note ---
Assessment and Plan Assessment and plan: Patient is a 55-year-old male with history of hypertension, DM2, BPH, CKD, and A. fib on Eliquis presents at the direction of his real estate loan officer, Dr. Houser due to worsening renal function and acute on chronic renal failure. He also says that for the past few days he has not been eating or drinking much but otherwise he denies any physical symptoms or complaints including headache, vision change, fever, chest pain, shortness of breath, cough, abdominal pain, nausea/vomiting, focal weakness, sensory changes, back pain, urinary incontinence/retention, diarrhea, constipation, or any other complaints. Presenting in the emergency room with abnormal labs. Work-up in the emergency room revealed a creatinine of 5.1 Troponin was slightly elevated at 0.352. Chest x-ray was significant for bilateral pneumonia and effusion. Patient was admitted with acute kidney injury, pneumonia and elevated troponin. JULEE with CKD on vasomotor nephropathy likely now ESRD Anemia POA NSTEMI type 2 CKD most likley 2/2 Diabetic nephropathy. Hyperkalemia Severe metabolic acidosis secondary to renal failure DM with hyperglycemia Moderate protien calorie malnutrition Paraxosymal Afib Acute Cystitis Plan Nephrology input noted Biopsy ordered today to further understand the worsening renal function Monitor Electrolytes for correction following Kayexalate Continue On Eliquis for AC and metoprolol for suppression. Vascular consult Medically treat hyperkalemia PT OT evaluation as patient is has gait abnormality ambulates with a cane Abx for Cefepime Urine cultures DVT/GI Prophy History Interval history: Patient seen and examined, resting comfortable, HD access placed yesterday. Hospitalist Physical - Physical exam Narrative exam: VITAL SIGNS: Reviewed. GENERAL: The patient appears normally developed, Vital signs as documented. HEAD: No signs of head trauma. EYES: Pupils are equal. Extraocular motions intact. EARS: Hearing grossly intact. MOUTH: Oropharynx is normal. NECK: No adenopathy, no JVD. CHEST: Chest with clear breath sounds bilaterally. No wheezes, rales, or rhonchi. CARDIAC: Regular rate and rhythm. S1 and S2, without murmurs, gallops, or rubs. VASCULAR: No Edema. Peripheral pulses normal and equal in all extremities. ABDOMEN: Soft, non tender and non distended. No rebound or guarding, and no masses palpated. Bowel Sounds normal. MUSCULOSKELETAL: Good range of motion of all major joints. Extremities without clubbing, cyanosis or edema. NEUROLOGIC EXAM: Alert and oriented x 3 No focal sensory or strength defici ts. Speech normal. Follows commands. Ambulates with a cane PSYCHIATRIC: Mood normal. SKIN: detail exam as documented in skin assessment - Constitutional Vitals: Temp Pulse Resp BP Pulse Ox 98.2 F 88 18 108/57 98 03/12/21 05:00 03/12/21 05:00 03/12/21 05:00 03/12/21 05:00 03/12/21 05:00 General appearance: Present: no acute distress Results - Labs CBC & Chem 7: 03/11/21 03:56 03/12/21 07:32 Labs: Laboratory Last Values WBC 7.4 K/mm3 (4.5-11.0) 03/11/21 03:56 RBC 3.90 M/mm3 (3.65-5.03) 03/11/21 03:56 Hgb 10.1 gm/dl (11.8-15.2) L 03/11/21 03:56 Hct 30.9 % (35.5-45.6) L 03/11/21 03:56 MCV 79 fl (84-94) L 03/11/21 03:56 MCH 26 pg (28-32) L 03/11/21 03:56 MCHC 33 % (32-34) 03/11/21 03:56 RDW 16.6 % (13.2-15.2) H 03/11/21 03:56 Plt Count 351 K/mm3 (140-440) 03/11/21 03:56 Lymph % (Auto) 7.8 % (13.4-35.0) L 03/11/21 03:56 [place] % (Auto) 15.7 % (0.0-7.3) H 03/11/21 03:56 Eos % (Auto) 2.3 % (0.0-4.3) 03/11/21 03:56 Baso % (Auto) 2.5 % (0.0-1.8) H 03/11/21 03:56 Lymph # (Auto) 0.6 K/mm3 (1.2-5.4) L 03/11/21 03:56 [place] # (Auto) 1.2 K/mm3 (0.0-0.8) H 03/11/21 03:56 Eos # (Auto) 0.2 K/mm3 (0.0-0.4) 03/11/21 03:56 Baso # (Auto) 0.2 K/mm3 (0.0-0.1) H 03/11/21 03:56 Seg Neutrophils % 71.7 % (40.0-70.0) H 03/11/21 03:56 Seg Neutrophils # 5.3 K/mm3 (1.8-7.7) 03/11/21 03:56 PT 14.8 Sec. (12.2-14.9) 03/10/21 08:51 INR 1.11 (0.87-1.13) 03/10/21 08:51 APTT 32.8 Sec. (24.2-36.6) 03/10/21 08:51 Sodium 142 mmol/L (137-145) 03/12/21 07:32 Potassium 4.5 mmol/L (3.6-5.0) 03/12/21 07:32 Chloride 110.2 mmol/L (98-107) H 03/12/21 07:32 Carbon Dioxide 12 mmol/L (22-30) L 03/12/21 07:32 Anion Gap 24 mmol/L 03/12/21 07:32 BUN 102 mg/dL (9-20) H 03/12/21 07:32 Creatinine 6.5 mg/dL (0.8-1.3) H 03/12/21 07:32 Estimated GFR 9 ml/min 03/12/21 07:32 BUN/Creatinine Ratio 16 % 03/12/21 07:32 Glucose 79 mg/dL (75-100) 03/12/21 07:32 POC Glucose 84 mg/dL (70-105) 03/12/21 07:48 Calcium 9.6 mg/dL (8.4-10.2) 03/12/21 07:32 Phosphorus 7.30 mg/dL (2.5-4.5) H 03/10/21 03:44 Total Bilirubin 0.20 mg/dL (0.1-1.2) 03/11/21 03:56 AST 7 units/L (5-40) 03/11/21 03:56 ALT < 5 units/L (7-56) L 03/11/21 03:56 Alkaline Phosphatase 80 units/L (35-129) 03/11/21 03:56 Total Protein 8.0 g/dL (6.3-8.2) 03/11/21 03:56 Albumin 3.6 g/dL (3.9-5) L 03/11/21 03:56 Albumin/Globulin Ratio 0.8 % 03/11/21 03:56 Urine Color Yellow (Yellow) 03/10/21 10:06 Urine Turbidity Turbid (Clear) 03/10/21 10:06 Urine pH 6.0 (5.0-7.0) 03/10/21 10:06 Ur Specific [place] 1.010 (1.003-1.030) 03/10/21 10:06 Urine Protein 100 mg/dl mg/dL (Negative) 03/10/21 10:06 Urine Glucose (UA) Neg mg/dL (Negative) 03/10/21 10:06 Urine Ketones Neg mg/dL (Negative) 03/10/21 10:06 Urine Blood Mod (Negative) 03/10/21 10:06 Urine Nitrite Neg (Negative) 03/10/21 10:06 Urine Bilirubin Neg (Negative) 03/10/21 10:06 Urine Urobilinogen < 2.0 mg/dL (<2.0) 03/10/21 10:06 Ur Leukocyte Esterase Lg (Negative) 03/10/21 10:06 Urine WBC (Auto) > 182.0 /HPF (0.0-6.0) H 03/10/21 10:06 Urine RBC (Auto) 43.0 /HPF (0.0-6.0) 03/10/21 10:06 Urine WBC Clumps 3+ /HPF 03/10/21 10:06 Hepatitis A IgM Ab Non-reactive (NonReactive) 03/11/21 11:02 Hep Bs Antigen Non-reactive (Negative) 03/11/21 11:02 Hep B Core IgM Ab Non-reactive (NonReactive) 03/11/21 11:02 Hepatitis C Antibody Non-reactive (NonReactive) 03/11/21 11:02 Blood Type O POSITIVE 03/10/21 08:51 Antibody Screen Negative 03/10/21 08:51 Microbiology: Microbiology 03/10/21 10:09 Urine,Clean Catch Urine Culture - Final 03/10/21 14:51 Peripheral/Venous Blood Culture - Preliminary NO GROWTH AFTER 24 HOURS 03/10/21 14:51 Peripheral/Venous Blood Culture - Preliminary NO GROWTH AFTER 24 HOURS Ramirez/IV: Voiding Method Urinal Active Medications - Current Medications Current Medications: Generic Name Dose Route Start Last Admin Trade Name Freq PRN Reason Stop Dose Admin Acetaminophen 650 mg 03/10/21 10:29 Acetaminophen 325 Mg Tab PO Q4H PRN Pain MILD(1-3)/Fever >100.5/YUNG Albuterol 2.5 mg 03/10/21 10:29 Albuterol 2.5 Mg/3 Ml Nebu IH Q3HRT PRN Shortness Of Breath Famotidine 20 mg 03/10/21 22:00 03/12/21 10:37 Famotidine 20 Mg Tab PO Not Given DAILY [facility] Heparin Sodium (Porcine) 2,000 unit 03/11/21 11:00 Heparin 10,000 Units/10 Ml Vial IV CARLOS PRN hemodialysis Sodium Bicarbonate 150 meq/ 1,150 mls @ 75 mls/hr 03/10/21 10:00 Sterile Water IV DIRECT [facility] Sodium Chloride 100 mls @ 999 mls/hr 03/11/21 19:37 Nacl 0.9% IV CARLOS PRN Hypotension Cefepime HCl 1 gm in 100 mls @ 200 mls/hr 03/12/21 20:00 Cefepime/Ns 1 Gm/100 Ml IV Q24H [facility] Insulin Human Isoph/Insulin Regular 25 unit 03/10/21 17:00 03/12/21 08:03 Insulin Nph/Regular 70/30 Inj SUB-Q Not Given BIDDIAB [facility] Metoclopramide HCl 5 mg 03/11/21 09:00 Metoclopramide 10 Mg/2 Ml Inj IV Q6H PRN Nausea And Vomiting Metoprolol Tartrate 50 mg 03/10/21 22:00 03/12/21 10:37 Metoprolol Tartrate 50 Mg Tab PO Not Given BID [facility] Ondansetron HCl 4 mg 03/10/21 10:29 Ondansetron 4 Mg/2 Ml Inj IV Q8H PRN Nausea And Vomiting Oxycodone/Acetaminophen 1 tab 03/10/21 10:29 Oxycodone /Acetaminophen 5-325mg Tab PO Q6H PRN Pain, Moderate (4-6) Sodium Chloride 10 ml 03/10/21 22:00 03/12/21 10:37 Sodium Chloride 0.9% 10 Ml Flush Syringe IV Not Given BID [facility] Sodium Chloride 10 ml 03/10/21 10:29 Sodium Chloride 0.9% 10 Ml Flush Syringe IV PRN PRN LINE FLUSH Tamsulosin HCl 0.4 mg 03/11/21 10:00 03/12/21 10:37 Tamsulosin 0.4 Mg Cap PO Not Given QDAY [facility]
[2021-03-12] MEDS ORDERED: METOPROLOL TARTRATE 50 MG TAB PO SCH (16:42)
[2021-03-12] MEDS: METOPROLOL TARTRATE 25 MG TAB PO SCH ×2 (17:14→23:18)
[2021-03-12] MEDS: CEFEPIME/NS 1 GM/100 ML 1 GM/100 ML BAG IV SCH (21:53)
--- NOTE | 2021-03-13 08:52 | Progress Note ---
Assessment and Plan 1. ESRD: Advanced CKD now progressed to ESRD. CKD most likley 2/2 Diabetic nephropathy. LEONEL, ANCA, GBM Ab, Complements and SPEP were negative. Significant decline in the renal function over a period of 6 months. D/w patient about the indications, benefits, risks and alternatives involved in kidney biopsy. He voiced undrstanding and gave verbal consent. Patient presented with significant metabolic acidosis and hyperkalemia. Monitor renal function. Renal prognosis is poor. Avoid nephrotoxic agents. Meds dosage based on GFR. 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 Patient was started on hemodialysis due to above. Hemodialysis: 03/12. HD today. 2. FEN: Hyperkalemia, improved, monitor. Anion-gap metabolic acidosis, HD today, monitor. Monitor lytes and volume status. 3. Hx of Paroxysmal atrial fibrillation: Eliquis on hold. Metoprolol for suppression. LVEF 50-55% by echo 09/2020. 4. DM type 2. 5. Anemia, POA: Chronic. Epogen as needed. Monitor. 6. Hypertension: BP controlled. Await outpatient HD chair. Subjective: Patient was seen and examined at the bedside. Doing ok. Examination: General appearance: well-developed, appears stated age, thin built, not in distress HEENT: atraumatic, [place] Neck: trachea midline Respiratory: ctab Heart: S1S2, no murmur Abdomen: soft, bowel sounds heard, NT Integumentary: no obvious rash Neurologic: AO, non-focal Ext: no edema Hemodialysis access: R IJ tunnel catheter Subjective Date of service: 03/13/21 Objective - Vital Signs Vital signs: Vital Signs - 12hr 03/12/21 03/12/21 03/13/21 21:59 22:17 06:15 Temperature 98.1 F 98.8 F Pulse Rate 89 86 Respiratory 18 18 Rate Blood Pressure 137/71 107/68 O2 Sat by Pulse 95 98 97 Oximetry - Lab 03/11/21 03:56 03/12/21 07:32 Most recent lab results Calcium 9.6 mg/dL (8.4-10.2) 03/12/21 07:32 Phosphorus 7.30 mg/dL (2.5-4.5) H 03/10/21 03:44 Medications & Allergies - Medications Allergies/Adverse Reactions: Allergies No Known Allergies Allergy (Verified 09/14/20 09:38) Home Medications: Home Medications Medication Instructions Recorded Confirmed Last Taken Type Insulin NPH/Regular [NovoLIN 70/30] 25 unit SUB-Q BIDDIAB #2 vial 09/19/20 03/11/21 Unknown Rx Tamsulosin [Flomax] 0.4 mg PO QDAY #30 capsule 09/19/20 03/11/21 Unknown Rx Iron [Iron 18 MG TAB] 18 mg PO QDAY 01/15/21 03/11/21 Unknown History Multivit-Min/FA/Lycopen/Lutein 1 each PO QDAY 01/15/21 03/11/21 Unknown History [Centrum Silver Men Tablet] Apixaban [Eliquis] 5 mg PO Q12HR #60 tablet 01/21/21 03/11/21 Unknown Rx Metoprolol [Lopressor TAB] 50 mg PO BID #60 tablet 01/21/21 03/11/21 Unknown Rx Active Medications: Generic Name Dose Route Start Last Admin Trade Name Freq PRN Reason Stop Dose Admin Acetaminophen 650 mg 03/10/21 10:29 Acetaminophen 325 Mg Tab PO Q4H PRN Pain MILD(1-3)/Fever >100.5/YUNG Albuterol 2.5 mg 03/10/21 10:29 Albuterol 2.5 Mg/3 Ml Nebu IH Q3HRT PRN Shortness Of Breath Famotidine 20 mg 03/10/21 22:00 03/12/21 10:37 Famotidine 20 Mg Tab PO Not Given DAILY [facility] Heparin Sodium (Porcine) 2,000 unit 03/11/21 11:00 Heparin 10,000 Units/10 Ml Vial IV CARLOS PRN hemodialysis Sodium Chloride 100 mls @ 999 mls/hr 03/11/21 19:37 Nacl 0.9% IV CARLOS PRN Hypotension Cefepime HCl 1 gm in 100 mls @ 200 mls/hr 03/12/21 20:00 03/12/21 21:53 Cefepime/Ns 1 Gm/100 Ml IV 200 mls/hr Q24H [facility] Administration Insulin Human Isoph/Insulin Regular 25 unit 03/10/21 17:00 03/12/21 08:03 Insulin Nph/Regular 70/30 Inj SUB-Q Not Given BIDDIAB [facility] Metoclopramide HCl 5 mg 03/11/21 09:00 Metoclopramide 10 Mg/2 Ml Inj IV Q6H PRN Nausea And Vomiting Metoprolol Tartrate 25 mg 03/12/21 17:00 03/12/21 23:18 Metoprolol Tartrate 25 Mg Tab PO Not Given BID [facility] Ondansetron HCl 4 mg 03/10/21 10:29 Ondansetron 4 Mg/2 Ml Inj IV Q8H PRN Nausea And Vomiting Oxycodone/Acetaminophen 1 tab 03/10/21 10:29 Oxycodone /Acetaminophen 5-325mg Tab PO Q6H PRN Pain, Moderate (4-6) Sodium Chloride 10 ml 03/10/21 22:00 03/12/21 21:54 Sodium Chloride 0.9% 10 Ml Flush Syringe IV 10 ml BID [facility] Administration Sodium Chloride 10 ml 03/10/21 10:29 Sodium Chloride 0.9% 10 Ml Flush Syringe IV PRN PRN LINE FLUSH Tamsulosin HCl 0.4 mg 03/11/21 10:00 03/12/21 10:37 Tamsulosin 0.4 Mg Cap PO Not Given QDAY [facility]
[2021-03-13] MEDS: TAMSULOSIN 0.4 MG CAP PO SCH (09:30)
[2021-03-13] MEDS ORDERED: ONDANSETRON 4 MG/2 ML INJ IV NR ×2 (09:40→10:01)
[2021-03-13] MEDS ORDERED: HYDROmorphone 1 MG/1 ML INJ IV NR (09:42)
[2021-03-13] MEDS: METOPROLOL TARTRATE 25 MG TAB PO SCH ×2 (10:00→22:03)
[2021-03-13] MEDS ORDERED: SODIUM CHLORIDE 0.9% 500 ML 0 ML ONE (10:15)
--- NOTE | 2021-03-13 12:57 | Cat Scan Report ---
CLINICAL DATA: Renal failure. TECHNICAL DATA: CT with fluoroscopic guidance for nonfocal renal biopsy. All CT scans at this location are performed using CT dose reduction for ALARA by means of automated e xposure control FINDINGS: The risks, benefits and alternatives to the exam were explained to the patient prior to the exam and consent was obtained. Following obtaining informed consent, axial localization imaging under CT for biopsy approach was per formed. Next, skin marking, sterile prep and drape, anesthesia with 1% lidocaine and sodium bicarbona te in 10:1 ratio. Then, 19 gauge needle canula is placed into the subcapsular portion of the lower ri ght kidney, utilizing a posterior approach. Core biopsies are obtained-2, utilizing an 20 gauge Bard core cutting needle with 2.2 cm of biopsy length. These specimens are submitted to the laboratory i n formalin for analysis. CT fluoroscopic guidance is utilized for confirmation of needle placement. There is confirmation of needle entry into the kidney during biopsy sampling. The patient tolerated the procedure well. Postbiopsy images failed to reveal any significant postbio psy complications. The patient's back was cleansed and bandaged appropriately, and the patient was r eturned to the recovery area for observation. IMPRESSION: Technically successful CT-guided nonfocal renal biopsy. No immediate complications were encountered. Final histology results are pending at this time. Signer Name: Luis Enrique Sparks MD Signed: 03/13/2021 12:52 PM Workstation Name: [id number]
[2021-03-13] MEDS ORDERED: SODIUM CHLORIDE 0.9% 500 ML 500 ML ONE (13:16)
--- NOTE | 2021-03-13 14:52 | Progress Note ---
Assessment and Plan Assessment and plan: Patient is a 55-year-old male with history of hypertension, DM2, BPH, CKD, and A. fib on Eliquis presents at the direction of his rope walker, Dr. Houser due to worsening renal function and acute on chronic renal failure. He also says that for the past few days he has not been eating or drinking much but otherwise he denies any physical symptoms or complaints including headache, vision change, fever, chest pain, shortness of breath, cough, abdominal pain, nausea/vomiting, focal weakness, sensory changes, back pain, urinary incontinence/retention, diarrhea, constipation, or any other complaints. Presenting in the emergency room with abnormal labs. Work-up in the emergency room revealed a creatinine of 5.1 Troponin was slightly elevated at 0.352. Chest x-ray was significant for bilateral pneumonia and effusion. Patient was admitted with acute kidney injury, pneumonia and elevated troponin. JULEE with CKD on vasomotor nephropathy likely now ESRD Anemia POA NSTEMI type 2 CKD most likley 2/2 Diabetic nephropathy. Hyperkalemia Severe metabolic acidosis secondary to renal failure DM with hyperglycemia Moderate protien calorie malnutrition Paraxosymal Afib Acute Cystitis Plan Nephrology input noted Patient underwent renal biopsy to further understand the worsening renal function Monitor Electrolytes for correction following Kayexalate Continue On Eliquis for AC and metoprolol for suppression. Awaiting chair time at the dialysis center for discharge Vascular consult Medically treat hyperkalemia PT OT evaluation as patient is has gait abnormality ambulates with a cane Abx for Cefepime Urine cultures DVT/GI Prophy History Interval history: Patient seen and examined, resting comfortable, HD access placed, tolerating hd Hospitalist Physical - Physical exam Narrative exam: VITAL SIGNS: Reviewed. GENERAL: The patient appears normally developed, Vital signs as documented. HEAD: No signs of head trauma. EYES: Pupils are equal. Extraocular motions intact. EARS: Hearing grossly intact. MOUTH: Oropharynx is normal. NECK: No adenopathy, no JVD. CHEST: Chest with clear breath sounds bilaterally. No wheezes, rales, or rhonchi. CARDIAC: Regular rate and rhythm. S1 and S2, without murmurs, gallops, or rubs. VASCULAR: Right IJ permacath in place. No Edema. Peripheral pulses normal and equal in all extremities. ABDOMEN: Soft, non tender and non distended. No rebound or guarding, and no masses palpated. Bowel Sounds normal. MUSCULOSKELETAL: Good range of motion of all major joints. Extremities without clubbing, cyanosis or edema. NEUROLOGIC EXAM: Alert and oriented x 3 No focal sensory or strength deficits. Speech normal. Follows commands. Ambulates with a cane PSYCHIATRIC: Mood normal. SKIN: detail exam as documented in skin assessment - Constitutional Vitals: Temp Pulse Resp BP Pulse Ox 98.8 F 89 15 102/64 97 03/13/21 06:15 03/13/21 11:14 03/13/21 11:14 03/13/21 11:14 03/13/21 11:14 General appearance: Present: no acute distress Results - Labs CBC & Chem 7: 03/11/21 03:56 03/12/21 07:32 Labs: Laboratory Last Values WBC 7.4 K/mm3 (4.5-11.0) 03/11/21 03:56 RBC 3.90 M/mm3 (3.65-5.03) 03/11/21 03:56 Hgb 10.1 gm/dl (11.8-15.2) L 03/11/21 03:56 Hct 30.9 % (35.5-45.6) L 03/11/21 03:56 MCV 79 fl (84-94) L 03/11/21 03:56 MCH 26 pg (28-32) L 03/11/21 03:56 MCHC 33 % (32-34) 03/11/21 03:56 RDW 16.6 % (13.2-15.2) H 03/11/21 03:56 Plt Count 351 K/mm3 (140-440) 03/11/21 03:56 Lymph % (Auto) 7.8 % (13.4-35.0) L 03/11/21 03:56 [place] % (Auto) 15.7 % (0.0-7.3) H 03/11/21 03:56 Eos % (Auto) 2.3 % (0.0-4.3) 03/11/21 03:56 Baso % (Auto) 2.5 % (0.0-1.8) H 03/11/21 03:56 Lymph # (Auto) 0.6 K/mm3 (1.2-5.4) L 03/11/21 03:56 [place] # (Auto) 1.2 K/mm3 (0.0-0.8) H 03/11/21 03:56 Eos # (Auto) 0.2 K/mm3 (0.0-0.4) 03/11/21 03:56 Baso # (Auto) 0.2 K/mm3 (0.0-0.1) H 03/11/21 03:56 Seg Neutrophils % 71.7 % (40.0-70.0) H 03/11/21 03:56 Seg Neutrophils # 5.3 K/mm3 (1.8-7.7) 03/11/21 03:56 PT 14.8 Sec. (12.2-14.9) 03/10/21 08:51 INR 1.11 (0.87-1.13) 03/10/21 08:51 APTT 32.8 Sec. (24.2-36.6) 03/10/21 08:51 Sodium 142 mmol/L (137-145) 03/12/21 07:32 Potassium 4.5 mmol/L (3.6-5.0) 03/12/21 07:32 Chloride 110.2 mmol/L (98-107) H 03/12/21 07:32 Carbon Dioxide 12 mmol/L (22-30) L 03/12/21 07:32 Anion Gap 24 mmol/L 03/12/21 07:32 BUN 102 mg/dL (9-20) H 03/12/21 07:32 Creatinine 6.5 mg/dL (0.8-1.3) H 03/12/21 07:32 Estimated GFR 9 ml/min 03/12/21 07:32 BUN/Creatinine Ratio 16 % 03/12/21 07:32 Glucose 79 mg/dL (75-100) 03/12/21 07:32 POC Glucose 130 mg/dL (70-105) H 03/13/21 07:45 Calcium 9.6 mg/dL (8.4-10.2) 03/12/21 07:32 Phosphorus 7.30 mg/dL (2.5-4.5) H 03/10/21 03:44 Total Bilirubin 0.20 mg/dL (0.1-1.2) 03/11/21 03:56 AST 7 units/L (5-40) 03/11/21 03:56 ALT < 5 units/L (7-56) L 03/11/21 03:56 Alkaline Phosphatase 80 units/L (35-129) 03/11/21 03:56 Total Protein 8.0 g/dL (6.3-8.2) 03/11/21 03:56 Albumin 3.6 g/dL (3.9-5) L 03/11/21 03:56 Albumin/Globulin Ratio 0.8 % 03/11/21 03:56 Urine Color Yellow (Yellow) 03/10/21 10:06 Urine Turbidity Turbid (Clear) 03/10/21 10:06 Urine pH 6.0 (5.0-7.0) 03/10/21 10:06 Ur Specific [place] 1.010 (1.003-1.030) 03/10/21 10:06 Urine Protein 100 mg/dl mg/dL (Negative) 03/10/21 10:06 Urine Glucose (UA) Neg mg/dL (Negative) 03/10/21 10:06 Urine Ketones Neg mg/dL (Negative) 03/10/21 10:06 Urine Blood Mod (Negative) 03/10/21 10:06 Urine Nitrite Neg (Negative) 03/10/21 10:06 Urine Bilirubin Neg (Negative) 03/10/21 10:06 Urine Urobilinogen < 2.0 mg/dL (<2.0) 03/10/21 10:06 Ur Leukocyte Esterase Lg (Negative) 03/10/21 10:06 Urine WBC (Auto) > 182.0 /HPF (0.0-6.0) H 03/10/21 10:06 Urine RBC (Auto) 43.0 /HPF (0.0-6.0) 03/10/21 10:06 Urine WBC Clumps 3+ /HPF 03/10/21 10:06 Coronavirus (PCR) Negative (Negative) 03/12/21 Unknown Hepatitis A IgM Ab Non-reactive (NonReactive) 03/11/21 11:02 Hep Bs Antigen Non-reactive (Negative) 03/11/21 11:02 Hep B Core IgM Ab Non-reactive (NonReactive) 03/11/21 11:02 Hepatitis C Antibody Non-reactive (NonReactive) 03/11/21 11:02 Blood Type O POSITIVE 03/10/21 08:51 Antibody Screen Negative 03/10/21 08:51 Microbiology: Microbiology 03/10/21 14:51 Peripheral/Venous Blood Culture - Preliminary NO GROWTH AFTER 48 HOURS 03/10/21 14:51 Peripheral/Venous Blood Culture - Preliminary NO GROWTH AFTER 48 HOURS 03/10/21 10:09 Urine,Clean Catch Urine Culture - Final Ramirez/IV: Voiding Method Urinal Active Medications - Current Medications Current Medications: Generic Name Dose Route Start Last Admin Trade Name Freq PRN Reason Stop Dose Admin Acetaminophen 650 mg 03/10/21 10:29 Acetaminophen 325 Mg Tab PO Q4H PRN Pain MILD(1-3)/Fever >100.5/YUNG Albuterol 2.5 mg 03/10/21 10:29 Albuterol 2.5 Mg/3 Ml Nebu IH Q3HRT PRN Shortness Of Breath Famotidine 20 mg 03/10/21 22:00 03/12/21 10:37 Famotidine 20 Mg Tab PO Not Given DAILY [facility] Heparin Sodium (Porcine) 2,000 unit 03/11/21 11:00 Heparin 10,000 Units/10 Ml Vial IV CARLOS PRN hemodialysis Hydromorphone HCl 1 mg 03/13/21 09:42 03/13/21 10:48 Hydromorphone 1 Mg/1 Ml Inj IV 03/13/21 20:00 1 mg ONCE NR Administration Sodium Chloride 100 mls @ 999 mls/hr 03/11/21 19:37 Nacl 0.9% IV CARLOS PRN Hypotension Cefepime HCl 1 gm in 100 mls @ 200 mls/hr 03/12/21 20:00 03/12/21 21:53 Cefepime/Ns 1 Gm/100 Ml IV 03/18/21 19:59 200 mls/hr Q24H [facility] Administration Insulin Human Isoph/Insulin Regular 25 unit 03/10/21 17:00 03/12/21 08:03 Insulin Nph/Regular 70/30 Inj SUB-Q Not Given BIDDIAB [facility] Metoclopramide HCl 5 mg 03/11/21 09:00 Metoclopramide 10 Mg/2 Ml Inj IV Q6H PRN Nausea And Vomiting Metoprolol Tartrate 25 mg 03/12/21 17:00 03/12/21 23:18 Metoprolol Tartrate 25 Mg Tab PO Not Given BID [facility] Ondansetron HCl 4 mg 03/10/21 10:29 Ondansetron 4 Mg/2 Ml Inj IV Q8H PRN Nausea And Vomiting Ondansetron HCl 4 mg 03/13/21 09:40 03/13/21 10:48 Ondansetron 4 Mg/2 Ml Inj IV 03/13/21 18:00 4 mg ONCE NR Administration Ondansetron HCl 4 mg 03/13/21 10:01 Ondansetron 4 Mg/2 Ml Inj IV 03/13/21 20:00 ONCE NR Oxycodone/Acetaminophen 1 tab 03/10/21 10:29 Oxycodone /Acetaminophen 5-325mg Tab PO Q6H PRN Pain, Moderate (4-6) Sodium Chloride 10 ml 03/10/21 22:00 03/13/21 09:30 Sodium Chloride 0.9% 10 Ml Flush Syringe IV 10 ml BID [facility] Administration Sodium Chloride 10 ml 03/10/21 10:29 Sodium Chloride 0.9% 10 Ml Flush Syringe IV PRN PRN LINE FLUSH Tamsulosin HCl 0.4 mg 03/11/21 10:00 03/13/21 09:30 Tamsulosin 0.4 Mg Cap PO 0.4 mg QDAY [facility] Administration
[2021-03-13] MEDS: FAMOTIDINE 20 MG TAB PO SCH (17:28)
[2021-03-13] MEDS: INSULIN NPH/REGULAR 70/30 INJ SUB-Q SCH (17:28)
[2021-03-13] MEDS: CEFEPIME/NS 1 GM/100 ML 1 GM/100 ML BAG IV SCH (19:32)
[2021-03-14 07:02] LABS: Calcium 8.8 mg/dL (8.4-10.2)
[2021-03-14] MEDS: INSULIN NPH/REGULAR 70/30 INJ SUB-Q SCH ×2 (09:19→18:09)
[2021-03-14] MEDS: FAMOTIDINE 20 MG TAB PO SCH (10:34)
[2021-03-14] MEDS: METOPROLOL TARTRATE 25 MG TAB PO SCH ×2 (10:34→22:58)
[2021-03-14] MEDS: TAMSULOSIN 0.4 MG CAP PO SCH (10:34)
--- NOTE | 2021-03-14 11:59 | Progress Note ---
Assessment and Plan Assessment and plan: Patient is a 55-year-old male with history of hypertension, DM2, BPH, CKD, and A. fib on Eliquis presents at the direction of his corporate relations manager, Dr. Houser due to worsening renal function and acute on chronic renal failure. He also says that for the past few days he has not been eating or drinking much but otherwise he denies any physical symptoms or complaints including headache, vision change, fever, chest pain, shortness of breath, cough, abdominal pain, nausea/vomiting, focal weakness, sensory changes, back pain, urinary incontinence/retention, diarrhea, constipation, or any other complaints. Presenting in the emergency room with abnormal labs. Work-up in the emergency room revealed a creatinine of 5.1 Troponin was slightly elevated at 0.352. Chest x-ray was significant for bilateral pneumonia and effusion. Patient was admitted with acute kidney injury, pneumonia and elevated troponin. JULEE with CKD on vasomotor nephropathy likely now ESRD Anemia POA NSTEMI type 2 CKD most likley 2/2 Diabetic nephropathy. Hyperkalemia Severe metabolic acidosis secondary to renal failure DM with hyperglycemia Moderate protien calorie malnutrition Paraxosymal Afib Acute Cystitis Plan Nephrology input noted Patient underwent renal biopsy to further understand the worsening renal function Awaiting placement Monitor Electrolytes for correction following Kayexalate Continue On Eliquis for AC and metoprolol for suppression. Awaiting chair time at the dialysis center for discharge Vascular consult Medically treat hyperkalemia PT OT evaluation as patient is has gait abnormality ambulates with a cane Abx for Cefepime Urine cultures DVT/GI Prophy History Interval history: Patient seen and examined, resting comfortable, HD access placed, tolerating HD Hospitalist Physical - Physical exam Narrative exam: VITAL SIGNS: Reviewed. GENERAL: The patient appears normally developed, Vital signs as documented. HEAD: No signs of head trauma. EYES: Pupils are equal. Extraocular motions intact. EARS: Hearing grossly intact. MOUTH: Oropharynx is normal. NECK: No adenopathy, no JVD. CHEST: Chest with clear breath sounds bilaterally. No wheezes, rales, or rhonchi. CARDIAC: Regular rate and rhythm. S1 and S2, without murmurs, gallops, or rubs . VASCULAR: Right IJ permacath in place. No Edema. Peripheral pulses normal and equal in all extremities. ABDOMEN: Soft, non tender and non distended. No rebound or guarding, and no masses palpated. Bowel Sounds normal. MUSCULOSKELETAL: Good range of motion of all major joints. Extremities without clubbing, cyanosis or edema. NEUROLOGIC EXAM: Alert and oriented x 3 No focal sensory or strength deficits. Speech normal. Follows commands. Ambulates with a cane PSYCHIATRIC: Mood normal. SKIN: detail exam as documented in skin assessment - Constitutional Vitals: Temp Pulse Resp BP Pulse Ox 98.6 F 86 20 149/86 99 03/14/21 04:41 03/14/21 04:41 03/14/21 04:41 03/14/21 04:41 03/14/21 04:41 General appearance: Present: no acute distress Results - Labs CBC & Chem 7: 03/11/21 03:56 03/14/21 06:16 Labs: Laboratory Last Values WBC 7.4 K/mm3 (4.5-11.0) 03/11/21 03:56 RBC 3.90 M/mm3 (3.65-5.03) 03/11/21 03:56 Hgb 10.1 gm/dl (11.8-15.2) L 03/11/21 03:56 Hct 30.9 % (35.5-45.6) L 03/11/21 03:56 MCV 79 fl (84-94) L 03/11/21 03:56 MCH 26 pg (28-32) L 03/11/21 03:56 MCHC 33 % (32-34) 03/11/21 03:56 RDW 16.6 % (13.2-15.2) H 03/11/21 03:56 Plt Count 351 K/mm3 (140-440) 03/11/21 03:56 Lymph % (Auto) 7.8 % (13.4-35.0) L 03/11/21 03:56 [place] % (Auto) 15.7 % (0.0-7.3) H 03/11/21 03:56 Eos % (Auto) 2.3 % (0.0-4.3) 03/11/21 03:56 Baso % (Auto) 2.5 % (0.0-1.8) H 03/11/21 03:56 Lymph # (Auto) 0.6 K/mm3 (1.2-5.4) L 03/11/21 03:56 [place] # (Auto) 1.2 K/mm3 (0.0-0.8) H 03/11/21 03:56 Eos # (Auto) 0.2 K/mm3 (0.0-0.4) 03/11/21 03:56 Baso # (Auto) 0.2 K/mm3 (0.0-0.1) H 03/11/21 03:56 Seg Neutrophils % 71.7 % (40.0-70.0) H 03/11/21 03:56 Seg Neutrophils # 5.3 K/mm3 (1.8-7.7) 03/11/21 03:56 PT 14.8 Sec. (12.2-14.9) 03/10/21 08:51 INR 1.11 (0.87-1.13) 03/10/21 08:51 APTT 32.8 Sec. (24.2-36.6) 03/10/21 08:51 Sodium 140 mmol/L (137-145) 03/14/21 06:16 Potassium 3.8 mmol/L (3.6-5.0) 03/14/21 06:16 Chloride 101.1 mmol/L (98-107) 03/14/21 06:16 Carbon Dioxide 29 mmol/L (22-30) D 03/14/21 06:16 Anion Gap 14 mmol/L 03/14/21 06:16 BUN 32 mg/dL (9-20) H 03/14/21 06:16 Creatinine 3.3 mg/dL (0.8-1.3) H 03/14/21 06:16 Estimated GFR 19 ml/min 03/14/21 06:16 BUN/Creatinine Ratio 10 % 03/14/21 06:16 Glucose 96 mg/dL (75-100) 03/14/21 06:16 POC Glucose 94 mg/dL (70-105) 03/13/21 21:46 Calcium 8.8 mg/dL (8.4-10.2) 03/14/21 06:16 Phosphorus 7.30 mg/dL (2.5-4.5) H 03/10/21 03:44 Total Bilirubin 0.20 mg/dL (0.1-1.2) 03/11/21 03:56 AST 7 units/L (5-40) 03/11/21 03:56 ALT < 5 units/L (7-56) L 03/11/21 03:56 Alkaline Phosphatase 80 units/L (35-129) 03/11/21 03:56 Total Protein 8.0 g/dL (6.3-8.2) 03/11/21 03:56 Albumin 3.6 g/dL (3.9-5) L 03/11/21 03:56 Albumin/Globulin Ratio 0.8 % 03/11/21 03:56 Urine Color Yellow (Yellow) 03/10/21 10:06 Urine Turbidity Turbid (Clear) 03/10/21 10:06 Urine pH 6.0 (5.0-7.0) 03/10/21 10:06 Ur Specific [place] 1.010 (1.003-1.030) 03/10/21 10:06 Urine Protein 100 mg/dl mg/dL (Negative) 03/10/21 10:06 Urine Glucose (UA) Neg mg/dL (Negative) 03/10/21 10:06 Urine Ketones Neg mg/dL (Negative) 03/10/21 10:06 Urine Blood Mod (Negative) 03/10/21 10:06 Urine Nitrite Neg (Negative) 03/10/21 10:06 Urine Bilirubin Neg (Negative) 03/10/21 10:06 Urine Urobilinogen < 2.0 mg/dL (<2.0) 03/10/21 10:06 Ur Leukocyte Esterase Lg (Negative) 03/10/21 10:06 Urine WBC (Auto) > 182.0 /HPF (0.0-6.0) H 03/10/21 10:06 Urine RBC (Auto) 43.0 /HPF (0.0-6.0) 03/10/21 10:06 Urine WBC Clumps 3+ /HPF 03/10/21 10:06 Coronavirus (PCR) Negative (Negative) 03/12/21 Unknown Hepatitis A IgM Ab Non-reactive (NonReactive) 03/11/21 11:02 Hep Bs Antigen Non-reactive (Negative) 03/11/21 11:02 Hep B Core IgM Ab Non-reactive (NonReactive) 03/11/21 11:02 Hepatitis C Antibody Non-reactive (NonReactive) 03/11/21 11:02 Blood Type O POSITIVE 03/10/21 08:51 Antibody Screen Negative 03/10/21 08:51 Microbiology: Microbiology 03/10/21 14:51 Peripheral/Venous Blood Culture - Preliminary NO GROWTH AFTER 72 HOURS 03/10/21 14:51 Peripheral/Venous Blood Culture - Preliminary NO GROWTH AFTER 72 HOURS Ramirez/IV: Voiding Method Toilet Active Medications - Current Medications Current Medications: Generic Name Dose Route Start Last Admin Trade Name Freq PRN Reason Stop Dose Admin Acetaminophen 650 mg 03/10/21 10:29 Acetaminophen 325 Mg Tab PO Q4H PRN Pain MILD(1-3)/Fever >100.5/YUNG Albuterol 2.5 mg 03/10/21 10:29 Albuterol 2.5 Mg/3 Ml Nebu IH Q3HRT PRN Shortness Of Breath Famotidine 20 mg 03/10/21 22:00 03/14/21 10:34 Famotidine 20 Mg Tab PO Not Given DAILY CHAU Heparin Sodium (Porcine) 2,000 unit 03/11/21 11:00 Heparin 10,000 Units/10 Ml Vial IV CARLOS PRN hemodialysis Sodium Chloride 100 mls @ 999 mls/hr 03/11/21 19:37 Nacl 0.9% IV CARLOS PRN Hypotension Cefepime HCl 1 gm in 100 mls @ 200 mls/hr 03/12/21 20:00 03/13/21 19:32 Cefepime/Ns 1 Gm/100 Ml IV 03/18/21 19:59 200 mls/hr Q24H CHAU Administration Insulin Human Isoph/Insulin Regular 25 unit 03/10/21 17:00 03/14/21 09:19 Insulin Nph/Regular 70/30 Inj SUB-Q 25 unit BIDDIAB CHAU Administration Metoclopramide HCl 5 mg 03/11/21 09:00 Metoclopramide 10 Mg/2 Ml Inj IV Q6H PRN Nausea And Vomiting Metoprolol Tartrate 25 mg 03/12/21 17:00 03/14/21 10:34 Metoprolol Tartrate 25 Mg Tab PO Not Given BID CHAU Ondansetron HCl 4 mg 03/10/21 10:29 Ondansetron 4 Mg/2 Ml Inj IV Q8H PRN Nausea And Vomiting Oxycodone/Acetaminophen 1 tab 03/10/21 10:29 Oxycodone /Acetaminophen 5-325mg Tab PO Q6H PRN Pain, Moderate (4-6) Sodium Chloride 10 ml 03/10/21 22:00 03/14/21 10:34 Sodium Chloride 0.9% 10 Ml Flush Syringe IV Not Given BID CHAU Sodium Chloride 10 ml 03/10/21 10:29 Sodium Chloride 0.9% 10 Ml Flush Syringe IV PRN PRN LINE FLUSH Tamsulosin HCl 0.4 mg 03/11/21 10:00 03/14/21 10:34 Tamsulosin 0.4 Mg Cap PO Not Given QDAY CHAU
--- NOTE | 2021-03-14 12:21 | Progress Note ---
Assessment and Plan 1. ESRD: Advanced CKD now progressed to ESRD. CKD most likley 2/2 Diabetic nephropathy. LEONEL, ANCA, GBM Ab, Complements and SPEP were negative. Significant decline in the renal function over a period of 6 months. S/p Kidney biopsy 03/13, await results. Monitor renal function. Renal prognosis is poor. Avoid nephrotoxic agents. Meds dosage based on GFR. Monitor for THIRD RIGGER needs. Patient was started on hemodialysis due to significant metabolic acidosis and hyperkalemia. Hemodialysis: 03/12, 03/13, 03/14. 2. FEN: Hyperkalemia, improved, monitor. Anion-gap metabolic acidosis, improved, monitor. Monitor lytes and volume status. 3. Hx of Paroxysmal atrial fibrillation: Eliquis on hold. Metoprolol for suppression. LVEF 50-55% by echo 09/2020. 4. DM type 2. 5. Anemia, POA: Chronic. Epogen as needed. Monitor. 6. Hypertension: BP controlled. Await outpatient HD chair. Subjective: Patient was seen and examined at the bedside. On episode of hematuria yesterday, urine is clear today. Examination: General appearance: well-developed, appears stated age, thin built, not in distress HEENT: atraumatic, [place] Neck: trachea midline Respiratory: ctab Heart: S1S2, no murmur Abdomen: soft, bowel sounds heard, NT Integumentary: no obvious rash Neurologic: AO, non-focal Ext: no edema Hemodialysis access: R IJ tunnel catheter Subjective Date of service: 03/14/21 Objective - Vital Signs Vital signs: Vital Signs - 12hr 03/14/21 04:41 Temperature 98.6 F Pulse Rate 86 Respiratory 20 Rate Blood Pressure 149/86 O2 Sat by Pulse 99 Oximetry - Lab 03/11/21 03:56 03/14/21 06:16 Most recent lab results Calcium 8.8 mg/dL (8.4-10.2) 03/14/21 06:16 Phosphorus 7.30 mg/dL (2.5-4.5) H 03/10/21 03:44 Medications & Allergies - Medications Allergies/Adverse Reactions: Allergies No Known Allergies Allergy (Verified 09/14/20 09:38) Home Medications: Home Medications Medication Instructions Recorded Confirmed Last Taken Type Insulin NPH/Regular [NovoLIN 70/30] 25 unit SUB-Q BIDDIAB #2 vial 09/19/20 03/11/21 Unknown Rx Tamsulosin [Flomax] 0.4 mg PO QDAY #30 capsule 09/19/20 03/11/21 Unknown Rx Iron [Iron 18 MG TAB] 18 mg PO QDAY 01/15/21 03/11/21 Unknown History Multivit-Min/FA/Lycopen/Lutein 1 each PO QDAY 01/15/21 03/11/21 Unknown History [Centrum Silver Men Tablet] Apixaban [Eliquis] 5 mg PO Q12HR #60 tablet 01/21/21 03/11/21 Unknown Rx Metoprolol [Lopressor TAB] 50 mg PO BID #60 tablet 01/21/21 03/11/21 Unknown Rx Active Medications: Generic Name Dose Route Start Last Admin Trade Name Freq PRN Reason Stop Dose Admin Acetaminophen 650 mg 03/10/21 10:29 Acetaminophen 325 Mg Tab PO Q4H PRN Pain MILD(1-3)/Fever >100.5/YUNG Albuterol 2.5 mg 03/10/21 10:29 Albuterol 2.5 Mg/3 Ml Nebu IH Q3HRT PRN Shortness Of Breath Famotidine 20 mg 03/10/21 22:00 03/14/21 10:34 Famotidine 20 Mg Tab PO Not Given DAILY CHAU Heparin Sodium (Porcine) 2,000 unit 03/11/21 11:00 Heparin 10,000 Units/10 Ml Vial IV CARLOS PRN hemodialysis Sodium Chloride 100 mls @ 999 mls/hr 03/11/21 19:37 Nacl 0.9% IV CARLOS PRN Hypotension Cefepime HCl 1 gm in 100 mls @ 200 mls/hr 03/12/21 20:00 03/13/21 19:32 Cefepime/Ns 1 Gm/100 Ml IV 03/18/21 19:59 200 mls/hr Q24H CHAU Administration Insulin Human Isoph/Insulin Regular 25 unit 03/10/21 17:00 03/14/21 09:19 Insulin Nph/Regular 70/30 Inj SUB-Q 25 unit BIDDIAB CHAU Administration Metoclopramide HCl 5 mg 03/11/21 09:00 Metoclopramide 10 Mg/2 Ml Inj IV Q6H PRN Nausea And Vomiting Metoprolol Tartrate 25 mg 03/12/21 17:00 03/14/21 10:34 Metoprolol Tartrate 25 Mg Tab PO Not Given BID CHAU Ondansetron HCl 4 mg 03/10/21 10:29 Ondansetron 4 Mg/2 Ml Inj IV Q8H PRN Nausea And Vomiting Oxycodone/Acetaminophen 1 tab 03/10/21 10:29 Oxycodone /Acetaminophen 5-325mg Tab PO Q6H PRN Pain, Moderate (4-6) Sodium Chloride 10 ml 03/10/21 22:00 03/14/21 10:34 Sodium Chloride 0.9% 10 Ml Flush Syringe IV Not Given BID CHAU Sodium Chloride 10 ml 03/10/21 10:29 Sodium Chloride 0.9% 10 Ml Flush Syringe IV PRN PRN LINE FLUSH Tamsulosin HCl 0.4 mg 03/11/21 10:00 03/14/21 10:34 Tamsulosin 0.4 Mg Cap PO Not Given QDAY CHAU
[2021-03-14] MEDS: CEFEPIME/NS 1 GM/100 ML 1 GM/100 ML BAG IV SCH (19:49)
[2021-03-15] MEDS: INSULIN NPH/REGULAR 70/30 INJ SUB-Q SCH ×2 (09:08→18:09)
[2021-03-15] MEDS: FAMOTIDINE 20 MG TAB PO SCH (09:10)
[2021-03-15] MEDS: METOPROLOL TARTRATE 25 MG TAB PO SCH ×2 (09:10→23:00)
[2021-03-15] MEDS: TAMSULOSIN 0.4 MG CAP PO SCH (09:10)
--- NOTE | 2021-03-15 11:16 | Progress Note ---
Assessment and Plan Assessment and plan: Patient is a 55-year-old male with history of hypertension, DM2, BPH, CKD, and A. fib on Eliquis presents at the direction of his puller machine, Dr. Houser due to worsening renal function and acute on chronic renal failure. He also says that for the past few days he has not been eating or drinking much but otherwise he denies any physical symptoms or complaints including headache, vision change, fever, chest pain, shortness of breath, cough, abdominal pain, nausea/vomiting, focal weakness, sensory changes, back pain, urinary incontinence/retention, diarrhea, constipation, or any other complaints. Presenting in the emergency room with abnormal labs. Work-up in the emergency room revealed a creatinine of 5.1 Troponin was slightly elevated at 0.352. Chest x-ray was significant for bilateral pneumonia and effusion. Patient was admitted with acute kidney injury, pneumonia and elevated troponin. JULEE with CKD on vasomotor nephropathy likely now ESRD Anemia POA NSTEMI type 2 CKD most likley 2/2 Diabetic nephropathy. Hyperkalemia Severe metabolic acidosis secondary to renal failure DM with hyperglycemia Moderate protien calorie malnutrition Paraxosymal Afib Acute Cystitis Plan Nephrology input noted No new changes Patient underwent renal biopsy to further understand the worsening renal function Awaiting placement Monitor Electrolytes for correction following Kayexalate Continue On Eliquis for AC and metoprolol for suppression. Awaiting chair time at the dialysis center for discharge Vascular consult Medically treat hyperkalemia PT OT evaluation as patient is has gait abnormality ambulates with a cane Abx for Cefepime Urine cultures DVT/GI Prophy History Interval history: Patient seen and examined, resting comfortable, HD access placed, tolerating HD Hospitalist Physical - Physical exam Narrative exam: VITAL SIGNS: Reviewed. GENERAL: The patient appears normally developed, Vital signs as documented. HEAD: No signs of head trauma. EYES: Pupils are equal. Extraocular motions intact. EARS: Hearing grossly intact. MOUTH: Oropharynx is normal. NECK: No adenopathy, no JVD. CHEST: Chest with clear breath sounds bilaterally. No wheezes, rales, or rhonchi. CARDIAC: Regular rate and rhythm. S1 and S2, without murmurs, gallops, or rubs. VASCULAR: Right IJ permacath in place. No Edema. Peripheral pulses normal and equal in all extremities. ABDOMEN: Soft, non tender and non distended. No rebound or guarding, and no masses palpated. Bowel Sounds normal. MUSCULOSKELETAL: Good range of motion of all major joints. Extremities without clubbing, cyanosis or edema. NEUROLOGIC EXAM: Alert and oriented x 3 No focal sensory or strength deficits. Speech normal. Follows commands. Ambulates with a cane PSYCHIATRIC: Mood normal. SKIN: detail exam as documented in skin assessment - Constitutional Vitals: Temp Pulse Resp BP Pulse Ox 98.4 F 80 18 128/70 99 03/15/21 04:53 03/15/21 09:10 03/15/21 04:53 03/15/21 09:10 03/15/21 04:53 General appearance: Present: no acute distress Results - Labs CBC & Chem 7: 03/11/21 03:56 03/14/21 06:16 Labs: Laboratory Last Values WBC 7.4 K/mm3 (4.5-11.0) 03/11/21 03:56 RBC 3.90 M/mm3 (3.65-5.03) 03/11/21 03:56 Hgb 10.1 gm/dl (11.8-15.2) L 03/11/21 03:56 Hct 30.9 % (35.5-45.6) L 03/11/21 03:56 MCV 79 fl (84-94) L 03/11/21 03:56 MCH 26 pg (28-32) L 03/11/21 03:56 MCHC 33 % (32-34) 03/11/21 03:56 RDW 16.6 % (13.2-15.2) H 03/11/21 03:56 Plt Count 351 K/mm3 (140-440) 03/11/21 03:56 Lymph % (Auto) 7.8 % (13.4-35.0) L 03/11/21 03:56 [place] % (Auto) 15.7 % (0.0-7.3) H 03/11/21 03:56 Eos % (Auto) 2.3 % (0.0-4.3) 03/11/21 03:56 Baso % (Auto) 2.5 % (0.0-1.8) H 03/11/21 03:56 Lymph # (Auto) 0.6 K/mm3 (1.2-5.4) L 03/11/21 03:56 [place] # (Auto) 1.2 K/mm3 (0.0-0.8) H 03/11/21 03:56 Eos # (Auto) 0.2 K/mm3 (0.0-0.4) 03/11/21 03:56 Baso # (Auto) 0.2 K/mm3 (0.0-0.1) H 03/11/21 03:56 Seg Neutrophils % 71.7 % (40.0-70.0) H 03/11/21 03:56 Seg Neutrophils # 5.3 K/mm3 (1.8-7.7) 03/11/21 03:56 PT 14.8 Sec. (12.2-14.9) 03/10/21 08:51 INR 1.11 (0.87-1.13) 03/10/21 08:51 APTT 32.8 Sec. (24.2-36.6) 03/10/21 08:51 Sodium 140 mmol/L (137-145) 03/14/21 06:16 Potassium 3.8 mmol/L (3.6-5.0) 03/14/21 06:16 Chloride 101.1 mmol/L (98-107) 03/14/21 06:16 Carbon Dioxide 29 mmol/L (22-30) D 03/14/21 06:16 Anion Gap 14 mmol/L 03/14/21 06:16 BUN 32 mg/dL (9-20) H 03/14/21 06:16 Creatinine 3.3 mg/dL (0.8-1.3) H 03/14/21 06:16 Estimated GFR 19 ml/min 03/14/21 06:16 BUN/Creatinine Ratio 10 % 03/14/21 06:16 Glucose 96 mg/dL (75-100) 03/14/21 06:16 POC Glucose 113 mg/dL (70-105) H 03/15/21 08:26 Calcium 8.8 mg/dL (8.4-10.2) 03/14/21 06:16 Phosphorus 7.30 mg/dL (2.5-4.5) H 03/10/21 03:44 Total Bilirubin 0.20 mg/dL (0.1-1.2) 03/11/21 03:56 AST 7 units/L (5-40) 03/11/21 03:56 ALT < 5 units/L (7-56) L 03/11/21 03:56 Alkaline Phosphatase 80 units/L (35-129) 03/11/21 03:56 Total Protein 8.0 g/dL (6.3-8.2) 03/11/21 03:56 Albumin 3.6 g/dL (3.9-5) L 03/11/21 03:56 Albumin/Globulin Ratio 0.8 % 03/11/21 03:56 Urine Color Yellow (Yellow) 03/10/21 10:06 Urine Turbidity Turbid (Clear) 03/10/21 10:06 Urine pH 6.0 (5.0-7.0) 03/10/21 10:06 Ur Specific [place] 1.010 (1.003-1.030) 03/10/21 10:06 Urine Protein 100 mg/dl mg/dL (Negative) 03/10/21 10:06 Urine Glucose (UA) Neg mg/dL (Negative) 03/10/21 10:06 Urine Ketones Neg mg/dL (Negative) 03/10/21 10:06 Urine Blood Mod (Negative) 03/10/21 10:06 Urine Nitrite Neg (Negative) 03/10/21 10:06 Urine Bilirubin Neg (Negative) 03/10/21 10:06 Urine Urobilinogen < 2.0 mg/dL (<2.0) 03/10/21 10:06 Ur Leukocyte Esterase Lg (Negative) 03/10/21 10:06 Urine WBC (Auto) > 182.0 /HPF (0.0-6.0) H 03/10/21 10:06 Urine RBC (Auto) 43.0 /HPF (0.0-6.0) 03/10/21 10:06 Urine WBC Clumps 3+ /HPF 03/10/21 10:06 Coronavirus (PCR) Negative (Negative) 03/12/21 Unknown Hepatitis A IgM Ab Non-reactive (NonReactive) 03/11/21 11:02 Hep Bs Antigen Non-reactive (Negative) 03/11/21 11:02 Hep B Core IgM Ab Non-reactive (NonReactive) 03/11/21 11:02 Hepatitis C Antibody Non-reactive (NonReactive) 03/11/21 11:02 Blood Type O POSITIVE 03/10/21 08:51 Antibody Screen Negative 03/10/21 08:51 Microbiology: Microbiology 03/10/21 14:51 Peripheral/Venous Blood Culture - Preliminary NO GROWTH AFTER 4 DAYS 03/10/21 14:51 Peripheral/Venous Blood Culture - Preliminary NO GROWTH AFTER 4 DAYS Ramirez/IV: Voiding Method Urinal Active Medications - Current Medications Current Medications: Generic Name Dose Route Start Last Admin Trade Name Freq PRN Reason Stop Dose Admin Acetaminophen 650 mg 03/10/21 10:29 03/14/21 19:56 Acetaminophen 325 Mg Tab PO 650 mg Q4H PRN Administration Pain MILD(1-3)/Fever >100.5/YUNG Albuterol 2.5 mg 03/10/21 10:29 Albuterol 2.5 Mg/3 Ml Nebu IH Q3HRT PRN Shortness Of Breath Famotidine 20 mg 03/10/21 22:00 03/15/21 09:10 Famotidine 20 Mg Tab PO 20 mg DAILY CHAU Administration Heparin Sodium (Porcine) 2,000 unit 03/11/21 11:00 Heparin 10,000 Units/10 Ml Vial IV CARLOS PRN hemodialysis Sodium Chloride 100 mls @ 999 mls/hr 03/11/21 19:37 Nacl 0.9% IV CARLOS PRN Hypotension Cefepime HCl 1 gm in 100 mls @ 200 mls/hr 03/12/21 20:00 03/14/21 19:49 Cefepime/Ns 1 Gm/100 Ml IV 03/18/21 19:59 200 mls/hr Q24H CHAU Administration Insulin Human Isoph/Insulin Regular 25 unit 03/10/21 17:00 03/15/21 09:08 Insulin Nph/Regular 70/30 Inj SUB-Q 25 unit BIDDIAB CHAU Administration Metoclopramide HCl 5 mg 03/11/21 09:00 Metoclopramide 10 Mg/2 Ml Inj IV Q6H PRN Nausea And Vomiting Metoprolol Tartrate 25 mg 03/12/21 17:00 03/15/21 09:10 Metoprolol Tartrate 25 Mg Tab PO 25 mg BID CHAU Administration Ondansetron HCl 4 mg 03/10/21 10:29 Ondansetron 4 Mg/2 Ml Inj IV Q8H PRN Nausea And Vomiting Oxycodone/Acetaminophen 1 tab 03/10/21 10:29 Oxycodone /Acetaminophen 5-325mg Tab PO Q6H PRN Pain, Moderate (4-6) Sodium Chloride 10 ml 03/10/21 22:00 03/15/21 09:11 Sodium Chloride 0.9% 10 Ml Flush Syringe IV 10 ml BID CHAU Administration Sodium Chloride 10 ml 03/10/21 10:29 Sodium Chloride 0.9% 10 Ml Flush Syringe IV PRN PRN LINE FLUSH Tamsulosin HCl 0.4 mg 03/11/21 10:00 03/15/21 09:10 Tamsulosin 0.4 Mg Cap PO 0.4 mg QDAY CHAU Administration
--- NOTE | 2021-03-15 11:47 | Progress Note ---
Assessment and Plan 1. ESRD: Advanced CKD now progressed to ESRD. CKD most likley 2/2 Diabetic nephropathy. LEONEL, ANCA, GBM Ab, Complements and SPEP were negative. Significant decline in the renal function over a period of 6 months. S/p Kidney biopsy 03/13, await results. Monitor renal function. Renal prognosis is poor. Avoid nephrotoxic agents. Meds dosage based on GFR. Monitor for ENVIRONMENTAL SERVICES ASSISTANT needs. Patient was started on hemodialysis due to significant metabolic acidosis and hyperkalemia. Hemodialysis: 03/12, 03/13, 03/14. 2. FEN: Hyperkalemia, improved, monitor. Anion-gap metabolic acidosis, improved, monitor. Monitor lytes and volume status. 3. Hx of Paroxysmal atrial fibrillation: Restart Eliquis, spoke to Pharmacy. Metoprolol for suppression. LVEF 50-55% by echo 09/2020. 4. DM type 2. 5. Anemia, POA: Chronic. Epogen as needed. Monitor. 6. Hypertension: BP controlled. Await outpatient HD chair. Subjective: Patient was seen and examined at the bedside. Urine is clear. Examination: General appearance: well-developed, appears stated age, thin built, not in distress HEENT: atraumatic, SOUMYA Neck: trachea midline Respiratory: ctab Heart: S1S2, regular, no murmur Abdomen: soft, bowel sounds heard, NT Integumentary: no obvious rash Neurologic: AO, non-focal Ext: no edema Hemodialysis access: R IJ tunnel catheter Subjective Date of service: 03/15/21 Objective - Vital Signs Vital signs: Vital Signs - 12hr 03/15/21 03/15/21 04:53 09:10 Temperature 98.4 F Pulse Rate 80 80 Respiratory 18 Rate Blood Pressure 128/70 128/70 O2 Sat by Pulse 99 Oximetry - Lab 03/11/21 03:56 03/14/21 06:16 Most recent lab results Calcium 8.8 mg/dL (8.4-10.2) 03/14/21 06:16 Phosphorus 7.30 mg/dL (2.5-4.5) H 03/10/21 03:44 Medications & Allergies - Medications Allergies/Adverse Reactions: Allergies No Known Allergies Allergy (Verified 09/14/20 09:38) Home Medications: Home Medications Medication Instructions Recorded Confirmed Last Taken Type Insulin NPH/Regular [NovoLIN 70/30] 25 unit SUB-Q BIDDIAB #2 vial 09/19/20 03/11/21 Unknown Rx Tamsulosin [Flomax] 0.4 mg PO QDAY #30 capsule 09/19/20 03/11/21 Unknown Rx Iron [Iron 18 MG TAB] 18 mg PO QDAY 01/15/21 03/11/21 Unknown History Multivit-Min/FA/Lycopen/Lutein 1 each PO QDAY 01/15/21 03/11/21 Unknown History [Centrum Silver Men Tablet] Apixaban [Eliquis] 5 mg PO Q12HR #60 tablet 01/21/21 03/11/21 Unknown Rx Metoprolol [Lopressor TAB] 50 mg PO BID #60 tablet 01/21/21 03/11/21 Unknown Rx Active Medications: Generic Name Dose Route Start Last Admin Trade Name Freq PRN Reason Stop Dose Admin Acetaminophen 650 mg 03/10/21 10:29 03/14/21 19:56 Acetaminophen 325 Mg Tab PO 650 mg Q4H PRN Administration Pain MILD(1-3)/Fever >100.5/YUNG Albuterol 2.5 mg 03/10/21 10:29 Albuterol 2.5 Mg/3 Ml Nebu IH Q3HRT PRN Shortness Of Breath Famotidine 20 mg 03/10/21 22:00 03/15/21 09:10 Famotidine 20 Mg Tab PO 20 mg DAILY CHAU Administration Heparin Sodium (Porcine) 2,000 unit 03/11/21 11:00 Heparin 10,000 Units/10 Ml Vial IV CARLOS PRN hemodialysis Sodium Chloride 100 mls @ 999 mls/hr 03/11/21 19:37 Nacl 0.9% IV CARLOS PRN Hypotension Cefepime HCl 1 gm in 100 mls @ 200 mls/hr 03/12/21 20:00 03/14/21 19:49 Cefepime/Ns 1 Gm/100 Ml IV 03/18/21 19:59 200 mls/hr Q24H CHAU Administration Insulin Human Isoph/Insulin Regular 25 unit 03/10/21 17:00 03/15/21 09:08 Insulin Nph/Regular 70/30 Inj SUB-Q 25 unit BIDDIAB CHAU Administration Metoclopramide HCl 5 mg 03/11/21 09:00 Metoclopramide 10 Mg/2 Ml Inj IV Q6H PRN Nausea And Vomiting Metoprolol Tartrate 25 mg 03/12/21 17:00 03/15/21 09:10 Metoprolol Tartrate 25 Mg Tab PO 25 mg BID CHAU Administration Ondansetron HCl 4 mg 03/10/21 10:29 Ondansetron 4 Mg/2 Ml Inj IV Q8H PRN Nausea And Vomiting Oxycodone/Acetaminophen 1 tab 03/10/21 10:29 Oxycodone /Acetaminophen 5-325mg Tab PO Q6H PRN Pain, Moderate (4-6) Sodium Chloride 10 ml 03/10/21 22:00 03/15/21 09:11 Sodium Chloride 0.9% 10 Ml Flush Syringe IV 10 ml BID CHAU Administration Sodium Chloride 10 ml 03/10/21 10:29 Sodium Chloride 0.9% 10 Ml Flush Syringe IV PRN PRN LINE FLUSH Tamsulosin HCl 0.4 mg 03/11/21 10:00 03/15/21 09:10 Tamsulosin 0.4 Mg Cap PO 0.4 mg QDAY CHAU Administration
[2021-03-15] MEDS: APIXABAN 2.5 MG TAB PO SCH ×2 (18:09→23:00)
[2021-03-15] MEDS: CEFEPIME/NS 1 GM/100 ML 1 GM/100 ML BAG IV SCH (21:29)
[2021-03-16] MEDS: INSULIN NPH/REGULAR 70/30 INJ SUB-Q SCH ×2 (09:16→19:30)
[2021-03-16] MEDS: METOPROLOL TARTRATE 25 MG TAB PO SCH ×2 (11:44→21:30)
[2021-03-16] MEDS: FAMOTIDINE 20 MG TAB PO SCH (11:44)
[2021-03-16] MEDS: TAMSULOSIN 0.4 MG CAP PO SCH (11:45)
[2021-03-16] MEDS: APIXABAN 2.5 MG TAB PO SCH ×2 (11:45→21:30)
--- NOTE | 2021-03-16 12:51 | Discharge Summary ---
Providers - Providers Date of Admission: 03/10/21 10:29 Attending physician: NAHEED HOLDER MD 03/10/21 Consult to Case Management [CONS] Routine Services Needed at Discharge: Pc Tech Notified:: NO Additional Physician Instructions: OUTPATIENT HD 03/10/21 09:08 Consult to Interventional Radiology [CONS] Routine Consulting Provider: ANUEL PENG Reason For Exam: Tunnel hemodialysis catheter. Place consult to:: DR. GUTHRIE Notified:: DR. GUTHRIE Was contact made?: Yes 03/10/21 09:45 Consult to Physician [CONS] Stat Comment: Consulting Provider: VIKI JOHNSON Physician Instructions: Reason For Exam: renal failure 03/10/21 15:25 Physical Therapy Evaluation and Treat [CONS] Routine Comment: Reason For Exam: debility Primary care physician: FIBER ARTIST Hospitalization Reason for admission: esrd Condition: Stable Hospital course: Patient is a 55-year-old male with history of hypertension, DM2, BPH, CKD, and A. fib on Eliquis presents at the direction of his service desk manager, Dr. Johnson due to worsening renal function and acute on chronic renal failure. He also says that for the past few days he has not been eating or drinking much but otherwise he denies any physical symptoms or complaints including headache, vision change, fever, chest pain, shortness of breath, cough, abdominal pain, nausea/vo miting, focal weakness, sensory changes, back pain, urinary incontinence/retention, diarrhea, constipation, or any other complaints. Presenting in the emergency room with abnormal labs. Work-up in the emergency room revealed a creatinine of 5.1 Troponin was slightly elevated at 0.352. Chest x-ray was significant for bilateral pneumonia and effusion. Patient was admitted with acute kidney injury, pneumonia and elevated troponin. JULEE with CKD on vasomotor nephropathy likely now ESRD Anemia POA NSTEMI type 2 CKD most likley 2/2 Diabetic nephropathy. Hyperkalemia Severe metabolic acidosis secondary to renal failure DM with hyperglycemia Moderate protien calorie malnutrition Paraxosymal Afib Acute Cystitis Plan 03/16 Patient continues to do well, awaiting Chair time for discharge and can be discharged when chair time is determined Nephrology input noted No new changes Patient underwent renal biopsy to further understand the worsening renal function Awaiting placement Monitor Electrolytes for correction following Kayexalate Continue On Eliquis for AC and metoprolol for suppression. Awaiting chair time at the dialysis center for discharge Vascular consult Medically treat hyperkalemia PT OT evaluation as patient is has gait abnormality ambulates with a cane Abx for Cefepime Urine cultures DVT/GI Prophy Disposition: DC-01 TO HOME OR SELFCARE Final Discharge Diagnosis (Prints w/discharge instructions): JULEE with CKD on vasomotor nephropathy likely now ESRD Time spent for discharge: 35 MINS Core Measure Documentation - Palliative Care Palliative Care/ Comfort Measures: Not Applicable - Core Measures Any of the following diagnoses?: none Exam - Physical Exam Narrative exam: VITAL SIGNS: Reviewed. GENERAL: The patient appears normally developed, Vital signs as documented. HEAD: No signs of head trauma. EYES: Pupils are equal. Extraocular motions intact. EARS: Hearing grossly intact. MOUTH: Oropharynx is normal. NECK: No adenopathy, no JVD. CHEST: Chest with clear breath sounds bilaterally. No wheezes, rales, or rhonchi. CARDIAC: Regular rate and rhythm. S1 and S2, without murmurs, gallops, or rubs. VASCULAR: Right IJ permacath in place. No Edema. Peripheral pulses normal and equal in all extremities. ABDOMEN: Soft, non tender and non distended. No rebound or guarding, and no masses palpated. Bowel Sounds normal. MUSCULOSKELETAL: Good range of motion of all major joints. Extremities without clubbing, cyanosis or edema. NEUROLOGIC EXAM: Alert and oriented x 3 No focal sensory or strength deficits. Speech normal. Follows commands. Ambulates with a cane PSYCHIATRIC: Mood normal. SKIN: detail exam as documented in skin assessment - Constitutional Vitals: Temp Pulse Resp BP Pulse Ox 98.3 F 89 18 129/75 98 03/16/21 04:48 03/16/21 04:48 03/16/21 04:48 03/16/21 04:48 03/16/21 04:48 Plan Activity: advance as tolerated, fall precautions Diet: renal Special Instructions: restrict fluid intake to (1000cc/day), record daily weights, record daily BP diary Follow up with: ANNA GIRARD MD [Primary Care Provider] - 3-5 Days VIKI JOHNSON MD [Staff Physician] - 7 Days Prescriptions: Apixaban [Eliquis] 2.5 mg PO BID #60 tablet Metoprolol [Lopressor TAB] 25 mg PO BID #60 tablet Famotidine [Pepcid] 20 mg PO DAILY #30 tablet
--- NOTE | 2021-03-16 13:03 | Progress Note ---
Assessment and Plan 1. ESRD: Advanced CKD now progressed to ESRD. CKD most likley 2/2 Diabetic nephropathy. LEONEL, ANCA, GBM Ab, Complements and SPEP were negative. Significant decline in the renal function over a period of 6 months. S/p Kidney biopsy 03/13, await results. Monitor renal function. Renal prognosis is poor. Avoid nephrotoxic agents. Meds dosage based on GFR. Monitor for BASEBALL GLOVE SHAPER needs. Patient was started on hemodialysis due to significant metabolic acidosis and hyperkalemia. Hemodialysis: 03/12, 03/13, 03/14. 2. FEN: Hyperkalemia, improved, monitor. Anion-gap metabolic acidosis, improved, monitor. Monitor lytes and volume status. 3. Hx of Paroxysmal atrial fibrillation: On Eliquis and Metoprolol. LVEF 50-55% by echo 09/2020. 4. DM type 2. 5. Anemia, POA: Chronic. Epogen as needed. Monitor. 6. Hypertension: BP controlled. Outpatient HD chair pending. D/w patient and his nephew about coming to ER for dialysis until he gets outpatient dialysis chair. Subjective: Patient was seen and examined at the bedside. Doing ok. Examination: General appearance: well-developed, appears stated age, thin built, not in distress HEENT: atraumatic, SOUMYA Neck: trachea midline Respiratory: ctab Heart: S1S2, regular, no murmur Abdomen: soft, bowel sounds heard, NT Integumentary: no obvious rash Neurologic: AO, non-focal Ext: no edema Hemodialysis access: R IJ tunnel catheter Subjective Date of service: 03/16/21 Objective - Vital Signs Vital signs: Vital Signs - 12hr 03/16/21 04:48 Temperature 98.3 F Pulse Rate 89 Respiratory 18 Rate Blood Pressure 129/75 O2 Sat by Pulse 98 Oximetry - Lab 03/11/21 03:56 03/14/21 06:16 Most recent lab results Calcium 8.8 mg/dL (8.4-10.2) 03/14/21 06:16 Phosphorus 7.30 mg/dL (2.5-4.5) H 03/10/21 03:44 Medications & Allergies - Medications Allergies/Adverse Reactions: Allergies No Known Allergies Allergy (Verified 09/14/20 09:38) Home Medications: Home Medications Medication Instructions Recorded Confirmed Last Taken Type Insulin NPH/Regular [NovoLIN 70/30] 25 unit SUB-Q BIDDIAB #2 vial 09/19/20 03/11/21 Unknown Rx Tamsulosin [Flomax] 0.4 mg PO QDAY #30 capsule 09/19/20 03/11/21 Unknown Rx Iron [Iron 18 MG TAB] 18 mg PO QDAY 01/15/21 03/11/21 Unknown History Multivit-Min/FA/Lycopen/Lutein 1 each PO QDAY 01/15/21 03/11/21 Unknown History [Centrum Silver Men Tablet] Apixaban [Eliquis] 2.5 mg PO BID #60 tablet 03/16/21 Unknown Rx Famotidine [Pepcid] 20 mg PO DAILY #30 tablet 03/16/21 Unknown Rx Metoprolol [Lopressor TAB] 25 mg PO BID #60 tablet 03/16/21 Unknown Rx Active Medications: Generic Name Dose Route Start Last Admin Trade Name Freq PRN Reason Stop Dose Admin Acetaminophen 650 mg 03/10/21 10:29 03/14/21 19:56 Acetaminophen 325 Mg Tab PO 650 mg Q4H PRN Administration Pain MILD(1-3)/Fever >100.5/YUNG Albuterol 2.5 mg 03/10/21 10:29 Albuterol 2.5 Mg/3 Ml Nebu IH Q3HRT PRN Shortness Of Breath Apixaban 2.5 mg 03/15/21 14:00 03/16/21 11:45 Apixaban 2.5 Mg Tab PO 2.5 mg BID CHAU Administration Famotidine 20 mg 03/10/21 22:00 03/16/21 11:44 Famotidine 20 Mg Tab PO 20 mg DAILY CHAU Administration Heparin Sodium (Porcine) 2,000 unit 03/11/21 11:00 Heparin 10,000 Units/10 Ml Vial IV CARLOS PRN hemodialysis Sodium Chloride 100 mls @ 999 mls/hr 03/11/21 19:37 Nacl 0.9% IV CARLOS PRN Hypotension Cefepime HCl 1 gm in 100 mls @ 200 mls/hr 03/12/21 20:00 03/15/21 21:29 Cefepime/Ns 1 Gm/100 Ml IV 03/18/21 19:59 200 mls/hr Q24H CHAU Administration Insulin Human Isoph/Insulin Regular 25 unit 03/10/21 17:00 03/16/21 09:16 Insulin Nph/Regular 70/30 Inj SUB-Q 25 unit BIDDIAB CHAU Administration Metoclopramide HCl 5 mg 03/11/21 09:00 Metoclopramide 10 Mg/2 Ml Inj IV Q6H PRN Nausea And Vomiting Metoprolol Tartrate 25 mg 03/12/21 17:00 03/16/21 11:44 Metoprolol Tartrate 25 Mg Tab PO 25 mg BID CHAU Administration Ondansetron HCl 4 mg 03/10/21 10:29 Ondansetron 4 Mg/2 Ml Inj IV Q8H PRN Nausea And Vomiting Oxycodone/Acetaminophen 1 tab 03/10/21 10:29 Oxycodone /Acetaminophen 5-325mg Tab PO Q6H PRN Pain, Moderate (4-6) Sodium Chloride 10 ml 03/10/21 22:00 03/15/21 21:30 Sodium Chloride 0.9% 10 Ml Flush Syringe IV 10 ml BID CHAU Administration Sodium Chloride 10 ml 03/10/21 10:29 Sodium Chloride 0.9% 10 Ml Flush Syringe IV PRN PRN LINE FLUSH Tamsulosin HCl 0.4 mg 03/11/21 10:00 03/16/21 11:45 Tamsulosin 0.4 Mg Cap PO 0.4 mg QDAY CHAU Administration
[2021-03-16] MEDS: CEFEPIME/NS 1 GM/100 ML 1 GM/100 ML BAG IV SCH (21:29)
[2021-03-17] MEDS: INSULIN NPH/REGULAR 70/30 INJ SUB-Q SCH ×2 (08:26→18:39)
--- NOTE | 2021-03-17 09:38 | Progress Note ---
Assessment and Plan Assessment and plan: Patient is a 55-year-old male with history of hypertension, DM2, BPH, CKD, and A. fib on Eliquis presents at the direction of his drafter chief design, Dr. Houser due to worsening renal function and acute on chronic renal failure. He also says that for the past few days he has not been eating or drinking much but otherwise he denies any physical symptoms or complaints including headache, vision change, fever, chest pain, shortness of breath, cough, abdominal pain, nausea/vomiting, focal weakness, sensory changes, back pain, urinary incontinence/retention, diarrhea, constipation, or any other complaints. Presenting in the emergency room with abnormal labs. Work-up in the emergency room revealed a creatinine of 5.1 Troponin was slightly elevated at 0.352. Chest x-ray was significant for bilateral pneumonia and effusion. Patient was admitted with acute kidney injury, pneumonia and elevated troponin. JULEE with CKD on vasomotor nephropathy likely now ESRD Anemia POA NSTEMI type 2 CKD most likley 2/2 Diabetic nephropathy. Hyperkalemia Severe metabolic acidosis secondary to renal failure DM with hyperglycemia Moderate protien calorie malnutrition Paraxosymal Afib Acute Cystitis Plan Nephrology input noted No new changes Patient underwent renal biopsy to further understand the worsening renal function Awaiting placement Monitor Electrolytes for correction following Kayexalate Continue On Eliquis for AC and metoprolol for suppression. Awaiting chair time at the dialysis center for discharge Vascular consult Medically treat hyperkalemia PT OT evaluation as patient is has gait abnormality ambulates with a cane Abx for Cefepime Urine cultures DVT/GI Prophy 03/17/2021 -Patient is awaiting outpatient hemodialysis chair arrangement. Will follow with case management. History Interval history: Patient was seen and evaluated this morning Patient does not have any complaints Hospitalist Physical - Physical exam Narrative exam: Not in cardiopulmonary distress. The patient appeared well nourished and normally developed. Vital signs as documented. Head exam is unremarkable. No scleral icterus . Neck is without jugular venous distension, thyromegaly, or carotid bruits. Lungs are clear to auscultation. Cardiac exam reveals regular rate and Rhythm. Abdominal exam reveals normal bowel sounds, nontender, no organomegaly. Extremities are nonedematous and both femoral and pedal pulses are normal. SUPERVISOR FIBER LOCKING: Alert and oriented 3. No focal weakness. - Constitutional Vitals: Temp Pulse Resp BP Pulse Ox 97.7 F 78 16 106/59 100 03/17/21 04:08 03/17/21 04:08 03/17/21 04:08 03/17/21 04:08 03/17/21 04:08 General appearance: Present: no acute distress Results - Labs CBC & Chem 7: 03/11/21 03:56 03/14/21 06:16 Labs: Laboratory Last Values WBC 7.4 K/mm3 (4.5-11.0) 03/11/21 03:56 RBC 3.90 M/mm3 (3.65-5.03) 03/11/21 03:56 Hgb 10.1 gm/dl (11.8-15.2) L 03/11/21 03:56 Hct 30.9 % (35.5-45.6) L 03/11/21 03:56 MCV 79 fl (84-94) L 03/11/21 03:56 MCH 26 pg (28-32) L 03/11/21 03:56 MCHC 33 % (32-34) 03/11/21 03:56 RDW 16.6 % (13.2-15.2) H 03/11/21 03:56 Plt Count 351 K/mm3 (140-440) 03/11/21 03:56 Lymph % (Auto) 7.8 % (13.4-35.0) L 03/11/21 03:56 [place] % (Auto) 15.7 % (0.0-7.3) H 03/11/21 03:56 Eos % (Auto) 2.3 % (0.0-4.3) 03/11/21 03:56 Baso % (Auto) 2.5 % (0.0-1.8) H 03/11/21 03:56 Lymph # (Auto) 0.6 K/mm3 (1.2-5.4) L 03/11/21 03:56 [place] # (Auto) 1.2 K/mm3 (0.0-0.8) H 03/11/21 03:56 Eos # (Auto) 0.2 K/mm3 (0.0-0.4) 03/11/21 03:56 Baso # (Auto) 0.2 K/mm3 (0.0-0.1) H 03/11/21 03:56 Seg Neutrophils % 71.7 % (40.0-70.0) H 03/11/21 03:56 Seg Neutrophils # 5.3 K/mm3 (1.8-7.7) 03/11/21 03:56 PT 14.8 Sec. (12.2-14.9) 03/10/21 08:51 INR 1.11 (0.87-1.13) 03/10/21 08:51 APTT 32.8 Sec. (24.2-36.6) 03/10/21 08:51 Sodium 140 mmol/L (137-145) 03/14/21 06:16 Potassium 3.8 mmol/L (3.6-5.0) 03/14/21 06:16 Chloride 101.1 mmol/L (98-107) 03/14/21 06:16 Carbon Dioxide 29 mmol/L (22-30) D 03/14/21 06:16 Anion Gap 14 mmol/L 03/14/21 06:16 BUN 32 mg/dL (9-20) H 03/14/21 06:16 Creatinine 3.3 mg/dL (0.8-1.3) H 03/14/21 06:16 Estimated GFR 19 ml/min 03/14/21 06:16 BUN/Creatinine Ratio 10 % 03/14/21 06:16 Glucose 96 mg/dL (75-100) 03/14/21 06:16 POC Glucose 103 mg/dL (70-105) 03/17/21 08:15 Calcium 8.8 mg/dL (8.4-10.2) 03/14/21 06:16 Phosphorus 7.30 mg/dL (2.5-4.5) H 03/10/21 03:44 Total Bilirubin 0.20 mg/dL (0.1-1.2) 03/11/21 03:56 AST 7 units/L (5-40) 03/11/21 03:56 ALT < 5 units/L (7-56) L 03/11/21 03:56 Alkaline Phosphatase 80 units/L (35-129) 03/11/21 03:56 Total Protein 8.0 g/dL (6.3-8.2) 03/11/21 03:56 Albumin 3.6 g/dL (3.9-5) L 03/11/21 03:56 Albumin/Globulin Ratio 0.8 % 03/11/21 03:56 Urine Color Yellow (Yellow) 03/10/21 10:06 Urine Turbidity Turbid (Clear) 03/10/21 10:06 Urine pH 6.0 (5.0-7.0) 03/10/21 10:06 Ur Specific [place] 1.010 (1.003-1.030) 03/10/21 10:06 Urine Protein 100 mg/dl mg/dL (Negative) 03/10/21 10:06 Urine Glucose (UA) Neg mg/dL (Negative) 03/10/21 10:06 Urine Ketones Neg mg/dL (Negative) 03/10/21 10:06 Urine Blood Mod (Negative) 03/10/21 10:06 Urine Nitrite Neg (Negative) 03/10/21 10:06 Urine Bilirubin Neg (Negative) 03/10/21 10:06 Urine Urobilinogen < 2.0 mg/dL (<2.0) 03/10/21 10:06 Ur Leukocyte Esterase Lg (Negative) 03/10/21 10:06 Urine WBC (Auto) > 182.0 /HPF (0.0-6.0) H 03/10/21 10:06 Urine RBC (Auto) 43.0 /HPF (0.0-6.0) 03/10/21 10:06 Urine WBC Clumps 3+ /HPF 03/10/21 10:06 Coronavirus (PCR) Negative (Negative) 03/12/21 Unknown Hepatitis A IgM Ab Non-reactive (NonReactive) 03/11/21 11:02 Hep Bs Antigen Non-reactive (Negative) 03/11/21 11:02 Hep B Core IgM Ab Non-reactive (NonReactive) 03/11/21 11:02 Hepatitis C Antibody Non-reactive (NonReactive) 03/11/21 11:02 Blood Type O POSITIVE 03/10/21 08:51 Antibody Screen Negative 03/10/21 08:51 Ramirez/IV: Voiding Method Urinal Active Medications - Current Medications Current Medications: Generic Name Dose Route Start Last Admin Trade Name Freq PRN Reason Stop Dose Admin Acetaminophen 650 mg 03/10/21 10:29 03/14/21 19:56 Acetaminophen 325 Mg Tab PO 650 mg Q4H PRN Administration Pain MILD(1-3)/Fever >100.5/YUNG Albuterol 2.5 mg 03/10/21 10:29 Albuterol 2.5 Mg/3 Ml Nebu IH Q3HRT PRN Shortness Of Breath Apixaban 2.5 mg 03/15/21 14:00 03/16/21 21:30 Apixaban 2.5 Mg Tab PO 2.5 mg BID CHAU Administration Famotidine 20 mg 03/10/21 22:00 03/16/21 11:44 Famotidine 20 Mg Tab PO 20 mg DAILY CHAU Administration Heparin Sodium (Porcine) 2,000 unit 03/11/21 11:00 Heparin 10,000 Units/10 Ml Vial IV CARLOS PRN hemodialysis Sodium Chloride 100 mls @ 999 mls/hr 03/11/21 19:37 Nacl 0.9% IV CARLOS PRN Hypotension Cefepime HCl 1 gm in 100 mls @ 200 mls/hr 03/12/21 20:00 03/16/21 21:29 Cefepime/Ns 1 Gm/100 Ml IV 03/18/21 19:59 200 mls/hr Q24H CHAU Administration Insulin Human Isoph/Insulin Regular 25 unit 03/10/21 17:00 03/17/21 08:26 Insulin Nph/Regular 70/30 Inj SUB-Q Not Given BIDDIAB CHAU Metoclopramide HCl 5 mg 03/11/21 09:00 Metoclopramide 10 Mg/2 Ml Inj IV Q6H PRN Nausea And Vomiting Metoprolol Tartrate 25 mg 03/12/21 17:00 03/16/21 21:30 Metoprolol Tartrate 25 Mg Tab PO 25 mg BID CHAU Administration Ondansetron HCl 4 mg 03/10/21 10:29 Ondansetron 4 Mg/2 Ml Inj IV Q8H PRN Nausea And Vomiting Oxycodone/Acetaminophen 1 tab 03/10/21 10:29 Oxycodone /Acetaminophen 5-325mg Tab PO Q6H PRN Pain, Moderate (4-6) Sodium Chloride 10 ml 03/10/21 22:00 03/17/21 08:26 Sodium Chloride 0.9% 10 Ml Flush Syringe IV Not Given BID CHAU Sodium Chloride 10 ml 03/10/21 10:29 Sodium Chloride 0.9% 10 Ml Flush Syringe IV PRN PRN LINE FLUSH Tamsulosin HCl 0.4 mg 03/11/21 10:00 03/16/21 11:45 Tamsulosin 0.4 Mg Cap PO 0.4 mg QDAY CHAU Administration Nutrition/Malnutrition Assess - Dietary Evaluation Nutrition/Malnutrition Findings: Nutrition Notes Start: 03/17/21 08:29 Freq: Status: Active Protocol: Document 03/17/21 08:29 MIKAEL (Rec: 03/17/21 08:29 [email or web address]) Nutrition Notes Need for Assessment generated from: LOS Initial or Follow up Brief Note Subjective/Other Information Screen for LOS. Pt eating 75- 100% of meals. Nutrition Intervention Revisit per MD consult or patient Sign Off request:
[2021-03-17] MEDS: METOPROLOL TARTRATE 25 MG TAB PO SCH ×2 (10:48→21:26)
[2021-03-17] MEDS: APIXABAN 2.5 MG TAB PO SCH ×2 (10:48→21:26)
[2021-03-17] MEDS: FAMOTIDINE 20 MG TAB PO SCH (10:48)
[2021-03-17] MEDS: TAMSULOSIN 0.4 MG CAP PO SCH (10:48)
--- NOTE | 2021-03-17 13:40 | Progress Note ---
Assessment and Plan 1. ESRD: Advanced CKD now progressed to ESRD. CKD most likley 2/2 Diabetic nephropathy. LEONEL, ANCA, GBM Ab, Complements and SPEP were negative. Significant decline in the renal function over a period of 6 months. S/p Kidney biopsy 03/13, showed diabetic nephropathy. Monitor renal function. Renal prognosis is poor. Avoid nephrotoxic agents. Meds dosage based on GFR. Monitor for LDR NURSE needs. Patient was started on hemodialysis due to significant metabolic acidosis and hyperkalemia. Hemodialysis: 03/12, 03/13, 03/14. HD today. 2. FEN: Hyperkalemia, improved, monitor. Anion-gap metabolic acidosis, improved, monitor. Monitor lytes and volume status. 3. Hx of Paroxysmal atrial fibrillation: On Eliquis and Metoprolol. LVEF 50-55% by echo 09/2020. 4. DM type 2. 5. Anemia, POA: Chronic. Epogen as needed. Monitor. 6. Hypertension: BP controlled. Outpatient HD chair pending. Subjective: Patient was seen and examined at the bedside. Doing ok. Examination: General appearance: well-developed, appears stated age, thin built, not in distress HEENT: atraumatic, SOUMYA Neck: trachea midline Respiratory: ctab Heart: S1S2, regular, no murmur Abdomen: soft, bowel sounds heard, NT Integumentary: no obvious rash Neurologic: AO, non-focal Ext: no edema Hemodialysis access: R IJ tunnel catheter Subjective Date of service: 03/17/21 Objective - Vital Signs Vital signs: Vital Signs - 12hr 03/17/21 04:08 Temperature 97.7 F Pulse Rate 78 Respiratory 16 Rate Blood Pressure 106/59 O2 Sat by Pulse 100 Oximetry - Lab 03/11/21 03:56 03/14/21 06:16 Most recent lab results Calcium 8.8 mg/dL (8.4-10.2) 03/14/21 06:16 Phosphorus 7.30 mg/dL (2.5-4.5) H 03/10/21 03:44 Medications & Allergies - Medications Allergies/Adverse Reactions: Allergies No Known Allergies Allergy (Verified 09/14/20 09:38) Home Medications: Home Medications Medication Instructions Recorded Confirmed Last Taken Type Insulin NPH/Regular [NovoLIN 70/30] 25 unit SUB-Q BIDDIAB #2 vial 09/19/20 03/11/21 Unknown Rx Tamsulosin [Flomax] 0.4 mg PO QDAY #30 capsule 09/19/20 03/11/21 Unknown Rx Iron [Iron 18 MG TAB] 18 mg PO QDAY 01/15/21 03/11/21 Unknown History Multivit-Min/FA/Lycopen/Lutein 1 each PO QDAY 01/15/21 03/11/21 Unknown History [Centrum Silver Men Tablet] Apixaban [Eliquis] 2.5 mg PO BID #60 tablet 03/16/21 Unknown Rx Famotidine [Pepcid] 20 mg PO DAILY #30 tablet 03/16/21 Unknown Rx Metoprolol [Lopressor TAB] 25 mg PO BID #60 tablet 03/16/21 Unknown Rx Active Medications: Generic Name Dose Route Start Last Admin Trade Name Freq PRN Reason Stop Dose Admin Acetaminophen 650 mg 03/10/21 10:29 03/14/21 19:56 Acetaminophen 325 Mg Tab PO 650 mg Q4H PRN Administration Pain MILD(1-3)/Fever >100.5/YUNG Albuterol 2.5 mg 03/10/21 10:29 Albuterol 2.5 Mg/3 Ml Nebu IH Q3HRT PRN Shortness Of Breath Apixaban 2.5 mg 03/15/21 14:00 03/17/21 10:48 Apixaban 2.5 Mg Tab PO 2.5 mg BID CHAU Administration Famotidine 20 mg 03/10/21 22:00 03/17/21 10:48 Famotidine 20 Mg Tab PO 20 mg DAILY CHAU Administration Heparin Sodium (Porcine) 2,000 unit 03/11/21 11:00 Heparin 10,000 Units/10 Ml Vial IV CARLOS PRN hemodialysis Sodium Chloride 100 mls @ 999 mls/hr 03/11/21 19:37 Nacl 0.9% IV CARLOS PRN Hypotension Cefepime HCl 1 gm in 100 mls @ 200 mls/hr 03/12/21 20:00 03/16/21 21:29 Cefepime/Ns 1 Gm/100 Ml IV 03/18/21 19:59 200 mls/hr Q24H CHAU Administration Insulin Human Isoph/Insulin Regular 25 unit 03/10/21 17:00 03/17/21 08:26 Insulin Nph/Regular 70/30 Inj SUB-Q Not Given BIDDIAB CHAU Metoclopramide HCl 5 mg 03/11/21 09:00 Metoclopramide 10 Mg/2 Ml Inj IV Q6H PRN Nausea And Vomiting Metoprolol Tartrate 25 mg 03/12/21 17:00 03/17/21 10:48 Metoprolol Tartrate 25 Mg Tab PO 25 mg BID CHAU Administration Ondansetron HCl 4 mg 03/10/21 10:29 Ondansetron 4 Mg/2 Ml Inj IV Q8H PRN Nausea And Vomiting Oxycodone/Acetaminophen 1 tab 03/10/21 10:29 Oxycodone /Acetaminophen 5-325mg Tab PO Q6H PRN Pain, Moderate (4-6) Sodium Chloride 10 ml 03/10/21 22:00 03/17/21 10:49 Sodium Chloride 0.9% 10 Ml Flush Syringe IV 10 ml BID CHAU Administration Sodium Chloride 10 ml 03/10/21 10:29 Sodium Chloride 0.9% 10 Ml Flush Syringe IV PRN PRN LINE FLUSH Tamsulosin HCl 0.4 mg 03/11/21 10:00 03/17/21 10:48 Tamsulosin 0.4 Mg Cap PO 0.4 mg QDAY CHAU Administration
[2021-03-17] MEDS: CEFEPIME/NS 1 GM/100 ML 1 GM/100 ML BAG IV SCH (21:25)
--- NOTE | 2021-03-18 08:48 | Progress Note ---
Assessment and Plan Assessment and plan: Patient is a 55-year-old male with history of hypertension, DM2, BPH, CKD, and A. fib on Eliquis presents at the direction of his offal baler, Dr. Houser due to worsening renal function and acute on chronic renal failure. He also says that for the past few days he has not been eating or drinking much but otherwise he denies any physical symptoms or complaints including headache, vision change, fever, chest pain, shortness of breath, cough, abdominal pain, nausea/vomiting, focal weakness, sensory changes, back pain, urinary incontinence/retention, diarrhea, constipation, or any other complaints. Presenting in the emergency room with abnormal labs. Work-up in the emergency room revealed a creatinine of 5.1 Troponin was slightly elevated at 0.352. Chest x-ray was significant for bilateral pneumonia and effusion. Patient was admitted with acute kidney injury, pneumonia and elevated troponin. JULEE with CKD on vasomotor nephropathy likely now ESRD Anemia POA NSTEMI type 2 CKD most likley 2/2 Diabetic nephropathy. Hyperkalemia Severe metabolic acidosis secondary to renal failure DM with hyperglycemia Moderate protien calorie malnutrition Paraxosymal Afib Acute Cystitis Plan Nephrology input noted No new changes Patient underwent renal biopsy to further understand the worsening renal function Awaiting placement Monitor Electrolytes for correction following Kayexalate Continue On Eliquis for AC and metoprolol for suppression. Awaiting chair time at the dialysis center for discharge Vascular consult Medically treat hyperkalemia PT OT evaluation as patient is has gait abnormality ambulates with a cane Abx for Cefepime Urine cultures DVT/GI Prophy 03/17/2021 -Patient is awaiting outpatient hemodialysis chair arrangement. Will follow with case management. 03/18; awaiting outpatient dialysis chair arrangement. Will follow with case management. History Interval history: Patient was seen and evaluated this morning Patient does not have any complaints Hospitalist Physical - Physical exam Narrative exam: Not in cardiopulmonary distress. The patient appeared well nourished and normally developed. Vital signs as documented. Head exam is unremarkable. No scleral icterus . Neck is without jugular venous distension, thyromegaly, or carotid bruits. Lungs are clear to auscultation. Cardiac exam reveals regular rate and Rhythm. Abdominal exam reveals normal bowel sounds, nontender, no organomegaly. Extremities are nonedematous and both femoral and pedal pulses are normal. UNIVERSAL BRANCH CONSULTANT: Alert and oriented 3. No focal weakness. - Constitutional Vitals: Temp Pulse Resp BP Pulse Ox 98.0 F 83 16 112/57 98 03/18/21 04:46 03/18/21 04:46 03/18/21 04:46 03/18/21 04:46 03/18/21 04:46 General appearance: Present: no acute distress Results - Labs CBC & Chem 7: 03/11/21 03:56 03/14/21 06:16 Labs: Laboratory Last Values WBC 7.4 K/mm3 (4.5-11.0) 03/11/21 03:56 RBC 3.90 M/mm3 (3.65-5.03) 03/11/21 03:56 Hgb 10.1 gm/dl (11.8-15.2) L 03/11/21 03:56 Hct 30.9 % (35.5-45.6) L 03/11/21 03:56 MCV 79 fl (84-94) L 03/11/21 03:56 MCH 26 pg (28-32) L 03/11/21 03:56 MCHC 33 % (32-34) 03/11/21 03:56 RDW 16.6 % (13.2-15.2) H 03/11/21 03:56 Plt Count 351 K/mm3 (140-440) 03/11/21 03:56 Lymph % (Auto) 7.8 % (13.4-35.0) L 03/11/21 03:56 [place] % (Auto) 15.7 % (0.0-7.3) H 03/11/21 03:56 Eos % (Auto) 2.3 % (0.0-4.3) 03/11/21 03:56 Baso % (Auto) 2.5 % (0.0-1.8) H 03/11/21 03:56 Lymph # (Auto) 0.6 K/mm3 (1.2-5.4) L 03/11/21 03:56 [place] # (Auto) 1.2 K/mm3 (0.0-0.8) H 03/11/21 03:56 Eos # (Auto) 0.2 K/mm3 (0.0-0.4) 03/11/21 03:56 Baso # (Auto) 0.2 K/mm3 (0.0-0.1) H 03/11/21 03:56 Seg Neutrophils % 71.7 % (40.0-70.0) H 03/11/21 03:56 Seg Neutrophils # 5.3 K/mm3 (1.8-7.7) 03/11/21 03:56 PT 14.8 Sec. (12.2-14.9) 03/10/21 08:51 INR 1.11 (0.87-1.13) 03/10/21 08:51 APTT 32.8 Sec. (24.2-36.6) 03/10/21 08:51 Sodium 140 mmol/L (137-145) 03/14/21 06:16 Potassium 3.8 mmol/L (3.6-5.0) 03/14/21 06:16 Chloride 101.1 mmol/L (98-107) 03/14/21 06:16 Carbon Dioxide 29 mmol/L (22-30) D 03/14/21 06:16 Anion Gap 14 mmol/L 03/14/21 06:16 BUN 32 mg/dL (9-20) H 03/14/21 06:16 Creatinine 3.3 mg/dL (0.8-1.3) H 03/14/21 06:16 Estimated GFR 19 ml/min 03/14/21 06:16 BUN/Creatinine Ratio 10 % 03/14/21 06:16 Glucose 96 mg/dL (75-100) 03/14/21 06:16 POC Glucose 118 mg/dL (70-105) H 03/18/21 08:30 Calcium 8.8 mg/dL (8.4-10.2) 03/14/21 06:16 Phosphorus 7.30 mg/dL (2.5-4.5) H 03/10/21 03:44 Total Bilirubin 0.20 mg/dL (0.1-1.2) 03/11/21 03:56 AST 7 units/L (5-40) 03/11/21 03:56 ALT < 5 units/L (7-56) L 03/11/21 03:56 Alkaline Phosphatase 80 units/L (35-129) 03/11/21 03:56 Total Protein 8.0 g/dL (6.3-8.2) 03/11/21 03:56 Albumin 3.6 g/dL (3.9-5) L 03/11/21 03:56 Albumin/Globulin Ratio 0.8 % 03/11/21 03:56 Urine Color Yellow (Yellow) 03/10/21 10:06 Urine Turbidity Turbid (Clear) 03/10/21 10:06 Urine pH 6.0 (5.0-7.0) 03/10/21 10:06 Ur Specific [place] 1.010 (1.003-1.030) 03/10/21 10:06 Urine Protein 100 mg/dl mg/dL (Negative) 03/10/21 10:06 Urine Glucose (UA) Neg mg/dL (Negative) 03/10/21 10:06 Urine Ketones Neg mg/dL (Negative) 03/10/21 10:06 Urine Blood Mod (Negative) 03/10/21 10:06 Urine Nitrite Neg (Negative) 03/10/21 10:06 Urine Bilirubin Neg (Negative) 03/10/21 10:06 Urine Urobilinogen < 2.0 mg/dL (<2.0) 03/10/21 10:06 Ur Leukocyte Esterase Lg (Negative) 03/10/21 10:06 Urine WBC (Auto) > 182.0 /HPF (0.0-6.0) H 03/10/21 10:06 Urine RBC (Auto) 43.0 /HPF (0.0-6.0) 03/10/21 10:06 Urine WBC Clumps 3+ /HPF 03/10/21 10:06 Coronavirus (PCR) Negative (Negative) 03/12/21 Unknown Hepatitis A IgM Ab Non-reactive (NonReactive) 03/11/21 11:02 Hep Bs Antigen Non-reactive (Negative) 03/11/21 11:02 Hep B Core IgM Ab Non-reactive (NonReactive) 03/11/21 11:02 Hepatitis C Antibody Non-reactive (NonReactive) 03/11/21 11:02 Blood Type O POSITIVE 03/10/21 08:51 Antibody Screen Negative 03/10/21 08:51 Ramirez/IV: Voiding Method Urinal Active Medications - Current Medications Current Medications: Generic Name Dose Route Start Last Admin Trade Name Freq PRN Reason Stop Dose Admin Acetaminophen 650 mg 03/10/21 10:29 03/14/21 19:56 Acetaminophen 325 Mg Tab PO 650 mg Q4H PRN Administration Pain MILD(1-3)/Fever >100.5/YUNG Albuterol 2.5 mg 03/10/21 10:29 Albuterol 2.5 Mg/3 Ml Nebu IH Q3HRT PRN Shortness Of Breath Apixaban 2.5 mg 03/15/21 14:00 03/17/21 21:26 Apixaban 2.5 Mg Tab PO 2.5 mg BID CHAU Administration Famotidine 20 mg 03/10/21 22:00 03/17/21 10:48 Famotidine 20 Mg Tab PO 20 mg DAILY CHAU Administration Heparin Sodium (Porcine) 2,000 unit 03/11/21 11:00 Heparin 10,000 Units/10 Ml Vial IV CARLOS PRN hemodialysis Sodium Chloride 100 mls @ 999 mls/hr 03/11/21 19:37 Nacl 0.9% IV CARLOS PRN Hypotension Cefepime HCl 1 gm in 100 mls @ 200 mls/hr 03/12/21 20:00 03/17/21 21:25 Cefepime/Ns 1 Gm/100 Ml IV 03/18/21 19:59 200 mls/hr Q24H CHAU Administration Insulin Human Isoph/Insulin Regular 25 unit 03/10/21 17:00 03/17/21 18:39 Insulin Nph/Regular 70/30 Inj SUB-Q 25 unit BIDDIAB CHAU Administration Metoclopramide HCl 5 mg 03/11/21 09:00 Metoclopramide 10 Mg/2 Ml Inj IV Q6H PRN Nausea And Vomiting Metoprolol Tartrate 25 mg 03/12/21 17:00 03/17/21 21:26 Metoprolol Tartrate 25 Mg Tab PO 25 mg BID CHAU Administration Ondansetron HCl 4 mg 03/10/21 10:29 Ondansetron 4 Mg/2 Ml Inj IV Q8H PRN Nausea And Vomiting Oxycodone/Acetaminophen 1 tab 03/10/21 10:29 Oxycodone /Acetaminophen 5-325mg Tab PO Q6H PRN Pain, Moderate (4-6) Sodium Chloride 10 ml 03/10/21 22:00 03/17/21 21:27 Sodium Chloride 0.9% 10 Ml Flush Syringe IV 10 ml BID CHAU Administration Sodium Chloride 10 ml 03/10/21 10:29 Sodium Chloride 0.9% 10 Ml Flush Syringe IV PRN PRN LINE FLUSH Tamsulosin HCl 0.4 mg 03/11/21 10:00 03/17/21 10:48 Tamsulosin 0.4 Mg Cap PO 0.4 mg QDAY CHAU Administration Nutrition/Malnutrition Assess - Dietary Evaluation Nutrition/Malnutrition Findings: Nutrition Notes Start: 03/17/21 08:29 Freq: Status: Active Protocol: Document 03/17/21 08:29 MIKAEL (Rec: 03/17/21 08:29 MIKAEL [id number]) Nutrition Notes Need for Assessment generated from: LOS Initial or Follow up Brief Note Subjective/Other Information Screen for LOS. Pt eating 75- 100% of meals. Nutrition Intervention Revisit per MD consult or patient Sign Off request:
[2021-03-18] MEDS: TAMSULOSIN 0.4 MG CAP PO SCH (10:23)
[2021-03-18] MEDS: INSULIN NPH/REGULAR 70/30 INJ SUB-Q SCH ×2 (10:23→17:51)
[2021-03-18] MEDS: APIXABAN 2.5 MG TAB PO SCH (10:24)
[2021-03-18] MEDS: METOPROLOL TARTRATE 25 MG TAB PO SCH (10:24)
[2021-03-18] MEDS: FAMOTIDINE 20 MG TAB PO SCH (10:24)
--- NOTE | 2021-03-18 11:30 | Progress Note ---
Assessment and Plan 1. ESRD: Advanced CKD now progressed to ESRD. CKD most likley 2/2 Diabetic nephropathy. LEONEL, ANCA, GBM Ab, Complements and SPEP were negative. Significant decline in the renal function over a period of 6 months. S/p Kidney biopsy 03/13, showed diabetic nephropathy and positive for IgG4 plasma cells. Monitor renal function. Renal prognosis is poor. Avoid nephrotoxic agents. Meds dosage based on GFR. Monitor for FINANCIAL ANALYST INTERN needs. Patient was started on hemodialysis due to significant metabolic acidosis and hyperkalemia. Hemodialysis: 03/12, 03/13, 03/14, 03/17. 2. FEN: Hyperkalemia, improved, monitor. Anion-gap metabolic acidosis, improved, monitor. Monitor lytes and volume status. 3. Hx of Paroxysmal atrial fibrillation: On Eliquis and Metoprolol. LVEF 50-55% by echo 09/2020. 4. DM type 2. 5. Anemia, POA: Chronic. Epogen as needed. Monitor. 6. Hypertension: BP controlled. Outpatient HD chair @ [facility] schedule at 3 p.m. Patient need IgG4 level and need to see Heme-Onc. Subjective: Patient was seen and examined at the bedside. Doing ok. Examination: General appearance: well-developed, appears stated age, thin built, not in distress HEENT: atraumatic, SOUMYA Neck: trachea midline Respiratory: ctab Heart: S1S2, regular, no murmur Abdomen: soft, bowel sounds heard, NT Integumentary: no obvious rash Neurologic: AO, non-focal Ext: no edema Hemodialysis access: R IJ tunnel catheter Subjective Date of service: 03/18/21 Objective - Vital Signs Vital signs: Vital Signs - 12hr 03/18/21 03/18/21 04:46 10:00 Temperature 98.0 F Pulse Rate 83 Respiratory 16 Rate Blood Pressure 112/57 O2 Sat by Pulse 98 100 Oximetry - Lab 03/11/21 03:56 03/14/21 06:16 Most recent lab results Calcium 8.8 mg/dL (8.4-10.2) 03/14/21 06:16 Phosphorus 7.30 mg/dL (2.5-4.5) H 03/10/21 03:44 Medications & Allergies - Medications Allergies/Adverse Reactions: Allergies No Known Allergies Allergy (Verified 09/14/20 09:38) Home Medications: Home Medications Medication Instructions Recorded Confirmed Last Taken Type Insulin NPH/Regular [NovoLIN 70/30] 25 unit SUB-Q BIDDIAB #2 vial 09/19/20 03/11/21 Unknown Rx Tamsulosin [Flomax] 0.4 mg PO QDAY #30 capsule 09/19/20 03/11/21 Unknown Rx Iron [Iron 18 MG TAB] 18 mg PO QDAY 01/15/21 03/11/21 Unknown History Multivit-Min/FA/Lycopen/Lutein 1 each PO QDAY 01/15/21 03/11/21 Unknown History [Centrum Silver Men Tablet] Apixaban [Eliquis] 2.5 mg PO BID #60 tablet 03/16/21 Unknown Rx Famotidine [Pepcid] 20 mg PO DAILY #30 tablet 03/16/21 Unknown Rx Metoprolol [Lopressor TAB] 25 mg PO BID #60 tablet 03/16/21 Unknown Rx Active Medications: Generic Name Dose Route Start Last Admin Trade Name Freq PRN Reason Stop Dose Admin Acetaminophen 650 mg 03/10/21 10:29 03/14/21 19:56 Acetaminophen 325 Mg Tab PO 650 mg Q4H PRN Administration Pain MILD(1-3)/Fever >100.5/YUNG Albuterol 2.5 mg 03/10/21 10:29 Albuterol 2.5 Mg/3 Ml Nebu IH Q3HRT PRN Shortness Of Breath Apixaban 2.5 mg 03/15/21 14:00 03/18/21 10:24 Apixaban 2.5 Mg Tab PO 2.5 mg BID CHAU Administration Famotidine 20 mg 03/10/21 22:00 03/18/21 10:24 Famotidine 20 Mg Tab PO 20 mg DAILY CHAU Administration Heparin Sodium (Porcine) 2,000 unit 03/11/21 11:00 Heparin 10,000 Units/10 Ml Vial IV CARLOS PRN hemodialysis Sodium Chloride 100 mls @ 999 mls/hr 03/11/21 19:37 Nacl 0.9% IV CARLOS PRN Hypotension Cefepime HCl 1 gm in 100 mls @ 200 mls/hr 03/12/21 20:00 03/17/21 21:25 Cefepime/Ns 1 Gm/100 Ml IV 03/18/21 19:59 200 mls/hr Q24H CHAU Administration Insulin Human Isoph/Insulin Regular 25 unit 03/10/21 17:00 03/18/21 10:23 Insulin Nph/Regular 70/30 Inj SUB-Q 25 unit BIDDIAB CHAU Administration Metoclopramide HCl 5 mg 03/11/21 09:00 Metoclopramide 10 Mg/2 Ml Inj IV Q6H PRN Nausea And Vomiting Metoprolol Tartrate 25 mg 03/12/21 17:00 03/18/21 10:24 Metoprolol Tartrate 25 Mg Tab PO 25 mg BID CHAU Administration Ondansetron HCl 4 mg 03/10/21 10:29 Ondansetron 4 Mg/2 Ml Inj IV Q8H PRN Nausea And Vomiting Oxycodone/Acetaminophen 1 tab 03/10/21 10:29 Oxycodone /Acetaminophen 5-325mg Tab PO Q6H PRN Pain, Moderate (4-6) Sodium Chloride 10 ml 03/10/21 22:00 03/18/21 10:24 Sodium Chloride 0.9% 10 Ml Flush Syringe IV 10 ml BID CHAU Administration Sodium Chloride 10 ml 03/10/21 10:29 Sodium Chloride 0.9% 10 Ml Flush Syringe IV PRN PRN LINE FLUSH Tamsulosin HCl 0.4 mg 03/11/21 10:00 03/18/21 10:23 Tamsulosin 0.4 Mg Cap PO 0.4 mg QDAY CHAU Administration
[2021-03-18 14:07] VITALS: BP 117/71
--- NOTE | 2021-03-18 17:48 | Discharge Summary ---
Providers - Providers Date of Admission: 03/10/21 10:29 Date of discharge: 03/18/21 Attending physician: VERITO NAVARRO MD 03/10/21 Consult to Case Management [CONS] Routine Services Needed at Discharge: Truck Unloader Notified:: NO Additional Physician Instructions: OUTPATIENT HD 03/10/21 09:08 Consult to Interventional Radiology [CONS] Routine Consulting Provider: ANUEL PENG Reason For Exam: Tunnel hemodialysis catheter. Place consult to:: DR. GUTHRIE Notified:: DR. GUTHRIE Was contact made?: Yes 03/10/21 09:45 Consult to Physician [CONS] Stat Comment: Consulting Provider: VIKI JOHNSON Physician Instructions: Reason For Exam: renal failure 03/10/21 15:25 Physical Therapy Evaluation and Treat [CONS] Routine Comment: Reason For Exam: debility Primary care physician: ALLOCATION ANALYST Hospitalization Reason for admission: Acute on CKD, progressing to end-stage renal disease Condition: Stable Hospital course: Patient is a 55-year-old male with history of hypertension, DM2, BPH, CKD, and A. fib on Eliquis presents at the direction of his manager business management, Dr. Johnson due to worsening renal function and acute on chronic renal failure. He also says that for the past few days he has not been eating or drinking much but otherwise he denies any physical symptoms or complaints including headache, vision change, fever, chest pain, shortness of breath, cough, abdominal pain, nausea/vomiting, focal weakness, sensory changes, back pain, urinary incontinence/retention, diarrhea, constipation, or any other complaints. Presenting in the emergency room with abnormal labs. Work-up in the emergency room revealed a creatinine of 5.1 Troponin was slightly elevated at 0.352. Chest x-ray was significant for bilateral pneumonia and effusion. Patient was admitted with acute kidney injury, pneumonia and elevated troponin. JULEE with CKD on vasomotor nephropathy likely now ESRD Anemia POA NSTEMI type 2 CKD most likley 2/2 Diabetic nephropathy. Hyperkalemia Severe metabolic acidosis secondary to renal failure DM with hyperglycemia Moderate protien calorie malnutrition Paraxosymal Afib Acute Cystitis Plan 03/16 Patient continues to do well, awaiting Chair time for discharge and can be discharged when chair time is determined Nephrology input noted No new changes Patient underwent renal biopsy to further understand the worsening renal function Awaiting placement Monitor Electrolytes for correction following Kayexalate Continue On Eliquis for AC and metoprolol for suppression. Awaiting chair time at the dialysis center for discharge Vascular consult Medically treat hyperkalemia PT OT evaluation as patient is has gait abnormality ambulates with a cane Abx for Cefepime Urine cultures DVT/GI Prophy Hemodialysis was arranged by case management yesterday 3 times a week. Patient discharged home in stable condition. All information was given to the patient and patient verbalized he understood. Patient was hemodynamically stable at the time of discharge. Appropriate medications were reconciled at the time of discharge. Disposition: 01 HOME / SELF CARE / HOMELESS Final Discharge Diagnosis (Prints w/discharge instructions): Acute on chronic kidney disease progressed to end-stage renal disease requiring hemodialysis Time spent for discharge: 35 minutes - Discharge Diagnoses (1) End-stage renal disease on hemodialysis Status: Acute (2) Acute encephalopathy Status: Acute (3) Acute renal failure Status: Acute Qualifiers: Acute renal failure type: unspecified Qualified Code(s): N17.9 - Acute kidney failure, unspecified (4) Paroxysmal atrial fibrillation Status: Chronic Core Measure Documentation - Palliative Care Palliative Care/ Comfort Measures: Not Applicable - Core Measures Any of the following diagnoses?: none Exam - Physical Exam Narrative exam: Not in cardiopulmonary distress. The patient appeared well nourished and normally developed. Vital signs as documented. Head exam is unremarkable. No scleral icterus . Neck is without jugular venous distension, thyromegaly, or carotid bruits. Lungs are clear to auscultation. Cardiac exam reveals regular rate and Rhythm. Abdominal exam reveals normal bowel sounds, nontender, no organomegaly. Extremities are nonedematous and both femoral and pedal pulses are normal. WATER TRAINER: Alert and oriented 3. No focal weakness. - Constitutional Vitals: Temp Pulse Resp BP Pulse Ox 97.9 F 83 16 117/71 99 03/18/21 14:05 03/18/21 14:05 03/18/21 14:05 03/18/21 14:05 03/18/21 14:05 Plan Activity: no restrictions Weight Bearing Status: Full Weight Bearing Diet: renal Follow up with: ANNA GIRARD MD [Primary Care Provider] - 3-5 Days LAMINE GUTHRIE MD [Staff Physician] - 14 Days VIKI JOHNSON MD [Staff Physician] - 7 Days Prescriptions: Apixaban [Eliquis] 2.5 mg PO BID #60 tablet Metoprolol [Lopressor TAB] 25 mg PO BID #60 tablet Famotidine [Pepcid] 20 mg PO DAILY #30 tablet
== END 2021-03-18 18:20 | disposition home or self-care (01) | DRG 673 ==
LOC: ED 13:23 → 4A 03-10 10:29 → 3A 03-10 15:10
PROVIDERS: ADMIT Internal Medicine; ATTEND Internal Medicine
PROC: 02H633Z Insertion of Infusion Device into Right Atrium, Percutaneous Approach (ICD-10-PCS; principal; 2021-03-11)
PROC: B548ZZA Ultrasonography of Superior Vena Cava, Guidance (ICD-10-PCS; 2021-03-11)
PROC: 0JH63XZ Insertion of Tunneled Vascular Access Device into Chest Subcutaneous Tissue and Fascia, Percutaneous Approach (ICD-10-PCS; 2021-03-11)
PROC: 5A1D70Z Performance of Urinary Filtration, Intermittent, Less than 6 Hours Per Day (ICD-10-PCS; 2021-03-12)
PROC: 5A1D70Z Performance of Urinary Filtration, Intermittent, Less than 6 Hours Per Day (ICD-10-PCS; 2021-03-13)
PROC: 5A1D70Z Performance of Urinary Filtration, Intermittent, Less than 6 Hours Per Day (ICD-10-PCS; 2021-03-14)
PROC: 5A1D70Z Performance of Urinary Filtration, Intermittent, Less than 6 Hours Per Day (ICD-10-PCS; 2021-03-17)
DX: N17.0 Acute kidney failure with tubular necrosis (principal); I21.A1 Myocardial infarction type 2; J18.9 Pneumonia, unspecified organism; I12.0 Hypertensive chronic kidney disease with stage 5 chronic kidney disease or end stage renal disease; E87.2 Acidosis; E44.0 Moderate protein-calorie malnutrition; J90 Pleural effusion, not elsewhere classified; N30.00 Acute cystitis without hematuria; Z20.822 Contact with and (suspected) exposure to COVID-19; N18.6 End stage renal disease; E11.21 Type 2 diabetes mellitus with diabetic nephropathy; D64.9 Anemia, unspecified; E11.65 Type 2 diabetes mellitus with hyperglycemia; N30.90 Cystitis, unspecified without hematuria; I48.0 Paroxysmal atrial fibrillation; E87.5 Hyperkalemia; E78.5 Hyperlipidemia, unspecified; N40.0 Benign prostatic hyperplasia without lower urinary tract symptoms; Z79.899 Other long term (current) drug therapy; Z79.891 Long term (current) use of opiate analgesic; Z68.20 Body mass index [BMI] 20.0-20.9, adult; Z79.01 Long term (current) use of anticoagulants; Z79.4 Long term (current) use of insulin; Z87.891 Personal history of nicotine dependence; Z91.19 Patient's noncompliance with other medical treatment and regimen; Z99.2 Dependence on renal dialysis
CPT/HCPCS: 36415; 36558; 71045; 77001; 77012; 80048; 80053; 80074; 81001; 82962; 84100; 85025; 85610; 85730; 86706; 86850; 86900; 86901; 87040; 87086; 93005; 99291; G0378; C1750; J0690; J0692; J0696; J1170; J1644; J1815; J2250; J2405; J3010; J7040; J7050; U0003

== ENCOUNTER 2021-04-21 05:58 | Day surgery (SDC) | payer OTHER ==
[2021-04-21] MEDS ORDERED: ceFAZolin/STERILE WATER 2 GM/20 ML SYRINGE IV NR (06:00)
[2021-04-21] MEDS ORDERED: fentaNYL 100 MCG/2 ML INJ IV PRN (06:00)
[2021-04-21] MEDS ORDERED: SODIUM CHLORIDE 0.9% 1000 ML 1,000 ML IV SCH (06:00)
[2021-04-21] MEDS ORDERED: MIDAZOLAM 2 MG/2 ML INJ IV NR (06:00)
[2021-04-21] MEDS ORDERED: propofoL 200 MG/20 ML VIAL IV ONE (07:11)
[2021-04-21] MEDS ORDERED: ONDANSETRON 4 MG/2 ML INJ ONE (07:11)
[2021-04-21] MEDS ORDERED: LIDOCAINE MPF (2%) 20 MG/1 ML VIAL 5 ML ONE (07:11)
[2021-04-21 07:21] LABS: Hematocrit 30.9 % (35.5-45.6); Hemoglobin 10.1 gm/dl (11.8-15.2); Mean Corpuscular HGB Conc 33 % (32-34); Mean Corpuscular Volume 82 fl (84-94); Platelet Count 267 K/mm3 (140-440); Red Blood Count 3.76 M/mm3 (3.65-5.03); Red Cell Distribution Width 15.5 % (13.2-15.2)
[2021-04-21] MEDS ORDERED: BUPIVACAINE/PF (0.5%) 5 MG/1 ML 30 ML VIAL INFILTRATI ONE ×2 (07:25→07:42)
[2021-04-21] MEDS ORDERED: HEPARIN 10,000 UNITS/10 ML VIAL ONE (07:25)
[2021-04-21] MEDS ORDERED: SODIUM CHLORIDE 0.9% 500 ML 500 ML ONE (07:26)
[2021-04-21 07:38] LABS: Calcium 9.2 mg/dL (8.4-10.2)
--- NOTE | 2021-04-21 07:41 | Anesthesia Consultation ---
Anesthesia Consult and Med Hx Date of service: 04/21/21 - Airway Anesthetic Teeth Evaluation: Poor, Edentulous ROM Head & Neck: Adequate Mental/Hyoid Distance: Adequate Mallampati Class: Class II Intubation Access Assessment: Probably Good - Pulmonary Exam CTA: Yes - Cardiac Exam Cardiac Exam: RRR - Pre-Operative Health Status ASA Pre-Surgery Classification: ASA3 Proposed Anesthetic Plan: MAC Nerve Block: Supraclavicular - Pulmonary Hx Smoking: Yes (STOPPED SMOKING 10 YEARS AGO) Hx Pneumonia: Yes (09/2020) Hx Sleep Apnea: No - Cardiovascular System Hx Hypertension: Yes Hx Cardia Arrhythmia: Yes (Afib - Elliquis last taken 04/21/21) - Central Nervous System Hx Psychiatric Problems: No - Gastrointestinal Hx Gastroesophageal Reflux Disease: Yes (well controlled with medication) - Endocrine Hx End Stage Renal Disease: Yes (last HD 04/20/21) Hx Non-Insulin Dependent Diabetes: Yes - Hematic Hx Anemia: Yes - Other Systems Hx Alcohol Use: No Hx Substance Use: No Hx Cancer: No - Additional Comments Anesthesia Medical History Comments: No history of anesthetic complications.
--- NOTE | 2021-04-21 07:43 | Anesthesia Day of Surgery ---
Anesthesia Day of Surgery - Day of Surgery Patient Examined: Yes Patient H&P Reviewed: Yes Patient is NPO: Yes Beta Blockers: Yes (Metoprolol)
[2021-04-21] MEDS ORDERED: HEPARIN 10,000 UNITS/10 ML VIAL IR ONE (09:11)
[2021-04-21] MEDS ORDERED: SODIUM CHLORIDE 0.9% IRR 1,500 ML BOTTLE IR ONE (09:12)
[2021-04-21] MEDS ORDERED: SODIUM CHLORIDE 0.9% 500 ML IVPB IRRIGATION ONE (09:12)
--- NOTE | 2021-04-21 10:45 | Short Stay Summary ---
Short Stay Documentation Date of service: 04/21/21 Narrative H&P: See H&P - History H&P: obtained from office - Allergies and Medications Current Medications: Allergies No Known Allergies Allergy (Verified 04/14/21 15:50) Home Medications Medication Instructions Recorded Confirmed Last Taken Type Insulin NPH/Regular [NovoLIN 70/30] 25 unit SUB-Q BIDDIAB #2 vial 09/19/20 04/14/21 04/20/21 Rx Tamsulosin [Flomax] 0.4 mg PO QDAY #30 capsule 09/19/20 04/14/21 04/20/21 Rx Iron [Iron 18 MG TAB] 65 mg PO QDAY 01/15/21 04/14/21 04/20/21 History Multivit-Min/FA/Lycopen/Lutein 1 each PO QDAY 01/15/21 04/14/21 04/20/21 History [Centrum Silver Men Tablet] Apixaban [Eliquis] 2.5 mg PO BID #60 tablet 03/16/21 04/21/21 04/21/21 05:00 Rx Metoprolol [Lopressor TAB] 50 mg PO BID 04/14/21 04/14/21 Unknown History Pantoprazole [Protonix] 40 mg PO QDAY 04/14/21 04/14/21 04/20/21 History predniSONE [Deltasone] 10 mg PO TIDWM 04/14/21 04/14/21 04/20/21 History Active Medications Cefazolin Sodium (Cefazolin/Sterile Water 2 Gm/20 Ml Syringe) 2 gm IV PREOP NR Stop: 04/21/21 21:00 Fentanyl (Fentanyl 100 Mcg/2 Ml Inj) 100 mcg IV ONCE PRN PRN Reason: sedation for nerve block Stop: 04/21/21 20:00 Last Admin: 04/21/21 07:51 Dose: 50 mcg Documented by: Sodium Chloride (Nacl 0.9% 1000 Ml) 1,000 mls @ 42 mls/hr IV DIRECT CHAU Stop: 04/21/21 23:59 Last Admin: 04/21/21 07:30 Dose: 42 mls/hr Documented by: Midazolam HCl (Midazolam 2 Mg/2 Ml Inj) 2 mg IV PREOP NR Stop: 04/21/21 20:00 Last Admin: 04/21/21 07:51 Dose: 2 mg Documented by: - Brief post op/procedure progress note Date of procedure: 04/21/21 Pre-op diagnosis: End-Stage Renal Disease Post-op diagnosis: same Procedure: Creation of Left Radiocephalic (Randell) Arteriovenous Fistula Anesthesia: MAC, regional Surgeon: LAMINE GUTHRIE Estimated blood loss: minimal Pathology: none Condition: stable - Disposition Condition at discharge: Good Disposition: 01 HOME / SELF CARE / HOMELESS Short Stay Discharge Plan Activity: other (No heavy lifting with left arm for 2 weeks. You stress ball the left hand as often as possible.) Wound: open to air, keep clean and dry, other (Okay to wash the left arm wound with soap and water but do not soak in water for 2 weeks.) Follow up with: LAMINE GUTHRIE MD [Staff Physician] - 14 Days Prescriptions: HYDROcodone/APAP 7.5-325 [[place] 7.5/325] 1 each PO Q6HR PRN #30 tablet PRN Reason: Pain
--- NOTE | 2021-04-21 10:46 | Operative Report ---
Operative Report Operative Report: Date of procedure: 04/21/2021 Pre-operative diagnosis: End-Stage Renal Disease Post-operative diagnosis: End-Stage Renal Disease Procedure(s): Creation of Left Randell Fistula Surgeon: Yaakov Kelly MD Buying Intern: None Anesthesia: Local/MAC EBL: Minimal Counts: Correct Complications: None Condition: Stable Findings: Successful creation of left arm AV fistula with palpable thrill at the completion of the case. Specimen: None Indication: The patient is a 55-year-old male with a history of end-stage renal disease who is currently on hemodialysis through a right internal jugular permacath. He is in need of long-term dialysis access and is right-hand dominant. His work-up revealed he is an adequate candidate for creation of a left arteriovenous fistula. He was given the risk, benefits, and alternative procedures and consented to the procedure. Description of Procedure: Prior to being transported to the operating room the patient had a regional block of his left upper extremity performed in the preoperative area. The patient was then transported to the operating room and adequately sedated. Once he was sedated his left arm was prepped and draped in normal sterile fashion. A longitudinal incision was then created on the distal wrist, centered between the cephalic vein and the radial artery. The dissection was carried down to the radial artery using sharp dissection and the radial artery was dissected circumferentially and controlled with vessel loops. The cephalic vein was then dissected circumferentially, ligating side branches with 3-0 silk ties and dividing them. The cephalic vein was then divided distally transpose to the radial artery. A 2 Shantanu was then advanced through the cephalic vein proximally to ensure patency. The vein was then flushed with heparinized saline and control of the bulldog clamp. The patient was systemically heparinized with 2000 units of heparin IV and the radial artery clamped with DeBakey clamps. An arteriotomy was then created using an 11 blade and Melendez scissors. An end-to-side anastomosis was created between the cephalic vein and the radial artery using a single 6-0 Prolene in running fashion. Prior to completing the anastomosis I flashed the artery both retrograde and antegrade and advanced a 2 Shantanu into the proximal portion of the artery to break the spasm. I then completed the anastomosis and removed all clamps allowing flow into the fistula which had a palpable thrill. Hemostasis within the wound was achieved with a combination of manual pressure and Quick Clot. Once hemostasis was achieved the wounds were closed in 2 layers using a 3-0 Vicryl in running fashion in the deep dermal layers, 4-0 Monocryl in a running fashion the subcuticular layer, and Dermabond as a dressing. The patient tolerated the procedure well. All sponge, needle, and instrument counts were correct. The patient was taken to the recovery area in stable condition.
[2021-04-21 11:18] VITALS: BP 155/75
--- NOTE | 2021-04-21 12:45 | Post Anesthesia Evaluation ---
- Post Anesthesia Evaluation Patient Participated: Yes Airway Patent: Yes Stable Respiratory Function: Yes Nausea/Vomiting: No Temp > 96.8F: Yes Pain Manageable: Yes Adequeate Hydration: Yes Anesthesia Complications: No
== END 2021-04-21 12:20 | disposition home or self-care (01) ==
LOC: OR 05:58
PROVIDERS: ATTEND Surgery Vascular Surgery
DX: I12.0 Hypertensive chronic kidney disease with stage 5 chronic kidney disease or end stage renal disease (principal); N18.6 End stage renal disease; I48.91 Unspecified atrial fibrillation; E11.22 Type 2 diabetes mellitus with diabetic chronic kidney disease; K21.9 Gastro-esophageal reflux disease without esophagitis; M19.90 Unspecified osteoarthritis, unspecified site; I25.10 Atherosclerotic heart disease of native coronary artery without angina pectoris; Z87.440 Personal history of urinary (tract) infections; Z87.891 Personal history of nicotine dependence; Z79.4 Long term (current) use of insulin; Z79.899 Other long term (current) drug therapy; Z99.2 Dependence on renal dialysis; Z98.890 Other specified postprocedural states; Z20.822 Contact with and (suspected) exposure to COVID-19
CPT/HCPCS: 36415; 36821; 64415; 80048; 82962; 85027; C1757; J0690; J1644; J2250; J2405; J2704; J3010; J7030; J7040; U0003; 64450

== ENCOUNTER 2021-09-01 09:52 | Emergency (ER) | payer MEDICAID ==
--- NOTE | 2021-09-01 11:10 | XRay Report ---
CHEST 2 VIEWS INDICATION / CLINICAL INFORMATION: sob,cough and rales. COMPARISON: 07/24/2021 FINDINGS: SUPPORT DEVICES: Interval removal of right sided permacath. HEART / MEDIASTINUM: Enlarged but stable LUNGS / PLEURA: Mild pulmonary edema with moderate sized right pleural effusion and right basilar ate lectasis. No pneumothorax. ADDITIONAL FINDINGS: No significant additional findings. IMPRESSION: 1. Volume overload with mild pulmonary edema and moderate right pleural effusion with right basilar atelectasis. Signer Name: James Vallejo MD Signed: 09/01/2021 11:06 AM Workstation Name: [id number]
[2021-09-01] MEDS ORDERED: ALBUTEROL 2.5 MG/3 ML NEBU IH ONE (11:42)
[2021-09-01 12:27] LABS: Basophils # (Auto) 0.1 K/mm3 (0.0-0.1); Basophils % (Auto) 2.3 % (0.0-1.8); Eosinophils # (Auto) 0.2 K/mm3 (0.0-0.4); Eosinophils % (Auto) 3.4 % (0.0-4.3); Hematocrit 26.9 % (35.5-45.6); Hemoglobin 8.2 gm/dl (11.8-15.2); Mean Corpuscular HGB Conc 30 % (32-34); Mean Corpuscular Volume 78 fl (84-94); Monocytes # (Auto) 0.7 K/mm3 (0.0-0.8); Platelet Count 351 K/mm3 (140-440); Red Blood Count 3.46 M/mm3 (3.65-5.03); Red Cell Distribution Width 16.3 % (13.2-15.2)
[2021-09-01 12:44] LABS: Alanine Aminotransferase < 5 units/L (7-56); BUN/Creatinine Ratio 12; Blood Urea Nitrogen 95 mg/dL (9-20); Calcium 8.9 mg/dL (8.4-10.2); Hemolysis Index 0
[2021-09-01] MEDS ORDERED: SODIUM POLYSTYRENE 15 GM/60 ML ORAL LIQD PO ONE (13:00)
[2021-09-01 13:04] LABS: INR 1.12 (0.87-1.13)
[2021-09-01 13:53] LABS: Chol/HDL Ratio 3.48 %
[2021-09-01] MEDS ORDERED: SODIUM CHLORIDE 0.9% 100 ML IV PRN (14:24)
[2021-09-01] MEDS ORDERED: EPOETIN ALFA-EPBX 10,000 UNIT/1 ML VIAL SUB-Q PRN (14:24)
[2021-09-01] MEDS ORDERED: HEPARIN 10,000 UNITS/10 ML VIAL IV PRN (14:24)
--- NOTE | 2021-09-01 14:24 | Consultation ---
History of Present Illness - Reason for Consult Consult date: 09/01/21 end stage renal disease, hyperkalemia - History of Present Illness The patient is a 56 YO male known to our service with history significant for DM type 2, Hypertension, Paroxysmal atrial fibrillation on Eliquis, h/o pleural effusion, Anemia and ESRD on hemodialysis(MWF) who presented to [facility] ED 09/01 after he missed the past 2 sessions of hemodialysis. Per patient the transportation company didn't pick him up for dialysis. He c/o slight sob. Patient denies any headache, chest pain, cough, abdominal pain, nausea, vom iting, or fever. Labs notable for Hb 8.2 and K 5.5. Chest x-ray reveals pulmonary edema and right pleural effusion. Nephrology was consulted for management of ESRD and volume overload. Past History Past Medical History: other (See HPI.) Medications and Allergies Allergies Allergy/AdvReac Type Severity Reaction Status Date / Time No Known Allergies Allergy Verified 09/01/21 10:22 Home Medications Medication Instructions Recorded Confirmed Last Taken Type Insulin NPH/Regular [NovoLIN 70/30] 25 unit SUB-Q BIDDIAB #2 vial 09/19/20 07/23/21 07/22/21 Rx Tamsulosin [Flomax] 0.4 mg PO QDAY #30 capsule 09/19/20 07/23/21 07/22/21 Rx Multivit-Min/FA/Lycopen/Lutein 1 each PO QDAY 01/15/21 07/23/21 07/22/21 History [Centrum Silver Men Tablet] Apixaban [Eliquis] 2.5 mg PO BID #60 tablet 03/16/21 07/23/21 07/22/21 Rx Metoprolol [Lopressor TAB] 50 mg PO BID 04/14/21 07/23/21 07/22/21 History Pantoprazole [Protonix TAB] 40 mg PO QDAY 04/14/21 07/23/21 07/22/21 History Ferrous Sulfate [Iron 325 MG] 325 mg PO QDAY 07/23/21 07/23/21 07/22/21 History Exam - Vital Signs Vital signs: Vital Signs Temp Pulse Resp BP Pulse Ox 98.9 F 89 18 127/76 98 09/01/21 10:19 09/01/21 10:19 09/01/21 10:19 09/01/21 10:19 09/01/21 10:19 Results - Lab Results 09/01/21 11:56 09/01/21 11:56 Most recent lab results Calcium 8.9 mg/dL (8.4-10.2) 09/01/21 11:56 Assessment and Plan 1. ESRD: Patient is on maintenance hemodialysis, MWF schedule. Last outpatient HD 08/26. Hemodialysis: 09/01. 2. FEN: Hyperkalemia, HD today. Volume overload, UF with HD. Monitor lytes and volume status. 3. R Pleural effusion and pulmonary edema: 2/2 volume overload. Volume control thru HD. Limit fluid intake. 4. Hx of Paroxysmal atrial fibrillation: On Metoprolol and Eliquis. LVEF 50-55% by echo 09/2020. 5. DM type 2. 6. Anemia, POA: Chronic. Epogen with HD. Monitor. 7. Hypertension: BP controlled. Outpatient HD chair @ [facility], MWF schedule at 3 p.m. Subjective: Patient was seen and examined at the bedside. Examination: General appearance: well-developed, appears stated age, thin built, not in distress HEENT: [place]MYA Neck: trachea midline Respiratory: ctab, decreased breath sounds R side Heart: S1S2, regular, no murmur Abdomen: soft, bowel sounds heard, NT Integumentary: no obvious rash Neurologic: AO, non-focal Ext: no edema Hemodialysis access: L FA AVF
--- NOTE | 2021-09-01 15:29 | Emergency Department Report ---
ED Shortness of Breath HPI - General Chief Complaint: Dyspnea/Respdistress Stated Complaint: WEAKNESS Source: patient Mode of arrival: Ambulatory Limitations: No Limitations, Other - History of Present Illness Initial Comments: SOB for the last few days , dilaysis patients , missed his last 2 sessions because of transportation , no chest pain no fever MD Complaint: shortness of breath -: Gradual, days(s) Worsens With: lying flat Known History Of: other (CRF) - Related Data Home Medications Medication Instructions Recorded Confirmed Last Taken Multivit-Min/FA/Lycopen/Lutein 1 each PO QDAY 01/15/21 07/23/21 07/22/21 [Centrum Silver Men Tablet] Metoprolol [Lopressor TAB] 50 mg PO BID 04/14/21 07/23/21 07/22/21 Pantoprazole [Protonix TAB] 40 mg PO QDAY 04/14/21 07/23/21 07/22/21 Ferrous Sulfate [Iron 325 MG] 325 mg PO QDAY 07/23/21 07/23/21 07/22/21 Previous Rx's Medication Instructions Recorded Last Taken Type Insulin NPH/Regular [NovoLIN 70/30] 25 unit SUB-Q BIDDIAB #2 vial 09/19/20 07/22/21 Rx Tamsulosin [Flomax] 0.4 mg PO QDAY #30 capsule 09/19/20 07/22/21 Rx Apixaban [Eliquis] 2.5 mg PO BID #60 tablet 03/16/21 07/22/21 Rx Allergies Allergy/AdvReac Type Severity Reaction Status Date / Time No Known Allergies Allergy Verified 09/01/21 10:22 ED Review of Systems ROS: Stated complaint: WEAKNESS Other details as noted in HPI Constitutional: denies: chills, fever Eyes: denies: eye pain, eye discharge, vision change ENT: denies: ear pain, throat pain Respiratory: denies: cough, shortness of breath, wheezing Cardiovascular: denies: chest pain, palpitations Endocrine: no symptoms reported Gastrointestinal: denies: abdominal pain, nausea, diarrhea Genitourinary: denies: urgency, dysuria Musculoskeletal: denies: back pain, joint swelling, arthralgia Skin: denies: rash, lesions Neurological: denies: headache, weakness, paresthesias Psychiatric: denies: anxiety, depression Hematological/Lymphatic: denies: easy bleeding, easy bruising ED Past Medical Hx - Past Medical History Hx Hypertension: Yes Hx Diabetes: Yes Hx Arthritis: Yes (KNEE'S AND FINGER JOINTS) Hx HIV: No Additional medical history: anemia, atrial fibrillation - Surgical History Additional Surgical History: tonsillectomy - Social History Smoking Status: Never Smoker - Medications Home Medications: Home Medications Medication Instructions Recorded Confirmed Last Taken Type Insulin NPH/Regular [NovoLIN 70/30] 25 unit SUB-Q BIDDIAB #2 vial 09/19/20 07/23/21 07/22/21 Rx Tamsulosin [Flomax] 0.4 mg PO QDAY #30 capsule 09/19/20 07/23/21 07/22/21 Rx Multivit-Min/FA/Lycopen/Lutein 1 each PO QDAY 01/15/21 07/23/21 07/22/21 History [Centrum Silver Men Tablet] Apixaban [Eliquis] 2.5 mg PO BID #60 tablet 03/16/21 07/23/21 07/22/21 Rx Metoprolol [Lopressor TAB] 50 mg PO BID 04/14/21 07/23/21 07/22/21 History Pantoprazole [Protonix TAB] 40 mg PO QDAY 04/14/21 07/23/21 07/22/21 History Ferrous Sulfate [Iron 325 MG] 325 mg PO QDAY 07/23/21 07/23/21 07/22/21 History ED Physical Exam - General Limitations: Other General appearance: alert, in no apparent distress - Head Head exam: Present: atraumatic, normocephalic - Eye Eye exam: Present: normal appearance - ENT ENT exam: Present: mucous membranes moist - Neck Neck exam: Present: normal inspection - Respiratory Respiratory exam: Present: rales. Absent: respiratory distress - Cardiovascular Cardiovascular Exam: Present: regular rate, normal rhythm. Absent: systolic murmur, diastolic murmur, rubs, gallop - GI/Abdominal GI/Abdominal exam: Present: soft, normal bowel sounds - Rectal Rectal exam: Present: deferred - Extremities Exam Extremities exam: Present: normal inspection - Back Exam Back exam: Present: normal inspection - Neurological Exam Neurological exam: Present: alert, oriented X3 - Psychiatric Psychiatric exam: Present: normal affect, normal mood - Skin Skin exam: Present: warm, dry, intact, normal color. Absent: rash ED Course Vital Signs 01/25/22 01/25/22 01/25/22 10:19 13:19 13:20 Temperature 98.9 F 98.8 F Pulse Rate 89 102 H Respiratory 18 20 Rate Blood Pressure Blood Pressure 127/76 130/75 [Right] O2 Sat by Pulse 98 97 96 Oximetry O2 Sat by Pulse Oximetry [ Throughout] 09/01/21 09/01/21 17:00 20:30 Temperature 98.4 F 98.6 F Pulse Rate 100 H 107 H Respiratory 18 18 Rate Blood Pressure 132/80 138/57 Blood Pressure [Right] O2 Sat by Pulse Oximetry O2 Sat by Pulse 98 98 Oximetry [ Throughout] - Reevaluation(s) Reevaluation #1: 09/01/21 15:27 work up showed : - hyperkalemia : kaxalate given , albuterol - fludis overload : contacted nephrology will dialyse him now and will return to ED for discharge ED Medical Decision Making - Lab Data Result diagrams: 09/01/21 11:56 09/01/21 11:56 Critical care attestation.: If time is entered above; I have spent that time in minutes in the direct care of this critically ill patient, excluding procedure time. ED Disposition Clinical Impression: Hyperkalemia, Chronic renal failure, Fluid overload Disposition: HOME / SELF CARE / HOMELESS Is pt being admited?: No Does the pt Need Aspirin: No Condition: Stable Instructions: Hyperkalemia, [id number], Chronic Kidney Disease, Adult, [id number] Referrals: WALE RAGLAND MD [Primary Care Provider] - 3-5 Days
[2021-09-01 20:53] LABS: Hepatitis B Surface Antigen Non-Reactive (Negative); Hepatitis C Virus Antibody Non-Reactive (NonReactive)
[2021-09-01 23:51] VITALS: BP 138/57
--- NOTE | 2021-09-02 08:49 | Electrocardiograph Report ---
[facility] Test Date: 2021-09-01 Test Time: 12:04:58 Pat Name: CARISA NORRIS Department: Room: Gender: M Head Cook: AYDE : 1965 Requested By: JT CHEN Order Number: [id number] Reading MD: Fabian Lee Measurements Intervals [place] Rate: 87 P: 44 [place]: 204 QRS: 59 QRSD: 93 T: 89 QT: 385 QTc: 463 Interpretive Statements Sinus rhythm Compared to ECG 07/23/2021 00:17:51 No significant changes Electronically Signed On 09-02-2021 8:49:02 EST by Fabian Lee
== END 2021-09-01 23:10 | disposition home or self-care (01) ==
LOC: ED 09:52
DX: E87.5 Hyperkalemia (principal); I12.9 Hypertensive chronic kidney disease with stage 1 through stage 4 chronic kidney disease, or unspecified chronic kidney disease; N18.9 Chronic kidney disease, unspecified; E87.70 Fluid overload, unspecified; E11.9 Type 2 diabetes mellitus without complications; M19.90 Unspecified osteoarthritis, unspecified site; I48.91 Unspecified atrial fibrillation; Z98.890 Other specified postprocedural states
CPT/HCPCS: 36415; 71046; 80053; 80061; 80074; 83690; 83880; 84484; 85025; 85610; 93005; 93010; 94640; 99284

== ENCOUNTER 2022-01-05 06:46 | Observation (INO) | payer MEDICARE ==
--- NOTE | 2022-01-05 09:53 | XRay Report ---
CHEST PA AND LATERAL VIEWS INDICATION: sob. COMPARISON: 12/17/2019 FINDINGS: Support devices: None. Heart: Within normal limits. Lungs/Pleura: Somewhat loculated small right pleural effusion appears similar to the prior. There is also a trace left pleural effusion. Bibasilar opacities are nonspecific but similar to the prior. IMPRESSION: 1. No significant change. Persistent effusions and bibasilar opacities. Signer Name: Miguel Beth MD Signed: 01/05/2022 9:49 AM Workstation Name: [id number]
[2022-01-05 10:47] LABS: Basophils # (Auto) 0.1 K/mm3 (0.0-0.1); Basophils % (Auto) 2.6 % (0.0-1.8); Eosinophils # (Auto) 0.1 K/mm3 (0.0-0.4); Eosinophils % (Auto) 3.2 % (0.0-4.3); Hematocrit 36.9 % (35.5-45.6); Hemoglobin 11.8 gm/dl (11.8-15.2); Lymphocytes # (Auto) 0.8 K/mm3 (1.2-5.4); Lymphocytes % (Auto) 18.7 % (13.4-35.0); Mean Corpuscular HGB Conc 32 % (32-34); Mean Corpuscular Volume 88 fl (84-94); Monocytes # (Auto) 0.5 K/mm3 (0.0-0.8); Monocytes % (Auto) 12.1 % (0.0-7.3); Platelet Count 109 K/mm3 (140-440); Red Blood Count 4.21 M/mm3 (3.65-5.03); Red Cell Distribution Width 19.7 % (13.2-15.2)
[2022-01-05 10:58] LABS: INR 1.63 (0.87-1.13); Partial Thromboplastin Time 35.3 Sec. (24.2-36.6)
[2022-01-05 11:12] LABS: Albumin 3.9 g/dL (3.9-5); Calcium 9.2 mg/dL (8.4-10.2)
[2022-01-05 11:46] LABS: Chol/HDL Ratio 2.81 %
--- NOTE | 2022-01-05 12:30 | Consultation ---
History of Present Illness - Reason for Consult end stage renal disease - History of Present Illness 56yr M presented to ED c/o bleeding from his AVF since after HD yesterday. H/o HTN, DM, ESRD on HD at [facility], [employer] is Dr. Houser. Of note is that pt has h/o Cardiomyopathy with EF 20-25%, Paroxysmal A fib on Eliquis. Pt also c/o SOB & Swelling LEs for which they've been removing fluid on HD Past History Past Medical History: atrial fib, diabetes, dialysis, ESRD, hypertension, other (Cardiomyopathy with EF 20-25%) Past Surgical History: Other (AVF Lt forearm) Social history: denies: smoking, alcohol abuse Family history: hypertension Medications and Allergies Allergies Allergy/AdvReac Type Severity Reaction Status Date / Time tomato Allergy Itching Verified 01/05/22 12:48 Home Medications Medication Instructions Recorded Confirmed Last Taken Type Insulin NPH/Regular [NovoLIN 70/30] 25 unit SUB-Q BIDDIAB #2 vial 09/19/20 07/23/21 07/22/21 Rx Tamsulosin [Flomax] 0.4 mg PO QDAY #30 capsule 09/19/20 07/23/21 07/22/21 Rx Multivit-Min/FA/Lycopen/Lutein 1 each PO QDAY 01/15/21 07/23/21 07/22/21 History [Centrum Silver Men Tablet] Apixaban [Eliquis] 2.5 mg PO BID #60 tablet 03/16/21 07/23/21 07/22/21 Rx Metoprolol [Lopressor TAB] 50 mg PO BID 04/14/21 07/23/21 07/22/21 History Pantoprazole [Protonix TAB] 40 mg PO QDAY 04/14/21 07/23/21 07/22/21 History Ferrous Sulfate [Iron 325 MG] 325 mg PO QDAY 07/23/21 07/23/21 07/22/21 History Apixaban [Eliquis] 5 mg PO BID 10/28/21 12/17/21 12/16/21 22:30 History Famotidine [Acid-Pep] 20 mg PO QDAY 10/28/21 12/17/21 12/15/21 09:30 History Ferrous Sulfate [Iron 325 MG] 325 mg PO QDAY 10/28/21 12/17/21 12/15/21 09:30 History Insulin NPH/Regular [NovoLIN 70/30] 5 unit SQ BIDDIAB 10/28/21 12/17/21 10/26/21 History Metoprolol [Lopressor TAB] 25 mg PO BID 10/28/21 12/17/21 12/16/21 22:40 History Multivitamin/Iron/Folic Acid 1 tab PO QDAY 10/28/21 12/17/21 12/15/21 09:30 History [Centrum Adults Tablet] Tamsulosin [Flomax] 0.4 mg PO QDAY 10/28/21 12/17/21 12/15/21 09:30 History dimenhyDRINATE [Dramamine] 25 mg PO PRN PRN 10/28/21 12/17/21 12/15/21 21:00 History levoFLOXacin [Levaquin TAB] 500 mg PO Q24HR #2 tablet 10/28/21 12/17/21 12/15/21 Rx Review of Systems Constitutional: no fever, no chills Cardiovascular: edema, shortness of breath, no chest pain, no orthopnea, no palpitations Respiratory: shortness of breath, no cough Gastrointestinal: no abdominal pain, no nausea, no vomiting Genitourinary Male: no flank pain Musculoskeletal: no neck stiffness Exam - Vital Signs Vital signs: Vital Signs Temp Pulse Resp BP Pulse Ox 98.7 F 88 16 113/74 98 01/05/22 06:49 01/05/22 06:49 01/05/22 06:49 01/05/22 06:49 01/05/22 06:49 - General Appearance General appearance: other (Awake & alert) EENT: PERRL, hearing intact Neck: Present: neck supple Respiratory: Other (Slight decrease basal breasth sound bilateral) Heart: regular, S1S2 Gastrointestinal: Present: other (Soft) Neurologic: other (Moves all limbs) Additional exam: Slight but continuous oozing from Lt forearm AVF Results - Lab Results 01/05/22 10:31 01/05/22 10:31 Most recent lab results Calcium 9.2 mg/dL (8.4-10.2) 01/05/22 10:31 Assessment and Plan Bleeding from Lt forearm AVF - Possibly 2/2 anticoag. Would hold Eliquis & continue firm dressing to site ESRD - HD in am HyperKalemia - Kayexalate today, low K bath on HD in am Hypotension - Hold BP meds to allow effective HD & Fuid removal on HD in am Cardiomyopathy with A Fib - Cardiology to eval & advise Mx Edema - UF on HD as tolerated Thanks very much, will f/u with you
[2022-01-05] MEDS ORDERED: CALCIUM GLUCONATE 1,000 MG in SODIUM CHLORIDE 0.9% 100 ML IV ONE (12:37)
[2022-01-05] MEDS ORDERED: SODIUM POLYSTYRENE 15 GM/60 ML ORAL LIQD PO ONE (12:37)
[2022-01-05] MEDS ORDERED: INSULIN REGULAR, HUMAN 100 UNITS/1 ML IV ONE (12:37)
[2022-01-05] MEDS ORDERED: SODIUM BICARB 8.4% 50 MEQ/50 ML SYRINGE IV ONE (12:37)
[2022-01-05] MEDS ORDERED: ALBUTEROL 2.5 MG/3 ML NEBU IH ONE ×2 (12:37→18:03)
[2022-01-05] MEDS ORDERED: DEXTROSE 50% IN WATER (25GM) 50 ML SYRINGE IV ONE (12:38)
[2022-01-05] MEDS ORDERED: FUROSEMIDE 40 MG/4 ML INJ IV ONE (12:39)
--- NOTE | 2022-01-05 12:40 | Emergency Department Report ---
ED Shortness of Breath HPI - General Chief Complaint: Dyspnea/Respdistress Stated Complaint: COPD, FLUID DRAIN Time Seen by Provider: 01/05/22 12:16 Source: patient, EMS, old records reviewed (Patient was admitted earlier this month, [facility] consulted ) Mode of arrival: Stretcher Limitations: No Limitations - History of Present Illness Initial Comments: 56-year-old male with a past medical history of CHF with a EF of 20 to 25%, chronic right pleural effusion, paroxysmal atrial fibrillation currently on Eliquis, end-stage renal disease on dialysis Tuesday, Tuesday, and Tuesday presents to the hospital with complaint of shortness of breath, volume overload, and bleeding from AV fistula since receiving dialysis yesterday. Patient complaining of worsening shortness of breath, dyspnea exertion, orthopnea, and leg edema for the past 3 days. Patient had mild improvement in symptoms after dialysis yesterday. However, when he weighed himself today he had gained 11 pounds in 1 day. Patient states he has been told by nursing staff at dialysis clinic that he only needs to drink 4 cups of water a day. Patient does drink more volume than 4 cups daily. He complains of chest tightness with shortness of breath and productive cough without fever. He has been compliant with his medication and has very minimal output daily. His switch inspector Dr. Fleming presented department recommending admission for dialysis. He evaluated patient's AV fistula site prior to my evaluation chronic right pleural effusion patient's primary database security administrator Dr. Mullen who is not affiliated here. [facility] has consulted in the past - Related Data Home Medications Medication Instructions Recorded Confirmed Last Taken Multivit-Min/FA/Lycopen/Lutein 1 each PO QDAY 01/15/21 07/23/21 07/22/21 [Centrum Silver Men Tablet] Metoprolol [Lopressor TAB] 50 mg PO BID 04/14/21 07/23/21 07/22/21 Pantoprazole [Protonix TAB] 40 mg PO QDAY 04/14/21 07/23/21 07/22/21 Ferrous Sulfate [Iron 325 MG] 325 mg PO QDAY 07/23/21 07/23/21 07/22/21 Apixaban [Eliquis] 5 mg PO BID 10/28/21 12/17/21 12/16/21 22:30 Famotidine [Acid-Pep] 20 mg PO QDAY 10/28/21 12/17/21 12/15/21 09:30 Ferrous Sulfate [Iron 325 MG] 325 mg PO QDAY 10/28/21 12/17/21 12/15/21 09:30 Insulin NPH/Regular [NovoLIN 70/30] 5 unit SQ BIDDIAB 10/28/21 12/17/21 10/26/21 Metoprolol [Lopressor TAB] 25 mg PO BID 10/28/21 12/17/21 12/16/21 22:40 Multivitamin/Iron/Folic Acid 1 tab PO QDAY 10/28/21 12/17/21 12/15/21 09:30 [Centrum Adults Tablet] Tamsulosin [Flomax] 0.4 mg PO QDAY 10/28/21 12/17/21 12/15/21 09:30 dimenhyDRINATE [Dramamine] 25 mg PO PRN PRN 10/28/21 12/17/21 12/15/21 21:00 Previous Rx's Medication Instructions Recorded Last Taken Type Insulin NPH/Regular [NovoLIN 70/30] 25 unit SUB-Q BIDDIAB #2 vial 09/19/20 07/22/21 Rx Tamsulosin [Flomax] 0.4 mg PO QDAY #30 capsule 09/19/20 07/22/21 Rx Apixaban [Eliquis] 2.5 mg PO BID #60 tablet 03/16/21 07/22/21 Rx levoFLOXacin [Levaquin TAB] 500 mg PO Q24HR #2 tablet 10/28/21 12/15/21 Rx Allergies Allergy/AdvReac Type Severity Reaction Status Date / Time tomato Allergy Itching Verified 01/05/22 12:48 ED Review of Systems ROS: Stated complaint: COPD, FLUID DRAIN Other details as noted in HPI Comment: All other systems reviewed and negative ED Past Medical Hx - Past Medical History Hx Hypertension: Yes Hx Congestive Heart Failure: Yes Hx Diabetes: Yes Hx Renal Disease: (ESRD) Hx Arthritis: Yes (KNEE'S AND FINGER JOINTS) Hx Asthma: No Hx COPD: No Hx HIV: No Additional medical history: anemia, atrial fibrillation - Surgical History Additional Surgical History: tonsillectomy - Social History Smoking Status: Never Smoker - Medications Home Medications: Home Medications Medication Instructions Recorded Confirmed Last Taken Type Insulin NPH/Regular [NovoLIN 70/30] 25 unit SUB-Q BIDDIAB #2 vial 09/19/20 07/23/21 07/22/21 Rx Tamsulosin [Flomax] 0.4 mg PO QDAY #30 capsule 09/19/20 07/23/21 07/22/21 Rx Multivit-Min/FA/Lycopen/Lutein 1 each PO QDAY 01/15/21 07/23/21 07/22/21 History [Centrum Silver Men Tablet] Apixaban [Eliquis] 2.5 mg PO BID #60 tablet 03/16/21 07/23/21 07/22/21 Rx Metoprolol [Lopressor TAB] 50 mg PO BID 04/14/21 07/23/21 07/22/21 History Pantoprazole [Protonix TAB] 40 mg PO QDAY 04/14/21 07/23/21 07/22/21 History Ferrous Sulfate [Iron 325 MG] 325 mg PO QDAY 07/23/21 07/23/21 07/22/21 History Apixaban [Eliquis] 5 mg PO BID 10/28/21 12/17/21 12/16/21 22:30 History Famotidine [Acid-Pep] 20 mg PO QDAY 10/28/21 12/17/21 12/15/21 09:30 History Ferrous Sulfate [Iron 325 MG] 325 mg PO QDAY 10/28/21 12/17/21 12/15/21 09:30 History Insulin NPH/Regular [NovoLIN 70/30] 5 unit SQ BIDDIAB 10/28/21 12/17/21 10/26/21 History Metoprolol [Lopressor TAB] 25 mg PO BID 10/28/21 12/17/21 12/16/21 22:40 History Multivitamin/Iron/Folic Acid 1 tab PO QDAY 10/28/21 12/17/21 12/15/21 09:30 History [Centrum Adults Tablet] Tamsulosin [Flomax] 0.4 mg PO QDAY 10/28/21 12/17/21 12/15/21 09:30 History dimenhyDRINATE [Dramamine] 25 mg PO PRN PRN 10/28/21 12/17/21 12/15/21 21:00 History levoFLOXacin [Levaquin TAB] 500 mg PO Q24HR #2 tablet 10/28/21 12/17/21 12/15/21 Rx ED Physical Exam - General Limitations: No Limitations - Other Other exam information: General: No acute distress Head: Atraumatic Eyes: normal appearance ENT: Moist mucous membranes Neck: Normal appearance, no midline tenderness Chest: Mild decreased breath sounds at the bases, no tachypnea accessory muscle use CV: Regular rate and rhythm, left forearm AV fistula without active bleeding Abdomen: Soft, normal bowel sounds, nontender, nondistended, no rebound or guarding Back: Normal inspection Extremity: 1+ pitting lower extremity edema equal bilaterally without calf tenderness extremity edema Neuro: Alert O x 3, no facial asymmetry, speech clear, no gross motor sensory deficit ED Course Vital Signs 01/05/22 01/05/22 01/05/22 06:49 16:12 18:08 Temperature 98.7 F Pulse Rate 88 Pulse Rate [ 82 Bilateral] Respiratory 16 Rate Respiratory 16 Rate [Bilateral ] Blood Pressure 113/74 [Right] O2 Sat by Pulse 98 97 Oximetry - Consultations Consultation #1: 01/05/22 12:18 Case discussed with his switch inspector Dr. Quezada who recommends admission for dialys is tomorrow secondary to volume overload and hyperkalemia ED Medical Decision Making - Lab Data Result diagrams: 01/05/22 10:31 01/05/22 10:31 Lab Results 01/05/22 01/05/22 01/05/22 Range/Units 10:31 10:31 10:31 WBC 4.0 L (4.5-11.0) K/mm3 RBC 4.21 (3.65-5.03) M/mm3 Hgb 11.8 (11.8-15.2) gm/dl Hct 36.9 (35.5-45.6) % MCV 88 (84-94) fl MCH 28 (28-32) pg MCHC 32 (32-34) % RDW 19.7 H (13.2-15.2) % Plt Count 109 L (140-440) K/mm3 Lymph % (Auto) 18.7 (13.4-35.0) % [place] % (Auto) 12.1 H (0.0-7.3) % Eos % (Auto) 3.2 (0.0-4.3) % Baso % (Auto) 2.6 H (0.0-1.8) % Lymph # (Auto) 0.8 L (1.2-5.4) K/mm3 [place] # (Auto) 0.5 (0.0-0.8) K/mm3 Eos # (Auto) 0.1 (0.0-0.4) K/mm3 Baso # (Auto) 0.1 (0.0-0.1) K/mm3 Seg Neutrophils % 63.4 (40.0-70.0) % Seg Neutrophils # 2.6 (1.8-7.7) K/mm3 PT 21.3 H (12.2-14.9) Sec. INR 1.63 H (0.87-1.13) APTT 35.3 (24.2-36.6) Sec. Sodium 140 (137-145) mmol/L Potassium 5.9 H (3.6-5.0) mmol/L Chloride 101.3 (98-107) mmol/L Carbon Dioxide 28 (22-30) mmol/L Anion Gap 17 mmol/L BUN 41 H (9-20) mg/dL Creatinine 4.2 H (0.8-1.3) mg/dL Estimated GFR 15 ml/min BUN/Creatinine Ratio 10 % Glucose 122 H (75-100) mg/dL Calcium 9.2 (8.4-10.2) mg/dL Total Bilirubin 0.50 (0.1-1.2) mg/dL AST 13 (5-40) units/L ALT 13 (7-56) units/L Alkaline Phosphatase 110 (35-129) units/L Troponin T 0.355 H* (0.00-0.029) ng/mL Total Protein 8.1 (6.3-8.2) g/dL Albumin 3.9 (3.9-5) g/dL Albumin/Globulin Ratio 0.9 % Triglycerides 69 (2-149) mg/dL Cholesterol 93 (50-199) mg/dL LDL Cholesterol Direct 45 L (50-130) mg/dL HDL Cholesterol 33 L (40-59) mg/dL Cholesterol/HDL Ratio 2.81 % - EKG Data -: EKG Interpreted by [place] EKG shows normal: sinus rhythm, ST-T waves (No STEMI) Rate: normal - Radiology Data Radiology results: report reviewed CHEST PA AND LATERAL VIEWS INDICATION: sob. COMPARISON: 12/17/2019 FINDINGS: Support devices: None. Heart: Within normal limits. Lungs/Pleura: Somewhat loculated small right pleural effusion appears similar to the prior. There is also a trace left pleural effusion. Bibasilar opacities are nonspecific but similar to the prior. IMPRESSION: 1. No significant change. Persistent effusions and bibasilar opacities. - Medical Decision Making 56-year-old male presents to the hospital with volume overload, edema, weight gain, and shortness of breath despite dialysis compliance. It is unlikely that patient has been compliant with recommended fluid restriction. Hyperkalemia noted with signs of heart failure on chest x-ray. As per switch inspector plan for dialysis tomorrow. Hyperkalemia meds ordered in the ED. mild troponin elevation noted (similar to previous) without signs of ST elevation on EKG. Case discussed with hospitalist for admission Critical Care Time: Yes Critical care time in (mins) excluding proc time.: 35 Critical care attestation.: If time is entered above; I have spent that time in minutes in the direct care of this critically ill patient, excluding procedure time. Critical Care Time: 35 Minutes of critical care time excluding procedures were used in the care of the patient. I discussed treatment plan with the nursing team members. I reviewed electronic record. Patient required multiple medications for hy perkalemia. Case discussed with nephrology. Hospitalist to admit ED Disposition Clinical Impression: Volume overload, Acute exacerbation of CHF (congestive heart failure), End- stage renal disease needing dialysis, Hyperkalemia Disposition: ADMITTED INPATIENT Is pt being admited?: Yes Condition: Stable Time of Disposition: 12:51
[2022-01-05] MEDS ORDERED: CALC GLUCONATE 1GM/NS 100 ML 1 GM/100 ML BAG IV ONE (13:00)
[2022-01-05] MEDS ORDERED: SODIUM CHLORIDE 0.9% 100 ML IV PRN (13:05)
[2022-01-05] MEDS ORDERED: ACETAMINOPHEN 325 MG TAB PO PRN ×2 (13:28→15:16)
[2022-01-05] MEDS ORDERED: ONDANSETRON 4 MG/2 ML INJ IV PRN ×2 (13:28→15:16)
[2022-01-05] MEDS ORDERED: MORPHINE 2 MG/1 ML INJ IV PRN ×2 (13:31→15:16)
--- NOTE | 2022-01-05 15:12 | History and Physical Report ---
History of Present Illness Date of examination: 01/05/22 Date of admission: 01/05/22 13:29 Chief complaint: Increasing shortness of breath for 1 day History of present illness: 56-year-old male with history of end-stage renal disease and CHF with EF of 20 to 25%, paroxysmal atrial fibrillation on Eliquis comes in for increasing shortness of breath. Patient had hemodialysis yesterday. Excess fluid intake. Shortness of breath on minimal exertion and orthopnea present. Patient gets hemodialysis on Wednesdays and Fridays. Patient follows with Dr. Houser. No fever or chills. Complains of chest tightness with shortness of breath and productive cough without fever. His supervisor assembly stock recommended hemodialysis for volume overload and hence being admitted. No chest pain. Lying comfortably. - Past Medical History --Hypertension: Yes --Congestive Heart Failure: Yes --Diabetes: Yes --Renal Disease: (ESRD) --Arthritis: Yes (KNEE'S AND FINGER JOINTS) --Additional medical history: anemia, atrial fibrillation - Surgical History Additional Surgical History: tonsillectomy - Social History Smoking Status: Never Smoker Family history Htn - Medications Home Medications: Home Medications Medication Instructions Recorded Confirmed Last Taken Type Insulin NPH/Regular [NovoLIN 70/30] 25 unit SUB-Q BIDDIAB #2 vial 09/19/20 07/23/21 07/22/21 Rx Tamsulosin [Flomax] 0.4 mg PO QDAY #30 capsule 09/19/20 07/23/21 07/22/21 Rx Multivit-Min/FA/Lycopen/Lutein 1 each PO QDAY 01/15/21 07/23/21 07/22/21 History [Centrum Silver Men Tablet] Apixaban [Eliquis] 2.5 mg PO BID #60 tablet 03/16/21 07/23/21 07/22/21 Rx Metoprolol [Lopressor TAB] 50 mg PO BID 04/14/21 07/23/21 07/22/21 History Pantoprazole [Protonix TAB] 40 mg PO QDAY 04/14/21 07/23/21 07/22/21 History Ferrous Sulfate [Iron 325 MG] 325 mg PO QDAY 07/23/21 07/23/21 07/22/21 History Apixaban [Eliquis] 5 mg PO BID 0312/17/21 12/16/21 22:30 History Famotidine [Acid-Pep] 20 mg PO QDAY 10/28/21 12/17/21 12/15/21 09:30 History Ferrous Sulfate [Iron 325 MG] 325 mg PO QDAY 10/28/21 12/17/21 12/15/21 09:30 History Insulin NPH/Regular [NovoLIN 70/30] 5 unit SQ BIDDIAB 10/28/21 12/17/21 10/26/21 History Metoprolol [Lopressor TAB] 25 mg PO BID 10/28/21 12/17/21 12/16/21 22:40 History Multivitamin/Iron/Folic Acid 1 tab PO QDAY 10/28/21 12/17/21 12/15/21 09:30 History [Centrum Adults Tablet] Tamsulosin [Flomax] 0.4 mg PO QDAY 10/28/21 12/17/21 12/15/21 09:30 History dimenhyDRINATE [Dramamine] 25 mg PO PRN PRN 10/28/21 12/17/21 12/15/21 21:00 History levoFLOXacin [Levaquin TAB] 500 mg PO Q24HR #2 tablet 10/28/21 12/17/21 12/15/21 Rx Review of Systems ROS: Stated complaint: COPD, FLUID DRAIN Other details as noted in HPI Comment: All other systems reviewed and negative Past History Past Medical History: atrial fib, diabetes, dialysis, ESRD, hypertension, other (Cardiomyopathy with EF 20-25%) Past Surgical History: Other (AVF Lt forearm) Social history: denies: smoking, alcohol abuse Family history: hypertension Medications and Allergies Allergies Allergy/AdvReac Type Severity Reaction Status Date / Time tomato Allergy Itching Verified 01/05/22 12:48 Home Medications Medication Instructions Recorded Confirmed Last Taken Type Insulin NPH/Regular [NovoLIN 70/30] 25 unit SUB-Q BIDDIAB #2 vial 09/19/20 07/23/21 07/22/21 Rx Tamsulosin [Flomax] 0.4 mg PO QDAY #30 capsule 09/19/20 07/23/21 07/22/21 Rx Multivit-Min/FA/Lycopen/Lutein 1 each PO QDAY 01/15/21 07/23/21 07/22/21 History [Centrum Silver Men Tablet] Apixaban [Eliquis] 2.5 mg PO BID #60 tablet 03/16/21 07/23/21 07/22/21 Rx Metoprolol [Lopressor TAB] 50 mg PO BID 04/14/21 07/23/21 07/22/21 History Pantoprazole [Protonix TAB] 40 mg PO QDAY 04/14/21 07/23/21 07/22/21 History Ferrous Sulfate [Iron 325 MG] 325 mg PO QDAY 07/23/21 07/23/21 07/22/21 History Apixaban [Eliquis] 5 mg PO BID 10/28/21 12/17/21 12/16/21 22:30 History Famotidine [Acid-Pep] 20 mg PO QDAY 10/28/21 12/17/21 12/15/21 09:30 History Ferrous Sulfate [Iron 325 MG] 325 mg PO QDAY 10/28/21 12/17/21 12/15/21 09:30 History Insulin NPH/Regular [NovoLIN 70/30] 5 unit SQ BIDDIAB 10/28/21 12/17/21 10/26/21 History Metoprolol [Lopressor TAB] 25 mg PO BID 10/28/21 12/17/21 12/16/21 22:40 History Multivitamin/Iron/Folic Acid 1 tab PO QDAY 10/28/21 12/17/21 12/15/21 09:30 History [Centrum Adults Tablet] Tamsulosin [Flomax] 0.4 mg PO QDAY 10/28/21 12/17/21 12/15/21 09:30 History dimenhyDRINATE [Dramamine] 25 mg PO PRN PRN 10/28/21 12/17/21 12/15/21 21:00 History levoFLOXacin [Levaquin TAB] 500 mg PO Q24HR #2 tablet 10/28/21 12/17/21 12/15/21 Rx Active Meds: Active Medications Acetaminophen (Acetaminophen 325 Mg Tab) 650 mg PO Q4H PRN PRN Reason: Pain MILD(1-3)/Fever >100.5/YUNG Sodium Chloride (Nacl 0.9%) 100 mls @ 999 mls/hr IV CARLOS PRN PRN Reason: Hypotension Morphine Sulfate (Morphine 2 Mg/1 Ml Inj) 2 mg IV Q4H PRN PRN Reason: Pain, Moderate (4-6) Ondansetron HCl (Ondansetron 4 Mg/2 Ml Inj) 4 mg IV Q8H PRN PRN Reason: Nausea And Vomiting Sodium Chloride (Sodium Chloride 0.9% 10 Ml Flush Syringe) 10 ml IV BID CHAU Sodium Chloride (Sodium Chloride 0.9% 10 Ml Flush Syringe) 10 ml IV PRN PRN PRN Reason: LINE FLUSH Exam - Constitutional Vitals: Temp Pulse Resp BP Pulse Ox 98.7 F 88 16 113/74 98 01/05/22 06:49 01/05/22 06:49 01/05/22 06:49 01/05/22 06:49 01/05/22 06:49 General appearance: Present: no acute distress, well-nourished - EENT Eyes: Present: PERRL ENT: hearing intact, clear oral mucosa - Neck Neck: Present: supple, normal ROM - Respiratory Respiratory effort: normal Respiratory: bilateral: CTA - Cardiovascular Heart rate: 78 Rhythm: regular Heart Sounds: Present: S1 & S2. Absent: rub, click - Extremities Extremities: pulses symmetrical, No edema Peripheral Pulses: within normal limits - Abdominal General gastrointestinal: Present: soft, non-tender, non-distended, normal bowel sounds Male genitourinary: Present: normal - Integumentary Integumentary: Present: clear, warm, dry - Musculoskeletal Musculoskeletal: gait normal, strength equal bilaterally - Psychiatric Psychiatric: appropriate mood/affect, intact judgment & insight - Neurologic Neurologic: CNII-XII intact, moves all extremities - Allied Health Allied health notes reviewed: nursing, case management HEART Score - HEART Score History: Moderately suspicious Age: 45-65 Risk factors: > 3 risk factors or hx of atherosclerotic disease Troponin: Troponin T 0.355 ng/mL (0.00-0.029) H* 01/05/22 10:31 Troponin: < normal limit - Critical Actions Critical Actions: 0-3 pts:0.9-1.7%risk of adverse cardiac event.Candidate for discharge Results - Labs CBC & Chem 7: 01/06/22 04:40 01/06/22 04:40 Labs: Laboratory Last Values WBC 4.0 K/mm3 (4.5-11.0) L 01/05/22 10:31 RBC 4.21 M/mm3 (3.65-5.03) 01/05/22 10:31 Hgb 11.8 gm/dl (11.8-15.2) 01/05/22 10:31 Hct 36.9 % (35.5-45.6) 01/05/22 10:31 MCV 88 fl (84-94) 01/05/22 10:31 MCH 28 pg (28-32) 01/05/22 10:31 MCHC 32 % (32-34) 01/05/22 10:31 RDW 19.7 % (13.2-15.2) H 01/05/22 10:31 Plt Count 109 K/mm3 (140-440) L 01/05/22 10:31 Lymph % (Auto) 18.7 % (13.4-35.0) 01/05/22 10:31 [place] % (Auto) 12.1 % (0.0-7.3) H 01/05/22 10:31 Eos % (Auto) 3.2 % (0.0-4.3) 01/05/22 10:31 Baso % (Auto) 2.6 % (0.0-1.8) H 01/05/22 10:31 Lymph # (Auto) 0.8 K/mm3 (1.2-5.4) L 01/05/22 10:31 [place] # (Auto) 0.5 K/mm3 (0.0-0.8) 01/05/22 10:31 Eos # (Auto) 0.1 K/mm3 (0.0-0.4) 01/05/22 10:31 Baso # (Auto) 0.1 K/mm3 (0.0-0.1) 01/05/22 10:31 Seg Neutrophils % 63.4 % (40.0-70.0) 01/05/22 10:31 Seg Neutrophils # 2.6 K/mm3 (1.8-7.7) 01/05/22 10:31 PT 21.3 Sec. (12.2-14.9) H 01/05/22 10:31 INR 1.63 (0.87-1.13) H 01/05/22 10:31 APTT 35.3 Sec. (24.2-36.6) 01/05/22 10:31 Sodium 140 mmol/L (137-145) 01/05/22 10:31 Potassium 5.9 mmol/L (3.6-5.0) H 01/05/22 10:31 Chloride 101.3 mmol/L (98-107) 01/05/22 10:31 Carbon Dioxide 28 mmol/L (22-30) 01/05/22 10:31 Anion Gap 17 mmol/L 01/05/22 10:31 BUN 41 mg/dL (9-20) H 01/05/22 10:31 Creatinine 4.2 mg/dL (0.8-1.3) H 01/05/22 10:31 Estimated GFR 15 ml/min 01/05/22 10:31 BUN/Creatinine Ratio 10 % 01/05/22 10:31 Glucose 122 mg/dL (75-100) H 01/05/22 10:31 Calcium 9.2 mg/dL (8.4-10.2) 01/05/22 10:31 Total Bilirubin 0.50 mg/dL (0.1-1.2) 01/05/22 10:31 AST 13 units/L (5-40) 01/05/22 10:31 ALT 13 units/L (7-56) 01/05/22 10:31 Alkaline Phosphatase 110 units/L (35-129) 01/05/22 10:31 Troponin T 0.355 ng/mL (0.00-0.029) H* 01/05/22 10:31 Total Protein 8.1 g/dL (6.3-8.2) 01/05/22 10:31 Albumin 3.9 g/dL (3.9-5) 01/05/22 10:31 Albumin/Globulin Ratio 0.9 % 01/05/22 10:31 Triglycerides 69 mg/dL (2-149) 01/05/22 10:31 Cholesterol 93 mg/dL (50-199) 01/05/22 10:31 LDL Cholesterol Direct 45 mg/dL (50-130) L 01/05/22 10:31 HDL Cholesterol 33 mg/dL (40-59) L 01/05/22 10:31 Cholesterol/HDL Ratio 2.81 % 01/05/22 10:31 Short CBC 01/05/22 01/06/22 Range/Units 10:31 04:40 WBC 4.0 L 4.5 (4.5-11.0) K/mm3 Hgb 11.8 10.6 L (11.8-15.2) gm/dl Hct 36.9 33.6 L (35.5-45.6) % Plt Count 109 L 102 L (140-440) K/mm3 BMP 01/05/22 01/06/22 10:31 04:40 Sodium 140 139 Potassium 5.9 H 4.9 Chloride 101.3 100.9 Carbon Dioxide 28 26 BUN 41 H 47 H Creatinine 4.2 H 4.7 H Glucose 122 H 122 H Calcium 9.2 8.7 Cardiac Enzymes 01/05/22 Range/Units 10:31 Troponin T 0.355 H* (0.00-0.029) ng/mL Liver Function 01/05/22 01/06/22 Range/Units 10:31 04:40 Total Bilirubin 0.50 0.40 (0.1-1.2) mg/dL AST 13 10 (5-40) units/L ALT 13 10 (7-56) units/L Alkaline Phosphatase 110 84 (35-129) units/L Albumin 3.9 3.3 L (3.9-5) g/dL Microbiology: Microbiology 01/05/22 11:51 Peripheral/Venous Blood Culture - Preliminary Culture in Progress 01/05/22 10:31 Peripheral/Venous Blood Culture - Preliminary Culture in Progress - Imaging and Cardiology Chest x-ray: report reviewed Imaging and Cardiology: Chest x-ray No significant change and persistent effusion and bibasilar opacities Assessment and Plan Advance Directives: Yes (Full code) VTE prophylaxis?: Chemical Plan of care discussed with patient/family: Yes - Patient Problems (1) Volume overload Current Visit: Yes Status: Acute Plan to address problem: Patient being admitted for hemodialysis Nephrology consulted Nephrology advised admission Increase ultrafiltration for volume removal (2) End-stage renal disease needing dialysis Current Visit: Yes Status: Chronic Plan to address problem: Continue hemodialysis as per schedule Nephrology consulted (3) Hypertension Current Visit: Yes Status: Chronic Qualifiers: Hypertension type: primary hypertension Qualified Code(s): I10 - Essential (primary) hypertension Plan to address problem: Continue antihypertensives and adjust medications as necessary (4) IDDM (insulin dependent diabetes mellitus) Current Visit: Yes Status: Chronic Plan to address problem: Continue home insulin and coverage Check hemoglobin A1c (5) Paroxysmal atrial fibrillation Current Visit: Yes Status: Chronic Plan to address problem: Continue Eliquis (6) DVT prophylaxis Current Visit: Yes Status: Acute Plan to address problem: On Eliquis and GI prophylaxis (7) Advance care planning Current Visit: Yes Status: Acute Plan to address problem: Disease education conducted, care plan discussed, diagnosis discussed, prognosis is normal and patient is full code. Patient acknowledged understanding and agreement with care plan. +30 minutes.
[2022-01-05] MEDS ORDERED: METOCLOPRAMIDE 10 MG/2 ML INJ IV PRN (15:16)
[2022-01-05] MEDS ORDERED: HYDROmorphone 0.5 MG/0.5 ML INJ IV PRN (15:16)
[2022-01-05] MEDS ORDERED: oxyCODONE /ACETAMINOPHEN 5-325MG TAB PO PRN (15:16)
[2022-01-05] MEDS ORDERED: FAMOTIDINE 10 MG TAB PO SCH (22:00)
[2022-01-05] MEDS: APIXABAN 5 MG TAB PO SCH (22:54)
[2022-01-06 05:10] LABS: Basophils # (Auto) 0.1 K/mm3 (0.0-0.1); Basophils % (Auto) 1.7 % (0.0-1.8); Eosinophils # (Auto) 0.1 K/mm3 (0.0-0.4); Eosinophils % (Auto) 1.2 % (0.0-4.3); Hematocrit 33.6 % (35.5-45.6); Hemoglobin 10.6 gm/dl (11.8-15.2); Lymphocytes # (Auto) 0.6 K/mm3 (1.2-5.4); Lymphocytes % (Auto) 12.8 % (13.4-35.0); Mean Corpuscular HGB Conc 32 % (32-34); Mean Corpuscular Volume 88 fl (84-94); Monocytes # (Auto) 0.6 K/mm3 (0.0-0.8); Monocytes % (Auto) 12.7 % (0.0-7.3); Platelet Count 102 K/mm3 (140-440); Red Blood Count 3.83 M/mm3 (3.65-5.03)
[2022-01-06 05:16] LABS: Red Cell Distribution Width 20.1 % (13.2-15.2)
[2022-01-06 05:34] LABS: Albumin 3.3 g/dL (3.9-5); Calcium 8.7 mg/dL (8.4-10.2)
[2022-01-06] MEDS ORDERED: INSULIN NPH/REGULAR 70/30 INJ SUB-Q SCH (08:00)
[2022-01-06] MEDS ORDERED: METOPROLOL TARTRATE 50 MG TAB PO SCH (08:00)
--- NOTE | 2022-01-06 09:05 | Electrocardiograph Report ---
[facility] Test Date: 2022-01-05 Test Time: 12:35:34 Pat Name: CARISA NORRIS Department: Room: A468 Gender: M Pin Chaser: KIM : 1965 Requested By: VIPIN CARTER Order Number: [id number] Reading MD: Fabian Lee Measurements Intervals [place] Rate: 77 P: 45 MO: 89 QRS: 55 QRSD: 89 T: QT: 401 QTc: 455 Interpretive Statements Sinus rhythm nonspecific st-t Compared to ECG 12/16/2021 10:48:24 No significant changes Electronically Signed On 01-06-2022 9:04:59 EDT by Fabian Lee
[2022-01-06] MEDS: APIXABAN 5 MG TAB PO SCH (09:10)
[2022-01-06 09:59] LABS: Bilirubin,Urine NEG (Negative); Blood,Urine MOD (Negative); Color,Urine Yellow (Yellow); Urobilinogen,Urine < 2.0 mg/dL (<2.0)
[2022-01-06] MEDS ORDERED: FAMOTIDINE 20 MG TAB PO SCH (10:00)
[2022-01-06] MEDS ORDERED: FERROUS SULFATE 325 MG TAB PO SCH (10:00)
[2022-01-06] MEDS ORDERED: TAMSULOSIN 0.4 MG CAP PO SCH (10:00)
--- NOTE | 2022-01-06 11:31 | Progress Note ---
Assessment and Plan Bleeding from Lt forearm AVF - Resolved, f/u post HD today ESRD - Seen & stable on HD Lytes - Resolved HyperK, f/u labs Hypotension - Still hold BP meds & f/u Cardiomyopathy with A Fib - Cardiology to eval & advise Mx Edema - UF on HD as tolerated Subjective Date of service: 01/06/22 Interval history: Bleeding from Lt forearm AVF resolved. Pt seen on HD Objective - Vital Signs Vital signs: Vital Signs - 12hr 01/05/22 01/06/22 01/06/22 23:49 08:13 09:10 Temperature 98.7 F 98.0 F Pulse Rate 105 H 102 H 102 H Respiratory 18 16 Rate Blood Pressure 108/69 108/69 Blood Pressure 104/49 [Right] O2 Sat by Pulse 90 93 Oximetry O2 Sat by Pulse Oximetry [ Bilateral] 01/06/22 10:30 Temperature 97.6 F Pulse Rate 93 H Respiratory 20 Rate Blood Pressure 143/94 Blood Pressure [Right] O2 Sat by Pulse Oximetry O2 Sat by Pulse 97 Oximetry [ Bilateral] - General Appearance General appearance: other (Awake & alert) EENT: PERRL Neck: no JVD Respiratory: Present: Clear to Ascultation Cardiology: regular, S1S2 Gastrointestinal: normal Neurologic: no focal deficit Psychiatric: mood/affect appropriate - Lab 01/06/22 04:40 01/06/22 04:40 Most recent lab results Calcium 8.7 mg/dL (8.4-10.2) 01/06/22 04:40 Phosphorus 4.50 mg/dL (2.5-4.5) 01/06/22 04:40 Magnesium 2.30 mg/dL (1.7-2.3) 01/06/22 04:40 Medications & Allergies - Medications Allergies/Adverse Reactions: Allergies tomato Allergy (Verified 01/05/22 12:48) Itching Home Medications: Home Medications Medication Instructions Recorded Confirmed Last Taken Type Insulin NPH/Regular [NovoLIN 70/30] 25 unit SUB-Q BIDDIAB #2 vial 09/19/20 07/23/21 07/22/21 Rx Multivit-Min/FA/Lycopen/Lutein 1 each PO QDAY 01/15/21 07/23/21 07/22/21 History [Centrum Silver Men Tablet] Apixaban [Eliquis] 2.5 mg PO BID #60 tablet 03/16/21 07/23/21 07/22/21 Rx Pantoprazole [Protonix TAB] 40 mg PO QDAY 04/14/21 07/23/21 07/22/21 History Apixaban [Eliquis] 5 mg PO BID 10/28/21 12/17/21 12/16/21 22:30 History Famotidine [Acid-Pep] 20 mg PO QDAY 10/28/21 12/17/21 12/15/21 09:30 History Insulin NPH/Regular [NovoLIN 70/30] 5 unit SQ BIDDIAB 10/28/21 12/17/21 10/26/21 History Multivitamin/Iron/Folic Acid 1 tab PO QDAY 10/28/21 12/17/21 12/15/21 09:30 History [Centrum Adults Tablet] dimenhyDRINATE [Dramamine] 25 mg PO PRN PRN 10/28/21 12/17/21 12/15/21 21:00 History levoFLOXacin [Levaquin TAB] 500 mg PO Q24HR #2 tablet 10/28/21 12/17/21 12/15/21 Rx Ferrous Sulfate [Iron 325 MG] 325 mg PO QDAY #30 tab 01/06/22 Unknown Rx Metoprolol [Lopressor TAB] 25 mg PO BID #60 tab 01/06/22 Unknown Rx Tamsulosin [Flomax] 0.4 mg PO QDAY #30 cap 01/06/22 Unknown Rx Active Medications: Generic Name Dose Route Start Last Admin Trade Name Freq PRN Reason Stop Dose Admin Acetaminophen 650 mg 01/05/22 13:28 Acetaminophen 325 Mg Tab PO Q4H PRN Pain MILD(1-3)/Fever >100.5/YUNG Apixaban 2.5 mg 01/06/22 10:55 Apixaban 5 Mg Tab PO BID CHAU Famotidine 20 mg 01/06/22 10:00 01/06/22 09:10 Famotidine 20 Mg Tab PO 20 mg QDAY CHAU Administration Ferrous Sulfate 325 mg 01/06/22 10:00 01/06/22 09:10 Ferrous Sulfate 325 Mg Tab PO 325 mg QDAY CHAU Administration Hydromorphone HCl 0.5 mg 01/05/22 15:16 Hydromorphone 0.5 Mg/0.5 Ml Inj IV Q3H PRN Pain , Severe (7-10) Sodium Chloride 100 mls @ 999 mls/hr 01/05/22 13:05 Nacl 0.9% IV CARLOS PRN Hypotension Insulin Human Isoph/Insulin Regular 25 unit 01/06/22 08:00 01/06/22 09:02 Insulin Nph/Regular 70/30 Inj SUB-Q Not Given BIDDIAB CHAU Metoclopramide HCl 10 mg 01/05/22 15:16 01/05/22 22:54 Metoclopramide 10 Mg/2 Ml Inj IV 10 mg Q6H PRN Administration Nausea And Vomiting Metoprolol Tartrate 50 mg 01/06/22 08:00 01/06/22 09:10 Metoprolol Tartrate 50 Mg Tab PO 50 mg BID@0800,1700 [facility] Administration Morphine Sulfate 2 mg 01/05/22 13:31 Morphine 2 Mg/1 Ml Inj IV Q4H PRN Pain, Moderate (4-6) Ondansetron HCl 4 mg 01/05/22 13:28 Ondansetron 4 Mg/2 Ml Inj IV Q8H PRN Nausea And Vomiting Oxycodone/Acetaminophen 1 tab 01/05/22 15:16 Oxycodone /Acetaminophen 5-325mg Tab PO Q6H PRN Pain, Moderate (4-6) Sodium Chloride 10 ml 01/05/22 22:00 01/06/22 09:11 Sodium Chloride 0.9% 10 Ml Flush Syringe IV 10 ml BID CHAU Administration Sodium Chloride 10 ml 01/05/22 15:16 Sodium Chloride 0.9% 10 Ml Flush Syringe IV PRN PRN LINE FLUSH Tamsulosin HCl 0.4 mg 01/06/22 10:00 01/06/22 09:10 Tamsulosin 0.4 Mg Cap PO 0.4 mg QDAY CHAU Administration
--- NOTE | 2022-01-06 11:31 | Discharge Summary ---
Providers - Providers Date of Admission: 01/05/22 13:29 Date of discharge: 01/06/22 Attending physician: RUDDY DENNISON MD 01/05/22 12:18 Consult to Physician [CONS] Urgent Comment: Consulting Provider: LENI PARISH Physician Instructions: Reason For Exam: esrd Primary care physician: TOW FEEDER Hospitalization Reason for admission: Volume overload, ESRD on hemodialysis. Condition: Stable Pertinent studies: Reviewed Procedures: Hemodialysis Hospital course: Patient is a 56-year-old male past medical history of end-stage renal disease on hemodialysis, chronic systolic heart failure (EF 20-25%), paroxysmal atrial fibrillation on Eliquis (5 mg twice daily), hypertension, atrial fibrillation, osteoarthritis, insulin-dependent type 2 diabetes mellitus who presented to the ED from hemodialysis after expressing worsening peripheral edema, shortness of breath on exertion, orthopnea. Patient endorses being compliant with his hemodialysis on Tuesday, Tuesday, and Fridays. The patient's vice president quality improvement () recommended hospital admission for hemodialysis for appropriate volume control. In addition to his volume overload, the patient endorsed mild bleeding from his fistula site (left upper extremity) that required a pressure bandage to stop bleeding. Nephrology was consulted in the ED for management of hemodialysis. Patient has remained hemodynamically stable and is saturating well on room air. After hemodialysis the patient will be cleared for discharge, the patient expressed understanding. Disposition: 01 HOME / SELF CARE / HOMELESS Final Discharge Diagnosis (Prints w/discharge instructions): Volume overload, ESRD on hemodialysis, chronic systolic heart failure, paroxysmal atrial fibrillation on Eliquis, insulin-dependent type 2 diabetes mellitus, hype rtension, osteoarthritis, mild protein caloric malnutrition, anemia of chronic disease Time spent for discharge: 45 min Core Measure Documentation - Palliative Care Palliative Care/ Comfort Measures: Not Applicable - Core Measures Any of the following diagnoses?: history only Exam - Constitutional Vitals: Temp Pulse Resp BP Pulse Ox 97.6 F 93 H 20 143/94 97 01/06/22 10:30 01/06/22 10:30 01/06/22 10:30 01/06/22 10:30 01/06/22 10:30 General appearance: Present: no acute distress, cachectic - EENT Eyes: Present: PERRL, EOM intact ENT: hearing intact, clear oral mucosa, dentition normal - Neck Neck: Present: supple, normal ROM - Respiratory Respiratory effort: normal Respiratory: bilateral: CTA - Cardiovascular Rhythm: regular Heart Sounds: Present: S1 & S2 - Extremities Extremities: no ischemia, pulses intact, pulses symmetrical, No edema, normal temperature, normal color, abnormal (Left upper extremity AV fistula with palpable thrill) Peripheral Pulses: within normal limits - Abdominal General gastrointestinal: Present: soft, non-tender, non-distended, normal bowel sounds Male genitourinary: Present: deferred - Rectal Rectal Exam: deferred - Integumentary Integumentary: Present: clear, warm, dry - Musculoskeletal Musculoskeletal: generalized weakness - Psychiatric Psychiatric: appropriate mood/affect, intact judgment & insight, memory intact, cooperative - Neurologic Neurologic: CNII-XII intact, moves all extremities - Allied Health Allied health notes reviewed: nursing Plan Activity: no restrictions Diet: diabetic, renal Additional Instructions: Patient is a 56-year-old male past medical history of end-stage renal disease on hemodialysis, chronic systolic heart failure (EF 20- 25%), paroxysmal atrial fibrillation on Eliquis (5 mg twice daily), hypertension, atrial fibrillation, osteoarthritis, insulin-dependent type 2 diabetes mellitus who presented to the ED from hemodialysis after expressing worsening peripheral edema, shortness of breath on exertion, orthopnea. Patient endorses being compliant with his hemodialysis on Tuesday, Tuesday, and Fridays. The patient's vice president quality improvement () recommended hospital admission for hemodialysis for appropriate volume control. In addition to his volume overload, the patient endorsed mild bleeding from his fistula site (left upper extremity) that required a pressure bandage to stop bleeding. Nephrology was consulted in the ED for management of hemodialysis. Patient has remained he modynamically stable and is saturating well on room air. After hemodialysis the patient will be cleared for discharge, the patient expressed understanding. Care Plan Goals: Patient is medically clear for discharge. Assessment: Patient is a 56-year-old male past medical history of end-stage renal disease on hemodialysis, chronic systolic heart failure (EF 20-25%), paroxysmal atrial fibrillation on Eliquis (5 mg twice daily), hypertension, atrial fibrillation, osteoarthritis, insulin-dependent type 2 diabetes mellitus who presented to the ED from hemodialysis after expressing worsening peripheral edema, shortness of breath on exertion, orthopnea. Patient endorses being compliant with his hemodialysis on Tuesday, Tuesday, and Fridays. The patient's vice president quality improvement () recommended hospital admission for hemodialysis for appropriate volume control. In addition to his volume overload, the patient endorsed mild bleeding from his fistula site (left upper extremity) that required a pressure bandage to stop bleeding. Nephrology was consulted in the ED for management of hemodialysis. Patient has remained hemodynamically stable and is saturating well on room air. After hemodialysis the patient will be cleared for discharge, the patient expressed understanding. Prescriptions: Tamsulosin [Flomax] 0.4 mg PO QDAY #30 cap Ferrous Sulfate [Iron 325 MG] 325 mg PO QDAY #30 tab Metoprolol [Lopressor TAB] 25 mg PO BID #60 tab
[2022-01-06 15:37] VITALS: BP 127/68
[2022-01-06] MEDS ORDERED: APIXABAN 5 MG TAB PO SCH (22:00)
== END 2022-01-06 16:49 | disposition home or self-care (01) ==
LOC: ED 06:46 → INTOOBSV 13:29 → OBSVTOIN 13:29 → 4A 13:29
PROVIDERS: ADMIT Internal Medicine; ATTEND Student in an Organized Health Care Education/Training Program
DX: E87.70 Fluid overload, unspecified (principal); E87.5 Hyperkalemia; I13.2 Hypertensive heart and chronic kidney disease with heart failure and with stage 5 chronic kidney disease, or end stage renal disease; I50.9 Heart failure, unspecified; N18.6 End stage renal disease; D63.1 Anemia in chronic kidney disease; E11.22 Type 2 diabetes mellitus with diabetic chronic kidney disease; I48.0 Paroxysmal atrial fibrillation; I95.9 Hypotension, unspecified; I42.9 Cardiomyopathy, unspecified; M19.90 Unspecified osteoarthritis, unspecified site; E44.1 Mild protein-calorie malnutrition; Z99.2 Dependence on renal dialysis; Z90.49 Acquired absence of other specified parts of digestive tract; Z79.899 Other long term (current) drug therapy; Z98.890 Other specified postprocedural states; Z68.22 Body mass index [BMI] 22.0-22.9, adult
CPT/HCPCS: 36415; 71046; 80053; 80061; 81001; 82962; 83036; 83735; 84100; 84484; 85025; 85610; 85730; 87040; 87086; 87641; 93005; 94640; 96374; 96375; 99291; G0257; G0378; J0610; J1940; J2765; J3490; Q9967; J1815

== ENCOUNTER 2022-03-12 08:49 | Day surgery (SDC) | payer MEDICARE ==
[2022-03-12 10:29] LABS: Basophils # (Auto) 0.1 K/mm3 (0.0-0.1); Basophils % (Auto) 2.1 % (0.0-1.8); Eosinophils # (Auto) 0.1 K/mm3 (0.0-0.4); Eosinophils % (Auto) 2.5 % (0.0-4.3); Hematocrit 35.4 % (35.5-45.6); Hemoglobin 11.4 gm/dl (11.8-15.2); Lymphocytes # (Auto) 0.7 K/mm3 (1.2-5.4); Lymphocytes % (Auto) 17.5 % (13.4-35.0); Mean Corpuscular HGB Conc 32 % (32-34); Mean Corpuscular Volume 90 fl (84-94); Monocytes # (Auto) 0.6 K/mm3 (0.0-0.8); Monocytes % (Auto) 14.9 % (0.0-7.3); Platelet Count 105 K/mm3 (140-440); Red Blood Count 3.94 M/mm3 (3.65-5.03)
[2022-03-12 10:54] LABS: INR 1.13 (0.87-1.13)
[2022-03-12 10:55] LABS: Partial Thromboplastin Time 32.8 Sec. (24.2-36.6)
[2022-03-12 11:11] LABS: Albumin 3.8 g/dL (3.9-5); Calcium 8.9 mg/dL (8.4-10.2)
[2022-03-12] MEDS ORDERED: HYDROcodone/ACETAMINOPHEN 5-325 MG TAB PO ONE (13:08)
[2022-03-12] MEDS ORDERED: ACETAMINOPHEN 325 MG TAB PO ONE (13:17)
--- NOTE | 2022-03-12 13:22 | Short Stay Summary ---
Short Stay Documentation Date of service: 03/12/22 - History Principal diagnosis: right pleural effusion Past Medical History: cancer, ESRD, heart failure - Allergies and Medications Current Medications: Allergies tomato Allergy (Verified 01/05/22 12:48) Itching Home Medications Medication Instructions Recorded Confirmed Last Taken Type Insulin NPH/Regular [NovoLIN 70/30] 25 unit SUB-Q BIDDIAB #2 vial 09/19/20 07/23/21 07/22/21 Rx Multivit-Min/FA/Lycopen/Lutein 1 each PO QDAY 01/15/21 07/23/21 07/22/21 History [Centrum Silver Men Tablet] Apixaban [Eliquis] 2.5 mg PO BID #60 tablet 03/16/21 07/23/21 07/22/21 Rx Pantoprazole [Protonix TAB] 40 mg PO QDAY 04/14/21 07/23/21 07/22/21 History Apixaban [Eliquis] 5 mg PO BID 10/28/21 12/17/21 12/16/21 22:30 History Famotidine [Acid-Pep] 20 mg PO QDAY 10/28/21 12/17/21 12/15/21 09:30 History Insulin NPH/Regular [NovoLIN 70/30] 5 unit SQ BIDDIAB 10/28/21 12/17/21 10/26/21 History Multivitamin/Iron/Folic Acid 1 tab PO QDAY 10/28/21 12/17/21 12/15/21 09:30 History [Centrum Adults Tablet] dimenhyDRINATE [Dramamine] 25 mg PO PRN PRN 10/28/21 12/17/21 12/15/21 21:00 History levoFLOXacin [Levaquin TAB] 500 mg PO Q24HR #2 tablet 10/28/21 12/17/21 12/15/21 Rx Ferrous Sulfate [Iron 325 MG] 325 mg PO QDAY #30 tab 01/06/22 Unknown Rx Metoprolol [Lopressor TAB] 25 mg PO BID #60 tab 01/06/22 Unknown Rx Tamsulosin [Flomax] 0.4 mg PO QDAY #30 cap 01/06/22 Unknown Rx Active Medications Acetaminophen (Acetaminophen 325 Mg Tab) 1,000 mg PO ONCE ONE Stop: 03/12/22 13:18 - Physical exam General appearance: mild distress Lungs: Other (decreased breath sounds of right) - Brief post op/procedure progress note Date of procedure: 03/12/22 Pre-op diagnosis: right pleural effusioin Post-op diagnosis: same Procedure: US thoracentesis Anesthesia: local Findings: moderate blood tinged right pleural effusion Surgeon: CAYLA CHRISTIE Estimated blood loss: none Pathology: list (120cc) Specimen disposition: to lab Condition: stable - Hospital course Hospital course: pt experienced mild right chest pain after procedure. chest xray ordered. pain meds given. - Disposition Condition at discharge: Good Disposition: 01 HOME / SELF CARE / HOMELESS Short Stay Discharge Plan Follow up with: WALE RAGLAND MD [Primary Care Provider] - 7 Days
[2022-03-12] MEDS ORDERED: ACETAMINOPHEN 500 MG TAB PO NR (13:30)
--- NOTE | 2022-03-12 14:48 | Ultrasound Report ---
ULTRASOUND-GUIDED THORACENTESIS HISTORY: pleural effusion. COMPARISON: Chest x-ray performed 01/05/2022 PROCEDURE: The risks (including but not limited to bleeding, infection, and pneumothorax) and benefi ts were explained to the patient and informed consent was obtained. A time out procedure was perform ed. Ultrasound was used to evaluate the right pleural effusion and locate the optimal site for needle ent ry. Once the skin was marked, the procedure site was prepped and draped in the usual sterile fashion and lidocaine was used for local anesthesia. A 5-Pashto thoracentesis catheter was placed. The pat ient was monitored closely throughout the procedure, and a total of 1020 mL of blood-tinged fluid was aspirated. Samples were sent to the lab for further evaluation per the primary clinicians orders. The patient tolerated the procedure well with no complications. A post-procedure chest x-ray was imm ediately ordered. IMPRESSION: Successful thoracentesis as above with a total of 1020 mL of blood-tinged fluid aspirated . Signer Name: Duong Kaur Jr, MD Signed: 03/12/2022 2:44 PM Workstation Name: [id number]
--- NOTE | 2022-03-12 14:49 | XRay Report ---
CHEST 1 VIEW 03/12/2022 1:32 PM INDICATION / CLINICAL INFORMATION: post thoracentesis. COMPARISON: 01/05/2022 FINDINGS: SUPPORT DEVICES: None. HEART / MEDIASTINUM: No significant abnormality. LUNGS / PLEURA: Recent ultrasound-guided right thoracentesis was performed. Near complete evacuation of the right pleural effusion is demonstrated. Trace left pleural effusion is also present. There is compressive atelectasis at the right lung base. No convincing infiltrate. No pneumothorax. ADDITIONAL FINDINGS: No significant additional findings. IMPRESSION: 1. No evidence for pneumothorax following right thoracentesis. Signer Name: Duong aKur Jr, MD Signed: 03/12/2022 2:44 PM Workstation Name: [id number]
[2022-03-12 15:21] VITALS: BP 113/32
[2022-03-12 19:13] LABS: Total Cells Counted 100 /mm3
== END 2022-03-12 15:23 | disposition home or self-care (01) ==
LOC: CATHLABREC 08:49 → EDSTATUS 09:00 → CATHLABREC 15:23
PROVIDERS: ATTEND Internal Medicine
DX: J90 Pleural effusion, not elsewhere classified (principal); I13.2 Hypertensive heart and chronic kidney disease with heart failure and with stage 5 chronic kidney disease, or end stage renal disease; I50.9 Heart failure, unspecified; E11.22 Type 2 diabetes mellitus with diabetic chronic kidney disease; N18.6 End stage renal disease; I48.91 Unspecified atrial fibrillation; I42.9 Cardiomyopathy, unspecified; K21.9 Gastro-esophageal reflux disease without esophagitis; M19.90 Unspecified osteoarthritis, unspecified site; D64.9 Anemia, unspecified; Z98.49 Cataract extraction status, unspecified eye; Z87.01 Personal history of pneumonia (recurrent); Z99.2 Dependence on renal dialysis; Z79.4 Long term (current) use of insulin; Z88.8 Allergy status to other drugs, medicaments and biological substances; Z79.899 Other long term (current) drug therapy; Z98.890 Other specified postprocedural states; Z87.440 Personal history of urinary (tract) infections; Z91.81 History of falling
CPT/HCPCS: 32555; 36415; 71045; 80053; 82150; 82947; 83605; 83615; 84160; 85025; 85610; 85730; 87102; 87205; 87220; 89051